=== PATIENT | female | born 1985 | race Caucasian/White ===

== ENCOUNTER 2022-10-07 09:24 | Outpatient (OUT) | payer MEDICAID, SELFPAY ==
--- NOTE | 2022-10-07 09:38 | XR_ITS ---
The [place] [id number] Patient Name: CATIE LYONS MRN: [id number] date: 1985 Sex: F Assigned Patient Location: US Current Patient Location: US Accession/Order Number: [id number] Exam Date: 10/07/2022 10:07 Report Date: 10/07/2022 12:04 At the request of: BETITO TITUS Procedure: XR abdomen 1V EXAMINATION: XR abdomen 1V HISTORY: Ureteral Stone With Hydronephrosis N13.2, Kidney Stone N20.0 COMPARISON: No relevant comparison available. FINDINGS: KIDNEY/URETER - RIGHT: Punctate calcifications KIDNEY/URETER - LEFT: Punctate calcifications PELVIS: 4 mm left pelvic calcification, indeterminate BOWEL: No abnormal dilation or deviation. BONES: No acute abnormality. OTHER: Limited exam, the upper abdomen is not visualized XR/XR abdomen 1V IMPRESSION: Punctate bilateral nephrolithiasis Electronically authenticated by: ROB CHACON Date: 10/07/2022 12:04
--- NOTE | 2022-10-07 09:38 | US_ITS ---
The [address] [address] Patient Name: CATIE LYONS MRN: [id number] date: 1985 Sex: F Assigned Patient Location: Current Patient Location: US Accession/Order Number: [id number] Exam Date: 10/07/2022 09:40 Report Date: 10/07/2022 10:41 At the request of: BETITO TITUS Procedure: US renal BI Ultrasound kidneys, bilateral HISTORY: Ureteral Stone With Hydronephrosis N13.2, Kidney Stone N20.0 COMPARISON: None. TECHNIQUE: Transabdominal ultrasound imaging of both kidneys was performed. FINDINGS: Both kidneys demonstrate normal echotexture and echogenicity. The right kidney measures 9.8 x 5.3 x 5.4 cm. Renal cortex measures 0.8 cm. There is a lower pole cyst measuring 1.7 x 1.5 x 1.6 cm. An echogenic structure at the upper pole measuring 4 x 4 by 4 mm with twinkle artifact compatible with a small nonobstructing stone. There is no hydronephrosis of right kidney. The left kidney measures 10.7 x 4.9 x 5.9 cm. Renal cortex measures 1.0 cm. No hydronephrosis of left kidney. There are at least 3 small nonobstructing stones in the left kidney, largest measuring 5 mm. The bladder is incompletely distended and not well evaluated. Prevoid volume is 47 cc. US/US renal BI IMPRESSION: 1. Negative for hydronephrosis. Small nonobstructing bilateral nephrolithiasis, largest stone 5 mm in left kidney. 2. 1.7 cm right renal cyst. Electronically authenticated by: SIMÓN ROBERTS Date: 10/07/2022 10:41
== END 2022-10-07 09:25 | disposition home or self-care (01) ==
LOC: US 09:24
PROVIDERS: Visit Provider Urology
DX: N13.2 Hydronephrosis with renal and ureteral calculous obstruction (principal); N28.1 Cyst of kidney, acquired
CPT/HCPCS: 74018; 76775

== ENCOUNTER 2023-03-06 11:30 | Emergency (ER) | payer MEDICAID, SELFPAY ==
[2023-03-06] VITALS (14 sets, daily range): BP systolic 102–136; BP diastolic 71–88; PULSE 92–130; RESP 12–23; TEMP 36.6; O2SAT 93–98; BMI 36.5
--- NOTE | 2023-03-06 11:45 | ECG_ITS ---
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
--- NOTE | 2023-03-06 11:46 | XR_ITS ---
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 CLINICAL INDICATION: 37 years Female tachycardia, shortness of breath FINDINGS: The lower aspect of the exam is somewhat underpenetrated on this portable upright view. The cardiomediastinal silhouette and pulmonary vasculature are within normal limits. The lungs are clear. There is no evidence of pleural effusion or pneumothorax. XR/XR chest 1V IMPRESSION: Chest radiograph is within normal limits. Slightly Limited portable AP upright chest radiograph. Electronically authenticated by: MILES ISRAEL Date: 03/06/2023 12:31
--- NOTE | 2023-03-06 11:49 | ED.GENADUL1 ---
HPI - General Adult General Chief complaint: Shortness of Breath/Dyspnea Stated complaint: SHORTNESS OF BREATH Time Seen by Provider: 03/06/23 11:38 Source: patient Mode of arrival: walk-in History of Present Illness HPI narrative: Last night patient experienced palpitations - racing heart - and twice felt like she was going to pass out. She admits to continued sensation of palpitations on arrival to our ED. She also complains of shortness of breath - both at rest and with exertion - and complained that her speech seemed slurred today . No fever or chills. No vomiting or diarrhea. No abdominal pain or urinary symptoms. Related Data Home Medications Medication Instructions Recorded Confirmed benztropine 0.5 mg tablet 0.5 mg PO BID 03/06/23 03/06/23 buprenorphine 8 mg-naloxone 2 mg 1 film sublingual .2 times week 03/06/23 03/06/23 sublingual film buspirone 30 mg tablet 30 mg PO TID 03/06/23 03/06/23 Allergies Allergy/AdvReac Type Severity Reaction Status Date / Time No Known Drug Allergies Allergy Verified 03/06/23 11:39 [facility] Medical History (Updated 03/06/23 @ 12:48 by Steve Pritchard) Anxiety ?F41.9 - Anxiety disorder, unspecified (ICD-10) Kidney stones ?N20.0 - Calculus of kidney (ICD-10) Exam Narrative Exam Narrative: Nurses notes and vital signs reviewed and patient is not hypoxic. afebrile General: anxious but in no apparent distress. Skin: Warm, dry, no pallor noted. No rash. Head: Normocephalic, atraumatic. Neck: Supple, non-tender. No lymphadenopathy Eye: Pupils are equal, round and EOMI. No scleral icterus. Ears, Nose, Mouth, and Throat: Oral mucosa is moist Cardiovascular: Tachycardia. Respiratory: No accessory muscle use or respiratory distress. Lungs are clear to auscultation, no wheezing, rales or rhonchi Musculoskeletal: normal ROM, no calf or popliteal tenderness, no lower extremity edema/swelling GI: Abdomen is soft, non-distended. Normal bowel sounds. No tenderness to palpation. No rebound, guarding, or rigidity noted. Neurological: A&O x4. No cranial nerve dysfunction observed. No truncal ataxia. Moves all extremities. Sensation intact. Psychiatric: Cooperative and interactive. Normal mood and affect. Constitutional Vital Signs, click to edit/add: Last Vital Signs Temp 97.9 F 03/06/23 11:36 Pulse 96 H 03/06/23 12:36 Resp 15 03/06/23 12:26 BP 102/71 03/06/23 12:36 Pulse Ox 97 03/06/23 11:40 O2 Del Method Room Air 03/06/23 11:36 Course Vital Signs Vital signs: Vital Signs Temperature 97.9 F 03/06/23 11:36 Pulse Rate 130 H 03/06/23 11:36 Respiratory Rate 22 03/06/23 11:36 Blood Pressure 136/88 03/06/23 11:36 Pulse Oximetry 98 03/06/23 11:36 Oxygen Delivery Method Room Air 03/06/23 11:36 Temperature 97.9 F 03/06/23 11:36 Pulse Rate 96 H 03/06/23 12:36 Respiratory Rate 15 03/06/23 12:26 Blood Pressure 102/71 03/06/23 12:36 Pulse Oximetry 97 03/06/23 11:40 Oxygen Delivery Method Room Air 03/06/23 11:36 Medical Decision Making MDM Narrative Medical decision making narrative: Patient was placed on court recording monitor and EKG obtained. Blood drawn and sent for evaluation. Chest x-ray was obtained. Blood tests were normal with the exception of slightly reduced potassium of 3.3. She was given oral potassium in the emergency department for discharge. She was given reassurance and discharged home with recommendation to continue take her medications as prescribed and see her primary care physician for follow-up. Lab Data Lab results reviewed: Yes I reviewed the patient's lab results Labs: Lab Results 03/06/23 Range/Units 12:02 WBC 7.8 (4.0-11.0) 10^3/uL RBC 4.49 (4.20-5.40) 10^6/uL Hgb 13.1 (12.0-16.0) g/dL Hct 39.6 (36.0-48.0) % MCV 88.2 (81.0-99.0) fL MCH 29.2 (26.7-34.0) pg MCHC 33.1 (29.9-35.2) g/dL RDW 13.8 (11.0-15.0) % Plt Count 266 (150-450) 10^3/uL MPV 8.7 L (9.5-13.5) fL Neut % (Auto) 53.3 (43.0-75.0) % Lymph % (Auto) 35.3 (20.5-60.0) % [place] % (Auto) 7.5 (1.7-12.0) % Eos % (Auto) 3.0 (0.9-7.0) % Baso % (Auto) 0.6 (0.2-2.0) % Neut # (Auto) 4.1 (1.4-6.5) 10^3/uL Lymph # (Auto) 2.7 (1.2-3.8) 10^3/uL [place] # (Auto) 0.6 (0.3-0.8) 10^3/uL Eos # (Auto) 0.2 (0.0-0.7) 10^3/uL Baso # (Auto) 0.1 (0.0-0.1) 10^3/uL Abs Immat Gran (auto) 0.02 (0.00-0.03) 10^3/uL Imm/Tot Granulo (auto) 0.3 (0.0-0.5) % D-Dimer 0.36 (<=0.59) mg/L FEU Sodium 136 (136-145) mmol/L Potassium 3.3 L (3.5-5.1) mmol/L Chloride 101 (98-107) mmol/L Carbon Dioxide 26.7 (21.0-32.0) mmol/L Anion Gap 11.6 BUN 12.0 (7.0-18.0) mg/dL Creatinine 0.75 (0.55-1.02) mg/dL Est GFR ( Amer) >60 (>=60) Est GFR (Non-Af Amer) >60 (>=60) BUN/Creatinine Ratio 16.0 Glucose 115 H (74-106) mg/dL Lactate 1.5 (0.4-2.0) mmol/L Calcium 9.2 (8.5-10.1) mg/dL Magnesium 2.1 (1.8-2.4) mg/dL Total Bilirubin 0.1 L (0.2-1.0) mg/dL AST 13 L (15-37) U/L ALT 25 (14-59) U/L Alkaline Phosphatase 114 (46-116) U/L Troponin I High Sens <4.0 L (4.0-51.3) pg/mL Total Protein 7.7 (6.4-8.2) g/dL Albumin 3.5 (3.4-5.0) g/dL Globulin 4.2 g/dL Albumin/Globulin Ratio 0.8 TSH 1.201 (0.358-3.740) uIU/mL Imaging Data Chest x-ray: Radiologist's impression: Patient Name: CATIE LYONS MRN: [id number] date: 1985 Sex: F Assigned Patient Location: ER Current Patient Location: ER Accession/Order Number: [id number] Exam Date: 03/06/2023 12:10 Report Date: 03/06/2023 12:31 At the request of: STEVE PRITCHARD Procedure: XR chest 1V PROCEDURE: XR chest 1V DATE: 03/06/2023 11:10 AM 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 CLINICAL INDICATION: 37 years Female tachycardia, shortness of breath FINDINGS: The lower aspect of the exam is somewhat underpenetrated on this portable upright view. The cardiomediastinal silhouette and pulmonary vasculature are within normal limits. The lungs are clear. There is no evidence of pleural effusion or pneumothorax. IMPRESSION: Chest radiograph is within normal limits. Slightly Limited portable AP upright chest radiograph. Electronically authenticated by: MILES ISRAEL Date: 03/06/2023 12:31 ECG Data Attestation: I personally reviewed and interpreted this ECG as follows: Interpretation: EKG interpretation: Emergency Department physician interpretation. Sinus tachycardia at 117bpm. Normal axis, short QTc intervals and non-specific T wave changes. no ST segment elevation or depression. Discharge Plan Discharge Chief Complaint: Shortness of Breath/Dyspnea Clinical Impression: Tachycardia, Acute hypokalemia Patient Disposition: Home, Self-Care Time of Disposition Decision: 12:48 Prescriptions / Home Meds: No Action benztropine 0.5 mg tablet 0.5 mg PO BID buprenorphine-naloxone 8-2 mg film 1 film sublingual .2 times week buspirone 30 mg tablet 30 mg PO TID Instructions: Hypokalemia (ED), Tachycardia (ED) Stand Alone Forms: Portal Instructions Referrals: Physician,Non-Staff, MD [Primary Care Provider] - 1 week
[2023-03-06 12:17] LABS: Basophils Absolute Auto 0.1 10^3/uL (0.0-0.1); Basophils Percent Auto 0.6 % (0.2-2.0); Eosinophils Absolute Auto 0.2 10^3/uL (0.0-0.7); Hematocrit 39.6 % (36.0-48.0); Hemoglobin 13.1 g/dL (12.0-16.0); Immature Granulocytes Abs Auto 0.02 10^3/uL (0.00-0.03); Immature Granulocytes Pct Auto 0.3 % (0.0-0.5); Lymphocytes Absolute Auto 2.7 10^3/uL (1.2-3.8); Lymphocytes Percent Auto 35.3 % (20.5-60.0); Mean Corpuscular HGB Conc 33.1 g/dL (29.9-35.2); Mean Corpuscular Hemoglobin 29.2 pg (26.7-34.0); Mean Corpuscular Volume 88.2 fL (81.0-99.0); Mean Platelet Volume 8.7 fL (9.5-13.5); Monocytes Absolute Auto 0.6 10^3/uL (0.3-0.8); Monocytes Percent Auto 7.5 % (1.7-12.0); Neutrophils Absolute Auto 4.1 10^3/uL (1.4-6.5); Neutrophils Percent Auto 53.3 % (43.0-75.0); Platelet Count 266 10^3/uL (150-450); Red Blood Count 4.49 10^6/uL (4.20-5.40); Red Cell Distribution Width 13.8 % (11.0-15.0); White Blood Count 7.8 10^3/uL (4.0-11.0)
[2023-03-06 12:28] LABS: D Dimer 0.36 mg/L FEU (<=0.59)
[2023-03-06 12:30] LABS: Alanine Aminotransferase 25 U/L (14-59); Albumin Globulin Ratio 0.8; Albumin Level 3.5 g/dL (3.4-5.0); Alkaline Phosphatase 114 U/L (46-116); Anion Gap 11.6; Aspartate Amino Transferase 13 U/L (15-37); Bilirubin Total 0.1 mg/dL (0.2-1.0); Calcium 9.2 mg/dL (8.5-10.1); Carbon Dioxide 26.7 mmol/L (21.0-32.0); Chloride 101 mmol/L (98-107); Estimated GFR (African America >60 (>=60); Estimated GFR (Non-African Ame >60 (>=60); Globulin 4.2 g/dL; Glucose 115 mg/dL (74-106); Magnesium 2.1 mg/dL (1.8-2.4); Potassium 3.3 mmol/L (3.5-5.1); Sodium 136 mmol/L (136-145); Total Protein 7.7 g/dL (6.4-8.2)
[2023-03-06 12:35] LABS: Lactate/Lactic Acid 1.5 mmol/L (0.4-2.0)
[2023-03-06 12:38] LABS: Thyroid Stimulating Hormone 1.201 uIU/mL (0.358-3.740); Troponin I High Sensitivity <4.0 pg/mL (4.0-51.3)
[2023-03-06] MEDS: POTASSIUM CHLORIDE 10 MEQ ER TABLET 40 MEQ PO (13:16)
[2023-03-06] MEDS: POTASSIUM CHLORIDE 10 MEQ ER TABLET PO (13:25)
== END 2023-03-06 13:28 | disposition home or self-care (01) ==
PROVIDERS: Emergency Provider Emergency Medicine
DX: E87.6 Hypokalemia (principal); R00.0 Tachycardia, unspecified; Z79.899 Other long term (current) drug therapy; F41.9 Anxiety disorder, unspecified; Z87.442 Personal history of urinary calculi
CPT/HCPCS: 36415; 71045; 80053; 83605; 83735; 84443; 84484; 85025; 85378; 87040; 93005; 99285

== ENCOUNTER 2023-10-11 12:07 | Outpatient (OUT) | payer MEDICAID, SELFPAY ==
[2023-10-11 12:36] LABS: Basophils Percent Auto 0.5 % (0.2-2.0); Eosinophils Absolute Auto 0.2 10^3/uL (0.0-0.7); Eosinophils Percent Auto 1.7 % (0.9-7.0); Hematocrit 43.5 % (36.0-48.0); Hemoglobin 14.9 g/dL (12.0-16.0); Immature Granulocytes Abs Auto 0.03 10^3/uL (0.00-0.03); Immature Granulocytes Pct Auto 0.3 % (0.0-0.5); Lymphocytes Absolute Auto 3.6 10^3/uL (1.2-3.8); Lymphocytes Percent Auto 40.5 % (20.5-60.0); Mean Corpuscular HGB Conc 34.3 g/dL (29.9-35.2); Mean Corpuscular Hemoglobin 30.3 pg (26.7-34.0); Mean Corpuscular Volume 88.4 fL (81.0-99.0); Mean Platelet Volume 8.7 fL (9.5-13.5); Monocytes Absolute Auto 0.5 10^3/uL (0.3-0.8); Neutrophils Absolute Auto 4.5 10^3/uL (1.4-6.5); Platelet Count 291 10^3/uL (150-450); Red Blood Count 4.92 10^6/uL (4.20-5.40); Red Cell Distribution Width 12.9 % (11.0-15.0); White Blood Count 8.9 10^3/uL (4.0-11.0)
[2023-10-11 12:58] LABS: Estimated Average Glucose 103 mg/dL; Glycohemoglobin A1C 5.2 % (4.5-6.2)
[2023-10-11 13:24] LABS: Alanine Aminotransferase 33 U/L (14-59); Albumin Level 3.7 g/dL (3.4-5.0); Alkaline Phosphatase 133 U/L (46-116); Anion Gap 8.6; Aspartate Amino Transferase 18 U/L (15-37); BUN Creatinine Ratio 15.8; Bilirubin Total 0.3 mg/dL (0.2-1.0); Calcium 9.2 mg/dL (8.5-10.1); Carbon Dioxide 30.9 mmol/L (21.0-32.0); Chloride 99 mmol/L (98-107); Chol HDL Ratio 6.3; Cholesterol 278 mg/dL (<=200); Estimated GFR (African America >60 (>=60); Estimated GFR (Non-African Ame >60 (>=60); Free T3 2.26 pg/mL (2.18-3.98); Globulin 3.8 g/dL; Glucose 90 mg/dL (74-106); HDL Cholesterol 44 mg/dL (40-60); Potassium 3.5 mmol/L (3.5-5.1); Sodium 135 mmol/L (136-145); Thyroid Stimulating Hormone 2.902 uIU/mL (0.358-3.740); Total Protein 7.5 g/dL (6.4-8.2); Triglycerides 308 mg/dL (<=150); VLDL CHOLESTEROL 61.6 mg/dL
[2023-10-12 10:13] LABS: Insulin 17.4 uIU/mL (2.6-24.9)
== END 2023-10-11 12:08 | disposition home or self-care (01) ==
LOC: LAB 12:09
PROVIDERS: Visit Provider Nurse Practitioner Family
DX: R00.0 Tachycardia, unspecified (principal)
CPT/HCPCS: 36415; 80053; 80061; 82306; 83036; 83525; 84436; 84443; 84481; 85025

== ENCOUNTER 2023-11-18 08:43 | Outpatient (OUT) | payer MEDICAID, SELFPAY ==
[2023-11-18 09:29] LABS: Alanine Aminotransferase 39 U/L (14-59); Albumin Level 3.6 g/dL (3.4-5.0); Alkaline Phosphatase 126 U/L (46-116); Anion Gap 13.4; Aspartate Amino Transferase 40 U/L (15-37); BUN Creatinine Ratio 10.5; Bilirubin Total 0.2 mg/dL (0.2-1.0); Calcium 9.5 mg/dL (8.5-10.1); Carbon Dioxide 27.8 mmol/L (21.0-32.0); Chloride 102 mmol/L (98-107); Cholesterol 225 mg/dL (<=200); Estimated GFR (African America >60 (>=60); Estimated GFR (Non-African Ame >60 (>=60); Globulin 3.6 g/dL; Glucose 106 mg/dL (74-106); HDL Cholesterol 45 mg/dL (40-60); Potassium 4.2 mmol/L (3.5-5.1); Sodium 139 mmol/L (136-145); Thyroid Stimulating Hormone 1.393 uIU/mL (0.358-3.740); Total Protein 7.2 g/dL (6.4-8.2); Triglycerides 240 mg/dL (<=150)
== END 2023-11-18 08:44 | disposition home or self-care (01) ==
LOC: LAB 08:43
PROVIDERS: PCP Nurse Practitioner Family; Visit Provider Nurse Practitioner Family
DX: R00.2 Palpitations (principal)
CPT/HCPCS: 36415; 80053; 80061; 84436; 84443; 84481

== ENCOUNTER 2023-11-30 12:21 | Outpatient (OUT) | payer MEDICAID, SELFPAY ==
--- NOTE | 2023-11-30 12:47 | XR_ITS ---
The [address] [address] Patient Name: CATIE LYONS MRN: [id number] date: 1985 Sex: F Assigned Patient Location: LAB Current Patient Location: Accession/Order Number: [id number] Exam Date: 11/30/2023 12:53 Report Date: 12/01/2023 10:28 At the request of: WALT SIMS Procedure: XR chest 2V EXAMINATION: XR chest 2V HISTORY: F17.2 Smoking COMPARISON: XR chest 03/06/2023 FINDINGS: LUNGS: Mild haziness within left lung base partially obscuring the lateral diaphragm margin and obscuring the left lateral costophrenic angle. VASCULATURE: No increased pulmonary vasculature. PLEURA: No pneumothorax, effusion, or pleural thickening. CARDIAC: No cardiomegaly or cardiac silhouette abnormality. MEDIASTINUM: No visible mass or adenopathy. BONES: No fracture or visible bone lesion. OTHER: Negative. XR/XR chest 2V IMPRESSION: 1. Low lung volume examination with mild left basilar infiltrates; < previously seen. Electronically authenticated by: HILDA RUBIO Date: 12/01/2023 10:28
[2023-11-30 13:26] LABS: C Reactive Protein 1.52 mg/dL (<=0.50); Uric Acid 4.1 mg/dL (2.6-6.0)
[2023-12-01 04:08] LABS: Antistreptolysin O Ab 93.2 IU/mL (0.0-200.0); Rheumatoid Factor (RF) <10.0 IU/mL (<14.0)
== END 2023-11-30 12:22 | disposition home or self-care (01) ==
LOC: LAB 12:25
PROVIDERS: PCP Nurse Practitioner Family; Visit Provider Nurse Practitioner Family
DX: F17.200 Nicotine dependence, unspecified, uncomplicated (principal); M25.50 Pain in unspecified joint
CPT/HCPCS: 36415; 71046; 84550; 86038; 86060; 86140; 86431

== ENCOUNTER 2023-12-14 14:14 | Outpatient (OUT) | payer MEDICAID, SELFPAY ==
--- NOTE | 2023-12-14 14:21 | XR_ITS ---
The [address] [address] Patient Name: CATIE LYONS MRN: [id number] date: 1985 Sex: F Assigned Patient Location: [facility] Current Patient Location: Accession/Order Number: [id number] Exam Date: 12/14/2023 14:25 Report Date: 12/16/2023 06:17 At the request of: WALT SIMS Procedure: XR knee LAYNE 2V EXAMINATION: XR tibia fibula LAYNE 2V, XR knee LAYNE 2V HISTORY: Bilateral Leg Pain and burning sensation COMPARISON: No relevant comparison available. FINDINGS: RIGHT FINDINGS: BONES: No significant arthropathy or acute abnormality. SOFT TISSUES: No visible soft tissue swelling. OTHER: Negative. LEFT FINDINGS: BONES: No significant arthropathy or acute abnormality. SOFT TISSUES: No visible soft tissue swelling. OTHER: Negative. XR/XR knee LAYNE 2V IMPRESSION: RIGHT CONCLUSION: No abnormal or suspicious findings to account for patient's symptoms. LEFT CONCLUSION: No abnormal or suspicious findings to account for patient's symptoms. Electronically authenticated by: HILDA RUBIO Date: 12/16/2023 06:17
--- NOTE | 2023-12-14 14:21 | XR_ITS ---
The [address] [address] Patient Name: CATIE LYONS MRN: [id number] date: 1985 Sex: F Assigned Patient Location: [facility] Current Patient Location: Accession/Order Number: [id number] Exam Date: 12/14/2023 14:25 Report Date: 12/16/2023 06:17 At the request of: WALT SIMS Procedure: XR tibia fibula LAYNE 2V EXAMINATION: XR tibia fibula LAYNE 2V, XR knee LAYNE 2V HISTORY: Bilateral Leg Pain and burning sensation COMPARISON: No relevant comparison available. FINDINGS: RIGHT FINDINGS: BONES: No significant arthropathy or acute abnormality. SOFT TISSUES: No visible soft tissue swelling. OTHER: Negative. LEFT FINDINGS: BONES: No significant arthropathy or acute abnormality. SOFT TISSUES: No visible soft tissue swelling. OTHER: Negative. XR/XR tibia fibula LAYNE 2V IMPRESSION: RIGHT CONCLUSION: No abnormal or suspicious findings to account for patient's symptoms. LEFT CONCLUSION: No abnormal or suspicious findings to account for patient's symptoms. Electronically authenticated by: HILDA RUBIO Date: 12/16/2023 06:17
== END 2023-12-14 14:15 | disposition home or self-care (01) ==
LOC: RAD 14:17
PROVIDERS: PCP Nurse Practitioner Family; Visit Provider Nurse Practitioner Family
DX: M79.604 Pain in right leg (principal); M79.605 Pain in left leg
CPT/HCPCS: 73560; 73590

== ENCOUNTER 2023-12-17 11:08 | Emergency (ER) | payer MEDICAID, SELFPAY ==
[2023-12-17 11:12] VITALS: BP 139/87; PULSE 125; O2SAT 95; BMI 35.2
--- NOTE | 2023-12-17 11:25 | ECG_ITS ---
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
--- NOTE | 2023-12-17 11:25 | XR_ITS ---
The [address] [address] Patient Name: CATIE LYONS MRN: [id number] date: 1985 Sex: F Assigned Patient Location: ER Current Patient Location: ED.MAIN Accession/Order Number: [id number] Exam Date: 12/17/2023 11:35 Report Date: 12/17/2023 11:48 At the request of: YODIT ANDREA Procedure: XR chest 1V EXAM: CHEST 1 VIEW HISTORY: Peripheral edema TECHNIQUE: Chest, one view. COMPARISON: 03/06/2023 FINDINGS: Mild bibasilar atelectasis with trace bilateral pleural effusions. No consolidation or pneumothorax. Pulmonary vasculature is within normal limits. Cardiomediastinal silhouette is normal. XR/XR chest 1V IMPRESSION: 1. Expiratory chest with tiny bilateral effusions. No consolidation. No findings of pulmonary edema. Electronically authenticated by: SIMÓN ROBERTS Date: 12/17/2023 11:48
--- NOTE | 2023-12-17 11:25 | ED.GENADUL1 ---
HPI HPI - General Adult General Chief complaint: Chest Pain Stated complaint: BILTERAL LEG SWELLING/ CHEST PAIN Time Seen by Provider: 12/17/23 11:21 Source: patient Mode of arrival: walk-in Limitations: no limitations History of Present Illness HPI narrative: 38-year-old female presents for swelling in her feet and ankles and lower legs that started yesterday. She states sometimes she is short of breath but not now. She is never had swelling like this before. No fever or cough. She does not complain of back pain or abdominal pain. The swelling is continuous. Related Data Home Medications ?Medication ?Instructions ?Recorded ?Confirmed buprenorphine 8 mg-naloxone 2 mg 1 film sublingual .2 times week 03/06/23 12/17/23 sublingual film buspirone 30 mg tablet 30 mg PO TID 03/06/23 12/17/23 Previous Rx's ?Medication ?Instructions ?Recorded furosemide 20 mg tablet (Lasix) 20 mg PO DAILY #7 tabs 12/17/23 Allergies Allergy/AdvReac Type Severity Reaction Status Date / Time No Known Drug Allergies Allergy Verified 03/06/23 11:39 Opioid HPI Opioid Management Most Recent Opioid Data: Last Pain Scale 8 12/17/23 11:27 Review of Systems ROS Narrative A ten point review of systems is negative except as noted above. [facility] Medical History (Updated 12/17/23 @ 13:51 by Mathew Rosenthal MD) Anxiety ?F41.9 - Anxiety disorder, unspecified (ICD-10) Kidney stones ?N20.0 - Calculus of kidney (ICD-10) Social History Little interest or pleasure in doing things: not at all Feeling down, depressed, or hopeless: not at all Exam Narrative Exam Narrative: Nurses note and vital signs reviewed and patient is not hypoxic. General: The patient appears in no apparent distress. Patient is resting comfortably on cart. She is speaking in full sentences. She does not appear dyspneic. Skin: Warm, dry, no pallor noted. There is no rash noted. Head: Normocephalic, atraumatic Eye: Normal conjunctiva, no drainage Ears, Nose, Mouth, and Throat: oral mucosa is moist. Nares patent. Cardiovascular: Regular Rate and Rhythm Respiratory: Patient is in no distress, no accessory muscle use, lungs are clear to auscultation, no wheezing, rales or rhonchi Back: non-tender GI: Soft and nontender Musculoskeletal: Symmetric bilateral edema present in her feet ankles and lower legs Neurological: Awake and alert Psychiatric: Cooperative Constitutional Vital Signs, click to edit/add: Last Vital Signs Pulse 125 H 12/17/23 11:12 Resp 18 12/17/23 13:52 BP 139/87 12/17/23 11:12 Pulse Ox 98 12/17/23 13:52 O2 Del Method Room Air 12/17/23 13:52 Course Vital Signs Vital signs: Vital Signs Pulse Rate 125 H 12/17/23 11:12 Respiratory Rate 18 12/17/23 11:12 Blood Pressure 139/87 12/17/23 11:12 Pulse Oximetry 95 12/17/23 11:12 Oxygen Delivery Method Room Air 12/17/23 11:12 Pulse Rate 125 H 12/17/23 11:12 Respiratory Rate 18 12/17/23 13:52 Blood Pressure 139/87 12/17/23 11:12 Pulse Oximetry 98 12/17/23 13:52 Oxygen Delivery Method Room Air 12/17/23 13:52 Medical Decision Making MDM Narrative Medical decision making narrative: The patient presents with peripheral edema and a negative workup. She is placed on a short course of Lasix and she will follow-up promptly with her PCP to elevate her legs. Treatment diagnosis and follow-up were discussed with the patient. Differential Diagnosis Differential Diagnosis: Peripheral edema, acute kidney injury, heart failure, hypoalbuminemia Lab Data Lab results reviewed: Yes I reviewed the patient's lab results Labs: Lab Results 12/17/23 12/17/23 Range/Units 11:25 12:45 WBC 9.3 (4.0-11.0) 10^3/uL RBC 4.81 (4.20-5.40) 10^6/uL Hgb 14.4 (12.0-16.0) g/dL Hct 42.9 (36.0-48.0) % MCV 89.2 (81.0-99.0) fL MCH 29.9 (26.7-34.0) pg MCHC 33.6 (29.9-35.2) g/dL RDW 13.5 (11.0-15.0) % Plt Count 243 (150-450) 10^3/uL MPV 8.8 L (9.5-13.5) fL Neut % (Auto) 59.6 (43.0-75.0) % Lymph % (Auto) 32.0 (20.5-60.0) % [place] % (Auto) 6.3 (1.7-12.0) % Eos % (Auto) 1.5 (0.9-7.0) % Baso % (Auto) 0.3 (0.2-2.0) % Neut # (Auto) 5.5 (1.4-6.5) 10^3/uL Lymph # (Auto) 3.0 (1.2-3.8) 10^3/uL [place] # (Auto) 0.6 (0.3-0.8) 10^3/uL Eos # (Auto) 0.1 (0.0-0.7) 10^3/uL Baso # (Auto) 0.0 (0.0-0.1) 10^3/uL Abs Immat Gran (auto) 0.03 (0.00-0.03) 10^3/uL Imm/Tot Granulo (auto) 0.3 (0.0-0.5) % Sodium 137 (136-145) mmol/L Potassium 3.7 (3.5-5.1) mmol/L Chloride 101 (98-107) mmol/L Carbon Dioxide 27.4 (21.0-32.0) mmol/L Anion Gap 12.3 BUN 8.0 (7.0-18.0) mg/dL Creatinine 0.73 (0.55-1.02) mg/dL Est GFR ( Amer) >60 (>=60) Est GFR (Non-Af Amer) >60 (>=60) BUN/Creatinine Ratio 11.0 Glucose 121 H (74-106) mg/dL Calcium 9.4 (8.5-10.1) mg/dL Total Bilirubin 0.2 (0.2-1.0) mg/dL Direct Bilirubin <0.1 (0.0-0.2) mg/dL AST 22 (15-37) U/L ALT 35 (14-59) U/L Alkaline Phosphatase 117 H (46-116) U/L Total Protein 7.2 (6.4-8.2) g/dL Albumin 3.5 (3.4-5.0) g/dL Globulin 3.7 g/dL Albumin/Globulin Ratio 0.9 Urine Color Yellow (YELLOW) Urine Clarity Clear (CLEAR) Urine pH 6.0 (5.0-9.0) Ur Specific [place] >=1.030 A (1.005-1.025) Urine Protein Negative (NEG/TRACE) mg/dL Urine Glucose (UA) Negative (NEGATIVE) mg/dL Urine Ketones Negative (NEGATIVE) mg/dL Urine Occult Blood Negative (NEGATIVE) Urine Nitrite Negative (NEGATIVE) Urine Bilirubin Negative (NEGATIVE) Urine Urobilinogen 0.2 (0.2-1.0) EU/dL Ur Leukocyte Esterase Negative (NEGATIVE) Urine RBC None seen (0-2) #/HPF Urine WBC 0-2 A (NONE SEEN) #/HPF Ur Squamous Epith Cells Many A (NONE/RARE) #/LPF Urine Bacteria Moderate A (NONE SEEN) #/HPF Urine Mucus None seen (NONE SEEN) Ur Culture Indicated? No Imaging Data Chest x-ray: Radiologist's impression: ITS Impressions Chest X-Ray 12/17/23 11:25 IMPRESSION: 1. Expiratory chest with tiny bilateral effusions. No consolidation. No findings of pulmonary edema. Electronically authenticated by: SIMÓN ROBERTS Date: 12/17/2023 11:48 ECG Data Attestation: I personally reviewed and interpreted this ECG as follows: (EKG on my interpretation shows sinus rhythm with a rate of 119.) Discharge Plan Discharge Chief Complaint: Chest Pain Clinical Impression: Peripheral edema Patient Disposition: Home, Self-Care Time of Disposition Decision: 13:51 Condition: Good Mode of Transportation: Private Vehicle Prescriptions / Home Meds: New furosemide [Lasix] 20 mg tablet 20 mg PO DAILY Qty: 7 0RF No Action buprenorphine-naloxone 8-2 mg film 1 film sublingual .2 times week buspirone 30 mg tablet 30 mg PO TID Print Language: Mohawk Instructions: Leg Edema (ED) Referrals: WALT SIMS [Primary Care Provider] - 1 week
[2023-12-17 11:32] LABS: Basophils Percent Auto 0.3 % (0.2-2.0); Eosinophils Absolute Auto 0.1 10^3/uL (0.0-0.7); Eosinophils Percent Auto 1.5 % (0.9-7.0); Hematocrit 42.9 % (36.0-48.0); Hemoglobin 14.4 g/dL (12.0-16.0); Immature Granulocytes Abs Auto 0.03 10^3/uL (0.00-0.03); Immature Granulocytes Pct Auto 0.3 % (0.0-0.5); Mean Corpuscular HGB Conc 33.6 g/dL (29.9-35.2); Mean Corpuscular Hemoglobin 29.9 pg (26.7-34.0); Mean Corpuscular Volume 89.2 fL (81.0-99.0); Mean Platelet Volume 8.8 fL (9.5-13.5); Monocytes Absolute Auto 0.6 10^3/uL (0.3-0.8); Monocytes Percent Auto 6.3 % (1.7-12.0); Neutrophils Absolute Auto 5.5 10^3/uL (1.4-6.5); Neutrophils Percent Auto 59.6 % (43.0-75.0); Platelet Count 243 10^3/uL (150-450); Red Blood Count 4.81 10^6/uL (4.20-5.40); Red Cell Distribution Width 13.5 % (11.0-15.0); White Blood Count 9.3 10^3/uL (4.0-11.0)
[2023-12-17 11:45] LABS: Alanine Aminotransferase 35 U/L (14-59); Albumin Globulin Ratio 0.9; Albumin Level 3.5 g/dL (3.4-5.0); Alkaline Phosphatase 117 U/L (46-116); Anion Gap 12.3; Aspartate Amino Transferase 22 U/L (15-37); Bilirubin Direct <0.1 mg/dL (0.0-0.2); Bilirubin Total 0.2 mg/dL (0.2-1.0); Calcium 9.4 mg/dL (8.5-10.1); Carbon Dioxide 27.4 mmol/L (21.0-32.0); Chloride 101 mmol/L (98-107); Estimated GFR (African America >60 (>=60); Estimated GFR (Non-African Ame >60 (>=60); Globulin 3.7 g/dL; Glucose 121 mg/dL (74-106); Potassium 3.7 mmol/L (3.5-5.1); Sodium 137 mmol/L (136-145); Total Protein 7.2 g/dL (6.4-8.2)
[2023-12-17 13:32] LABS: Bilirubin Urine NEGATIVE (NEGATIVE); Blood Urine NEGATIVE (NEGATIVE); Clarity Urine CLEAR (CLEAR); Color Urine YELLOW (YELLOW); Glucose Urine UA NEGATIVE (NEGATIVE); Ketones Urine NEGATIVE (NEGATIVE); Leukocyte Esterase Urine NEGATIVE (NEGATIVE); Nitrite Urine NEGATIVE (NEGATIVE); Protein Urine NEGATIVE (NEG/TRACE); Specific Gravity Urine >=1.030 (1.005-1.025); Urobilinogen Urine 0.2 EU/dL (0.2-1.0)
[2023-12-17 13:43] LABS: Bacteria Urine MODERATE #/HPF (NONE SEEN); RBC Urine NONE SEEN #/HPF (0-2); WBC Urine 0-2 #/HPF (NONE SEEN)
[2023-12-17 13:44] LABS: Mucus Urine NONE SEEN (NONE SEEN); Squamous Epithelial Cell Urine MANY #/LPF (NONE/RARE)
[2023-12-17 13:46] LABS: Urine Culture Indicated NO
[2023-12-17 13:52] VITALS: O2SAT 98
== END 2023-12-17 13:57 | disposition home or self-care (01) ==
PROVIDERS: Emergency Provider Emergency Medicine; PCP Nurse Practitioner Family
DX: R60.9 Edema, unspecified (principal)
CPT/HCPCS: 36415; 71045; 80048; 80076; 81001; 85025; 93005; 99285

== ENCOUNTER 2024-02-19 14:49 | Emergency (ER) | payer MEDICAID, SELFPAY ==
[2024-02-19 14:52] VITALS: BP 148/79; PULSE 99; TEMP 36.7; O2SAT 96; BMI 35.0
--- OUTSIDE RECORDS SUMMARY | 2024-02-19 14:55 | XMS_ITS | CCD ---
Author Organization [facility] Care Team Providers Care Proposal Development Manager Name Role Phone PHYSICIAN, DEFAULT Admitting Unavailable PHYSICIAN, DEFAULT Attending Unavailable SELF, REFERRED Primary Care Unavailable Lilia Bowden Unavailable Nery Coppola Unavailable Ernestine Little Unavailable NONE, XXXX Primary Care Physician Unavailab le PAY ., DR MONIQUE Attending Unavailable PAY ., DR MONIQUE Consulting Unavailable PAY ., DR MONIQUE Admitting Unavailable REQUEST, NONE LISTED Primary Care Unavaila ble PAY ., DR MONIQUE Consulting Unavailable PAY ., DR MONIQUE Admitting Unavailable REQUEST, NONE LISTED Primary Care Unavaila ble PAY ., DR MONIQUE Attending Unavailable MAL TOSCANO Consulting Unavailable JEREMIAH .LIUDMILA Admitting Unavailable REQUEST, NONE LISTED Primary Care Unavaila ble LUE ., LIUDMILA Herrera Attending Unavailable LUE ., LIUDMILA Herrera Consulting Unavailable LUE ., LIUDMILA M Admitting Unavailable REQUEST, NONE LISTED Primary Care Unavaila ble LUE ., LIUDMILA Herrera Attending Unavailable BROOKE MCMILLAN Consulting Unavailable MADELEINE RENAE Consulting Unavailable REQUEST, NONE LISTED Primary Care Unavaila ble FELICIAEBSHAJI, DR HILDA Leigh Consulting Unavailable VINNY AQUINO Attending Unavailable VINNY AQUINO Admitting Unavailable VINNY AQUINO Consulting Unavailable Liudmila Daniels MKendra Referring Unavailable LueLiudmila M. Admitting Unavailable LueLiudmila MKendra Attending Unavailable LueLiudmila Attending Unavailable LueLiudmila MKendra Attending Unavailable LueLiudmila Attending Unavailable LueLiudmila Attending Unavailable NO FAMILY, PHYSICIAN Primary Care Provider Unava ilable MD José Johnston Attending Provider José Johnston Attending Unavailab José Aviles Admitting Unavailab le NO FAMILY, PHYSICIAN Primary Care Unavailable Allergies Allergy Classification Reported Allergen(s) Allergy Type Date of Onset Reaction(s) Facility (1 source) 37412,00 Drug allergy (disorder) 0 [facility] Repository (1 source) No Known Medication Allergies; Translations: [No Known Medication Allergies] Propensity to adverse reactions (disorder) [facility] Repository Medications Current Medications Medication Drug Class(es) Dates Sig (Normalized) Sig (Original) adapalene (1 source) Retinoid Adapalene Active Albuterol (3 sources) beta2-Adrenergic Agonist Start: 01-12-2024 Albuterol Sulfate Active 2 INH INHALATION EVERY 4-6 HOURS 6.7 January 12, 2024 12:00am Start: 05-15-2023 End: 01-12-2024 take 1 puff(s) by inhalation every four hours Albuterol Sulfate Discontinued 2 PUFF INHALATION Q4H 1 May 15, 2023 1:00am January 12, 2024 4:36pm amoxicillin 875 mg oral tablet (1 source) Penicillin-class Antibacterial Start: 12-18-2021 take 1 tablet by mouth every eight hours Amoxicillin 875 MG 1 tablet Orally every 8 hrs for 10 day(s) Nov, Active amoxicillin 875 mg / clavulanate 125 mg oral tablet (1 source) Penicillin-class Antibacterial Start: 12-30-2020 take 1 tablet by mouth every twelve hours Amoxicillin-Pot Clavulanate 875-125 MG 1 tablet Orally every 12 hrs for 10 day(s) Dec, Active benztropine mesylate 0.5 mg oral tablet (4 sources) Anticholinergic, Antihistamine Start: 07-22-2022 take 1 tablet by mouth once daily at bedtime benztropine 0.5 mg oral tablet 0.5 mg = 1 tab(s), Oral, Once a day (at bedtime) Start Date: 07/22/22 Status: Ordered Buprenorphine (1 source) Partial Opioid Agonist Buprenorphine HCl Active Suboxone (7 sources) Partial Opioid Agonist, Opioid Antagonist Start: 07-22-2022 Suboxone SubLingual, Daily Start Date: 07/22/22 Status: Ordered Start: 05-09-2020 Buprenorphine- Naloxone Active 1 FILM SUBLINGUAL Daily May 09, 2020 1:00am pt states she takes at at 5:30AM Suboxone Active Buprenorphine HCl-Naloxone HCl (1 source) Buprenorphine HCl-Naloxone HCl Active busPIRone hydrochloride 30 mg oral tablet (9 sources) Start: 07-22-2022 take 1 tablet by mouth twice daily busPIRone 30 mg oral tablet 30 mg = 1 tab(s), Oral, BID Start Date: 07/22/22 Status: Ordered Start: 05-13-2020 take 7.5 mg by mouth twice marisabel ly Buspirone Active 7.5 MG PO Twice daily May 13, 2020 1:00am busPIRone HCl Ac tive chlorhexidine gluconate 1.2 mg/ml mouthwash (1 source) Start: 12-18-2021 take 10 mL by mouth twice daily Peridex 0.12 % gargle 10 ml Mouth/Throat twice daily Nov, Active ciprofloxacin 500 mg oral tablet (1 source) Quinolone Antimicrobial Start: 07-23-2022 End: 07-28-2022 take 1 tablet by mouth every twelve hours Cipro 500 mg Tab 500 mg = 1 tab(s), Oral, q12hr, X 5 day(s), # 10 tab(s), Refills(s) 0, [facility]: [facility][id number], 179, cm, 07/23/22 12:19:00 EDT, Height/Length Dosing, 106.3, kg, 07/23/22 12:19:00 EDT, Weight Dosing Start Date: 07/23/22 Stop Date: 07/28/22 Status: Ordered hydrOXYzine pamoate 50 mg oral capsule (8 sources) Antihistamine Start: 05-15-2023 take 50 mg by mouth three times daily Hydroxyzine Pamoate Active 50 MG PO Three times daily May 15, 2023 1:00am Start: 07-22-2022 take 1 capsule by mo [facility] three times daily Vistaril 50 mg Cap 50 mg = 1 cap(s), Oral, TID Start Date: 07/22/22 Status: Ordered Vistaril Active ibuprofen 800 mg oral tablet (3 sources) Nonsteroidal Anti-inflammatory Drug Start: 06-25-2022 take 1 tablet by mouth three times daily at mealtime as needed Ibuprofen 800 MG 1 tablet with food or milk as needed Orally Three times a day for 10 day(s) July, Active methylPREDNISolone 4 mg oral tablet (2 sources) Corticosteroid Start: 01-12-2024 take 1 tablet by mouth once Methylprednisolone (Medrol (Jeremías)) 4 mg tablets,dose pack Active 0 PO per package directions January 12, 2024 12:00am PO PER PKG DIR Start: 12-30-2020 Medrol (Jeremías) 4 MG as directed Orally for daily dose take half with breakfast half with dinner for 6 days Dec, Active naproxen sodium 550 mg oral tablet (1 source) Nonsteroidal Anti-inflammatory Drug Start: 12-18-2021 take 1 tablet by mouth every twelve hours at mealtime as needed Naproxen Sodium 550 MG 1 tablet with food or milk as needed Orally every 12 hrs for 7 days Nov, Active oxybutynin chloride 5 mg oral tablet (1 source) Cholinergic Muscarinic Antagonist Start: 07-23-2022 take 1 tablet by mouth three times daily as needed for muscle spasms oxybutynin 5 mg Tab 5 mg = 1 tab(s), Oral, TID, PRN Urinary discomfort, Bladder spasms, stent irritation, # 90 tab(s), Refills(s) 1, [facility]: [facility] #[id number], 179, cm, 07/23/22 12:19:00 EDT, Height/Length Dosing, 106.3, kg, 07/23/22 12:19:00 EDT, Weight Dosing Start Date: 07/23/22 Status: Ordered 24 hr paliperidone 9 mg extended release oral tablet (4 sources) Atypical Antipsychotic Start: 07-22-2022 take 1 tablet by mouth once daily in the morning Invega 9 mg Tab-ER 9 mg = 1 tab(s), Oral, qAM Start Date: 07/22/22 Status: Ordered Penicillin (1 source) Start: 08-19-2022 take 1 tablet by mouth four times daily Penicillin VK 500mg 500mg 1 tab(s) Oral 4 times a day for 10 days July, Active QUEtiapine 200 mg oral tablet (14 sources) Atypical Antipsychotic Start: 07-22-2022 take 1 tablet by mouth once daily SEROquel 200 mg Tab 200 mg, Oral, Daily Start Date: 07/22/22 Status: Ordered Start: 07-22-2022 take 400 mg by mouth once tracie y Seroquel 400 mg, Oral, Daily Start Date: 07/22/22 Status: Ordered Start: 05-12-2020 take 250 mg by mouth at bedtim e Quetiapine Active 250 MG PO Bedtime 75 15 May 12, 2020 1:00am Start: 05-09-2020 End: 05-12-2020 take 200 mg by mouth at bedtime Quetiapine Discontinue d 200 MG PO Bedtime May 09, 2020 1:00am May 12, 2020 12:22pm SEROquel Active tamsulosin hydrochloride 0.4 mg oral capsule (1 source) alpha-Adrenergic Sallie Start: 07-23-2022 take 1 capsule by mouth once daily as needed for pain tamsulosin 0.4 mg Cap 0.4 mg = 1 cap(s), Oral, Daily, PRN Urinary discomfort, Stent pain, # 30 cap(s), Refills(s) 1, [id number], 179, cm, 07/23/22 12:19:00 EDT, Height/Length Dosing, 106.3, kg, 07/23/22 12:19:00 EDT, Weight Dosing Start Date: 07/23/22 Status: Ordered vilazodone hydrochloride 20 mg oral tablet (9 sources) Start: 05-09-2020 take 1 tablet by mouth once daily Vilazodone (Viibryd) 20 mg tablet Active 20 MG PO Daily May 09, 2020 1:00am Viibryd Active Completed/Discontinued Medications Medication Drug Class(es) Dates Sig (Normalized) Sig (Original) clindamycin 300 mg oral capsule (2 sources) Lincosamide Antibacterial Start: 06-25-2022 take 1 capsule by mouth every eight hours Clindamycin HCl 300 MG 1 cap(s) Orally tid for 10 day(s) Jun, Not-Taking dextromethorphan hydrobromide 15 mg / guaiFENesin 400 mg / pseudoephedrine hydrochloride 60 mg oral tablet (2 sources) alpha-Adrenergic Agonist, Uncompetitive P-ookomf-G-aspartat e Receptor Antagonist, Sigma-1 Agonist Start: 05-15-2023 End: 01-12-2024 take 4 tablets by mouth every twenty-four hours Pseudoephedrine-D m-Guaifenesin (Capmist Dm) 60-15-400 mg tablet Discontinued 1 TAB PO EVERY 4-6 HOURS May 15, 2023 1:00am January 12, 2024 4:37pm do not exceed 4 doses per 24 hrs predniSONE 20 mg oral tablet (2 sources) Start: 05-15-2023 End: 01-12-2024 take 20 mg by mouth twice daily Prednisone Discontinued 20 MG PO Twice daily 10 May 15, 2023 1:00am January 12, 2024 4:36pm Problems Active Problems Problem Classification Problem Date Documented Da te Episodic/Chronic Abdominal pain (4 sources) Left lower quadrant pain; Translations: [LEFT LOWER QUADRANT PAIN] Onset: 07-15-2022 Episodic Calculus of urinary tract (20 sources) History of calculus of kidney; Translations: [Personal history of urinary calculi] Onset: 07-22-2022 Episodic Disorders of teeth and jaw (4 sources) Periapical abscess without sinus; Translations: [Dental caries, unspecified] Onset: 08-03-2022 Episodic Headache; including migraine (4 sources) Headache 07-22-2022 Episodic Hemorrhoids (4 sources) Hemorrhoids; Translations: [Unspecified hemorrhoids] Episodic Immunizations and screening for infectious disease (2 sources) Contact with and (suspected) exposure to other viral communicable diseases; Translations: [Contact with or exposure to other viral diseases] Onset: 12-30-2020 Resolved: 12-30-2020 Episodic Miscellaneous mental health disorders (4 sources) Mental disorder 07-22-2022 Chronic Other aftercare (1 source) 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; 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] Onset: 08-19-2022 Episodic Other diseases of kidney and ureters (4 sources) Urinary tract obstruction; Translations: [Hydronephrosis with renal and ureteral calculous obstruction] Onset: 07-22-2022 Episodic Other diseases of kidney and ureters (4 sources) Hydronephrosis 07-22-2022 Episodic Other gastrointestinal disorders (4 sources) Constipation; Translations: [Constipation, unspecified] Episodic Other nervous system disorders (1 source) Atypical facial pain; Translations: [ATYPICAL FACIAL PAIN] Onset: 08-03-2022 Episodic Other skin disorders (3 sources) Localized swelling, mass and lump, head; Translations: [LOCALIZED SWELLING MASS AND LUMP HEAD] Onset: 07-31-2022 Episodic Other upper respiratory infections (1 source) Chronic sinusitis, unspecified; Translations: [CHRONIC SINUSITIS UNSPECIFIED] Onset: 02-18-2022 Chronic Schizophrenia and other psychotic disorders (4 sources) Schizoaffective disorder; Translations: [Schizoaffective disorder, unspecified] 05-11-2020 Chronic Substance-related disorders (5 sources) Smoker; Translations: [Nicotine dependence, cigarettes, uncomplicated] Onset: 08-19-2022 07-22-2022 Chronic Comment on above: Added secondary to d ocumentation in Social History. Suicide and intentional self-inflicted injury (2 sources) Suicidal thoughts; Translations: [Suicidal ideations] 05-09-2020 Episodic Past or Other Problems Problem Classification Problem Date Documented Da te Episodic/Chronic Other nervous system disorders (4 sources) Ataxia, unspecified; Translations: [ATAXIA UNSPECIFIED] Onset: 02-04-2022 Episodic Other upper respiratory infections (1 source) Acute pansinusitis, unspecified; Translations: [Acute non-recurrent pansinusitis J01.40] Onset: 12-30-2020 Resolved: 12-30-2020 Episodic Results Test Name Value Interpretation Reference Range Facility No Panel InformationOrdered By: Lilia Salinas on 05-15-2023 Quick Strep (POC) [facility] Lab Reportson 10-12-2022 Lab Reports [id number] #1.00CD:127 Normal [facility] RAD - MISCon 10-12-2022 RAD - MISC [id number] #1.00CD:127 [facility] RAD - Ultrasound Reporton RAD - Ultrasound Report [id number] #1.00CD:127 [facility] RAD - Ultrasound Report [id number] #1.00CD:127 [facility] Formson 10-08-2022 Forms [id number] #1.00CD:127 [facility] Patient Educationon 10-08-19 Patient Education Nephrology Dietary Guidelines to Help Prevent Kidney Stones Kidney stones are deposits of minerals and salts that form inside your kidneys. Your risk of developing kidney stones may be greater depending on your diet, your lifestyle, the medicines you take, and whether you have certain medical conditions. Most people can lower their chances of developing kidney stones by following the instructions below. Your dietitian may give you more specific instructions depending on your overall health and the type of kidney stones you tend to develop. What are tips for following this plan? Reading food labels ? Choose foods with no salt added or low-salt labels. Limit your salt (sodium) intake to less than 1,500 mg a day. ? Choose foods with calcium for each meal and snack. Try to eat about 300 mg of calcium at each meal. Foods that contain 200?500 mg of calcium a serving include: ? 8 oz (237 mL) of milk, calcium-fortifiednon -dairy milk, and calcium-fortifiedfru it juice. Calcium-fortified means that calcium has been added to these drinks. ? 8 oz (237 mL) of kefir, yogurt, and soy yogurt. ? 4 oz (114 g) of tofu. ? 1 oz (28 g) of cheese. ? 1 cup (150 g) of dried figs. ? 1 cup (91 g) of cooked broccoli. ? One 3 oz (85 g) can of sardines or mackerel. Most people need 1,000?1,500 mg of calcium a day. Talk to your dietitian about how much calcium is recommended for you. Shopping ? Buy plenty of fresh fruits and vegetables. Most people do not need to avoid fruits and vegetables, even if these foods contain nutrients that may contribute to kidney stones. ? When shopping for convenience foods, choose: ? Whole pieces of fruit. ? Pre-made salads with dressing on the side. ? Low-fat fruit and yogurt smoothies. ? Avoid buying frozen meals or prepared deli foods. These can be high in sodium. ? Look for foods with live cultures, such as yogurt and kefir. ? Choose high-fiber grains, such as whole-wheat breads, oat bran, and wheat cereals. Cooking ? Do not add salt to food when cooking. Place a salt shaker on the table and allow each person to add his or her own salt to taste. ? Use vegetable protein, such as beans, textured vegetable protein (TVP), or tofu, instead of meat in pasta, casseroles, and soups. Meal planning ? Eat less salt, if told by your dietitian. To do this: ? Avoid eating processed or pre-made food. ? Avoid eating fast food. ? Eat less animal protein, including cheese, meat, poultry, or fish, if told by your dietitian. To do this: ? Limit the number of times you have meat, poultry, fish, or cheese each week. Eat a diet free of meat at least 2 days a week. ? Eat only one serving each day of meat, poultry, fish, or seafood. ? When you prepare animal protein, cut pieces into small portion sizes. For most meat and fish, one serving is about the size of the palm of your hand. ? Eat at least five servings of fresh fruits and vegetables each day. To do this: ? Keep fruits and vegetables on hand for snacks. ? Eat one piece of fruit or a handful of berries with breakfast. ? Have a salad and fruit at lunch. ? Have two kinds of vegetables at dinner. ? Limit foods that are high in a substance called oxalate. These include: ? Spinach (cooked), rhubarb, beets, sweet potatoes, and [place]ese chard. ? Peanuts. ? Potato chips, moroccan fries, and baked potatoes with skin on. ? Nuts and nut products. ? Chocolate. ? If you regularly take a diuretic medicine, make sure to eat at least 1 or 2 servings of fruits or vegetables that are high in potassium each day. These include: ? Avocado. ? Banana. ? Eldred, prune, carrot, or tomato juice. ? Baked potato. ? Cabbage. ? Beans and split peas. Lifestyle ? Drink enough fluid to keep your urine pale yellow. This is the most important thing you can do. Spread your fluid intake throughout the day. ? If you drink alcohol: ? Limit how much you use to: ? 0?1 drink a day for women who are not . ? 0?2 drinks a day for men. ? Be aware of how much alcohol is in your drink. In the [place] one drink equals one 12 oz bottle of beer (355 mL), one 5 oz glass of wine (148 mL), or one 1? oz glass of hard liquor (44 mL). ? Lose weight if told by your health care provider. Work with your dietitian to find an eating plan and weight loss strategies that work best for you. General information ? Talk to your health care provider and dietitian about taking daily supplements. You may be told the following depending on your health and the cause of your kidney stones: ? Not to take supplements with vitamin C. ? To take a calcium supplement. ? To take a daily probiotic supplement. ? To take other supplements such as magnesium, fish oil, or vitamin B6. ? Take bokr-tgb-szpvqkt and prescription medicines only as told by your health care provider. These include supplements. What foods should I limit? Limit your in (more content not included)... Normal [facility] Urology Office/Clinic Noteon 10-07-2022 Urology Office/Clinic Note Chief Complaint Follow up w/ KUB and Renal US HPI Staff S/P Lt Laser Litho & Lt Stent Placement 07/23/22 & Cysto/Lt Ureteroscopy/Stone Extraction & Lt Stent Exchange 08/12/22 Pt was to remove string stent at home 4 days post op AMADOU & KUB Dysuria: denies pain and burning Incomplete bladder emptying: denies Hematuria: denies visible blood Frequency: 6-7x a day Urgency: denies Nocturia: denies Stream: denies hesitancy, strong stream Leaking: denies Post void dripping: denies Wearing pads/ Depends: denies Urge incontinence: denies Stress incontinence: denies Incontinence without Sensory Awareness: denies Abdominal pain: denies Flank pain: Lt sided pain that comes and goes History of Present Illness Tests reviewed: reviewed UA, KUB and AMADOU, stone analysis I have reviewed the previous health record information and history for this patient from Dr. Daniels. I have reviewed and verified the staff HPI to be accurate for this encounter. There have been no associated fever, chills, flank pain, or blood in the urine. Denies any urinary infections since last encounter. Review of Systems PHQ Score Initial Depression Screen Score: 0 ROS - Provider Constitutional: denies weight loss, denies hot flashes. Eyes: denies eye problems. Gastrointestinal: denies nausea, denies vomiting. Cardiovascular: denies chest pain or angina. Integumentary: no dryness Musculoskeletal: denies musculoskeletal symptoms. ENMT: denies otolaryngeal symptoms. Respiratory: no shortness of breath. Heme/Lymph: denies easy bleeding tendency, denies easy bruising tendency. Psychiatric: no confusion, no anxiety. Genitourinary: See HPI. Physical Exam Vitals & Measurements HR: 106(Peripheral) BP: 146/98 HT: 67 in HT: 170 cm WT: 110.0 kg WT: 242 lb BMI: 38.06 General Appearance: alert , no acute distress, well nourished, well developed female. Assessment/Plan Catie is a 37 yo female initially presented after follow up to [facility] ER visit on 07/15/22 due to L flank pain that radiated to LLQ. Was sent home with Zofran, Petros, Flomax, and prophy Keflex. ICIQ-SF 0. Denies hx IA, stroke or DM. Not on AC No prior surgeries 1. Ureteral stone with hydronephrosis (N13.2: Hydronephrosis with renal and ureteral calculous obstruction) CT AP wo con 07/15/22 [facility] - Obstructing 6.2 mm stone at the left UPJ with moderate hydronephrosis and mild perinephric stranding. No distal ureteral stones. Stone Analysis Ca Ox Di 80, Yancey 20 07/12/22 - BUN 13.0. Crea 1.09. S/p Left ureteroscopy, laser litho, stent placement 07/23/22 Stone Analysis 08/19/22 - Ca Ox Di 40, Yancey 55, Hydroxyapatite 5 AMADOU 10/07/22 - 3 small nonobstructing stones in the Lt kidney, largest measuring 5 mm. KUB 10/07/22 - bilat punctate stones UA today negative for blood and infection. Discussed intraop findings of Mo's plaques, unlikely residual stones on renal US/KUB. Reviewed stone analysis and dietary modifications for stone prevention. Discussed undergoing metabolic stone workup given recurrent and multiple stones. Pt would like to have this done. -24 hr urine litholink -Will give pt lab slip for serum workup. -add citrate/lemon to water -general dietary changes -increase water intake Follow up in 2 mos w/ metabolic workup. All questions/concerns were discussed. Pt to call the office if he encounters any issues prior. Pt acknowledges understanding. 2. Kidney stones (N20.0: Calculus of kidney) CT AP wo con 07/15/22 [facility] - Small parenchymal calcification in both kidneys 3 mm or less. Stable appearance of medullary nephrocalcinosis. Personal review: Additional 4 nonobstructing stones within L kidney, up to 4 mm. A couple R-sided stones as well. See #1 3. History of kidney stones (Z87.442: Personal history of urinary calculi) Has passed small stones in the past. Denies prior metabolic workup. See #1 I spent 20 minutes today with the patient: reviewing tests in preparation to see and discuss them with the patient, documenting clinical information in the electronic health records, and care coordination. Over half the time was spent performing a medical exam and evaluation, and counseling and educating the patient/family/careg iver, and ordering tests in caring for the patient. Follow-up With When Contact Information Liudmila Daniels MD, URL, URO In 2 months Additional Instructions: w/ metabolic workup Patient Education Dietary Guidelines to Help Prevent Kidney Stones I, Chel Leroy, personally scribed for Dr. Daniels on 10/07/2022 12:21:26. . Documentation recorded by the scribe, Chel Leroy, accurately reflects the services(s) I performed and decisions made by me. Authenticated by Dr. Daniels on 10/07/2022 12:31:42. Problem List/Past Medical History Ongoing Headache History of kidney stones Kidney stones Psychiatric illness Smoker Ureteral stone with hydronephrosis Historic (more content not included)... Normal [facility] Comment on above: Result Comment: Elec tronically Signed By: Liudmila Daniels MD\.br\Date and Time Signed: 10/07/22 12:33 EDT\.br\Electronically Co-Signed By: Chel Leroy.br\Date and Time Co-Signed: 10/07/22 12:21 EDT Auth for Release of Medical Recordson 09-29-2022 Auth for Release of Medical Records [id number] #1.00CD:127 Normal [facility] CALCULI, URINARYon 3 2,8 Dihydroxyadenine Normal [facility] Comment on above: Performed By: #### C ALCULI #### [facility] [address] [address] [address] Marcy Alvarez Ammonium Acid Urate Normal [facility] Comment on above: Performed By: #### C ALCULI #### [facility] [address] [address] [address] Marcy Alvarez Bilirubin Ql (U) [facility] Comment on above: Performed By: #### C ALCULI #### [facility] [address] [place] [address] Dr. Marcy Alvarez Ca Oxalate Dihydrate 40 % [facility] Comment on above: Performed By: #### C ALCULI #### [facility] [address] [place] [address] Dr. Marcy Alvarez CaHPO4 (Brushite) [facility] Comment on above: Performed By: #### C ALCULI #### [facility] [address] [place] [address] Dr. Marcy Alvarez Calcium Bilirubinate [facility] Comment on above: Performed By: #### C ALCULI #### [facility] [address] [place] [address] [address] Marcy Alvarez Calcium Carbonate [facility] Comment on above: Performed By: #### C ALCULI #### [facility] [address] [place] [address] Dr. Marcy Alvarez Calcium Oxalate Monohydrate 55 % [facility] Comment on above: Performed By: #### C ALCULI #### [facility] [address] [place] [address] Dr. Marcy Alvarez Calcium Palmitate [facility] Comment on above: Performed By: #### C ALCULI #### [facility] [address] [place] [address] [address] Marcy Alvarez Calcium Phosphate Normal [facility] Comment on above: Performed By: #### C ALCULI #### [facility] [address] [place] [address] Dr. Marcy Alvarez Calcium Stearate Normal [facility] Comment on above: Performed By: #### C ALCULI #### [facility] [address] [place] [address] [address] Marcy Alvarez Carbonate Apatite Normal [facility] Comment on above: Performed By: #### C ALCULI #### [facility] [address] [place] [address] Dr. Marcy Alvarez Cellular Material Normal [facility] Comment on above: Performed By: #### C ALCULI #### [facility] [address] [place] [address] Dr. Marcy Alvarez Cholesterol [facility] Comment on above: Performed By: #### C ALCULI #### [facility] [address] [place] [address] Dr. Marcy Alvarez Color (U) Hager Normal [facility] Comment on above: Performed By: #### C ALCULI #### [facility] [address] [place] [address] Dr. Marcy Alvarez Comment Comment Normal [facility] Comment on above: Result Comment: Calc ium phosphate (hydroxyl form) includes hydroxyapatite, amorphous calcium phosphate, and whitlockite. Hydroxyapatite is the most common of the calcium phosphate salts found in human kidney stones. Performed By: #### C ALCULI #### [facility] [address] [place] [address] Dr. Marcy Alvarez Result Comment: Calc ulus received wet. Wet calculi must be dried before analysis, which delays reporting of results. Leaving calculi wet (such as water, saline, blood, urine) may lead to changes in composition. Comment: Comment Normal [facility] Comment on above: Result Comment: Anita becerra questions regarding Calculi Analysis contact [facility] at: [phone]. Performed By: #### C ALCULI #### [facility] [address] [place] [address] Dr. Marcy Alvarez Composition Comment Normal [facility] Comment on above: Result Comment: Perc entage (Represents the % composition) Performed By: #### C ALCULI #### [facility] [address] [address] [address] Marcy Alvarez Cystine Normal [facility] Comment on above: Performed By: #### C ALCULI #### [facility] [address] [address] [address] Marcy Alvarez Disclaimer: Comment Normal [facility] Comment on above: Result Comment: This test was developed and its performance characteristics determined by [facility]. It has not been cleared or approved by the Food and Drug Administration. Performed By: #### C ALCULI #### [facility] [address] [place] [address] Dr. Marcy Alvarez Dried Blood [facility] Comment on above: Performed By: #### C ALCULI #### [facility] [address] [place] [address] Dr. Marcy Alvarez Drug or Metabolite Normal [facility] Comment on above: Performed By: #### C ALCULI #### [facility] [address] [place] [address] Dr. Marcy Alvarez Hydroxyapatite 5 % Normal [facility] Comment on above: Performed By: #### C ALCULI #### [facility] [address] [place] [address] Dr. Marcy Alvarez Mg NH4 PO4 (Struvite) Normal [facility] Comment on above: Performed By: #### C ALCULI #### [facility] [address] [place] [address] Dr. Marcy Alvarez MgHPO4 (Newberyite) Normal [facility] Comment on above: Performed By: #### C ALCULI #### [facility] [address] [place] [address] Dr. Marcy Alvarez Other component(s) Normal [facility] Comment on above: Performed By: #### C ALCULI #### [facility] [address] [place] [address] Dr. Marcy Alvarez PDF . Normal [facility] Comment on above: Performed By: #### C ALCULI #### [facility] [address] [address] [address] Marcy Alvarez Photo Comment Normal [facility] Comment on above: Result Comment: Phot ograph will follow under a separate cover Performed By: #### C ALCULI #### [facility] [address] [address] [address] Marcy Alvarez Please note: Comment Normal [facility] Comment on above: Result Comment: Calc ira report will follow via computer, mail or freelance programmer/app developer delivery. Performed By: #### C ALCULI #### [facility] [address] [address] [address] Marcy Alvarez Size 5x[address] [facility] Comment on above: Result Comment: Mult iple pieces received. Dimensions of the largest piece reported. Performed By: #### C ALCULI #### [facility] [address] [address] [address] Marcy Alvarez Sodium Acid Urate Normal [facility] Comment on above: Performed By: #### C ALCULI #### [facility] [address] [address] [address] Marcy Alvarez Source Comment [facility] Comment on above: Result Comment: Left Kidney Performed By: #### C ALCULI #### [facility] [address] [address] [address] Marcy Alvarez Triamterene [facility] Comment on above: Performed By: #### C ALCULI #### [facility] [address] [address] [address] Marcy Alvarez Uric Acid [facility] Comment on above: Performed By: #### C ALCULI #### [facility] [address] [address] [address] Marcy Alvarez Uric Acid Dihydrate Normal [facility] Comment on above: Performed By: #### C ALCULI #### [facility] [address] [address] [address] Marcy Alvarez Weight 69 mg Normal [facility] Comment on above: Performed By: #### C ALCULI #### [facility] [address] [place] [address] Dr. Marcy Alvarez Xanthine Normal [facility] Comment on above: Performed By: #### C ALCULI #### [facility] [address] [place] [address] Dr. Marcy Alvarez Operative Reporton Operative Report [id number] #1.00CD:127 Normal [facility] DRUG SCREEN RAPID (URINE)on 08-12-2022 AMP Negative Normal NEGATIVE [facility] Comment on above: Performed By: #### D RUGRPD #### [facility] [address] [place] [address] Dr. Marcy Alvarez BAR Negative Normal NEGATIVE [facility] Comment on above: Performed By: #### D RUGRPD #### [facility] [address] [place] [address] Dr. Marcy Alvarez BUP Positive Abnormal NEGATIVE [facility] Comment on above: Performed By: #### D RUGRPD #### [facility] [address] [place] [address] Dr. Marcy Alvarez BZO Negative Normal NEGATIVE [facility] Comment on above: Performed By: #### D RUGRPD #### [facility] [address] [place] [address] Dr. Marcy Alvarez STEVEN Negative Normal NEGATIVE [facility] Comment on above: Performed By: #### D RUGRPD #### [facility] [address] [place] [address] Dr. Marcy Alvarez CUT-OFFS SEE BELOW Normal [facility] Comment on above: Result Comment: AMP (Amphetamine): 500ng/mL, BAR (Barbituates): 200 ng/mL, BZO (Benzodiazepines): 150 ng/mL, BUP (Buprenorphine): 10 ng/mL, STEVEN (Cocaine): 150 ng/mL, mAMP (Methamphetamine): 500 ng/mL, MTD (Methadone): 200 ng/mL, OPI (Opiates): 100 ng/mL, OXY (Oxycodone): 100 ng/mL, PCP (Phencyclidine): 25 ng/mL, PPX (Propoxyphene): 300 ng/mL, THC (Cannabinoids): 50 ng/mL, TCA (Trycyclic Antidepressants): 300 ng/mL Performed By: #### D RUGRPD #### [facility] [address] [place] [address] Dr. Marcy Alvarez DRUG CUT HEADER DRUG CLASS TEST SYSTEM CUT-OFF CONCENTRATIONS ARE FOLLOWS: Normal [facility] Comment on above: Performed By: #### D RUGRPD #### [facility] [address] [place] [address] Dr. Marcy Alvarez mAMP Negative Normal NEGATIVE [facility] Comment on above: Performed By: #### D RUGRPD #### [facility] [address] [place] [address] Dr. Marcy Alvarez MTD Negative Normal NEGATIVE [facility] Comment on above: Performed By: #### D RUGRPD #### [facility] [address] [place] [address] Dr. Marcy Alvarez OPI Negative Normal NEGATIVE [facility] Comment on above: Performed By: #### D RUGRPD #### [facility] [address] [place] [address] Dr. Marcy Alvarez OXY Negative Normal NEGATIVE [facility] Comment on above: Performed By: #### D RUGRPD #### [facility] [address] [place] [address] Dr. Marcy Alvarez PCP Negative Normal NEGATIVE [facility] Comment on above: Performed By: #### D RUGRPD #### [facility] [address] [place] [address] Dr. Marcy Alvarez PPX Negative Normal NEGATIVE [facility] Comment on above: Performed By: #### D RUGRPD #### [facility] [address] [place] [address] Dr. Marcy Alvarez TCA Positive Abnormal NEGATIVE [facility] Comment on above: Performed By: #### D RUGRPD #### [facility] [address] [place] [address] Dr. Marcy Alvarez THC Negative Normal NEGATIVE [facility] Comment on above: Performed By: #### D RUGRPD #### [facility] [address], [place] [address] Dr. Marcy Alvarez PREG HCG QUALon 08-12-2022 , QUAL Negative Normal NEGATIVE [facility] Comment on above: Performed By: #### P REG #### [facility] [address], [place] [address] Dr. Marcy Alvarez Pre-Certification Formon Pre-Certification Form [id number] 0#1.00CD:127 Normal [facility] Calculus Analysison 07-31-19 23 Calcium oxalate dihydrate Infrared spectroscopy (Stone) [Mass fraction] 80 % Invalid Interpretation Code [facility] Comment on above: Order Comment: Left ureteral stones Performed By: #### 1 [id number] #### [facility] [address] [place] [address] Calcium oxalate monohydrate (Stone) [Mass fraction] 20 % Invalid Interpretation Code [facility] Comment on above: Order Comment: Left ureteral stones Performed By: #### 1 [id number] #### [facility] [address] [place] [address] Color (Stone) Brown Invalid Interpretation Code [facility] Comment on above: Order Comment: Left ureteral stones Performed By: #### 1 [id number] #### [facility] [address] [place] [address] Composition Comment Invalid Interpretation Code [facility] Comment on above: Order Comment: Left ureteral stones Result Comment: Perc entage (Represents the % composition) Performed By: #### 1 [id number] #### [facility] [address] [place] [address] Disclaimer: Comment Invalid Interpretation Code [facility] Comment on above: Order Comment: Left ureteral stones Result Comment: This test was developed and its performance characteristics determined by [facility]. It has not been cleared or approved by the Food and Drug Administration. Performed at: [facility] Stone [facility] [address] [place] [address] Dr Garza, [place] [id number] PhD Gabbie Grey Performed By: #### 1 [id number] #### [facility] [address] [place] [address] Laboratory comment Baudilio (Report) Comment Invalid Interpretation Code [facility] Comment on above: Order Comment: Left ureteral stones Result Comment: Anita becerra questions regarding Calculi Analysis contact [facility] at: [phone]. Performed By: #### 1 [id number] #### [facility] [address] [place] [address] Please Note: Comment Invalid Interpretation Code [facility] Comment on above: Order Comment: Left ureteral stones Result Comment: Calc ira report will follow via computer, mail or freelance programmer/app developer delivery. Performed By: #### 1 [id number] #### [facility] [address] [place] [address] Size (Stone) [Entitic vol] 3x3 Invalid Interpretation Code [facility] Comment on above: Order Comment: Left ureteral stones Result Comment: Mult iple pieces received. Dimensions of the largest piece reported. Performed By: #### 1 [id number] #### [facility] [address] [place] [address] Specimen source subject Nom Comment Invalid Interpretation Code [facility] Comment on above: Order Comment: Left ureteral stones Result Comment: Left Ureter Performed By: #### 1 [id number] #### [facility] [address] [place] [address] Stone Photo Comment Invalid Interpretation Code [facility] Comment on above: Order Comment: Left ureteral stones Result Comment: Phot ograph will follow under a separate cover Performed By: #### 1 [id number] #### [facility] [address] [place] [address] Weight (Stone) 16 mg Invalid Interpretation Code [facility] Comment on above: Order Comment: Left ureteral stones Performed By: #### 1 [id number] #### [facility] [address] [place] [address] IntraOperative Documentson 0 07-28-2022 IntraOperative Documents [id number] 2#1.00CD:127 Normal [facility] Coding Summary.on 07-27-2022 Coding Summary. CD:[id number] Ww+PGhlYWQ+AL5HBOXeW 37bcNUkzW8zV9TOFJoDL ywgQVBQTElOSyIgbmFtZ D5tmJSyMXCj IC8+BW5mENHqUjypdREv o6E7mOG4L74cpo5fDYlp wQV7PIBgTpRnkfmeb3le xHc6SRddCxmiXnWk DHLzbJ26UXX2mQ64Kr76 lGRqaKFdl3tbdHk8UvCr NFNtLRE2cUwfEXybx4Fi FWPoY19tcAJbx6Z5 IGNvbGxhcHNlOyBlbXB0 pL0fOQcdbvwmz7ohicrm Cdn5dm76oDMor1R3cTB0 J3HosaE9NSNloOAr SukjuJCYfO4tlaeia0st jyduKoPlJHOpLXa1EVy3 URDauEbkMpArXW95ZNZ3 OXYjuuJsN4TkDKBc kHabEsB2z6B2Yd7RW0IS GuicB8QCRTBZRGerhXJ+ BC97xr18G7RlGvnpYjp3 KBWqABD5lWQ4yJ0b SGMoVXtjn5X5hWZ8F1Ao twZuca2fm7epMIVqHOdu D84ocDGwa9L5CIOezLE6 KVTmoXymXzAsqS70 Oyc+VCTnsHjip6FlXrlz p5pjb3hfaZa7XrrjKBMg qhTduLrvFXH3a3BuVs4t HYIttQE1rST1nE0m SkAjGxC8SXazF199KcLy jYMvJwqgW03rY8NljUZ+ ZOScCww4GUXksWyySV1c B1KsQTIlkxvepVGr iYgaOE7kPEPypvwsBTQc fY8eSOMyZ6z4VzUgZaN8 POdwG0BkJHJvjrjfEu06 jZ2bClJoRoP6HFkr Y3GzctA7WMDciPGxWWpn DVH1V97yl8M4LBKgVTGk YFU1sEF5hK8wmVfptpwb bGVmdDsgdmVydGlj VKymCOhgE255LXRimUmg PkNvZGluZyBEYXRlOiAg MDUvMDgvMjAyMzwvdGQ+ LGDtCUD2yXxtWFZe yIZrGZocNe9qbFuqkFlq GP4xNSCzknvaVUWnjS0l NTIvsRQooZknKY0qQFBo qlaiw451RqGqWTM4 BQEgwNPlI1LbuG2oEtSw AICkSQYuU9YqkZGjTJml W409SZnbLlG2NSDwtwKq B3KsQTApxBnrEnO3 x1C5Iy4Tj0FqoyaeD5Jb eIKfXcFmTlcsEPs8X2Oy PjwvdHI+EI47OHMeBW05 RRw9TWS8zSsyUKfr JRLuQ4QstV1lKdPmTVCi ZGRkOyc+PHRhYmxlIHdp ZHRoPScxMDAlJyBzdHls RK0rMk9kESWdVFDt gHodxDEsUkLdp3vkVGTt NFvzJT1qqHrcD6FezOY3 POUak9z0Dp04F61qS1Yq dXA+DDYzlXC1gLB3 qP9jIuDnVaH4FEzjC950 HaTytLOsQbrcs4mnp7xg rZk0YiW1QNTmirBkkBng CVQ6d8SyGj40L40y IHdpZHRoPSIxNSUiIHZh zLvxzc1tdP3iOg1+PGNv pGP2hXX8qW9aIoRlVuT5 ILtmW831ItBswKCi Fyaov3uvo0bpsZc9YjBe PHXtqjQahSeeNXG2i5Si Dw45R1GlfLccw2IjQvm1 xa45lVKsd0C7vKA0 N8IkLEPudtsodHGpsOab DO0sNZNrdjygMOZprY7d IULrQ4w6TnHnUhN5CRsc H9MtslO8EMZwnQIh PLMfeQTTfJ0ejpubk1en qmjdBcXqQPEfMWa4NKf7 WGXfqZuoQkWbQQF5PwF6 KHF6uKAmeC2ohMnk mgeckS4mBcy+XZS4mNSd cPQFTA1sOauzbEO+PHRk JVR2qYgwZGydRDXzrI9l SRCxH8p5IqXpSuG4 SRfbT8AbfqK3CKSsaNDe BNXknKLWtG2kqbsiq3qb hqlzQeCgEWVwGFi1CRl2 LWFsaWduOiBsZWZ0 YfD3GYA0wQEflP6hoGln deuyiB8uRoy+QmlydGgg WOT1FKw5Z3JtDyi9TMVm lJwwFF7xpOZqNPfy Ee3hhQpjaGifCI2qMMEq skfmb782GoFjg3fyYGDj vWVvAPehLTD9T09ov5G2 JAMtUQBaHIY0jWU6 yQ6uuBubybiccIZfzYya vxTmkUuzFQsuWJpeT095 UIJrmWtoNzQbBMb7O0Vf Hgi9EDUlgXtbJB1o wDWxQVayEb7cqPqdjGkf IX0kZOFfmcklf653LfCf j4bhMCAwwLLlAYoaTUZ8 B96ed7K5FJZoTOXt NSB4vNH8pD0skUtapxmk bGVmdDsgdmVydGljYWwt RRkjS305RLYalTkrEvLx tRl4P3LeAzq1ZBYt wFddII7aoOEaUVjqIz0r rTixlJwoCW6tKLDkzqpg b254YrJck6rsSGMjaPLp NBfoIAO5Q32pi4P0 GHIkJSNmTVN2eTK3wV2n bGlnbjogbGVmdDsgdmVy jQbqMWlmHScgM119CYDu cDsnPlBhdGllbnQg TQiwGMn2E9LcQeuzqGF+ OV75ORUwJG63eVZymCAr j1comMq4PxLxYSEkESQ2 wExkZUtqy0VbPFTz G84wqZWcn3J3TGZkyRwy kYJdAxRwzTV4xM2xEDeo fdiww2xbuohjPindc8el tl49nM25C82aXMlu ZHRoPSIzMCUiIHZhbGln yh1lwI7bHy0+PGNvbCB3 nTL3qK3sBWJlLcL8YRga V283EeTgvXPeOlop r1eau6itpBe0ZjP2TSUu faDdkNgcIWF0x9IoKl17 G78pLTfvDGSmMZDfNQMf QXGyvUcpqa3czC6s Ii8+CHWnbSF5kYU0hH5s QpTtMnG8IPxqZ873XuLh rASgTsqwV37vY6OieTB+ ZBMhGco6GWFosAfx GO3tbDIcHYpkBu5nZYK8 WnHiGcKmBOneJ9WxDRCc scynylxizIL1FCWcQXIk cI91Uk0hwAtfNEWo gIZWqO3hkogtf3agjxjz MjIwHYYeGUn8DVd3UWCl wZkqToIxUTP7FkB1WBH4 nRZkdG6abMyddfop lH5oV8JvNNIdtgtdTv49 dV4wCzZeKcF6QAwoHnn+ UFJZQkEsIEFEUklBTkEg SjwvdGQ+PHRkIHN0 yNtaEGdbRIDrfH9wQEQs T1w0MqLoRrA1AOmfN7Vc PWJfqixpAt10zT8kHkLh CsS6MCkcG4UzkpA9 YQAnpZLfTFjdQXX5U46k y7T2CAXnERFcMDK2mUK7 pU4nePbsfhfkvVIfmOca dmVydGljYWwtYWxp M942NYSsxEoyVnPaPhW8 JfM3FFg2G9XmFhp8CCFc pHwaPK3tdFMuKGgfDo2z qNnbhNbpLO0xISWa yuolTDCxgI0aFSTocFVl tJhyBB8oTAZhjcukd088 CjHkBUE9YEFkqKWeX7Tt yO4aYkCpBGDwSZVe J3DiuTGxBFxnQ566ARby KlE9PIBsnePhC5TaCREt iRkvCgI2f5E5Vi6yAlZW ZWFyczwvdGQ+PHRk EHX0pMhmVKupIPFnxW4o ONYlP0k0ZvScNiW5VPpp V9NbVITiuhoqZl25uI9k EaSmZpS0NGmvT3Fg zwO8BREmzSPmIWawXNI6 N57eb4J8NZZdWHDyVYO6 uCU3qW8upWinkiaztUHu dDsgdmVydGljYWwt ISdeC044DWZdzPcjQvBr bWFsZTwvdGQ+PHRkIHN0 rDwxEJarRYNmzM3aYWFz Q4g3EyQuWrH6MIqd H1PuJUDqejqlUk24kT5p UfPcAhS3TGsqS4UcgfX3 TTHdkMUkLHvpFKN6Z77a w0E7XEGzDASjUDT0 tNJ5vJ1kwSoeocwfkZAe dDsgdmVydGljYWwtYWxp X200WKKdtCfeRuLmRvSf XBMcwwnsW0EcODIS BNrlA3ZkR0RedBqafMZ+ TO93uz78G1YhXymcWhe0 ZTKwFKP9nQL9tO4vBWDs KFadf0O1wGQ2B0Ne odKznp8rz4axEHXmRTho M97kwQRxf8M0BVXguKR4 NHLygNgwCzQvbQ61Gnp+ FXEjwRlda5XwVfxx h5vap8wouYu5NoFjJQJl jpBnrLcxXTE4r2YiDs50 O01lMDroFEEzZEZfVWDu GNXdgYwpbl9qpE6r Ii8+YGHapQN3aHW8xI4a SwDhGwU6PQvpS991ZkBs sDZnWwfmk5xyb5lhySt4 IjIwJSIgdmFsaWdu MLK8r8EnOh48Q8FwaSop z9VbUja8pa48pKRuk4P0 kYF6C1ZhZNSspbcqeUFh nVadOR0wIRBxjluy PMRahL4mXTXuD1c2DlNv NaS8RKlxS5HdhiU9DPEe iIMvEQRgrWLCmD7umsec i6oalygrKjQvEBMx YVq8QIs7YFFsdOmsXvZo QJJ2DlX5OAV5yORofT3e gCpmzjutnC4zCge+UGh5 y0vfyDVkBM0ihUU7 FE79UX43uXPzq3O7zUS9 O4IoGGHmydcfyghoiVP8 IQGaYUOucP57Tn5lgGjc Ni3vRPHfFIR9ZHLh sNRtZ7TwiX1zEfFgLPHh PWOwA2JteJIsBWfpV984 PKjdRrO6QYFilkSqW9Ga LMDeyHudWgU5u0M0 Mw1HLB31HE34VH69lHZk p2F8xLK8B0PgIRXtuvga zbchnKY2HAQhJLZuuL84 Ix1brQzkPc7qRKYj GUY0VSFchNTsY8EoqV9r IhWjVBBkFVStJ3GcoXRm ARumO305BPwdXwY6KTCp tbNkS8FyNIIjsMnj OaT6x4E5Sq5CEr52WJ82 FL86dSIwj2X1aZC8J5Be ZKLxbmkwujjwnRI8TKPy QWBczN16Dr8epSdo Zv1mLQIkCZS6ZKXqnELg J4VsrO8pSaWeFNOsEHCr U4PhxRPrCHjhJ417OUgz HrS9DQXdstOhX5Bw OHJklIceNqB5a3D9Zp9Q ZCquknz6T0DyInlxrFN+ BJ60GOWsUH73iUGvtAKa m1uefWl7JjTeIADf XPA8fZmu (more content not included)... Normal [facility] Lab Reportson 07-27-2022 Lab Reports [id number] #1.00CD:127 Normal [facility] Main OR Intraoperative Recor don 07-27-2022 Main OR Intraoperative Record IntraOp Document Type FT Summary Primary Physician: Liudmila Daniels MD Finalized Date/Time: 07/27/22 08:05:40 Pt. Name: CATIE LYONS/Sex: 1985 Female Med Rec #: [id number] Physician: Liudmila Daniels MD Financial #: [id number] Pt. Type: A Room/Bed: [place] [address] Admit/Disch: 07/23/22 11:44:51 - 07/23/22 16:20:00 Institution: Case Times FT Entry 1 Patient Times In Room 07/23/22 13:50:00 Out Room 07/23/22 14:46:00 Procedure Times Start 07/23/22 14:04:00 Stop 07/23/22 14:40:00 Anesthesia Times Start 07/23/22 13:50:00 Stop 07/23/22 14:46:00 Last Modified By: Indra Serna RN 07/23/22 14:49:13 General Comments: 07/27/22 Chart opened to review and send charges [facility] CSFA Case Attendance FT Entry 1 Entry 2 Entry 3 Case Attendee Sam SCHREIBER, Camilla Daniels MD, Indra Gonzalez RN Role Performed ABDOUL Surgeon - Primary Typing Bookkeeper - Primary Time In 07/23/22 13:50:00 07/23/22 13:50:00 07/23/22 13:50:00 Time Out 07/23/22 14:46:00 07/23/22 14:46:00 07/23/22 14:46:00 Procedure CYSTOSCOPY RETROGRADE CYSTOSCOPY RETROGRADE CYSTOSCOPY RETROGRADE STENT INSERTION(Left), STENT INSERTION(Left), STENT INSERTION(Left), CYSTOSCOPY W/ HOMIUM CYSTOSCOPY W/ HOMIUM CYSTOSCOPY W/ HOMIUM LASER(Left) LASER(Left) LASER(Left) Comments Dr. Blunt supervising Last Modified By: Daphne RN, Indra Serna RN, Indra Serna RN, Indra Crowe 07/23/22 14:49:18 07/23/22 14:49:18 07/23/22 14:49:18 Entry 4 Entry 5 Entry 6 Case Attendee Patricia Maldonado MANUFACTURING RECRUITER, Renny lAvarado RT(R), Leias Role Performed Scrub - Primary Craft Center Director Financial Recording Clerk Time In 07/23/22 13:50:00 07/23/22 13:50:00 07/23/22 13:50:00 Time Out 07/23/22 14:46:00 07/23/22 14:46:00 07/23/22 14:46:00 Procedure CYSTOSCOPY RETROGRADE CYSTOSCOPY RETROGRADE CYSTOSCOPY RETROGRADE STENT INSERTION(Left), STENT INSERTION(Left), STENT INSERTION(Left), CYSTOSCOPY W/ HOMIUM CYSTOSCOPY W/ HOMIUM CYSTOSCOPY W/ HOMIUM LASER(Left) LASER(Left) LASER(Left) Comments Last Modified By: Daphne RN, Indra Serna RN, Indra Serna RN, Indra Crowe 07/23/22 14:49:18 07/23/22 14:49:18 07/23/22 14:49:18 Perioperative Protocols FT Pre-Care Text: Implements protective measures prior to operative or invasive procedure, confirms identity before the operative or invasive procedure, verifies operative procedure, surgical site, and laterality Entry 1 Procedure(s) CYSTOSCOPY RETROGRADE Patient Identity Birthday, ID Band STENT INSERTION(Left), Verified (select at Check, Patient CYSTOSCOPY W/ HOMIUM least 2): Participation LASER(Left) Consents / H and P Anesthesia Consent, Operative Site N/A Verified HandP, Surgery/Procedure Marking Verified Consent Surgical Site Yes Laterality Verified Yes Verified Procedure Verified Yes Correct Patient Yes Position Verified Availability Equipment, Implant, Prep Dry No Verified (If Medication Applicable) PreOp Antibiotic Yes Time Out Camilla Vargas CRNA, Lue MD, Liudmila Emery, Daphne CHAPARRO, Joel Pride Jennifer E, Wilhelm CST, Christiano Lawson RT(R)Leisa Time Out Complete 07/23/22 14:03:00 Outcomes Met? Yes Last Modified By: Indra Serna RN 07/23/22 14:11:59 Post-Care Text: The patient is free from signs and symptoms of injury caused by extraneous objects Allergy Information FT Pre-Care Text: Verifies allergies Entry 1 Allergies Reviewed? Yes Allergies Reviewed Self/Patient With Outcomes Met? Yes Last Modified By: Indra Serna RN 07/23/22 12:21:56 Post-Care Text: The patient received appropriate medication(s) safely administered during the perioperative period Surgical Procedures FT Entry 1 Entry 2 Procedure Description Procedure CYSTOSCOPY RETROGRADE CYSTOSCOPY W/ HOMIUM STENT INSERTION LASER Modifiers Left Left Surgeon Description CYSTOSCOPY WITH LEFT CYSTOSCOPY WITH LEFT RETROGRADE, LASER RETROGRADE, LASER BASKET, LEFT STENT BASKET, LEFT STENT PLACEMENT PLACEMENT Primary Procedure Yes No Primary Surgeon Jeremiah DAY, Liudmila Daniels MD, Liudmila Emery Start 07/23/22 14:04:00 07/23/22 14:04:00 Stop 07/23/22 14:40:00 07/23/22 14:40:00 Anesthesia Type General General Surgical Service Urology Urology Wound Class 2 - Clean-Contaminated 2 - Clean-Contaminated Last Modified By: Indra Serna RN, RN, Sheminith A 07/23/22 15:02:11 07/23/22 15:02:11 General Case Data FT Pre-Care Text: Classifies surgical wound, implements aseptic technique, initiates traffic control Entry 1 Case Information OR OR 1 FT Case Level Level 3 Wound Class 2 - Clean-Contaminated Specialty Urology ASA Class 2 Preop Diagnosis LEFT KIDNEY STONE Postop Same As Preop Yes Postop Diagnosis LEFT KIDNEY STONE Outcomes Met? Yes Last Modified By: Indra Serna RN 07/23/22 14:15:45 Post-Care Text: The patient is free from signs and symptoms of infection Sk (more content not included)... Normal [facility] Postoperative Documentson Postoperative Documents [id number] 8#1.00CD:127 [facility] Pre-Certification Formon Pre-Certification Form [id number] 0#1.00CD:127 [facility] RAD - CT Reporton 07-27-2022 RAD - CT Report [id number] #1.00CD:127 [facility] C Urineon 07-25-2022 Bacteria identified Cx Nom (U) Microbiology PROCEDURE: Urine Culture [R1] SOURCE: U Cysto BODY SITE: COLLECTED DATE/TIME: 07/23/2022 14:20 EDT RECEIVED DATE/TIME: 07/23/2022 14:57 EDT START DATE/TIME: 07/23/2022 14:57 EDT FREE TEXT SOURCE: left renal pelvis urine for culture Jeremiah DAY, Liudmila Daniels MD, Liudmila Emery FINAL REPORTS Final Report [] Verified Date/Time: 07/25/2022 08:11 EDT No growth at 2 days. Performing Locations R1: This test was performed at: [facility], [address] [place] [address], [facility] , , [facility] Comment on above: Performed By: #### 2 [id number] ####[place] [address] Consent for Anesthesiaon Consent for Anesthesia [id number] 7#1.00CD:127 [facility] Discharge Instructionson Discharge Instructions [id number] 5#1.00CD:127 [facility] IntraOperative Documentson 0 07-24-2022 IntraOperative Documents [id number] 8#1.00CD:127 Normal [facility] IntraOperative Documents [id number] 1#1.00CD:127 Normal [facility] Preoperative Documentson Preoperative Documents [id number] 1#1.00CD:127 Normal [facility] XR Urography Retrograde Left on 07-24-2022 XR Urography Retrograde Left Exam Date/Time: 07/23/2022 14:49 EDT Reason for Exam: Kidney stone Report IMPRESSION: INTRAOPERATIVE FLUOROSCOPY FOR PLACEMENT OF LEFT DOUBLE-J URETERAL STENT. CLINICAL HISTORY: Kidney stone COMPARISON: NONE. FINDINGS: Interoperative fluoroscopy was performed for placement of left double-J ureteral stent. 7 images. 48 seconds fluoroscopy time. 7.3 mGy. Please see intraoperative note for additional information. Ordering Provider: Liudmila Daniels FINAL REPORT Dictated: 07/24/2022 5:46 pm Renny Vazquez MD Signed (Electronic Signature): 07/24/2022 5:46 pm Signed by: Renny Vazquez MD Transcribed by: SEBASTIÁN Technologist: AILYN Technical Comments Radiation Dose: Ka,r in mGy = 7.30 DAP = 543.52 Normal [facility] Auto Diffon 07-23-2022 Basophils/100 WBC (Bld) 0.6 % Normal 0.0-2.0 [facility] Comment on above: Order Comment: Order Added by Discern Expert. Performed By: #### 2 102644, 2160115, 7414451, 36174379, [id number] #### [facility] [address] [place] [address] Basophils/Leukocytes Auto (Bld) [Pure # fraction] 0.1 E9/L Normal 0.0-0.2 [facility] Comment on above: Order Comment: Order Added by Discern Expert. Performed By: #### 2 162726, 9758010, 2066215, 59985627, 24700535 #### [facility] [address] [place] [address] Eosinophils/100 WBC (Bld) 1.6 % Normal 0.0-8.0 [facility] Comment on above: Order Comment: Order Added by Discern Expert. Performed By: #### 2 203747, 6833297, 3643997, 15653103, 70302450 #### [facility] [address] [place] [address] Eosinophils/Leukocyte s Auto (Bld) [Pure # fraction] 0.1 E9/L Normal 0.0-0.5 [facility] Comment on above: Order Comment: Order Added by Discern Expert. Performed By: #### 2 106173, 1186942, 1422207, 67924980, 64177427 #### [facility] [address] [place] [address] Lymphocytes/100 WBC (Bld) 24.5 % Normal 14.0-50.0 [facility] Comment on above: Order Comment: Order Added by Yazmin Expert. Performed By: #### 2 010371, 8747896, 0642747, 85646203, 48975934 #### [facility] [address] [place] [address] Lymphocytes/Leukocyte s Auto (Bld) [Pure # fraction] 2.2 E9/L Normal 1.0-4.0 [facility] Comment on above: Order Comment: Order Added by Yazmin Expert. Performed By: #### 2 727422, 6571051, 8605662, 87340436, 92742560 #### [facility] [address] [place] [address] Monocytes/100 WBC (Bld) 6.3 % Normal 4.0-14.0 [facility] Comment on above: Order Comment: Order Added by Yazmin Expert. Performed By: #### 2 058670, 0286754, 0491266, 15375987, 45973214 #### [facility] [address] [place] [address] Monocytes/Leukocytes Auto (Bld) [Pure # fraction] 0.6 E9/L Normal 0.2-1.0 [facility] Comment on above: Order Comment: Order Added by Discern Expert. Performed By: #### 2 844444, 4593395, 8950442, 69979400, 90582075 #### [facility] [address] [place] [address] Neutrophils/100 WBC (Bld) 67.0 % Normal 36.0-75.0 [facility] Comment on above: Order Comment: Order Added by Discern Expert. Performed By: #### 2 432327, 5795543, 5463895, 05279355, 89950797 #### [facility] [address] [place] [address] Neutrophils/Leukocyte s Auto (Bld) [Pure # fraction] 6.0 E9/L Normal 2.0-7.5 [facility] Comment on above: Order Comment: Order Added by Discern Expert. Performed By: #### 2 129018, 8542439, 1879358, 77921695, 85730667 #### [facility] [address] [place] [address] BMPon 07-23-2022 Anion gap [Moles/Vol] 12 mmol/L Normal 6-16 [facility] Comment on above: Performed By: #### 2 158861, 8127168, 7058106, 30770849, 03823283 ####[facility] [address] [place] [address] Calcium [Mass/Vol] 9.2 mg/dL Normal 8.9-11.1 [facility] Comment on above: Performed By: #### 2 992224, 7001679, 6213716, 77819170, 89117972 ####[facility] [address] [place] [address] Chloride [Moles/Vol] 103 mmol/L Normal 101-111 [facility] Comment on above: Performed By: #### 2 805992, 3427792, 5526274, 58416176, 29176387 ####[facility] [address] [place] [address] CO2 [Moles/Vol] 23 mmol/L Normal 21-31 [facility] Comment on above: Performed By: #### 2 481157, 7617565, 4215217, 55823830, 35720408 ####[facility] [address] [place] [address] Creatinine [Mass/Vol] 1.2 mg/dL Normal 0.5-1.3 [facility] Comment on above: Performed By: #### 2 945997, 9459198, 2151848, 36337104, 36130417 ####[facility] [address] [place] [address] Glucose [Mass/Vol] 87 mg/dL Normal 55-199 [facility] Comment on above: Result Comment: If t his glucose result represents a fasting glucose, interpretation should refer to the following reference range: 55-99 mg/dL Performed By: #### 2 954515, 4729546, 4297636, 47330343, 76271712 ####[facility] [address] [place] [address] Potassium [Moles/Vol] 4.4 mmol/L Normal 3.5-5.3 [facility] Comment on above: Performed By: #### 2 248671, 5938747, 6054018, 96796654, 10137213 ####[facility] [address] [place] [address] Sodium [Moles/Vol] 134 mmol/L Low 135-145 [facility] Comment on above: Performed By: #### 2 298828, 2776052, 5299689, 78109941, 44369278 ####[facility] [address] [place] [address] Urea nitrogen [Mass/Vol] 16 mg/dL Normal 5-21 [facility] Comment on above: Performed By: #### 2 430322, 1888972, 4977787, 52650175, 65958080 ####[facility] [address] [place] [address] Urea nitrogen/Creatinine [Mass ratio] 13 No Units Normal 10-20 [facility] Comment on above: Performed By: #### 2 390212, 5565063, 5546308, 92293329, 13885805 ####[facility] [address] [place] [address] CBC w/ Auto Diffon 3 Erythrocyte distribution width (RBC) [Ratio] 13.1 % Normal 10.9-14.2 [facility] Comment on above: Performed By: #### 2 323107, 4977147, 0676359, 43234788, 04800163 #### [facility] [address] [place] [address] Hematocrit (Bld) [Volume fraction] 40.8 % Normal 34.0-46.0 [facility] Comment on above: Performed By: #### 2 915543, 7047857, 0063057, 03641305, 89825683 #### [facility] [address] [place] [address] Hemoglobin (Bld) [Mass/Vol] 13.7 g/dL Normal 12.0-16.0 [facility] Comment on above: Performed By: #### 2 496851, 1610349, 4384748, 80132447, 80553837 #### [facility] [address] [place] [address] MCH (RBC) [Entitic mass] 28.9 pg Normal 27.0-34.0 [facility] Comment on above: Performed By: #### 2 056404, 3504276, 9937831, 30047645, 15487807 #### [facility] [address] [place] [address] MCHC (RBC) [Mass/Vol] 33.6 g/dL Normal 31.4-36.0 [facility] Comment on above: Performed By: #### 2 806579, 5617542, 7101907, 45565831, 22873779 #### [facility] [address] [place] [address] MCV (RBC) [Entitic vol] 86.0 fL Normal 80.0-100.0 [facility] Comment on above: Performed By: #### 2 302976, 5553340, 2909995, 16496450, 37444842 #### [facility] [address] [place] [address] Platelet mean volume (Bld) [Entitic vol] 6.8 fL Normal 6.4-10.8 [facility] Comment on above: Performed By: #### 2 477940, 9690793, 4412237, 29315852, 31434433 #### [facility] [address] [place] [address] Platelets (Bld) [#/Vol] 276.0 E9/L Normal 150.0-500.0 [facility] Comment on above: Performed By: #### 2 329549, 9661154, 6386439, 01386091, 19051088 #### [facility] [address] [place] [address] RBC (Bld) [#/Vol] 4.7 E12/L Normal 4.3-5.9 [facility] Comment on above: Performed By: #### 2 701987, 3331544, 9407505, 57023724, 78736262 #### [facility] [address] [place] [address] WBC corrected for nucl RBC Auto (Bld) [#/Vol] 8.9 E9/L Normal 4.0-11.0 [facility] Comment on above: Performed By: #### 2 188778, 0667034, 2001651, 69299425, 02474008 #### [facility] [address] [place] [address] CHEMISTRYOrdered By: SYSTEM SYSTEM on 07-23-2022 Anion gap [Moles/Vol] 12 mmol/L Normal 6 - 16 mEq/L [facility] Calcium [Mass/Vol] 9.2 mg/dL Normal 8.9 - 11. 1 mg/dL [facility] Chloride [Moles/Vol] 103 mmol/L Normal 101 - 1 11 mmol/L [facility] CO2 [Moles/Vol] 23 mmol/L Normal 21 - 31 mmol/L [facility] Creatinine [Mass/Vol] 1.2 mg/dL Normal 0.5 - 1.3 mg/dL [facility] GFR/1.73 sq M.predicted among non-blacks MDRD (S/P/Bld) [Vol rate/Area] 60 mL/min/1.73 m2 Normal >=59mL/min/1 .73 m2 [facility] [place] Glucose [Mass/Vol] 87 mg/dL Normal 55 - 199 mg/dL [facility] Potassium [Moles/Vol] 4.4 mmol/L Normal 3.5 - 5.3 mmol/L [facility] Sodium [Moles/Vol] 134 mmol/L Low 135 - 145 mmol/L [facility] Urea nitrogen [Mass/Vol] 16 mg/dL Normal 5 - 21 mg/dL [facility] Urea nitrogen/Creatinine [Mass ratio] 13 mg/mg Normal 10 - 20 [facility] COAGULATIONOrdered By: Santi Hampton on 07-23-2022 aPTT Coag (PPP) [Time] 35.9 s Normal 25.1 - 36.5 second(s) [facility] Auto Coag INR Coag (PPP) [Relative time] 1.1 {INR} Invalid Interpretation Code FT Auto Coag PT Coag (PPP) [Time] 12.3 s Normal 9.4 - 1 2.5 second(s) [facility] Auto Coag Consent for Procedure/Surger yon 07-23-2022 Consent for Procedure/Surgery [id number] 5#1.00CD:127 Normal [facility] Consent for Treatmenton Consent for Treatment [id number] #1.00CD:127 Normal [facility] Discharge Instructionson Discharge Instructions CATIE LYONS :1985 Visit Date:07/23/2022 Inpatient Discharge Instructions Your Care Team Admitting Physician - Liumdila Daniels MD Referring Physician - Lue MD, Liudmila M. Reason for Your Visit LEFT KIDNEY STONE Your Diagnosis Kidney stones Preoperative clearance Ureteral stone with hydronephrosis Tests Performed Automated Diff BMP Calculi Analysis Urinary -- Results Pending -- CBC w/ Auto Diff eGFR PT & PTT U Beta Hcg Qual -- Results Pending -- Urine Culture -- Results Pending -- XR Abdomen 1 View -- Results Pending -- XR Urography Retrograde Left -- Results Pending -- Please visit your patient portal for your results or contact your primary care physician. This Is Your Medications List benztropine (benztropine 0.5 mg oral tablet) buprenorphine-naloxo ne (Suboxone) busPIRone (busPIRone 30 mg oral tablet) ciprofloxacin (Cipro 500 mg Tab) hydrOXYzine (Vistaril 50 mg Cap) oxybutynin (oxybutynin 5 mg Tab) paliperidone (Invega 9 mg Tab-ER) quetiapine (SEROquel 200 mg Tab) quetiapine (Seroquel) tamsulosin (tamsulosin 0.4 mg Cap) vilazodone (Viibryd 20 mg oral tablet) Procedure History Dilation and curettage (08/20/2018). Discharge Vitals Temperature (Temporal Artery) 36.3 ?C Heart Rate (Monitored) 92 Respiratory Rate 16 Blood Pressure 155/98 Height 179 cm Weight 106.3 kg BMI 33.18 What to do next Instructions From Your Doctor Event Name Event Result Discharge Activity Ambulate as tolerated, Expect mild pain, Expect minimal amount of drainage and/or bleeding, Activity as tolerated Discharge Restrictions No driving for 24 hrs Discharge Diet(s) Drink liquids and eat a light meal Call Your Doctor For Persistent or heavy bleeding, Temperature above 101.5 degrees, Severe pain at the operative site, Persistent vomiting Pharmacy Information Other: [facility] Discharge Instructions Discharge Instructions New Follow Up Appointments after Discharge Follow Up with Liudmila Daniels When: Comments: Office will call to schedule left ureteroscopy, laser lithotripsy, stent exchange in 2 weeks Medications What How Much When Instructions Next Dose New ciprofloxacin (Cipro 500 mg Tab) 1 Tablets By Mouth Every 12 hours Duration: 5 Days Pickup at [facility] #[id number] New oxybutynin (oxybutynin 5 mg Tab) 1 Tablets By Mouth 3 times a day as needed for Urinary discomfort Refills: 1 Bladder spasms, stent irritation Pickup at [facility] #00724 New tamsulosin (tamsulosin 0.4 mg Cap) 1 Capsules By Mouth Every day as needed for Urinary discomfort Refills: 1 Stent pain Pickup at [facility] #[id number] Changed quetiapine (SEROquel 200 mg Tab) 200 Milligram By Mouth Every day Changed quetiapine (Seroquel) 400 Milligram By Mouth Every day Unchanged benztropine (benztropine 0.5 mg oral tablet) 1 Tablets By Mouth Once a day (at bedtime) Unchanged buprenorphine-naloxo ne (Suboxone) Sublingual Every day Unchanged busPIRone (busPIRone 30 mg oral tablet) 1 Tablets By Mouth 2 times a day Unchanged hydrOXYzine (Vistaril 50 mg Cap) 1 Capsules By Mouth 3 times a day Unchanged paliperidone (Invega 9 mg Tab-ER) 1 Tablets By Mouth Once a day (in the morning) Unchanged vilazodone (Viibryd 20 mg oral tablet) 1 Tablets By Mouth Every day Pharmacy Information [facility] #[id number]: [address] [place], [place] [id number] [phone] Test Results CBC BMP WBC: 8.9 E9/L (07/23/22 12:26:00) Glucose Lvl: 87 mg/dL (07/23/22 12:26:00) RBC: 4.7 E12/L (07/23/22 12:26:00) BUN: 16 mg/dL (07/23/22 12:26:00) HGB: 13.7 gm/dL (07/23/22 12:26:00) Creatinine: 1.2 mg/dL (07/23/22 12:26:00) Hct: 40.8 % (07/23/22 12:26:00) BUN/Creat Ratio: 13 (07/23/22 12:26:00) MCV: 86 fL (07/23/22 12:26:00) Sodium Lvl: 134 mmol/L Low (07/23/22 12:26:00) MCH: 28.9 pg (07/23/22 12:26:00) Potassium Lvl: 4.4 mmol/L (07/23/22 12:26:00) MCHC: 33.6 gm/dL (07/23/22 12:26:00) Chloride: 103 mmol/L (07/23/22 12:26:00) RDW: 13.1 % (07/23/22 12:26:00) CO2: 23 mmol/L (07/23/22 12:26:00) Platelet: 276 E9/L (07/23/22 12:26:00) AGAP: 12 mEq/L (07/23/22 12:26:00) MPV: 6.8 fL (07/23/22 12::00) Calcium Lvl: 9.2 mg/dL (07/23/22 12::00) Allergies No Known Medication Allergies Problems Ongoing - Any problem that you are currently receiving treatment for. Headache History of kidney stones Kidney stones Psychiatric illness Smoker Ureteral stone with hydronephrosis Devices Implanted/Removed This Visit Implanted CYSTOSCOPY RETROGRADE STENT INSERTION Ureter L STENT CONTOUR URETERAL 6.0 X 22-30MM [[id number]] 07/23/2022, MR Safe - HORACIO: {[id number]{1 7}[id number]{10}[id number] [employer] [facility] [place], [place] Post-operative Instructions for Ureteroscopy, Laser Lithotripsy, Stone Extraction and Stent Placement There are no incisions or dressings to be c (more content not included)... Normal [facility] Comment on above: Result Comment: Elec tronically Signed By: Isacc CHAPARRO, Elva Walker\.br\Date and Time Signed: 07/23/22 15:43 EDT H&P Updateon 07-23-2022 H&P Update [id number] 9#1.00CD:127 Normal [facility] HEMATOLOGYOrdered By: SYSTEM SYSTEM on 07-23-2022 Basophils/100 WBC (Bld) 0.6 % Normal 0.0 - 2.0 % [facility] HemeAutoSS Basophils/Leukocytes Auto (Bld) [Pure # fraction] 0.1 E9/L Normal 0.0 - 0.2 E9/L [facility] HemeAutoSS Eosinophils/100 WBC (Bld) 1.6 % Normal 0.0 - 8.0 % [facility] HemeAutoSS Eosinophils/Leukocyte s Auto (Bld) [Pure # fraction] 0.1 E9/L Normal 0.0 - 0.5 E9/L [facility]eAutoSS Lymphocytes/100 WBC (Bld) 24.5 % Normal 14.0 - 50.0 % [facility] HemeAutoSS Lymphocytes/Leukocyte s Auto (Bld) [Pure # fraction] 2.2 E9/L Normal 1.0 - 4.0 E9/L [facility] HemeAutoSS Monocytes/100 WBC (Bld) 6.3 % Normal 4.0 - 14.0 % [facility] HemeAutoSS Monocytes/Leukocytes Auto (Bld) [Pure # fraction] 0.6 E9/L Normal 0.2 - 1.0 E9/L [facility]eAuto[facility] Neutrophils/100 WBC (Bld) 67.0 % Normal 36.0 - 75.0 % [facility] HemeAutoSS Neutrophils/Leukocyte s Auto (Bld) [Pure # fraction] 6.0 E9/L Normal 2.0 - 7.5 E9/L [facility]eAuto[facility] HEMATOLOGYOrdered By: Jayne Donnelly on 07-23-2022 Erythrocyte distribution width (RBC) [Ratio] 13.1 % Normal 10.9 - 14.2 % [facility]eAuto[facility] Hematocrit (Bld) [Volume fraction] 40.8 % Normal 34.0 - 46.0 % [facility]eAuto[facility] Hemoglobin (Bld) [Mass/Vol] 13.7 g/dL Normal 12.0 - 16.0 gm/dL [facility] MCH (RBC) [Entitic mass] 28.9 pg Normal 27.0 - 34.0 pg [facility]eAuto[facility] MCHC (RBC) [Mass/Vol] 33.6 g/dL Normal 31.4 - 36.0 gm/dL [facility]eAuto[facility] MCV (RBC) [Entitic vol] 86.0 fL Normal 80.0 - 100.0 fL [facility]eAutoSS Platelet mean volume (Bld) [Entitic vol] 6.8 fL Normal 6.4 - 10.8 fL [facility]eAuto[facility] Platelets (Bld) [#/Vol] 276.0 E9/L Normal 150.0 - 500.0 E9/L [facility]eAuto[facility] RBC (Bld) [#/Vol] 4.7 E12/L Normal 4.3 - 5.9 E12/L [facility]eAuto[facility] WBC corrected for nucl RBC Auto (Bld) [#/Vol] 8.9 E9/L Normal 4.0 - 11.0 E9/L [facility] [place] Patient Summaryon 07-23-2022 Inpatient Patient Summary [address] [address] [facility] Clinical Discharge Instructions PERSON INFORMATION Name: CATIE LYONS [facility]#:[id number] PHYSICIANS Admitting Physician: Liudmila Daniels MD Attending Physician: Liudmila Daniels MD PCP: NONE, XXXX Discharge Diagnosis: Kidney stones; Ureteral stone with hydronephrosis Comment: PATIENT EDUCATION INFORMATION Instructions: Ovxl-Mjlo-cr Utereroscopy,Lithotr ipsy, Stone Extraction, Stent Placement (CUSTOM); Dietary Guidelines to Help Prevent Kidney Stones Medication Leaflets: Follow up: With: Address: When: Liudmila Daniels Comments: Office will call to schedule left ureteroscopy, laser lithotripsy, stent exchange in 2 weeks MEDICATION LIST New Medications [facility] #[id number], [address] [place], [place] [id number], [phone] ciprofloxacin (Cipro 500 mg Tab) 1 Tablets By Mouth every 12 hours for 5 Days. Refills: 0. oxybutynin (oxybutynin 5 mg Tab) 1 Tablets By Mouth 3 times a day as needed Urinary discomfort. Bladder spasms, stent irritation. Refills: 1. tamsulosin (tamsulosin 0.4 mg Cap) 1 Capsules By Mouth every day as needed Urinary discomfort. Stent pain. Refills: 1. Medications to Continue Taking That Have Changed Other Medications START: quetiapine (SEROquel 200 mg Tab) 200 Milligram By Mouth every day., pt takes a 400mg tab and a 200mg tab daily START: quetiapine (Seroquel) 400 Milligram By Mouth every day. Medications to Continue with No Changes Other Medications benztropine (benztropine 0.5 mg oral tablet) 1 Tablets By Mouth once a day (at bedtime). buprenorphine-naloxo ne (Suboxone) Sublingual every day. busPIRone (busPIRone 30 mg oral tablet) 1 Tablets By Mouth 2 times a day. hydrOXYzine (Vistaril 50 mg Cap) 1 Capsules By Mouth 3 times a day. paliperidone (Invega 9 mg Tab-ER) 1 Tablets By Mouth once a day (in the morning). vilazodone (Viibryd 20 mg oral tablet) 1 Tablets By Mouth every day. Comment: [facility] Main OR PACU I [facility] Main OR PACU I Record PACU Phase I Document Type FT Summary Primary Physician: Liudmila Daniels MD Finalized Date/Time: 07/23/22 15:29:44 Pt. Name: CATIE LYONS Abdirahman Valiente./Sex: 1985 Female Med Rec #: [id number] Physician: Liudmila Daniels MD Financial #: [id number] Pt. Type: A Room/Bed: [place] [address] Admit/Disch: 07/23/22 11:44:51 - Institution: Case Times PACU I FT Pre-Care Text: Identifies barriers to communication and implements measures to provide psychological support Develops individualized plan of care, and ensures continuity of care Maintains patient's dignity and privacy, and maintains patient confidentiality Identifies and reports philosophical, cultural, and spiritual beliefs and values Identifies individual values and wishes concerning care Implements aseptic technique, and administers prescribed antibiotic therapy and immunizing agents as ordered Evaluates postoperative tissue perfusion Implements thermoregulation measures, and monitors body temperature Evaluates postoperative respiratory status Evaluates postoperative cardiac status Evaluates postoperative neurological status Assesses pain control, collaborated in initiating patient-controlled analgesia and implements alternative methods of pain control Verifies allergies, administers prescribed medications and solutions, evaluates response to medications Entry 1 In PACU I 07/23/22 14:47:00 Discharge from PACU 07/23/22 15:17:00 I Outcomes Met? Yes Last Modified By: Patricia Moore RN 07/23/22 15:29:23 Post-Care Text: The patient demonstrates knowledge of the expected response to the operative or invasive procedure The patient's care is consistent with the individualized perioperative plan of care The patient's right to privacy is maintained The patient's value system, lifestyle, ethnicity, and culture are considered, respected, and incorporated into the perioperative plan of care The patient participates in decisions affecting his or her perioperative plan of care The patient is free from signs and symptoms of infection The patient has wound/tissue perfusion consistent with or improved from baseline levels established preoperatively The patient is at or returning to normothermia at the conclusion of the immediate postoperative period The patient's respiratory function is consistent with or improved from baseline levels established preoperatively The patient's cardiovascular status is consistent with or improved from baseline levels established preoperatively The patient's cardiovascular status is consistent with or improved from baseline levels established preoperatively The patient demonstrates and/or reports adequate pain control throughout the perioperative period The patient received appropriate medication(s), safely administered during the perioperative period Acuity Level PACU I FT Entry 1 Start Time 07/23/22 14:47:00 Stop Time 07/23/22 15:17:00 Acuity Level Acuity Level I Last Modified By: Patricia Moore RN 07/23/22 15:29:37 Finalized By: Patricia Moore RN Document Signatures Signed By: Patricia Moore RN 07/23/22 15:29 Normal [facility] Main OR PACU II Recordon Main OR PACU II Record PACU Phase II Document Type FT Summary Primary Physician: Liudmila Daniels MD Finalized Date/Time: 07/23/22 16:23:00 Pt. Name: ELOY CATIE Archer/Sex: 1985 Female Med Rec #: [id number] Physician: Liudmila Daniels MD Financial #: [id number] Pt. Type: A Room/Bed: [facility]/ Admit/Disch: 07/23/22 11:44:51 - 07/23/22 16:20:00 Institution: Case Times PACU II FT Pre-Care Text: Identifies barriers to communication and implements measures to provide psychological support and determines knowledge level Develops individualized plan of care, and ensures continuity of care Maintains patient's dignity and privacy, and maintains patient confidentiality Identifies and reports philosophical, cultural, and spiritual beliefs and values Identifies individual values and wishes concerning care administers prescribed antibiotic therapy and immunizing agents as ordered, Evaluates postoperative tissue perfusion Implements thermoregulation measures, and monitors body temperature Evaluates postoperative respiratory status Evaluates postoperative cardiac status Evaluates postoperative neurological status Assesses pain control, collaborated in initiating patient-controlled analgesia and implements alternative methods of pain control Verifies allergies, administers prescribed medications and solutions, evaluates response to medications Entry 1 In PACU II 07/23/22 15:20:00 Discharge from PACU 07/23/22 16:20:00 II Outcomes Met? Yes Last Modified By: Elva Dexter RN 07/23/22 16:22:59 Post-Care Text: The patient demonstrates knowledge of the expected response to the operative or invasive procedure The patient's care is consistent with the individualized perioperative plan of care The patient's right to privacy is maintained The patient's value system, lifestyle, ethnicity, and culture are considered, respected, and incorporated into the perioperative plan of care The patient participates in decisions affecting his or her perioperative plan of care. The patient is free from signs and symptoms of infection The patient has wound/tissue perfusion consistent with or improved from baseline levels established preoperatively The patient is at or returning to normothermia at the conclusion of the immediate postoperative period The patient's respiratory function is consistent with or improved from baseline levels established preoperatively The patient's cardiovascular status is consistent with or improved from baseline levels established preoperatively The patient's neurological status is consistent with or improved from baseline levels established preoperatively The patient demonstrates and/or reports adequate pain control throughout the perioperative period The patient received appropriate medication(s), safely administered during the perioperative period Finalized By: Elva Dexter RN Document Signatures Signed By: Elva Dexter RN 07/23/22 16:23 Normal [facility] Main OR Preoperative Recordo n 07-23-2022 Main OR Preoperative Record PreOp Document Type FT Summary Primary Physician: Liudmila Daniels MD Finalized Date/Time: 07/23/22 14:26:45 Pt. Name: SUZETTESebastienCATIE D.O.B./Sex: 1985 Female Med Rec #: [id number] Physician: Liudmila Daniels MD Financial #: [id number] Pt. Type: A Room/Bed: Admit/Disch: 07/23/22 11:44:51 - Institution: Case Times PreOp FT Pre-Care Text: Verifies consent for planned procedure, identifies individual values and wishes concerning care, includes family members in perioperative teaching Entry 1 Patient Times. In Pre Surgery 07/23/22 12:00:00 Out Pre Surgery 07/23/22 13:48:00 Outcomes Met? Yes Last Modified By: Indra Serna RN 07/23/22 14:26:43 Post-Care Text: The patient participates in decisions affecting his or her perioperative plan of care Finalized By: Indra Serna RN Document Signatures Signed By: Indra Serna RN 07/23/22 14:26 Normal [facility] Monitor Recordon 07-23-2022 Monitor Record [id number]:127 Normal [facility] Monitor Record [id number]#[id number]:127 Normal [facility] Operative Reporton Operative Report Patient: CATIE LYONS Age: 37 years Sex: Female : 1985 Associated Diagnoses: None Author: Liudmila Daniels MD Procedure Procedure Date: 07/23/2022. Confirmed: patient, procedure, side, site, safety procedures followed. Performed by: Liudmila Daniels MD, anesthesiologist (Dr. Merlene Ye CRNA). Type of procedure: Cystoscopy, left retrograde pyelogram, left ureteroscopy with laser lithotripsy/stone basket extraction, stent placement. Informed consent: signed by patient. Indication: 37-year-old female with history of recurrent nephrolithiasis was previously diagnosed with a 6.2 left ureteropelvic junction stone with moderate hydronephrosis and 4-5 nonobstructing stones in the left kidney measuring up to 4 mm each. After discussion of risks and benefits of management options, patient presents today for definitive management of nephrolithiasis. I discussed the risks, benefits, alternatives and complications associated with ureteroscopy with laser lithotripsy and stone extraction, including but not limited to bleeding, pain, infection, ureteral perforation, extravasation, stricture formation, sepsis, obstruction, inability to reach the stone, inability to fragment the stone, and inability to retrieve all stone fragments. The need for ancillary procedures such as stent placement and removal, retrograde urography, and percutaneous nephrostomy were also discussed. The patient also understood that a ureteral stent would likely be placed and removal of the stent is critical. Failure to follow up for stent removal can result in recurrent UTIs, encrustation of the stent, loss of kidney function and need for nephrectomy.. Findings: No bladder tumors or lesions, mildly tight urethra with angulation into bladder. Left retrograde pyelogram with filling defect in proximal and mid ureter, mild hydronephrosis. Pale, narrow mid and proximal ureter. Left UPJ stone pushed into the kidney. Crystals/mild debris within the kidney, not purulent urine. Laser lithotripsy of stones however due to poor visualization and inability to advance sheath to renal pelvis, unable to fully treat. Ureteral stent was placed for passive dilation.. Procedure tolerated: well. Specimen: sent to pathology, Kidney stone. Complications: none. PROCEDURE IN DETAIL: After the risks, benefits, indications, alternatives and expectations of the procedure were reviewed with the patient and informed consent was obtained, the patient was taken to operative suite and placed in the supine position. Sequential compression devices were placed on bilateral lower extremities. General anesthesia LMA was induced and the patient was transitioned to the lithotomy position and prepped and draped in the usual sterile fashion for cystoscopy. A preoperative dose of antibiotics was given. A timeout was observed prior to initiating the procedure. We began the procedure inserting lidocaine gel per urethra, using a 22.5 Uruguayan rigid cystoscope and inserted this into the bladder with minimal manipulation. We noted a normal appearance of the urethra en route to the bladder. Once inside the bladder, a cystoscopic examination revealed no evidence of erythematous patches or plaques, foreign bodies, stones or papillary lesion. A 6 Uruguayan open-ended catheter was inserted into the left ureteral orifice followed by injection of contrast with findings as above. A straight sensor wire was inserted up the catheter and fluoroscopy was used to confirm its coiling within the kidney. We then removed the catheter from the patient and left the sensor wire behind. Next a 10/12 U[place]ayan x 35cm ureteral access sheath was gently inserted over our working wire to gain access to the ureteral stone. A flexible ureteroscope was then deployed through the access sheath. No stone was at the level of resistance in the mid ureter however the ureter was quite narrow and pale for about 3 cm. The flexible ureteroscope was able to be advanced without the sheath until the ureteropelvic junction stone was encountered and pushed back into the kidney. Renoscopy was performed confirming presence of multiple kidney stones in almost all calyces. A 200 micron laser fiber was used to break the larger prior UPJ stone into smaller pieces without difficulty. A 2.2-ZeroTip basket was used to extract a few fragments. Visualization became more limited, as the sheath was unable to be advanced proximal enough for optimal fluid drainage from the renal pelvis. Repeat aspiration of the renal pelvis fluid was performed, however visualization was still quickly limited. Given degree of stone burden, mildly cloudy urine and limitations with access/visualization , decision was made to leave a stent in place for passive dilation. Contrast was injected through the ureteroscope, without evidence of extravasation. A pull-down ureteroscopy was performed confirming no stones in the ureter remained. The wire was backloaded over our cystoscope and we placed a 6 F X 2 (more content not included)... Normal [facility] Comment on above: Result Comment: Elec tronically Signed By: Liudmila Daniels MD\.br\Date and Time Signed: 07/23/22 15:06 EDT Outpatient Surgery Discharge Instructionon 07-23-2022 Outpatient Surgery Discharge Instruction [place] [id number] Patient Discharge Instructions PERSON INFORMATION Name: SUZETTESebastienCATIE Date of : 1985 Current Date: 07/23/2022 14:49:51 PHYSICIANS Admitting Physician: Liudmila Daniels MD Discharge Diagnosis: Kidney stones; Ureteral stone with hydronephrosis CATIE LYONS has been given the following list of follow-up instructions, prescriptions, and patient education materials: PATIENT FOLLOW-UP INFORMATION Diet: Drink liquids and eat a light meal Discharge Activity: Ambulate as tolerated, Expect mild pain, Expect minimal amount of drainage and/or bleeding, Activity as tolerated Discharge Restrictions: No driving for 24 hrs Call Your Doctor For: Persistent or heavy bleeding, Temperature above 101.5 degrees, Severe pain at the operative site, Persistent vomiting IF UNABLE TO CONTACT YOUR PHYSICIAN AND YOU FEEL IT IS AN EMERGENCY, GO TO THE NEAREST EMERGENCY ROOM OR CALL 911 IELOY ADRIANA J, have received the attached patient education materials/instructio ns and have verbalized understanding: May we do a follow up call? Yes No I was present when discharge instructions were given Patient Signature Date Clinican/Nurse Signature Date Follow up: With: Address: When: Liudmila Daniels Comments: Office will call to schedule left ureteroscopy, laser lithotripsy, stent exchange in 2 weeks Pharmacy Information: Other: [facility] You may receive a survey from [facility] Robledo asking you to rate your care experience. Your feedback is important and will help us understand what we do well and how we can improve the quality of care we provide to you, your loved ones and our community. It?s an honor to serve you. Thank you for choosing [facility] HERE ARE THE MEDICATION CHANGES THAT OCCURRED DURING YOUR HOSPITAL STAY New Medications [id number], [address] [place], [place] [id number], [phone] ciprofloxacin (Cipro 500 mg Tab) 1 Tablets By Mouth every 12 hours for 5 Days. Refills: 0. oxybutynin (oxybutynin 5 mg Tab) 1 Tablets By Mouth 3 times a day as needed Urinary discomfort. Bladder spasms, stent irritation. Refills: 1. tamsulosin (tamsulosin 0.4 mg Cap) 1 Capsules By Mouth every day as needed Urinary discomfort. Stent pain. Refills: 1. Medications to Continue Taking That Have Changed Other Medications START: quetiapine (SEROquel 200 mg Tab) 200 Milligram By Mouth every day., pt takes a 400mg tab and a 200mg tab daily START: quetiapine (Seroquel) 400 Milligram By Mouth every day. Medications to Continue with No Changes Other Medications benztropine (benztropine 0.5 mg oral tablet) 1 Tablets By Mouth once a day (at bedtime). buprenorphine-naloxo ne (Suboxone) Sublingual every day. busPIRone (busPIRone 30 mg oral tablet) 1 Tablets By Mouth 2 times a day. hydrOXYzine (Vistaril 50 mg Cap) 1 Capsules By Mouth 3 times a day. paliperidone (Invega 9 mg Tab-ER) 1 Tablets By Mouth once a day (in the morning). vilazodone (Viibryd 20 mg oral tablet) 1 Tablets By Mouth every day. PATIENT EDUCATION INFORMATION Instructions: [facility] [place], [place] Post-operative Instructions for Ureteroscopy, Laser Lithotripsy, Stone Extraction and Stent Placement There are no incisions or dressings to be concerned with, as the procedure was performed inside the urinary system. For 24 hours after surgery: ? No driving or operating machinery ? Do not make important decisions ? Do not consume alcohol, sleeping pills Stent Placement You may have a stent which spans the distance between your bladder and your kidney, allowing urine to pass through. It prevents blockage from swelling, kidney stones in ureter (tube connecting the kidney to the bladder), or scars. The presence of the stent may cause: ? Back or side pain, especially with urination ? Frequent or urgent urination ? Bladder pressure or pain ? Blood in urine You may pass stone debris or small blood clots, which is expected. Drinking plenty of water to dilute the urine may help. The stent will most likely be removed in the office during a short procedure in which a scope is placed into the bladder, the stent is grasped and removed. At other times the stent may need to stay longer, either in preparation for other procedures or for other reasons. If it is to remain terminal makeup operator, however, changes of the stent are required (about every 3-4 months). Diet You may resume your normal diet, but you may want to start slowly and avoid spicy food, caffeine, carbonated beverages and alcohol, especially if yo (more content not included)... Normal [facility] PT & PTTon 07-23-2022 aPTT Coag (PPP) [Time] 35.9 second(s) Normal 25.1-36.5 [facility] Comment on above: Result Comment: Para meter 15 days - 4 weeks 1 - 5 months 6 - 11 months 1 - 5 years 6 - 10 years 11 - 17 years PTT Mean: 35.4 (27.6-45.6) Mean: 33.5 (24.8-40.7) Mean: 32.4 (25.1-40.7) Mean: 31.6 (24.0-39.2) Mean: 31.6 (26.9-38.7) Mean: 31.0 (24.6-38.4) Pediatric Reference ranges were obtained from a study by Shan Bansal et al. prepared from 1437 samples obtained at 7 different centers using the same coagulation reagent and instrumentation [place] [facility] Currently there are no coagulation studies available worldwide for children to 14 days, and no normal ranges. Heparin therapeutic range (represented by Anti-Factor Xa activity of 0.2 - 0.4 U/mL) corresponds to PTT of 56.6 - 109.0 sec. Performed By: #### 2 [id number] #### [facility] [address] [place] [address] INR Coag (PPP) [Relative time] 1.1 {INR} Invalid Interpretation Code [facility] Comment on above: Result Comment: INR results are specifically intended to assess patients stabilized on long-term Anticoagulation therapy suggested INR?s ?Less Intensive Anticoagulation? 2.0 ? 3.0 Conventional Range 3.0 ? 4.5 Performed By: #### 2 [id number] #### [facility] [address] [place] [address] PT Coag (PPP) [Time] 12.3 second(s) Normal 9.4-12.5 [facility] Comment on above: Result Comment: 15 d ays - 4 weeks 1 - 5 months 6 -11 months 1- 5 years 6-10 years 11 -17 years Mean: 11.2 (9.5-12.6) Mean: 11.0 (9.7-12.8) Mean: 11.0 (9.8-13.0) Mean: 11.3 (9.9-13.4) Mean: 11.7 (10.0-14.6) Mean: 11.8 (10.0 - 14.1) Pediatric Reference ranges were obtained from a study by Shan Bansal et al. prepared from 1437 samples obtained at 7 different centers using the same coagulation reagent and instrumentation [place] [facility] [place] Currently there are no coagulation studies available worldwide for children to 14 days, and no normal ranges. Performed By: #### 2 [id number], [id number], [id number] #### [facility] [address] [place] [address] Patient Education - Texton 0 07-23-2022 Patient Education - Text Nephrology Dietary Guidelines to Help Prevent Kidney Stones Kidney stones are deposits of minerals and salts that form inside your kidneys. Your risk of developing kidney stones may be greater depending on your diet, your lifestyle, the medicines you take, and whether you have certain medical conditions. Most people can lower their chances of developing kidney stones by following the instructions below. Your dietitian may give you more specific instructions depending on your overall health and the type of kidney stones you tend to develop. What are tips for following this plan? Reading food labels ? Choose foods with no salt added or low-salt labels. Limit your salt (sodium) intake to less than 1,500 mg a day. ? Choose foods with calcium for each meal and snack. Try to eat about 300 mg of calcium at each meal. Foods that contain 200?500 mg of calcium a serving include: ? 8 oz (237 mL) of milk, calcium-fortifiednon -dairy milk, and calcium-fortifiedfru it juice. Calcium-fortified means that calcium has been added to these drinks. ? 8 oz (237 mL) of kefir, yogurt, and soy yogurt. ? 4 oz (114 g) of tofu. ? 1 oz (28 g) of cheese. ? 1 cup (150 g) of dried figs. ? 1 cup (91 g) of cooked broccoli. ? One 3 oz (85 g) can of sardines or mackerel. Most people need 1,000?1,500 mg of calcium a day. Talk to your dietitian about how much calcium is recommended for you. Shopping ? Buy plenty of fresh fruits and vegetables. Most people do not need to avoid fruits and vegetables, even if these foods contain nutrients that may contribute to kidney stones. ? When shopping for convenience foods, choose: ? Whole pieces of fruit. ? Pre-made salads with dressing on the side. ? Low-fat fruit and yogurt smoothies. ? Avoid buying frozen meals or prepared deli foods. These can be high in sodium. ? Look for foods with live cultures, such as yogurt and kefir. ? Choose high-fiber grains, such as whole-wheat breads, oat bran, and wheat cereals. Cooking ? Do not add salt to food when cooking. Place a salt shaker on the table and allow each person to add his or her own salt to taste. ? Use vegetable protein, such as beans, textured vegetable protein (TVP), or tofu, instead of meat in pasta, casseroles, and soups. Meal planning ? Eat less salt, if told by your dietitian. To do this: ? Avoid eating processed or pre-made food. ? Avoid eating fast food. ? Eat less animal protein, including cheese, meat, poultry, or fish, if told by your dietitian. To do this: ? Limit the number of times you have meat, poultry, fish, or cheese each week. Eat a diet free of meat at least 2 days a week. ? Eat only one serving each day of meat, poultry, fish, or seafood. ? When you prepare animal protein, cut pieces into small portion sizes. For most meat and fish, one serving is about the size of the palm of your hand. ? Eat at least five servings of fresh fruits and vegetables each day. To do this: ? Keep fruits and vegetables on hand for snacks. ? Eat one piece of fruit or a handful of berries with breakfast. ? Have a salad and fruit at lunch. ? Have two kinds of vegetables at dinner. ? Limit foods that are high in a substance called oxalate. These include: ? Spinach (cooked), rhubarb, beets, sweet potatoes, and [place]ese chard. ? Peanuts. ? Potato chips, moroccan fries, and baked potatoes with skin on. ? Nuts and nut products. ? Chocolate. ? If you regularly take a diuretic medicine, make sure to eat at least 1 or 2 servings of fruits or vegetables that are high in potassium each day. These include: ? Avocado. ? Banana. ? [place]red, prune, carrot, or tomato juice. ? Baked potato. ? Cabbage. ? Beans and split peas. Lifestyle ? Drink enough fluid to keep your urine pale yellow. This is the most important thing you can do. Spread your fluid intake throughout the day. ? If you drink alcohol: ? Limit how much you use to: ? 0?1 drink a day for women who are not . ? 0?2 drinks a day for men. ? Be aware of how much alcohol is in your drink. In the [place] one drink equals one 12 oz bottle of beer (355 mL), one 5 oz glass of wine (148 mL), or one 1? oz glass of hard liquor (44 mL). ? Lose weight if told by your health care provider. Work with your dietitian to find an eating plan and weight loss strategies that work best for you. General information ? Talk to your health care provider and dietitian about taking daily supplements. You may be told the following depending on your health and the cause of your kidney stones: ? Not to take supplements with vitamin C. ? To take a calcium supplement. ? To take a daily probiotic supplement. ? To take other supplements such as magnesium, fish oil, or vitamin B6. ? Take [id number]-[id number] and prescription medicines only as told by your health care provi (more content not included)... Normal [facility] Progress Note-Nurseon 2022 Progress Note-Nurse Pt went to bathroom to give urine sample for urine test. Pt exited bathroom and stated that she could not go, and that she knew she was not as she just finished her period yesterday . Informed patient that if she was not going to complete the test, she would need to let anesthesia know so that they could have her sign the portion of the consent that stated her assurance that she was not . Pt verbalized understanding and agreed to sign. [facility] Progress Note-Physicianon Progress Note-Physician Patient: CATIE LYONS Age: 37 years Sex: Female : 1985 Associated Diagnoses: None Author: Merlene DAY, [place] Postoperative Information Postoperative disposition: Postoperative disposition: To PACU. Optimetrix number: Optimetrix number [id number]. Anesthetic utilized: General. Physical Examination Vital Signs 07/23/2022 15:00 EDT Heart Rate Monitored 94 bpm Respiratory Rate Monitored 11 br/min Systolic Blood Pressure 139 mmHg Diastolic Blood Pressure 88 mmHg Blood Pressure Location Left arm Mean Arterial Pressure, Cuff 105 mmHg SpO2 95 % 07/23/2022 14:55 EDT Heart Rate Monitored 100 bpm Respiratory Rate Monitored 15 br/min Systolic Blood Pressure 131 mmHg Diastolic Blood Pressure 81 mmHg Blood Pressure Location Left arm Mean Arterial Pressure, Cuff 98 mmHg SpO2 96 % 07/23/2022 14:50 EDT Heart Rate Monitored 98 bpm Respiratory Rate Monitored 16 br/min Systolic Blood Pressure 138 mmHg Diastolic Blood Pressure 85 mmHg Blood Pressure Location Left arm Mean Arterial Pressure, Cuff 103 mmHg SpO2 98 % 07/23/2022 14:47 EDT Temperature Temporal Artery 36.3 DegC Heart Rate Monitored 106 bpm HI Respiratory Rate Monitored 19 br/min Systolic Blood Pressure 122 mmHg Diastolic Blood Pressure 80 mmHg Blood Pressure Location Left arm Mean Arterial Pressure, Cuff 94 mmHg SpO2 98 % Pain Assessment: 07/23/2022 12:08 EDT Preliminary Pain Scale 0 . General: Awake, Alert, Appropriate. Respiratory: Adequate air exchange, Equal bilateral chest wall expansion. Cardiovascular: Stable. Neurological: At Baseline. Assessment Anesthetic outcome No anesthetic complications noted. Review / Management Condition: Stable. Plan Transfer/Discharge: Transfer/Discharge Discharge when meets criteria ( From PACU to Ambulatory Surgery Unit, and To home ). [facility] Comment on above: Result Comment: Elec tronically Signed By: Rico Blunt MD\.br\Date and Time Signed: 07/23/22 15:08 EDT Progress Note-Physician Patient: CATIE LYONS Age: 37 years Sex: Female : 1985 Associated Diagnoses: None Author: Rico Blunt MD Preoperative Information Anesthesia Preop Info: Time patient last ate or drank 07/22/2022 20:00:00. Anesthesia history: Patient history: None. Family history+: None. Informed consent: Signed by patient. Including risks, benefits, and alternatives related to the: Anesthetic plan, Postoperative pain management plan. Re-evaluation prior to induction: Rico Blunt MD. Initial evaluation reviewed: No significant change. Review of Systems Eye: Negative. Ear/Nose/Mouth/Throa t: Negative. Respiratory: Negative. Cardiovascular: Negative. Gastrointestinal: Negative. Genitourinary: Negative. Hematology/Lymphatic s: Negative. Endocrine: Negative. Musculoskeletal: Negative. Neurologic: Negative. Health Status Allergies: Allergies (1) Active Reaction No Known Medication Allergies None Documented Current medications: Home Medications (8) Active benztropine 0.5 mg oral tablet 0.5 mg = 1 tab(s), Oral, Once a day (at bedtime) busPIRone 30 mg oral tablet 30 mg = 1 tab(s), Oral, BID Invega 9 mg Tab-ER 9 mg = 1 tab(s), Oral, qAM Seroquel 400 mg, Oral, Daily SEROquel 200 mg Tab 200 mg, Oral, Daily Suboxone , SubLingual, Daily Viibryd 20 mg oral tablet 20 mg = 1 tab(s), Oral, Daily Vistaril 50 mg Cap 50 mg = 1 cap(s), Oral, TID , Medications (2) Active Scheduled: (1) ceFAZolin + Sodium Chloride 0.9% Minibag 50 mL 2 gram 1 EA, IV Piggyback, PREOP Continuous: (1) Lactated Ringers 1,000 mL 1,000 mL, IV, 150 mL/hr PRN: (0) Problem list: All Problems Headache / SNOMED CT 58366200 / Confirmed History of kidney stones / SNOMED CT 0736783044 / Confirmed Kidney stones / SNOMED CT 354811627 / Confirmed Psychiatric illness / SNOMED CT 798884205 / Confirmed Smoker / SNOMED CT 398268888 / Confirmed Added secondary to documentation in Social History. Ureteral stone with hydronephrosis / SNOMED CT 28406532 / Confirmed, Active Problems (6) Headache History of kidney stones Kidney stones Psychiatric illness Smoker Ureteral stone with hydronephrosis Histories Social History Social & Psychosocial Habits Substance Abuse 07/22/2022 Risk Assessment: Low Risk 07/22/2022 Use: Past Tobacco 07/22/2022 Tobacco Use: 4 or less cigarettes(less, Smoker, current status un Smokeless tobacco use: Never Type: Cigarettes Started at age: 21.0 Years Smoking Cessation Yes . Physical Examination Vital Signs 07/23/2022 12:09 EDT Heart Rate Monitored 96 bpm Systolic Blood Pressure 128 mmHg Diastolic Blood Pressure 88 mmHg Mean Arterial Pressure, Monitered 102 mmHg 07/23/2022 12:09 EDT Apical Heart Rate 96 bpm 07/23/2022 12:08 EDT Heart Rate Monitored 102 bpm HI SpO2 97 % 07/23/2022 12:08 EDT Respiratory Rate 20 br/min 07/23/2022 12:07 EDT Temperature Oral 37.2 DegC 07/23/2022 12:07 EDT Systolic Blood Pressure 143 mmHg HI Diastolic Blood Pressure 93 mmHg HI Mean Arterial Pressure, Monitered 109 mmHg 07/22/2022 8:38 EDT Peripheral Pulse Rate 103 bpm HI Systolic Blood Pressure 134 mmHg Diastolic Blood Pressure 114 mmHg HI Blood Pressure Location Right arm Measurements from flowsheet : Measurements 07/23/2022 12:19 EDT Height/Length Measured 179 cm Weight Measured 106.3 kg 07/23/2022 12:13 EDT Height/Length Measured 179 cm Height/Length Dosing 179.0 cm Weight Dosing 106.3 kg [place] Body Weight Calculated 69.587 kg BSA Measured 2.3 m2 Body Mass Index Measured 33.18 kg/m2 Weight Measured 106.3 kg 07/22/2022 10:31 EDT Height/Length Dosing 170.0 cm Weight Dosing 110.0 kg 07/22/2022 8:38 EDT Height/Length Measured 170 cm Height/Length Dosing 170.0 cm Weight Dosing 110.0 kg Body Mass Index Measured 38.06 kg/m2 Weight Measured 110.0 kg Weight in Pounds 242 lb Height in Inches 67 in Airway: Mallampati classification: II (soft palate, fauces, uvula visible). Distance: Thyromental, Adequate. Respiratory: Lungs are clear to auscultation, Symmetrical chest wall expansion. Cardiovascular: Regular rhythm, Good pulses equal in all extremities. Gastrointestinal: Soft, Non-tender. Plan [place] [employer]hesi[employer] (ASA) physical status classification: Class II. Anesthetic Preoperative Plan: Anesthesia General. Normal [facility] Comment on above: Result Comment: Elec tronically Signed By: Merlene DAY, Rico Orlando\.br\Date and Time Signed: 07/23/22 13:21 EDT SEROLOGYOrdered By: Basia Ferguson on 07-23-2022 HCG.beta subunit (U) [Moles/Vol] Negative Normal [facility] [place] Sero U BetaHcg Qual[place] 07-23-2022 HCG.beta subunit (U) [Moles/Vol] Negative Normal [facility] Comment on above: Performed By: #### 2 [id number] ####[facility] [id number] [place] [address] XR Abdomen 1 Viewon 07-24-19 XR Abdomen 1 View Exam Date/Time: 07/23/2022 12:03 EDT Reason for Exam: Kidney stone Report IMPRESSION: POSSIBLE LEFT MID URETERAL CALCULUS. NO RENAL CALCULI ARE IDENTIFIED. LIMITATIONS DISCUSSED. CLINICAL HISTORY: Kidney stone COMPARISON: NONE. FINDINGS: Gas and stool overlie region of kidneys obscuring fine detail. Surgical clips visualized in left upper quadrant of abdomen, in region of upper pole left kidney. No renal calculi are identified. 9 mm calculus overlies left transverse process L3. No calculi visualized over expected course right ureter. No small bowel dilatation or mass effect. Osseous structures intact. Ordering Provider: Liudmila Daniels FINAL REPORT Dictated: 07/23/2022 4:56 pm Renny Vazquez MD Signed (Electronic Signature): 07/23/2022 4:56 pm Signed by: Renny Vazquez MD Transcribed by: SEBASTIÁN Technologist: CARLOS Technical Comments Radiation Dose: Ka,r in mGy = na DAP = na Normal [facility] eGFRon 07-23-2022 GFR/1.73 sq M.predicted among non-blacks MDRD (S/P/Bld) [Vol rate/Area] 60 mL/min/1.73 m2 Normal >=59 [facility] Comment on above: Order Comment: Order added by Discern Expert. Result Comment: Capacity Planning Analyst fortino kidney disease could be indicated at eGFR's of less than 60 mL/min/1.73m2. Kidney failure is indicated at less than 15 mL/min/1.73m2. Performed By: #### 2 [id number] ####[facility] [id number] [place] [address] Ambulatory Visit Summaryon 0 07-22-2022 Ambulatory Visit Summary CATIE LYONS :1985 Visit Date:07/22/2022 Ambulatory Visit Instructions Your Diagnosis Ureteral stone with hydronephrosis Kidney stones History of kidney stones Tests Performed Urnls Dip Stick Auto w/o Microscopy POC 08502 Your Care Team Attending Physician - Liudmila Daniels MD This Is Your Medications List Contact prescribing physician if questions or concerns benztropine (benztropine 0.5 mg oral tablet) buprenorphine-naloxo ne (Suboxone) busPIRone (busPIRone 30 mg oral tablet) hydrOXYzine (Vistaril 50 mg Cap) paliperidone (Invega 9 mg Tab-ER) quetiapine (SEROquel 200 mg Tab) quetiapine (Seroquel) vilazodone (Viibryd 20 mg oral tablet) Discharge Vitals Heart Rate (Peripheral) 103 Blood Pressure 134/114 Height 170 cm Height 67 in Weight 110.0 kg Weight 242 lb BMI 38.06 What to do next You Need to Schedule the Following Appointments Follow Up with Liudmila Daniels MD, URL, URO When: Where: Medications What How Much When Instructions Unchanged benztropine (benztropine 0.5 mg oral tablet) 1 Tablets By Mouth Once a day (at bedtime) Contact prescribing physician if questions or concerns Unchanged buprenorphine-naloxo ne (Suboxone) Sublingual Every day Contact prescribing physician if questions or concerns Unchanged busPIRone (busPIRone 30 mg oral tablet) 1 Tablets By Mouth 2 times a day Contact prescribing physician if questions or concerns Unchanged hydrOXYzine (Vistaril 50 mg Cap) 1 Capsules By Mouth 3 times a day Contact prescribing physician if questions or concerns Unchanged paliperidone (Invega 9 mg Tab-ER) 1 Tablets By Mouth Once a day (in the morning) Contact prescribing physician if questions or concerns Unchanged quetiapine (SEROquel 200 mg Tab) By Mouth Every day Contact prescribing physician if questions or concerns Unchanged quetiapine (Seroquel) 400 Milligram By Mouth Every day Contact prescribing physician if questions or concerns Unchanged vilazodone (Viibryd 20 mg oral tablet) 1 Tablets By Mouth Every day Contact prescribing physician if questions or concerns Test Results Urnls Dip Stick Auto w/o Microscopy POC 29511 (07/22/2022) Bilirubin Urine Dipstick - Negative Blood Urine Dipstick - Negative Glucose Urine Dipstick - Negative Ketones Urine Dipstick - Negative Leukocytes Urine Dipstick - Trace Protein Urine Dipstick - Negative Specific [place] Urine Dipstick - >=1.030 Urine Appearance Urine Dipstick - Clear Urine Color Urine Dipstick - Yellow Urobilinogen Urine Dipstick - Normal 0.2-1 EU/dl pH Urine Dipstick - 6 Allergies No Known Medication Allergies Problems Ongoing - Any problem that you are currently receiving treatment for. Headache History of kidney stones Kidney stones Psychiatric illness Smoker Ureteral stone with hydronephrosis [employer] Laser Therapy for Kidney Stones Laser therapy for kidney stones is a procedure to break up small, hard mineral deposits that form in the kidney (kidney stones). The procedure is done using a device that produces a focused beam of light (laser). The laser breaks up kidney stones into pieces that are small enough to be passed out of the body through urination or removed from the body during the procedure. You may need laser therapy if you have kidney stones that are painful or block your urinary tract. This procedure is done by inserting a tube (ureteroscope) into your kidney through the urethral opening. The urethra is the part of the body that drains urine from the bladder. In women, the urethra opens above the vaginal opening. In men, the urethra opens at the tip of the penis. The ureteroscope is inserted through the urethra, and surgical instruments are moved through the bladder and the muscular tube that connects the kidney to the bladder (ureter) until they reach the kidney. Tell a health care provider about: ? Any allergies you have. ? All medicines you are taking, including vitamins, herbs, eye drops, creams, and asne-giu-pnhaeaw medicines. ? Any problems you or family members have had with anesthetic medicines. ? Any blood disorders you have. ? Any surgeries you have had. ? Any medical conditions you have. ? Whether you are or may be . What are the risks? Generally, this is a safe procedure. However, problems may occur, including: ? Infection. ? Bleeding. ? Allergic reactions to medicines. ? Damage to the urethra, bladder, or ureter. ? Urinary tract infection (UTI). ? Narrowing of the urethra (urethral stricture). ? Difficulty passing urine. ? Blockage of the kidney caused by a fragment of kidney stone. What happens before the procedure? Medicines ? Ask your health care provider about: ? Changing or stopping your regular medicines. This is especially important if you are taking diabetes medicines or blood thinners. ? Taking medicines such as aspi (more content not included)... Normal [facility] Formson 07-22-2022 Forms [id number]#[id number]:127 Normal [facility] Patient Educationon 07-23-19 23 Patient Education Nephrology Laser Therapy for Kidney Stones Laser therapy for kidney stones is a procedure to break up small, hard mineral deposits that form in the kidney (kidney stones). The procedure is done using a device that produces a focused beam of light (laser). The laser breaks up kidney stones into pieces that are small enough to be passed out of the body through urination or removed from the body during the procedure. You may need laser therapy if you have kidney stones that are painful or block your urinary tract. This procedure is done by inserting a tube (ureteroscope) into your kidney through the urethral opening. The urethra is the part of the body that drains urine from the bladder. In women, the urethra opens above the vaginal opening. In men, the urethra opens at the tip of the penis. The ureteroscope is inserted through the urethra, and surgical instruments are moved through the bladder and the muscular tube that connects the kidney to the bladder (ureter) until they reach the kidney. Tell a health care provider about: ? Any allergies you have. ? All medicines you are taking, including vitamins, herbs, eye drops, creams, and cigl-zah-hadflwp medicines. ? Any problems you or family members have had with anesthetic medicines. ? Any blood disorders you have. ? Any surgeries you have had. ? Any medical conditions you have. ? Whether you are or may be . What are the risks? Generally, this is a safe procedure. However, problems may occur, including: ? Infection. ? Bleeding. ? Allergic reactions to medicines. ? Damage to the urethra, bladder, or ureter. ? Urinary tract infection (UTI). ? Narrowing of the urethra (urethral stricture). ? Difficulty passing urine. ? Blockage of the kidney caused by a fragment of kidney stone. What happens before the procedure? Medicines ? Ask your health care provider about: ? Changing or stopping your regular medicines. This is especially important if you are taking diabetes medicines or blood thinners. ? Taking medicines such as aspirin and ibuprofen. These medicines can thin your blood. Do not take these medicines unless your health care provider tells you to take them. ? Taking kixn-oay-cycycsl medicines, vitamins, herbs, and supplements. Eating and drinking Follow instructions from your health care provider about eating and drinking, which may include: ? 8 hours before the procedure ? stop eating heavy meals or foods, such as meat, fried foods, or fatty foods. ? 6 hours before the procedure ? stop eating light meals or foods, such as toast or cereal. ? 6 hours before the procedure ? stop drinking milk or drinks that contain milk. ? 2 hours before the procedure ? stop drinking clear liquids. Staying hydrated Follow instructions from your health care provider about hydration, which may include: ? Up to 2 hours before the procedure ? you may continue to drink clear liquids, such as water, clear fruit juice, black coffee, and plain tea. General instructions ? You may have a physical exam before the procedure. You may also have tests, such as imaging tests and blood or urine tests. ? If your ureter is too narrow, your health care provider may place a soft, flexible tube (stent) inside of it. The stent may be placed days or weeks before your laser therapy procedure. ? Plan to have someone take you home from the hospital or clinic. ? If you will be going home right after the procedure, plan to have someone stay with you for 24 hours. ? Do not use any products that contain nicotine or tobacco for at least 4 weeks before the procedure. These products include cigarettes, e-cigarettes, and chewing tobacco. If you need help quitting, ask your health care provider. ? Ask your health care provider: ? How your surgical site will be marked or identified. ? What steps will be taken to help prevent infection. These may include: ? Removing hair at the surgery site. ? Washing skin with a germ-killing soap. ? Taking antibiotic medicine. What happens during the procedure? ? An IV will be inserted into one of your veins. ? You will be given one or more of the following: ? A medicine to help you relax (sedative). ? A medicine to numb the area (local anesthetic). ? A medicine to make you fall asleep (general anesthetic). ? A ureteroscope will be inserted into your urethra. The ureteroscope will send images to a video screen in the operating room to guide your surgeon to the area of your kidney that will be treated. ? A small, flexible tube will be threaded through the ureteroscope and into your bladder and ureter, up to your kidney. ? The laser device will be inserted into your kidney through the tube. Your surgeon will pulse the laser on and off to break up kidney stones. ? A surgical instrument that has a tiny wire basket may be inserted through the tube into your kidney to remove the pieces (more content not included)... Normal [facility] Screenson 07-22-2022 Screens [id number] 5#[id number]:127 Normal [facility] Urology Office/Clinic Noteon 07-22-2022 Urology Office/Clinic Note Chief Complaint New Pt HPI Staff New Pt. Pt was seen at [facility] on 07/15/22 due to left flank pain that radiates to her left lower quadrant. CT SCAN done 07/15/22 shows an obstructing 6.2mm stone at the left UPJ, bilateral nephrolithiasis and both kidneys show a grossly stable appearance of medullary nephrocalcinosis. BUN 13.0, Creatinine 1.09 done 07/12/22. Pt has HX of kidney stones. Pt is not longer taking Flomax that was given to her at the ER her last dosage was taken today. Pt has finished the antibiotics that she was given from the ER. Dysuria: denies pain or burning Incomplete bladder emptying: denies Hematuria: denies visible blood Frequency: 6-7x a day Urgency: sometimes Nocturia: denies Stream: denies hesitancy, denies weak stream Leaking: denies Post void dripping: denies Wearing pads/ Depends: denies Urge incontinence: denies Stress incontinence: denies Incontinence without Sensory Awareness: denies Abdominal pain: yes lower left Flank pain: yes left flank pain, when she sits down and stands up it when it hurts the most Sexual complaints: denies History of Present Illness Tests reviewed: reviewed UA, external ER records including labs, notes, and CT scan I have reviewed the previous health record information and history for this patient. I have reviewed and verified the staff HPI to be accurate for this encounter. There have been no associated fever, chills, or blood in the urine. Denies any urinary infections since last encounter. Review of Systems PHQ Score Initial Depression Screen Score: 0 ROS - Provider Constitutional: denies weight loss, denies hot flashes. Eyes: denies eye problems. Gastrointestinal: denies nausea, denies vomiting. Cardiovascular: denies chest pain or angina. Integumentary: no dryness Musculoskeletal: denies musculoskeletal symptoms. ENMT: denies otolaryngeal symptoms. Respiratory: no shortness of breath. Heme/Lymph: denies easy bleeding tendency, denies easy bruising tendency. Psychiatric: no confusion, no anxiety. Genitourinary: See HPI. Physical Exam Vitals & Measurements HR: 103(Peripheral) BP: 134/114 HT: 67 in HT: 170 cm WT: 110.0 kg WT: 242 lb BMI: 38.06 General Appearance: alert , no acute distress, well nourished, well developed female. Head: normocephalic . Eyes: normal orbit and globe. ENMT: normal examination of external ears. Chest: symmetric chest rise, respirations non labored . Cardiovascular: regular rate and rhythm. Abdomen: soft, non distended, mild LUQ TTP Genitourinary: bladder nonpalpable, mild L flank tenderness. Skin: warm, dry, no bruising. Psychiatric: cooperative, affect appropriate for age, normal judgement, euthymic mood. Assessment/Plan Catie is a 37 yo female new pt following up to [facility] ER visit on 07/15/22 due to L flank pain that radiated to LLQ. Was sent home with Zofran, Petros, Flomax, and prophy Keflex. ICIQ-SF 0. Denies hx IA, stroke or DM. Not on AC No prior surgeries 1. Ureteral stone with hydronephrosis (N13.2: Hydronephrosis with renal and ureteral calculous obstruction) CT AP wo con 07/15/22 [facility] - Obstructing 6.2 mm stone at the left UPJ with moderate hydronephrosis and mild perinephric stranding. No distal ureteral stones. 07/12/22 - BUN 13.0. Crea 1.09. UA today negative for blood and infection. Pain remains in back. Has been very nauseous, vomited yesterday. No burning with urination, denies fever or chills. Took last Flomax from ER today and completed prophy abx course. Has passed stones before, but much smaller. Discussed management options including medical expulsive therapy x 4-6 week vs intervention including extracorporeal shockwave lithotripsy vs ureteroscopy with laser lithotripsy/stone basket extraction possible stent. Risks/benefits of each were discussed including but not limited to: MET- renal damage, pain or infection; ESWL- bleeding, hematoma, pain, infection, inability to break up the stone, ureteral obstruction, cardiac arrhythmias, damage to surrounding structures and need for additional procedures; ureteroscopy - bleeding, pain, infection, damage to surrounding structures, ureteral perforation, stricture, inability to treat the stone and need for additional procedures. If a stent is placed, pt understands this is not permanent and needs to be removed or exchanged within 3 months to prevent encrustation, infection, permanent renal damage and need for more invasive procedures. -Will schedule Left ureteroscopy, laser litho, stent placement (will address ureteral and kidney stones) The procedural risks, benefits, details, and treatment alternatives have been discussed with the patient. These include bleeding, infection, inability to break or retrieve all of the stone, injury to the ureter (the tube which connects the kidney to the bladder), injury to the kidney scarring of the ureter, and need for repeat procedures, among others. Full informed consent has been obtained. Will order Gen (more content not included)... Normal [facility] Comment on above: Result Comment: Elec tronically Signed By: Jeremiah DAY, Liudmila Emery\.br\Date and Time Signed: 07/22/22 11:38 EDT\.br\Electronically Co-Signed By: Monserrat Sgeal\.br\Date and Time Co-Signed: 07/22/22 10:01 EDT CBC AUTO DIFFon 07-15-2022 BASO # 0.0 103/ul Normal 0.0-0.1 [facility] Comment on above: Performed By: #### C BC #### [facility] [address] [place] [address] Dr. Marcy Alvarez Basophils/100 WBC (Bld) 0.2 % Normal 0.2-2.0 [facility] Comment on above: Performed By: #### C BC #### [facility] [address] [place] [address] Dr. Marcy Alvarez EO # 0.0 103/ul Normal 0.0-0.7 [facility] Comment on above: Performed By: #### C BC #### [facility] [address] [place] [address] Dr. Marcy Alvarez Eosinophils/100 WBC (Bld) 0.3 % Critically low 0.9-7.0 [facility] Comment on above: Performed By: #### C BC #### [facility] [address] [place] [address] Dr. Marcy Alvarez Erythrocyte distribution width (RBC) [Ratio] 12.6 % Normal 11.0-15.0 [facility] Comment on above: Performed By: #### C BC #### [facility] [address] [place] [address] Dr. Marcy Alvarez Hematocrit (Bld) [Volume fraction] 42.1 % Normal 36.0-48.0 [facility] Comment on above: Performed By: #### C BC #### [facility] [address] [place] [address] Dr. Marcy Alvarez Hemoglobin (Bld) [Mass/Vol] 14.3 g/dL Normal 12.0-16.0 [facility] Comment on above: Performed By: #### C BC #### [facility] [address] [place] [address] Dr. Marcy Alvarez IG # 0.04 10e3/ul Critically high 0.00-0.03 [facility] Comment on above: Performed By: #### C BC #### [facility] [facility] [address] [place] [address] Dr. Marcy Alvarez IG % 0.3 % Normal 0.0-0.5 [facility] Comment on above: Performed By: #### C BC #### [facility] [address] [place] [address] Dr. Marcy Alvarez LYMPH # 1.4 103/ul Normal 1.2-3.8 [facility] Comment on above: Performed By: #### C BC #### [facility] [address] [place] [address] Dr. Marcy Alvarez Lymphocytes/100 WBC (Bld) 11.6 % Critically low 20.5-60.0 [facility] Comment on above: Performed By: #### C BC #### [facility] [address] [place] [address] Dr. Marcy Alvarez MANUAL DIFF REQ NO Normal [facility] Comment on above: Performed By: #### C BC #### [facility] [address] [place] [address] Dr. Marcy Alvarez MCH (RBC) [Entitic mass] 29.2 pg Normal 26.7-34.0 [facility] Comment on above: Performed By: #### C BC #### [facility] [address] [place] [address] Dr. Marcy Alvarez MCHC (RBC) [Mass/Vol] 34.0 g/dL Normal 29.9-35.2 [facility] Comment on above: Performed By: #### C BC #### [facility] [address] [place] [address] Dr. Marcy Alvarez MCV (RBC) [Entitic vol] 85.9 fL Normal 81.0-99.0 [facility] Comment on above: Performed By: #### C BC #### [facility] [address] [place] [address] Dr. Marcy Alvarez MONO # 0.7 103/ul Normal 0.3-0.8 [facility] Comment on above: Performed By: #### C BC #### [facility] [address] [address] [address] Marcy Alvarez Monocytes/100 WBC (Bld) 6.1 % Normal 1.7-12.0 [facility] Comment on above: Performed By: #### C BC #### [facility] [address] [address] [address] Marcy Alvarez NEUT # 9.6 103/ul Critically high 1.4-6.5 [facility] Comment on above: Performed By: #### C BC #### [facility] [address] [address] [address] Marcy Alvarez Neutrophils/100 WBC (Bld) 81.5 % Critically high 43.0-75.0 [facility] Comment on above: Performed By: #### C BC #### [facility] [address] [place] [address] Dr. Marcy Alvarez Platelet mean volume (Bld) [Entitic vol] 8.7 fL Critically low 9.5-13.5 [facility] Comment on above: Performed By: #### C BC #### [facility] [address] [address] [address] Marcy Alvarez PLT 238 103/ul Normal 150-450 [facility] Comment on above: Performed By: #### C BC #### [facility] [address] [address] [address] Marcy Alvarez RBC 4.90 106/ul Normal 4.20-5.40 [facility] Comment on above: Performed By: #### C BC #### [facility] [address] [place] [address] Dr. Marcy Alvarez WBC 11.7 103/ul Critically high 4.0-11.0 [facility] Comment on above: Performed By: #### C BC #### [facility] [address] [place] [address] ABD/PELVIS WO CONon 07-15 CT ABD/PELVIS WO CON EXAMINATION: CT ABD/PELVIS WO CON, 07/15/2022 8:45 AM EDT HISTORY: Abdominal pain. History of kidney stones and kidney infections. COMPARISON: CT dated 07/26/2018. TECHNIQUE: CT scan of the abdomen and pelvis was performed without IV contrast. CT dose reduction technique was used, including Automated Exposure Control. FINDINGS: There are small bilateral pleural effusions. The lung bases are otherwise clear. Lower mediastinal structures are stable in appearance. The liver, spleen, adrenal glands, pancreas, gallbladder show normal unenhanced characteristics. There is a stable small left adrenal adenoma. The kidneys are symmetric in size. Both kidneys show increased density in the renal pyramids, and there are small parenchymal calcifications in both kidneys. The parenchymal calcifications measure 3 mm or less in size. The left kidney shows moderate hydronephrosis and mild perinephric stranding. The obstruction is caused by a 6.2 mm calcification at the UPJ. No distal ureteral stones are seen. The aorta has a normal course and caliber. The large and small bowel are normal caliber. Pelvic organs are grossly normal. The minimally filled urinary bladder is grossly normal. There is no free air or free fluid. No organized fluid collections are seen to suggest abscess formation. IMPRESSION: There is an obstructing 6.2 mm stone at the left UPJ. There is bilateral nephrolithiasis, and both kidneys show a grossly stable appearance of medullary nephrocalcinosis. Small bilateral pleural effusions. These are of uncertain etiology and clinical significance. The rest of the exam is unremarkable within the limitations of a noncontrast exam. Electronically authenticated by: MAL TOSCANO Date: 2022-07-15 09:54 Normal [facility] URINE PROFILEon 3 Bilirubin Ql (U) Negative Normal NEGATIVE [facility] Comment on above: Performed By: #### E RUR #### [facility] [address] [place] [address] Dr. Marcy Alvarez Clarity (U) CLEAR Normal CLEAR [facility] Comment on above: Performed By: #### E RUR #### [facility] [address] [place] [address] Dr. Marcy Alvarez Color (U) LT. YELLOW Normal YELLOW [facility] Comment on above: Performed By: #### E RUR #### [facility] [address] [place] [address] Dr. Marcy MAN A micrscopic examination will be performed if indicated. Normal [facility] Comment on above: Performed By: #### E RUR #### [facility] [address] [place] [address] Dr. Marcy Alvarez Glucose Ql (U) Negative Normal NEGATIVE [facility] Comment on above: Performed By: #### E RUR #### [facility] [address] [place] [address] Dr. Marcy Alvarez Hemoglobin Ql (U) Negative Normal NEGATIVE [facility] Comment on above: Performed By: #### E RUR #### [facility] [address] [place] [address] Dr. Marcy Alvarez Ketones Ql (U) Negative Normal NEGATIVE [facility] Comment on above: Performed By: #### E RUR #### [facility] [address] [place] [address] Dr. Marcy Alvarez LEUKOCYTES Negative Normal NEGATIVE [facility] Comment on above: Performed By: #### E RUR #### [facility] [address] [place] [address] Dr. Marcy Alvarez Nitrite Ql (U) Negative Normal NEGATIVE [facility] Comment on above: Performed By: #### E RUR #### [facility] [address] [place] [address] Dr. Marcy Alvarez pH (U) 6.0 [pH] Normal 5-9 [facility] Comment on above: Performed By: #### E RUR #### [facility] [address] [place] [address] Dr. Marcy Alvarez SPEC GRAVITY 1.025 Normal 1.005-<=1.02 5 [facility] Comment on above: Performed By: #### E RUR #### [facility] [address] [place] [address] Dr. Marcy Alvarez UA PROTEIN Negative Normal NEGATIVE/ TRACE [facility] Comment on above: Performed By: #### E RUR #### [facility] [address] [place] [address] Dr. Marcy Alvarez UR MICRO IND NOT INDICATED Normal [facility] Comment on above: Performed By: #### E RUR #### [facility] [address] [place] [address] Dr. Marcy Alvarez Urobilinogen Qn (U) 0.2 {Maddie'U}/dL Normal 0.2 - 1. 0 [facility] Comment on above: Performed By: #### E RUR #### [facility] [address] [place] [address] Dr. Marcy Alvarez LIPASEon 07-15-2022 Lipase [Catalytic activity/Vol] 63.0 U/L Critically low 73.0-393.0 [facility] Comment on above: Performed By: #### C MP, LIPA #### [facility] [address] [place] [address] Dr. Marcy Alvarez PROF 14(COMP METB)on 023 Albumin [Mass/Vol] 3.5 g/dL Normal 3.4-5.0 [facility] Comment on above: Performed By: #### C MP, LIPA #### [facility] [address] [place] [address] Dr. Marcy Alvarez Albumin/Globulin [Mass ratio] 0.9 {ratio} Normal [facility] Comment on above: Performed By: #### C MP, LIPA #### [facility] [address] [place] [address] Dr. Marcy Alvarez ALP [Catalytic activity/Vol] 131 U/L Critically high 46-116 [facility] Comment on above: Performed By: #### C MP, LIPA #### [facility] [address] [place] [address] Dr. Marcy Alvarez ALT [Catalytic activity/Vol] 30 U/L Normal 14-59 [facility] Comment on above: Performed By: #### C MP, LIPA #### [facility] [address] [place] [address] Dr. Marcy Alvarez Anion gap [Moles/Vol] 13.0 mmol/L Normal [facility] Comment on above: Performed By: #### C MP, LIPA #### [facility] [address] [address] [address] Macry Alvarez AST [Catalytic activity/Vol] 22 U/L Normal 15-37 [facility] Comment on above: Performed By: #### C MP, LIPA #### [facility] [address] [address] [address] Marcy Alvarez Bilirubin [Mass/Vol] 0.4 mg/dL Normal 0.2-1.0 [facility] Comment on above: Performed By: #### C MP, LIPA #### [facility] [address] [address] [address] Marcy Alvarez Calcium [Mass/Vol] 9.1 mg/dL Normal 8.5-10.1 [facility] Comment on above: Performed By: #### C MP, LIPA #### [facility] [address] [place] [address] Dr. Marcy Alvarez Chloride [Moles/Vol] 101 mmol/L Normal 98-107 [facility] Comment on above: Performed By: #### C MP, LIPA #### [facility] [address] [place] [address] Dr. Marcy Alvarez CO2 [Moles/Vol] 25.9 mmol/L Normal 21.0-32.0 [facility] Comment on above: Performed By: #### C MP, LIPA #### [facility] [address] [place] [address] Dr. Marcy Alvarez Creatinine [Mass/Vol] 1.09 mg/dL Critically high 0.55-1.02 [facility] Comment on above: Performed By: #### C MP, LIPA #### [facility] [address] [place] [address] Dr. Marcy Alvarez EGFR-AF INDONESIAN >60 Normal >=60 [facility] Comment on above: Performed By: #### C MP, LIPA #### [facility] [address] [address] [address] Marcy Alvarez EGFR-NON AF INDONESIAN 57 mL/min/1.73m2 Critically low >=60 [facility] Comment on above: Performed By: #### C MP, LIPA #### [facility] [address] [address] [address] Marcy Alvarez Globulin (S) [Mass/Vol] 4.0 g/dL Normal [facility] Comment on above: Performed By: #### C MP, LIPA #### [facility] [address] [address] [address] Marcy Alvarez Glucose [Mass/Vol] 111 mg/dL Critically high 74-106 [facility] Comment on above: Performed By: #### C MP, LIPA #### [facility] [address] [address] [address] Marcy Alvarez Potassium [Moles/Vol] 3.9 mmol/L Normal 3.5-5.1 [facility] Comment on above: Performed By: #### C MP, LIPA #### [facility] [address] [place] [address] Dr. Marcy Alvarez Protein [Mass/Vol] 7.5 g/dL Normal 6.4-8.2 [facility] Comment on above: Performed By: #### C MP, LIPA #### [facility] [address] [address] [address] Marcy Alvarez Sodium [Moles/Vol] 136 mmol/L Normal 136-145 [facility] Comment on above: Performed By: #### C MP, LIPA #### [facility] [address] [place] [address] Dr. Marcy Alvarez Urea nitrogen [Mass/Vol] 13.0 mg/dL Normal 7.0-18.0 [facility] Comment on above: Performed By: #### C MP, LIPA #### [facility] [address] [address] [address] Marcy Alvarez Urea nitrogen/Creatinine [Mass ratio] 11.9 mg/mg Normal [facility] Comment on above: Performed By: #### C MP, LIPA #### [facility] [address] [place] [address] Dr. Marcy Alvarez MRI BRAIN WO W CONon 022 MRI BRAIN WO W CON EXAMINATION: MRI BRAIN WO W CON HISTORY: Ataxia ; chronic migraine headaches with memory loss and COMPARISON: No relevant comparison available. TECHNIQUE: A variety of imaging planes and parameters were utilized for visualization of suspected pathology. Images were performed without and with Dotarem contrast. FINDINGS: CEREBRUM: No edema, hemorrhage, mass, acute infarction, or inappropriate atrophy. CEREBELLUM: No edema, hemorrhage, mass, acute infarction, or inappropriate atrophy. BRAINSTEM: No edema, hemorrhage, mass, acute infarction, or inappropriate atrophy. CSF SPACES: Ventricles, cisterns, and sulci are appropriate for age. No hydrocephalus, subarachnoid hemorrhage, or mass. SKULL: No mass or other significant visible lesion. SINUSES: Mucous retention cyst/mucoceles within the maxillary sinuses without significant mucosal thickening. ORBITS: Limited views are unremarkable. OTHER: No abnormal meningeal or parenchymal enhancement. IMPRESSION: 1. Chronic sinusitis. 2. Normal appearance of the brain. Electronically authenticated by: HILDA RUBIO Date: 2022-02-05 06:25 Normal [facility] COVID Quick Testingon 2020 Result Negative [employer] Other ACETAMINOPHENon 03-08-2018 Acetaminophen mass conc <10 Low 10-30 [facility] Comment on above: Order Comment: No: D o not add to previous draw Performed By: #### 2 9773, , 32768, 68349, 94941, 28888, 66783, 32072 #### [facility] [address] [facility] [place], [place] [id number] [place] [address] BASIC METABOLIC PANELon 02-19 Calcium mass conc 9.8 mg/dL Normal 8.6-10.3 [facility] Comment on above: Order Comment: No: D o not add to previous draw Performed By: #### 2 9773, , 90871, 55099, 22791, 47665, 51951, 36624 #### [facility] [address] [place] [address], [facility] Chloride molar conc 105 mmol/L Normal 98-107 [facility] Comment on above: Order Comment: No: D o not add to previous draw Performed By: #### 2 9772, , , 13311, 26480, 23902, 13777, 93375 #### [facility] [address] [place] [address], [facility] CO2 molar conc 24 mmol/L Normal 21-31 [facility] Comment on above: Order Comment: No: D o not add to previous draw Performed By: #### 2 73, , , 48679, 56328, 21483, 69866, 47976 #### [facility] [address] [place] [address], [facility] Creatinine mass conc 0.53 mg/dL Low 0.60-1.20 [facility] Comment on above: Order Comment: No: D o not add to previous draw Performed By: #### 2 9773, , , 22253, 41284, 74291, 51849, 00002 #### [facility] [address] [facility] [place] [place] [address], [facility] GFR/1.73 sq M predicted among blacks MDRD vol rate/area (S/P/Bld) mL/min/{1.73_m2} Normal >60 [facility] Comment on above: Order Comment: No: D o not add to previous draw Performed By: #### 2 9773, , , 46043, 09902, 68813, 27327, 15249 #### [facility] [address] [place] [address], [facility] GFR/1.73 sq M predicted among non-blacks MDRD vol rate/area (S/P/Bld) mL/min/{1.73_m2} Normal >60 [facility] Comment on above: Order Comment: No: D o not add to previous draw Performed By: #### 2 73, , 93769, 87758, 66142, 05908, 21346, 46648 #### [facility] [address] [place] [address], [place] Glucose mass conc 101 mg/dL High 70-100 [facility] Comment on above: Order Comment: No: D o not add to previous draw Performed By: #### 2 9773, , 31252, 00118, 07849, 02402, 41714, 73423 #### [facility] [address] [place] [address], [facility] Potassium molar conc 4.1 mmol/L Normal 3.5-5.1 [facility] Comment on above: Order Comment: No: D o not add to previous draw Performed By: #### 2 9773, , , 46293, 00106, 79708, 90266, 47316 #### [facility] [address] [facility] [place] [address], [facility] Sodium molar conc 138 mmol/L Normal 136-145 [facility] Comment on above: Order Comment: No: D o not add to previous draw Performed By: #### 2 9773, , , 61097, 61338, 08010, 11089, 00198 #### [facility] [address] [facility]. [address] Urea nitrogen mass conc 8 mg/dL Normal 7-25 [facility] Comment on above: Order Comment: No: D o not add to previous draw Performed By: #### 2 9773, , 20027, 55233, 84761, 79798, 19950, 20026 #### [facility] [address] [facility] [place] [address], [facility] CBC W/DIFFon 03-08-2018 ABS BASOPHILS 0.1 10*3/uL Normal 0.0-0.2 [facility] Comment on above: Order Comment: No: D o not add to previous draw Performed By: #### 5 0103 #### [facility] [address] [place] [address], [facility] ABS IMM GRANS 0.0 10*3/uL Normal 0.0-0.2 [facility] Comment on above: Order Comment: No: D o not add to previous draw Performed By: #### 5 0103 #### [facility] [address] [place] [address], [facility] ABS NEUTROPHILS 6.8 10*3/uL Normal 1.6-7.6 [facility] Comment on above: Order Comment: No: D o not add to previous draw Performed By: #### 5 0103 #### [facility] [address] [place] [address], [facility] Basophils #/vol (Bld) 0.5 % Normal 0.0-1.0 [facility] Comment on above: Order Comment: No: D o not add to previous draw Performed By: #### 5 0103 #### [facility] [address] [place] [address], [facility] Eosinophils #/vol (Bld) 0.1 10*3/uL Normal 0.0-0.5 [facility] Comment on above: Order Comment: No: D o not add to previous draw Performed By: #### 5 0103 #### [facility] [address] [place] [place] [address], [facility] Eosinophils/100 WBC (Bld) 0.8 % Normal 0.0-6.0 [facility] Comment on above: Order Comment: No: D o not add to previous draw Performed By: #### 5 0103 #### [facility] [address] [facility]. [address] Erythrocyte distribution width Ratio (RBC) 12.5 % Normal 11.5-15.0 [facility] Comment on above: Order Comment: No: D o not add to previous draw Performed By: #### 5 0103 #### [facility] [address] [place] [address], [facility] Hematocrit Volume Fraction (Bld) 45.6 % High 36.0-45.0 [facility] Comment on above: Order Comment: No: D o not add to previous draw Performed By: #### 5 0103 #### [facility] [address] [place] [address], [facility] Hemoglobin mass conc (Bld) 16.0 g/dL High 12.0-15.0 [facility] Comment on above: Order Comment: No: D o not add to previous draw Performed By: #### 5 0103 #### [facility] [address] [place] [place] [address], [facility] IMMATURE GRANS 0.2 % Normal 0.0-1.0 [facility] Comment on above: Order Comment: No: D o not add to previous draw Performed By: #### 5 0103 #### [facility] [address] [facility] [place] [address], [facility] Lymphocytes #/vol (Bld) 1.8 10*3/uL Normal 1.2-4.0 [facility] Comment on above: Order Comment: No: D o not add to previous draw Performed By: #### 5 0103 #### [facility] [address] [facility] [place] [address], [facility] Lymphocytes/100 WBC (Bld) 18.9 % Low 20.0-45.0 [facility] Comment on above: Order Comment: No: D o not add to previous draw Performed By: #### 5 3 #### [facility] [address] [facility] [place] [address], [facility] MCH Entitic mass (RBC) 31.6 pg Normal 27.0-33.0 [facility] Comment on above: Order Comment: No: D o not add to previous draw Performed By: #### 5 0103 #### [facility] [address] [facility] [place] [address], [facility] MCHC mass conc (RBC) 35.1 g/dL High 32.0-35.0 [facility] Comment on above: Order Comment: No: D o not add to previous draw Performed By: #### 5 0103 #### [facility] [address] [place] [address], [facility] MCV Entitic volume (RBC) 89.9 fL Normal 82.0-98.0 [facility] Comment on above: Order Comment: No: D o not add to previous draw Performed By: #### 5 0103 #### [facility] [address] [place] [address], [facility] Monocytes #/vol (Bld) 0.6 10*3/uL Normal 0.1-1.0 Th e [facility] Comment on above: Order Comment: No: D o not add to previous draw Performed By: #### 5 0103 #### [facility] [address] [place] [address], [facility] MONOS 6.1 % Normal 5.0-12.0 [facility] Comment on above: Order Comment: No: D o not add to previous draw Performed By: #### 5 0103 #### [facility] [address] [place] [address], [facility] Neutrophils/100 WBC (Bld) 73.5 % High 40.0-72.0 [facility] Comment on above: Order Comment: No: D o not add to previous draw Performed By: #### 5 0103 #### [facility] [address] [place] [id number], [facility] Nucleated RBC/100 WBC Ratio (Bld) 0 % Normal 0-0 [facility] [facility] Comment on above: Order Comment: No: D o not add to previous draw Performed By: #### 5 0103 #### [facility] [address] [place] [id number], [facility] PLAT CNT 313 10*3/uL Normal 150-400 The [facility] Comment on above: Order Comment: No: D o not add to previous draw Performed By: #### 5 0103 #### [facility] [address] [place] [id number], [facility] RBC #/vol (Bld) 5.07 10*6/uL High 3.80-5.00 The [facility] Comment on above: Order Comment: No: D o not add to previous draw Performed By: #### 5 0103 #### [facility] [address] WBC #/vol (Bld) 9.24 10*3/uL Normal 4.00-10.60 The [facility] Comment on above: Order Comment: No: D o not add to previous draw Performed By: #### 5 0103 #### [facility] 3000 [facility] [address] CHOLESTEROL BLOODon 03-08-20 18 Cholesterol mass conc 213 mg/dL High 120-200 The [facility] Comment on above: Order Comment: No: D o not add to previous draw Result Comment: CHOL ESTEROL REFERENCE RANGE: 20 YEARS AND OLDER CARDIOVASCULAR RISK Less than 200 mg/dl Low Risk 200 to 239 mg/dl Borderline Risk 240 mg/dl and greater High Risk Performed By: #### 2 9773, 81299, 06852, 03946, 43691, 44772, 54324, 28276 #### [facility] [address] DETOX PANEL URINEon 03-08-20 18 50 THC Negative Normal NEGATIVE [facility] Comment on above: Order Comment: No: D o not add to previous draw No collection time noted on specimen or requisition. The collection time recorded is the time of receipt in the lab. No collection time noted on specimen or requisition. The collection time recorded is the time of receipt in the lab. Performed By: #### 3 1520 #### [facility] [address] BARBITURATES Negative Normal NEGATIVE The [facility] Comment on above: Order Comment: No: D o not add to previous draw No collection time noted on specimen or requisition. The collection time recorded is the time of receipt in the lab. No collection time noted on specimen or requisition. The collection time recorded is the time of receipt in the lab. Performed By: #### 3 1520 #### [address] Benzodiazepines Ql (U) Negative Normal NEGATIVE [facility] Comment on above: Order Comment: No: D o not add to previous draw No collection time noted on specimen or requisition. The collection time recorded is the time of receipt in the lab. No collection time noted on specimen or requisition. The collection time recorded is the time of receipt in the lab. Performed By: #### 3 1520 #### [address] Cocaine Ql (U) Positive Abnormal NEGATIVE The [facility] Comment on above: Order Comment: No: D o not add to previous draw No collection time noted on specimen or requisition. The collection time recorded is the time of receipt in the lab. No collection time noted on specimen or requisition. The collection time recorded is the time of receipt in the lab. Performed By: #### 3 1520 #### [address] Methadone Ql (U) Negative Normal NEGATIVE The [facility] Comment on above: Order Comment: No: D o not add to previous draw No collection time noted on specimen or requisition. The collection time recorded is the time of receipt in the lab. No collection time noted on specimen or requisition. The collection time recorded is the time of receipt in the lab. Performed By: #### 3 1520 #### [address] MONO AMPHET Negative Normal NEGATIVE The [facility] Comment on above: Order Comment: No: D o not add to previous draw No collection time noted on specimen or requisition. The collection time recorded is the time of receipt in the lab. No collection time noted on specimen or requisition. The collection time recorded is the time of receipt in the lab. Performed By: #### 3 1520 #### [address] [place] [address], [place] Opiates Ql (U) Positive Abnormal NEGATIVE The [facility] Comment on above: Order Comment: No: D o not add to previous draw No collection time noted on specimen or requisition. The collection time recorded is the time of receipt in the lab. No collection time noted on specimen or requisition. The collection time recorded is the time of receipt in the lab. Performed By: #### 3 1520 #### [facility] [address] Phencyclidine Ql (U) Negative Normal NEGATIVE The [facility] Comment on above: Order Comment: No: D o not add to previous draw No collection time noted on specimen or requisition. The collection time recorded is the time of receipt in the lab. No collection time noted on specimen or requisition. The collection time recorded is the time of receipt in the lab. Performed By: #### 3 1520 #### [address] Protein mass conc (U) Negative Normal NEGATIVE The [facility] Comment on above: Order Comment: No: D o not add to previous draw No collection time noted on specimen or requisition. The collection time recorded is the time of receipt in the lab. No collection time noted on specimen or requisition. The collection time recorded is the time of receipt in the lab. Performed By: #### 3 1520 #### [facility] [address] TRICYCLICS Negative Normal NEGATIVE The [facility] Comment on above: Order Comment: No: D o not add to previous draw No collection time noted on specimen or requisition. The collection time recorded is the time of receipt in the lab. No collection time noted on specimen or requisition. The collection time recorded is the time of receipt in the lab. Performed By: #### 3 1520 #### [facility] [address] GAMMA GT BLOODon 03-08-2018 GAMMA GT 18 IU/L Normal 9-64 [facility] Comment on above: Order Comment: No: D o not add to previous draw Performed By: #### 2 73, , , 66498, 82465, 71141, 55684, 54266 #### [facility] [address] [place] [address], [facility] LIVER BATTERYon 03-08-2018 Albumin mass conc 4.7 g/dL Normal 3.5-5.7 The [facility] Comment on above: Order Comment: No: D o not add to previous draw Performed By: #### 2 73, , , 71351, 89319, 40373, 34801, 25920 #### [facility] [address] [facility] [place] [address], [facility] ALKALINE PHOSPH 77 IU/L Normal 34-104 The [facility] Comment on above: Order Comment: No: D o not add to previous draw Performed By: #### 2 73, , , 84084, 47518, 91389, 14648, 95600 #### [facility] [address] [place] [address], [facility] ALT enzyme act/vol 11 U/L Normal 7-52 The [facility] Comment on above: Order Comment: No: D o not add to previous draw Performed By: #### 2 73, , , 16493, 33441, 92615, 43783, 29950 #### [facility] [address] [place] [address], [place] AST enzyme act/vol 15 U/L Normal 13-39 The [facility] Comment on above: Order Comment: No: D o not add to previous draw Performed By: #### 2 73, , 82711, 31879, 65482, 52717, 89045, 93754 #### [facility] [address] [place] [address], [place] Bilirubin mass conc 0.5 mg/dL Normal 0.3-1.0 The [facility] Comment on above: Order Comment: No: D o not add to previous draw Performed By: #### 2 9772, , , 91846, 75930, 45751, 31006, 30177 #### [facility] [address] [place] [address], [facility] Bilirubin.direct mass conc 0.1 mg/dL Normal 0.0-0.2 The [facility] Comment on above: Order Comment: No: D o not add to previous draw Performed By: #### 2 9772, , , 12036, 71330, 22689, 54006, 44210 #### [facility] [address] [place] [address], [facility] Protein mass conc 7.2 g/dL Normal 6.0-8.3 [facility] Comment on above: Order Comment: No: D o not add to previous draw Performed By: #### 2 73, , , 03541, 94470, 47540, 97271, 41897 #### [facility] [address] [place] [address], [facility] MAGNESIUM BLOODon 03-08-2018 Magnesium mass conc 2.1 mg/dL Normal 1.9-2.7 The [facility] Comment on above: Order Comment: No: D o not add to previous draw Performed By: #### 2 73, , , 87015, 67820, 55957, 87554, 68863 #### [facility] [address] [place] [address], [facility] RPR (RAPID PLASMA REAGIN)on 03-08-2018 Reagin Ab RPR Ql (S) NON-REACTIVE Normal NON-REACTIVE The [facility] Comment on above: Performed By: #### 2 9772, , , 45038, 62086, 59511, 92745, 22730 #### [facility] [address] [place] [address], [place] SERUM TESTon 03-08 TEST Negative Normal The [facility] Comment on above: Order Comment: No: D o not add to previous draw Performed By: #### 2 73, , , 74452, 38839, 15661, 81489, 36408 #### [facility] [address] [place] [address], [facility] TSH3on 03-08-2018 TSH 3RD GENERATION 0.70 uIU/mL Normal 0.34-5.60 [facility] Comment on above: Order Comment: No: D o not add to previous draw Performed By: #### 2 73, , , 10597, 10958, 80460, 25645, 63041 #### [facility] [address] [place] [address], [place] UA,MICROSCOPIC REQUIREDon AMORPHOUS FEW Abnormal NONE SEEN The [facility] Comment on above: Order Comment: No: D o not add to previous draw Performed By: #### 2 73, , , 26378, 61367, 56466, 85502, 28447 #### [facility] [address] [place] [address], [facility] Appearance Nom (U) CLOUDY Abnormal CLEAR The Un [facility] Comment on above: Order Comment: No: D o not add to previous draw Performed By: #### 2 73, , , 47191, 60503, 64354, 20644, 55068 #### [facility] [address] [place] [address], [place] Bilirubin.direct mass conc Negative Normal NEGATIVE The [facility] Comment on above: Order Comment: No: D o not add to previous draw Performed By: #### 2 73, , 37510, 47002, 52464, 10692, 99628, 67533 #### [facility] [address] [place] [address], [place] BLOOD Negative Normal NEGATIVE The [facility] Comment on above: Order Comment: No: D o not add to previous draw Performed By: #### 2 73, , , 30001, 85306, 31622, 76373, 53731 #### [facility] [address] [place] [address], [facility] Color Nom (U) YELLOW Normal YELLOW The [facility] Comment on above: Order Comment: No: D o not add to previous draw Performed By: #### 2 73, , , 76183, 61974, 97969, 70066, 00313 #### [facility] [address] [place] [address], [facility] EPIS MANY Abnormal FEW,OCC,NONE SEEN The [facility] Comment on above: Order Comment: No: D o not add to previous draw Performed By: #### 2 9772, , , 94274, 76455, 27598, 41785, 09994 #### [facility] [address] [place] [address], [place] Glucose mass conc Negative Normal NEGATIVE The [facility] Comment on above: Order Comment: No: D o not add to previous draw Performed By: #### 2 73, , , 18465, 07218, 19755, 08120, 33446 #### [facility] [address] [place] [address], [facility] KETONE Negative Normal NEGATIVE The [facility] Comment on above: Order Comment: No: D o not add to previous draw Performed By: #### 2 73, , , 37050, 09386, 53104, 38803, 79051 #### [facility] [address] [place] [address], [place] LEUK ZENON MODERATE Abnormal NEGATIVE The [facility] Comment on above: Order Comment: No: D o not add to previous draw Performed By: #### 2 73, , 31988, 94749, 76640, 04771, 03421, 02957 #### [facility] [address] [facility] MUCUS THREADS FEW Abnormal NONE SEEN The [facility] Comment on above: Order Comment: No: D o not add to previous draw Performed By: #### 2 73, , 11475, 92055, 47897, 08811, 24059, 70672 #### [facility] [address] [facility]. [address] Nitrite Ql (U) Negative Normal NEGATIVE The [facility] Comment on above: Order Comment: No: D o not add to previous draw Performed By: #### 2 73, , 08591, 38212, 93687, 36382, 45848, 15380 #### [facility] [address] [facility]. [address] pH (Bld) 6.0 Normal 5.0-8.0 The [facility] Comment on above: Order Comment: No: D o not add to previous draw Performed By: #### 2 9772, , 68905, 16899, 65706, 19660, 67212, 36509 #### [facility] [address] [facility]. [address] Protein mass conc Negative Normal NEGATIVE The [facility] Comment on above: Order Comment: No: D o not add to previous draw Performed By: #### 2 73, , 24502, 36854, 51401, 28161, 93173, 70921 #### [facility] [address] [facility]. [address] RBC #/vol (Bld) 3-5 Abnormal NONE SEEN The [facility] Comment on above: Order Comment: No: D o not add to previous draw Performed By: #### 2 73, , 05014, 35741, 09451, 71962, 97025, 09630 #### [facility] [address] SPEC GRAV 1.018 Normal 1.015-1.020 The [facility] Comment on above: Order Comment: No: D o not add to previous draw Performed By: #### 2 9773, , 60158, 59128, 76496, 11573, 08461, 63353 #### [facility] [address] [place] [address], [facility] WBC UA 6-10 Abnormal NONE SEEN The [facility] Comment on above: Order Comment: No: D o not add to previous draw Performed By: #### 2 9773, , 67562, 30389, 96024, 78378, 55687, 98855 #### [facility] [address] [place] [address], [facility] URIC ACID BLOODon 03-08-2018 Urate mass conc 3.4 mg/dL Normal 2.3-6.6 The [facility] Comment on above: Order Comment: No: D o not add to previous draw Performed By: #### 2 9773, , 00731, 16953, 72754, 30617, 79175, 43015 #### [facility] [address] Vital Signs Date Time Vital Sign Value Performing Clinician Facility 01-12-2024 16:38-0400 Body height 172.72 cm PHYSICIAN NO [facility] 01-12-2024 16:38-0400 Body mass index (BMI) [Ratio] 34.9 kg/m2 PHYSICIAN NO [facility] 01-12-2024 16:38-0400 Body temperature 98.2 [degF] PHYSICIAN NO [facility] 01-12-2024 16:38-0400 Body weight 104.32 kg PHYSICIAN NO [facility] 01-12-2024 16:38-0400 Diastolic blood pressure 61 mm[Hg] PHYSICIAN NO [facility] 01-12-2024 16:38-0400 Heart rate 104 /min PHYSICIAN NO [facility] 01-12-2024 16:38-0400 Respiratory rate 18 /min PHYSICIAN NO [facility] 01-12-2024 16:38-0400 SaO2% (BldA) [Mass fraction] 96 % PHYSICIAN NO [facility] 01-12-2024 16:38-0400 Systolic blood pressure 97 mm[Hg] PHYSICIAN NO [facility] 05-15-2023 14:38-0500 Body height 172.72 cm [facility] 05-15-2023 14:38-0500 Body mass index (BMI) [Ratio] 36.6 kg/m2 [facility] 05-15-2023 14:38-0500 Body temperature 98.9 [degF] [facility] 05-15-2023 14:38-0500 Body weight 109.37 kg [facility] 05-15-2023 14:38-0500 Heart rate 110 /min [facility] 05-15-2023 14:38-0500 Respiratory rate 18 /min [facility] 05-15-2023 14:38-0500 SaO2% (BldA) [Mass fraction] 94 % [facility] 10-07-2022 11:07-0400 Blood Pressure Location Liudmila Lue [facility] 10-07-2022 11:07-0400 Diastolic blood pressure 98 mm[Hg] Liudmila Lue [facility] 10-07-2022 11:07-0400 Heart rate 106 /min Liudmila Lue [facility] 10-07-2022 11:07-0400 Systolic blood pressure 146 mm[Hg] Liudmila Lue [facility] 08-19-2022 11:10-0400 Body height 172.72 cm Ernestine Little Other [employer] Other 08-19-2022 11:10-0400 Body mass index (BMI) [Ratio] 35.58 kg/m2 Ernestine Little Other [employer] Other 08-19-2022 11:10-0400 Body temperature 98.2 [degF] Ernestine Little Other [employer] Other 08-19-2022 11:10-0400 Body weight 106.14 kg Ernestine Little Other [employer] Other 08-19-2022 11:10-0400 Respiratory rate 18 /min Ernestine Little Other [employer] Other 08-19-2022 11:10-0400 SaO2% (BldA) [Mass fraction] 96 % Ernestine Little Other [employer] Other 07-23-2022 16:06-0400 Heart rate 89 /min Liudmila Lue [facility] 07-23-2022 16:06-0400 SaO2% (BldA) [Mass fraction] 96 % Liudmila Lue [facility] 07-23-2022 16:06-0400 Respiratory rate 18 /min Liudmila Lue [facility] 07-23-2022 16:06-0400 Diastolic blood pressure 85 mm[Hg] Liudmila Lue [facility] 07-23-2022 16:06-0400 Mean blood pressure 102 mm[Hg] Liudmila Lue [facility] 07-23-2022 16:06-0400 Systolic blood pressure 136 mm[Hg] Liudmila Lue [facility] 07-23-2022 15:20-0400 Blood Pressure Location Liudmila Lue [facility] 07-23-2022 15:20-0400 Diastolic blood pressure 98 mm[Hg] Liudmila Lue [facility] 07-23-2022 15:20-0400 Heart rate 92 /min Liudmila Lue [facility] 07-23-2022 15:20-0400 Mean blood pressure 117 mm[Hg] Liudmila Lue [facility] 07-23-2022 15:20-0400 Respiratory rate 16 /min Liudmila Lue [facility] 07-23-2022 15:20-0400 SaO2% (BldA) [Mass fraction] 95 % Liudmila Lue [facility] 07-23-2022 15:20-0400 Systolic blood pressure 155 mm[Hg] Liudmila Lue [facility] 07-23-2022 15:10-0400 Blood Pressure Location Liudmila Lue [facility] 07-23-2022 15:10-0400 Diastolic blood pressure 85 mm[Hg] Liudmila Lue [facility] 07-23-2022 15:10-0400 Heart rate 82 /min Liudmila Lue [facility] 07-23-2022 15:10-0400 Mean blood pressure 104 mm[Hg] Liudmila Lue [facility] 07-23-2022 15:10-0400 Respiratory rate 8 /min Liudmila Lue [facility] 07-23-2022 15:10-0400 SaO2% (BldA) [Mass fraction] 98 % Liudmila Lue [facility] 07-23-2022 15:10-0400 Systolic blood pressure 141 mm[Hg] Liudmila Lue [facility] 07-23-2022 15:00-0400 Mean blood pressure 105 mm[Hg] Liudmila Lue [facility] 07-23-2022 15:00-0400 Respiratory rate 11 /min Liudmila Lue [facility] 07-23-2022 14:55-0400 Respiratory rate 15 /min Liudmila Lue [facility] 07-23-2022 14:47-0400 Body temperature 97.34 [degF] Liudmila Lue [facility] 07-23-2022 12:09-0400 Mean blood pressure 102 mm[Hg] Liudmila Lue [facility] 07-23-2022 12:09-0400 Heart rate 96 /min Liudmila Lue [facility] 07-23-2022 12:08-0400 Respiratory rate 20 /min Liudmila Lue [facility] 07-23-2022 12:07-0400 Body temperature 98.96 [degF] Liudmila Lue [facility] 07-23-2022 12:07-0400 Mean blood pressure 109 mm[Hg] Liudmila Lue [facility] 07-22-2022 08:38-0400 Blood Pressure Location Liudmila Lue [facility] 07-22-2022 08:38-0400 Diastolic blood pressure 114 mm[Hg] Liudmila Lue [facility] 07-22-2022 08:38-0400 Heart rate 103 /min Liudmila Daniels [facility] 07-22-2022 08:38-0400 Systolic blood pressure 134 mm[Hg] Liudmila Lue [facility] 06-25-2022 13:10-0400 Body height 172.72 cm Ernestine Yañezmond Other [employer] Other 06-25-2022 13:10-0400 Body mass index (BMI) [Ratio] 35.27 kg/m2 Ernestine Anabel Other [employer] Other 06-25-2022 13:10-0400 Body temperature 97.7 [degF] Ernestine Yañezmond Other [employer] Other 06-25-2022 13:10-0400 Body weight 105.24 kg Ernestine Yañezmond Other [employer] Other 06-25-2022 13:10-0400 Respiratory rate 18 /min Ernestine Yañezmond Other [employer] Other 06-25-2022 13:10-0400 SaO2% (BldA) [Mass fraction] 97 % Ernestine Yañezmond Other [employer] Other 12-18-2021 14:30-0400 Body height 172.72 cm Nery Coppola Other [employer] Other 12-18-2021 14:30-0400 Body mass index (BMI) [Ratio] 32.54 kg/m2 Nery Coppola Other [employer] Other 12-18-2021 14:30-0400 Body temperature 98 [degF] Nery Coppola Other [employer] Other 12-18-2021 14:30-0400 Body weight 97.07 kg Nery Coppola Other [employer] Other 12-18-2021 14:30-0400 Diastolic blood pressure 77 mm[Hg] Nery Coppola Other [employer] Other 12-18-2021 14:30-0400 Respiratory rate 18 /min Nery Coppola Other [employer] Other 12-18-2021 14:30-0400 SaO2% (BldA) [Mass fraction] 98 % Nery Coppola Other [employer] Other 12-18-2021 14:30-0400 Systolic blood pressure 111 mm[Hg] Nery Coppola Other [employer] Other 12-30-2020 16:00-0400 Body height 172.72 cm Lilia Ginty Other [employer] Other 12-30-2020 16:00-0400 Body mass index (BMI) [Ratio] 33.45 kg/m2 Lilia Ginty Other [employer] Other 12-30-2020 16:00-0400 Body weight 99.79 kg Lilia Ginty Other [employer] Other Encounters Encounter Date Encounter Type Care Provider Facility Start: 02-14-2024 ambulatory José Vela acility:[facility] Start: 01-12-2024 End: 01-12-2024 ambulatory PHYSICIAN NO [facility] Work Phone: Start: 01-12-2024 End: 01-12-2024 Patient encounter procedure PHYSICIAN NO [facility] Work Phone: Start: 12-31-2023 Registered Recurring PHYSICIAN NO [facility] Start: 05-15-2023 End: 05-15-2023 ambulatory [facility] Work Phone: Start: 05-15-2023 End: 05-15-2023 Patient encounter procedure [facility] Work Phone: Start: 01-06-2023 End: 01-07-2023 ambulatory Liudmila M. Lue Facility:[facility] Start: 01-06-2023 End: 01-06-2023 Patient encounter procedure Liudmila M. Lue [facility] [facility] Start: 10-07-2022 End: 10-08-2022 ambulatory Liudmila M. Lue Facility:[facility] Start: 10-07-2022 End: 10-07-2022 Patient encounter procedure Liudmila M. Lue [facility] Start: 08-19-2022 End: 08-19-2022 ambulatory Ernestine Little Other [employer] Other Start: 08-19-2022 Office outpatient vi sit 15 minutes Ernestine Little [facility] Start: 08-12-2022 End: 08-13-2022 ambulatory LIUDMILA M LUE . Facility: Start: 08-08-2022 Encounter for other preprocedural examination LIUDMILA M LUE . [facility] Start: 08-04-2022 End: 08-05-2022 ambulatory LIUDMILA M LUE . Facility: Start: 08-04-2022 End: 08-05-2022 Encounter for other preprocedural examination LIUDMILA DANIELS . Facility: Start: 07-31-2022 End: 07-31-[address] ENEIDA BERNARD . Facility: Start: 07-23-2022 End: 07-23-2022 ambulatory [place]udmila Daniels [place] [place]: 07-23-2022 End: 07-23-2022 Admission to same day surgery center Liudmila Daniels [facility] Start: 07-22-2022 End: 07-23-2022 ambulatory Liudmila Daniels [facility] Start: 07-22-2022 End: 07-22-2022 Patient encounter procedure Liudmila Daniels [facility] Start: 07-15-2022 ambulatory Liudmilasarah Daniels Facility:[facility] Start: 07-15-2022 End: 07-15-[address] ENEIDA BERNARD . Facility: Start: 06-25-2022 End: 06-25-2022 ambulatory Ernestine Little Other [employer] Other Start: 06-25-2022 Office outpatient vi sit 15 minutes Ernestine Little [facility] Start: 02-04-2022 End: 02-05-[address] GIBBS LISTED REQUEST Facility: Start: 12-18-2021 End: 12-18-2021 ambulatory Nery Coppola Other [employer] Other Start: 12-18-2021 Office outpatient vi sit 15 minutes Nery Coppola [facility] Start: 12-30-2020 Office outpatient vi sit 15 minutes Lilia Bowden [facility] Start: 03-08-2018 End: 03-09-2018 Patient encounter procedure DEFAULT PHYSICIAN Facility:[facility] Procedures Date Procedure Procedure Detail Performing Clinician Start: 05-15-2023 Quick Strep (POC) Start: 08-12-2022 Ureteroscopy Liudmila Lue Start: 07-23-2022 Cystoscopic laser lithotripsy of ureteric calculus Liudmila Lue Start: 07-23-2022 Cystoscopy Liudmila Lue Start: 08-20-2018 Dilation and curettage Liudmila Lue Plan of Treatment Date Care Activity Detail Author [facility] Immunizations Immunization Date Immunization Notes Care Provider Diego wray 02-03-2022 influenza virus vaccine, unspecified formulation Liudmila Lue [facility] 07-27-2020 SARS-CoV-2 (COVID-19 ) mRNA BNT-162b2 vax Liudmila Lue [facility] 07-06-2020 SARS-CoV-2 (COVID-19 ) mRNA BNT-162b2 vax Liudmila Lue [facility] 10-04-2014 tetanus toxoid, redu andrew diphtheria toxoid, and acellular pertussis vaccine, adsorbed Liudmila Lue [facility] 06-14-2011 tetanus toxoid, redu andrew diphtheria toxoid, and acellular pertussis vaccine, adsorbed Liudmila Lue [facility] 11-05-1998 measles, mumps and rubella virus vaccine Liudmila Lue [facility] Payers Date Payer Category Payer Self-pay [id number] 2022 Medicaid [id number] 2. [id number] 1986 Unknown [id number] 2.16.8 [id number] 1986 Unknown [id number] 2.16.84 [id number] 1986 Unknown [id number] 2.16.84 [id number] 1986 Unknown [id number] 2.16.84 [id number] 1986 Unknown [id number] 2.16.84 [id number] 1986 Unknown [id number] 2.16.84 0.1.860335.3.579.2.593 1986 Unknown [id number] 2.16.8 40.1.063893.3.579.2.727 1986 Unknown [id number] 2.16.8 40.1.161834.3.579.2.727 1986 Unknown [id number] 2.16.8 40.1.019440.3.579.2.727 1986 Unknown [id number] 2.16.8 40.1.958518.3.579.2.727 1986 Unknown [id number] 2.16.8 40.1.327654.3.579.2.727 1986 Unknown [id number] 2.16.8 40.1.099321.3.579.2.727 1959 Unknown [id number] 2.1 [id number] Medicaid [place] [employer] [id number] 001 [id number] Unknown Unknown [id number] 2.16.8 [id number] Social History Date Type Detail Facility Sex Assigned At [facility] Start: 07-22-2022 End: 10-07-2022 Tobacco smoking status Light tobacco smoker (finding) [facility] Start: 05-15-2023 End: 05-15-2023 Tobacco smoking status Smoker (finding) [facility] Tobacco smoking status Never [facility] Start: 1985 Sex Assigned At Female [facility] Medical Equipment Procedure Code Equipment Code Equipment Origin al Text Equipment Identifier Dates CYSTOSCOPY RETROGRADE STENT INSERTION Liudmila Daniels MD 07/23/22 Non Biological Ureter L [id number] FDA Start: 07-23-2022 Functional Status Date Assessment Result Facility 10-07-2022 Functional Status N/A [facility] 07-22-2022 Functional Status No [facility] 07-22-2022 Functional Status N/A [facility] Clinical Notes 12-30-2020 to 10-07-2022 Note Date & Type Note Facility 10-07-2022 Hospital Discharg e instructions Patient Education 10/07/2022 12:17:26 Dietary Guidelines to Help Prevent Kidney Stones Dietary Guidelines to Help Prevent Kidney Stones Kidney stones are deposits of minerals and salts that form inside your kidneys. Your risk of developing kidney stones may be greater depending on your diet, your lifestyle, the medicines you take, and whether you have certain medical conditions. Most people can lower their chances of developing kidney stones by following the instructions below. Your dietitian may give you more specific instructions depending on your overall health and the type of kidney stones you tend to develop. What are tips for following this plan? Reading food labels Choose foods with no salt added or low-salt labels. Limit your salt (sodium) intake to less than 1,500 mg a day. Choose foods with calcium for each meal and snack. Try to eat about 300 mg of calcium at each meal. Foods that contain 200 500 mg of calcium a serving include: ?8 oz (237 mL) of milk, dcmkpov-arrvrfmcdgmt-ysxra milk, and calcium-fortifiedfruit juice. Calcium-fortified means that calcium has been added to these drinks. ?8 oz (237 mL) of kefir, yogurt, and soy yogurt. ?4 oz (114 g) of tofu. ?1 oz (28 g) of cheese. ?1 cup (150 g) of dried figs. ?1 cup (91 g) of cooked broccoli. ?One 3 oz (85 g) can of sardines or mackerel. Most people need 1,000 1,500 mg of calcium a day. Talk to your dietitian about how much calcium is recommended for you. Shopping Buy plenty of fresh fruits and vegetables. Most people do not need to avoid fruits and vegetables, even if these foods contain nutrients that may contribute to kidney stones. When shopping for convenience foods, choose: ?Whole pieces of fruit. ?Pre-made salads with dressing on the side. ?Low-fat fruit and yogurt smoothies. Avoid buying frozen meals or prepared deli foods. These can be high in sodium. Look for foods with live cultures, such as yogurt and kefir. Choose high-fiber grains, such as whole-wheat breads, oat bran, and wheat cereals. Cooking Do not add salt to food when cooking. Place a salt shaker on the table and allow each person to add his or her own salt to taste. Use vegetable protein, such as beans, textured vegetable protein (TVP), or tofu, instead of meat in pasta, casseroles, and soups. Meal planning Eat less salt, if told by your dietitian. To do this: ?Avoid eating processed or pre-made food. ?Avoid eating fast food. Eat less animal protein, including cheese, meat, poultry, or fish, if told by your dietitian. To do this: ?Limit the number of times you have meat, poultry, fish, or cheese each week. Eat a diet free of meat at least 2 days a week. ?Eat only one serving each day of meat, poultry, fish, or seafood. ?When you prepare animal protein, cut pieces into small portion sizes. For most meat and fish, one serving is about the size of the palm of your hand. Eat at least five servings of fresh fruits and vegetables each day. To do this: ?Keep fruits and vegetables on hand for snacks. ?Eat one piece of fruit or a handful of berries with breakfast. ?Have a salad and fruit at lunch. ?Have two kinds of vegetables at dinner. Limit foods that are high in a substance called oxalate. These include: ?Spinach (cooked), rhubarb, beets, sweet potatoes, and [place] chard. ?Peanuts. ?Potato chips, moroccan fries, and baked potatoes with skin on. ?Nuts and nut products. ?Chocolate. If you regularly take a diuretic medicine, make sure to eat at least 1 or 2 servings of fruits or vegetables that are high in potassium each day. These include: ?Avocado. ?Banana. ?Eldred, prune, carrot, or tomato juice. ?Baked potato. ?Cabbage. ?Beans and split peas. Lifestyle Drink enough fluid to keep your urine pale yellow. This is the most important thing you can do. Spread your fluid intake throughout the day. If you drink alcohol: ?Limit how much you use to: ?0 1 drink a day for women who are not . ?0 2 drinks a day for men. ?Be aware of how much alcohol is in your drink. In the [place] one drink equals one 12 oz bottle of beer (355 mL), one 5 oz glass of wine (148 mL), or one 1 oz glass of hard liquor (44 mL). Lose weight if told by your health care provider. Work with your dietitian to find an eating plan and weight loss strategies that work best for you. General information Talk to your health care provider and dietitian about taking daily supplements. You may be told the following depending on your health and the cause of your kidney stones: ?Not to take supplements with vitamin C. ?To take a calcium supplement. ?To take a daily probiotic supplement. ?To take other supplements such as magnesium, fish oil, or vitamin B6. Take qvdx-qdi-wiwzvtp and prescription medicines only as told by your health care provider. These include supplements. What foods should I limit? Limit your intake of the following foods, or eat them as told by your dietitian. Vegetables Spinach. Rhubarb. Beets. Canned vegetables. Pickles. Olives. Baked potatoes with skin. Grains Wheat bran. Baked goods. Salted crackers. Cereals high in sugar. Meats and other proteins Nuts. Nut butters. Large portions of meat, poultry, or fish. Salted, precooked, or cured meats, such as sausages, meat loaves, and hot dogs. Dairy Cheese. Beverages Regular soft drinks. Regular vegetable juice. Seasonings and condiments Seasoning blends with salt. Salad dressings. Soy sauce. Ketchup. Barbecue sauce. Other foods Canned soups. Canned pasta sauce. Casseroles. Pizza. Lasagna. Frozen meals. Potato chips. [place] fries. The items listed above may not be a complete list of foods and beverages you should limit. Contact a dietitian for more information. What foods should I avoid? Talk to your dietitian about specific foods you should avoid based on the type of kidney stones you have and your overall health. Fruits Grapefruit. The item listed above may not be a complete list of foods and beverages you should avoid. Contact a dietitian for more information. Summary Kidney stones are deposits of minerals and salts that form inside your kidneys. You can lower your risk of kidney stones by making changes to your diet. The most important thing you can do is drink enough fluid. Drink enough fluid to keep your urine pale yellow. Talk to your dietitian about how much calcium you should have each day, and eat less salt and animal protein as told by your dietitian. This information is not intended to replace advice given to you by your health care provider. Make sure you discuss any questions you have with your health care provider. Document Revised: 11/17/2021 Document Reviewed: 11/17/2021 [employer] Patient Education 2022 Notegraphy. Follow Up Care 08/19/2022 13:00:03 With:Jeremiah DAY, Liudmila Emery, URL, [facility] Address: When:Within 2 Month(s) Comments:w/ metabolic workup [facility] 08-19-2022 Evaluation note Encounter Date Diagnosis Assessment Notes July, Dental decay (ICD-10 - K02.9) Dental pain home care material was printed Drink plenty fluids, get plenty of rest. Take the penicillin as prescribed until gone. Take the ibuprofen as prescribed as needed for mild to moderate pain. For severe pain add 2 extra strength Tylenol to your ibuprofen dose. Follow-up with a dentist as soon as possible. Go to the ER for worsening symptoms or concern [employer] Other 05-04-2023 Hospital Discharge instructions Patient Education 07/23/2022 15:42:28 Post Op Patient Instructions - FT (Custom) (CUSTOM) 07/23/2022 14:49:47 Xiod-Lnrh-zx Utereroscopy,Lithotripsy, Stone Extraction, Stent Placement (CUSTOM) [facility] [place], [place] Post-operative Instructions for Ureteroscopy, Laser Lithotripsy, Stone Extraction and Stent Placement There are no incisions or dressings to be concerned with, as the procedure was performed inside theurinary system. For 24 hours after surgery: No driving or operating machinery Do not make important decisions Do not consume alcohol, sleeping pills Stent Placement You may have a stent which spans the distance between your bladder and your kidney, allowing urine to pass through. It prevents blockage from swelling, kidney stones in ureter (tube connecting the kidney to the bladder), or scars. The presence of the stent may cause: Back or side pain, especially with urination Frequent or urgent urination Bladder pressure or pain Blood in urine You may pass stone debris or small blood clots, which is expected. Drinking plenty of water to dilute the urine may help. The stent will most likely be removed in the office during a short procedure in which a scope is placed into the bladder, the stent is grasped and removed. At other times the stent may need to stay longer, either in preparation for other procedures or for other reasons. If it is to remain terminal makeup operator, however, changes of the stent are required (about every 3-4 months). Diet You may resume your normal diet, but you may want to start slowly and avoid spicy food, caffeine, carbonated beverages and alcohol, especially if you have a stent. Your diet and fluid intake may makeirritation from the stent worse. Activity You may resume your normal activities, although you should take it easy on the day of the procedure. Minimizing activity may decrease the back discomfort and irritation from the stent, if present. Medications You may resume your home medications unless instructed otherwise. Hold Coumadin (warfarin) and other blood thinners until your office visit (we will discuss when to resume these medications) Take your prescribed medications as directed, including your antibiotics. You may also be given a prescription for pain medicine or medicines to help with the bladder irritation from stent, if present. Oxybutynin 3 times a day as needed for bladder spasms and stent pain. This can cause dry mouth, dryeyes and constipation. Drink plenty of fluids and take stool softeners as needed Tamsulosin daily for stent irritation and difficulty urinating. If you get dizzy take it at night. AZO can be purchased at your local pharmacy for burning with urination. This will cause your urine to be orange. Tylenol 650-1000mg every 6 hours alternated with ibuprofen 400-600 mg in between as needed for pain Things to watch for which would require an Emergency Room Visit (or call 911) (This is not a complete list) Fever over 101.5 degrees, with or without chills Severe bleeding Severe drug reactions with itching, hives, rash, or severe flank pain Tenderness or swelling or the calves, chest pain, or shortness of breath Office will call to schedule definitive stone treatment in 2 weeks [phone] 07/23/2022 14:49:47 Dietary Guidelines to Help Prevent Kidney Stones Dietary Guidelines to Help Prevent Kidney Stones Kidney stones are deposits of minerals and salts that form inside your kidneys. Your risk of developing kidney stones may be greater depending on your diet, your lifestyle, the medicines you take, and whether you have certain medical conditions. Most people can lower their chances of developing kidney stones by following the instructions below. Your dietitian may give you more specific instructions depending on your overall health and the type of kidney stones you tend to develop. What are tips for following this plan? Reading food labels Choose foods with no salt added or low-salt labels. Limit your salt (sodium) intake to less than 1,500 mg a day. Choose foods with calcium for each meal and snack. Try to eat about 300 mg of calcium at each meal.Foods that contain 200 500 mg of calcium a serving include: ?8 oz (237 mL) of milk, kqdeuxu-lmcjwlcfrksh-xhixd milk, and calcium- fortifiedfruit juice. Calcium-fortified means that calcium has been added to these drinks. ?8 oz (237 mL) of kefir, yogurt, and soy yogurt. ?4 oz (114 g) of tofu. ?1 oz (28 g) of cheese. ?1 cup (150 g) of dried figs. ?1 cup (91 g) of cooked broccoli. ?One 3 oz (85 g) can of sardines or mackerel. Most people need 1,000 1,500 mg of calcium a day. Talk to your dietitian about how much calcium is recommended for you. Shopping Buy plenty of fresh fruits and vegetables. Most people do not need to avoid fruits and vegetables, even if these foods contain nutrients that may contribute to kidney stones. When shopping for convenience foods, choose: ?Whole pieces of fruit. ?Pre-made salads with dressing on the side. ?Low-fat fruit and yogurt smoothies. Avoid buying frozen meals or prepared deli foods. These can be high in sodium. Look for foods with live cultures, such as yogurt and kefir. Choose high-fiber grains, such as whole-wheat breads, oat bran, and wheat cereals. Cooking Do not add salt to food when cooking. Place a salt shaker on the table and allow each person to addhis or her own salt to taste. Use vegetable protein, such as beans, textured vegetable protein (TVP), or tofu, instead of meat inpasta, casseroles, and soups. Meal planning Eat less salt, if told by your dietitian. To do this: ?Avoid eating processed or pre-made food. ?Avoid eating fast food. Eat less animal protein, including cheese, meat, poultry, or fish, if told by your dietitian. To dothis: ?Limit the number of times you have meat, poultry, fish, or cheese each week. Eat a diet free of meat at least 2 days a week. ?Eat only one serving each day of meat, poultry, fish, or seafood. ?When you prepare animal protein, cut pieces into small portion sizes. For most meat and fish, one serving is about the size of the palm of your hand. Eat at least five servings of fresh fruits and vegetables each day. To do this: ?Keep fruits and vegetables on hand for snacks. ?Eat one piece of fruit or a handful of berries with breakfast. ?Have a salad and fruit at lunch. ?Have two kinds of vegetables at dinner. Limit foods that are high in a substance called oxalate. These include: ?Spinach (cooked), rhubarb, beets, sweet potatoes, and [place] chard. ?Peanuts. ?Potato chips, moroccan fries, and baked potatoes with skin on. ?Nuts and nut products. ?Chocolate. If you regularly take a diuretic medicine, make sure to eat at least 1 or 2 servings of fruits or vegetables that are high in potassium each day. These include: ?Avocado. ?Banana. ?Eldred, prune, carrot, or tomato juice. ?Baked potato. ?Cabbage. ?Beans and split peas. Lifestyle Drink enough fluid to keep your urine pale yellow. This is the most important thing you can do. Spread your fluid intake throughout the day. If you drink alcohol: ?Limit how much you use to: ?0 1 drink a day for women who are not . ?0 2 drinks a day for men. ?Be aware of how much alcohol is in your drink. In the [place] one drink equals one 12 oz bottle of beer (355 mL), one 5 oz glass of wine (148 mL), or one 1 oz glass of hard liquor (44 mL). Lose weight if told by your health care provider. Work with your dietitian to find an eating plan and weight loss strategies that work best for you. General information Talk to your health care provider and dietitian about taking daily supplements. You may be told thefollowing depending on your health and the cause of your kidney stones: ?Not to take supplements with vitamin C. ?To take a calcium supplement. ?To take a daily probiotic supplement. ?To take other supplements such as magnesium, fish oil, or vitamin B6. Take yldr-kis-utowteo and prescription medicines only as told by your health care provider. These include supplements. What foods should I limit? Limit your intake of the following foods, or eat them as told by your dietitian. Vegetables Spinach. Rhubarb. Beets. Canned vegetables. Pickles. Olives. Baked potatoes with skin. Grains Wheat bran. Baked goods. Salted crackers. Cereals high in sugar. Meats and other proteins Nuts. Nut butters. Large portions of meat, poultry, or fish. Salted, precooked, or cured meats, such as sausages, meat loaves, and hot dogs. Dairy Cheese. Beverages Regular soft drinks. Regular vegetable juice. Seasonings and condiments Seasoning blends with salt. Salad dressings. Soy sauce. Ketchup. Barbecue sauce. Other foods Canned soups. Canned pasta sauce. Casseroles. Pizza. Lasagna. Frozen meals. Potato chips. [place]ayan fries. The items listed above may not be a complete list of foods and beverages you should limit. Contact a dietitian for more information. What foods should I avoid? Talk to your dietitian about specific foods you should avoid based on the type of kidney stones youhave and your overall health. Fruits Grapefruit. The item listed above may not be a complete list of foods and beverages you should avoid. Contact adietitian for more information. Summary Kidney stones are deposits of minerals and salts that form inside your kidneys. You can lower your risk of kidney stones by making changes to your diet. The most important thing you can do is drink enough fluid. Drink enough fluid to keep your urine pale yellow. Talk to your dietitian about how much calcium you should have each day, and eat less salt and animal protein as told by your dietitian. This information is not intended to replace advice given to you by your health care provider. Make sure you discuss any questions you have with your health care provider. Document Revised: 11/17/2021 Document Reviewed: 11/17/2021 [employer] Patient Education 2022 Notegraphy. Follow Up Care 07/22/2022 10:11:55 With:Liudmila Daniels Address:Unknown When: Unknown Comments:Office will call to schedule left ureteroscopy, laser lithotripsy, stent exchange in 2 weeks [facility]05-04-2023 Evaluation + Plan noteExtracted from: Title:CSB post op Author:Rico Blunt MD Date:07/23/22 Plan Transfer/Discharge: Transfer/Discharge Discharge when meets criteria ( From PACU to Ambulatory Surgery Unit, and To home ). Extracted from: Title:EU- L URS, laser litho, stent placement Au thor:Liudmila Daniels MD Date:07/23/22 Impression and Plan Diagnosis Ureteral stone with hydronephrosis (LKM88-LE N13.2, Discharge, Medical). Kidney stones (OUA49-MV N20.0, Discharge, Medical). Diagnosis Ureteral stone with hydronephrosis (JHL03-LT N13.2, Discharge, Medical). Kidney stones (COC34-XE N20.0, Discharge, Medical). Extracted from: Title:YARI EVANGELISTA Author:Rico Blunt MD Date:07/23/22 Plan [place] [employer] (ASA) physical status classification: Class II. Anesthetic Preoperative Plan: Anesthesia General. Diagnostic Tests Pending * Urine Culture 07/23/22 * Calculi Analysis Urinary 07/23/22 [facility]05-03-2023 Note [id number]:127[facility] 07-22-2022 Hospital Discharge instructions Patient Education 07/22/2022 10:00:35 Laser Therapy for Kidney Stones Laser Therapy for Kidney Stones Laser therapy for kidney stones is a procedure to break up small, hard mineral deposits that form in the kidney (kidney stones). The procedure is done using a device that produces a focused beam of light (laser). The laser breaks up kidney stones into pieces that are small enough to be passed out of the body through urination or removed from the body during the procedure. You may need laser therapy if you have kidney stones that are painful or block your urinary tract. This procedure is done by inserting a tube (ureteroscope) into your kidney through the urethral opening. The urethra is the part of the body that drains urine from the bladder. In women, the urethra opens above the vaginal opening. In men, the urethra opens at the tip of the penis. The ureteroscopeis inserted through the urethra, and surgical instruments are moved through the bladder and the muscular tube that connects the kidney to the bladder (ureter) until they reach the kidney. Tell a health care provider about: Any allergies you have. All medicines you are taking, including vitamins, herbs, eye drops, creams, and hfiv-ynl-cdkaari medicines. Any problems you or family members have had with anesthetic medicines. Any blood disorders you have. Any surgeries you have had. Any medical conditions you have. Whether you are or may be . What are the risks? Generally, this is a safe procedure. However, problems may occur, including: Infection. Bleeding. Allergic reactions to medicines. Damage to the urethra, bladder, or ureter. Urinary tract infection (UTI). Narrowing of the urethra (urethral stricture). Difficulty passing urine. Blockage of the kidney caused by a fragment of kidney stone. What happens before the procedure? Medicines Ask your health care provider about: ?Changing or stopping your regular medicines. This is especially important if you are taking diabetes medicines or blood thinners. ?Taking medicines such as aspirin and ibuprofen. These medicines can thin your blood. Do not take these medicines unless your health care provider tells you to take them. ?Taking yeui-ado-sljmbmq medicines, vitamins, herbs, and supplements. Eating and drinking Follow instructions from your health care provider about eating and drinking, which may include: 8 hours before the procedure stop eating heavy meals or foods, such as meat, fried foods, or fatty foods. 6 hours before the procedure stop eating light meals or foods, such as toast or cereal. 6 hours before the procedure stop drinking milk or drinks that contain milk. 2 hours before the procedure stop drinking clear liquids. Staying hydrated Follow instructions from your health care provider about hydration, which may include: Up to 2 hours before the procedure you may continue to drink clear liquids, such as water, clear fruit juice, black coffee, and plain tea. General instructions You may have a physical exam before the procedure. You may also have tests, such as imaging tests and blood or urine tests. If your ureter is too narrow, your health care provider may place a soft, flexible tube (stent) inside of it. The stent may be placed days or weeks before your laser therapy procedure. Plan to have someone take you home from the hospital or clinic. If you will be going home right after the procedure, plan to have someone stay with you for 24 hours. Do not use any products that contain nicotine or tobacco for at least 4 weeks before the procedure.These products include cigarettes, e-cigarettes, and chewing tobacco. If you need help quitting, ask your health care provider. Ask your health care provider: ?How your surgical site will be marked or identified. ?What steps will be taken to help prevent infection. These may include: ?Removing hair at the surgery site. ?Washing skin with a germ-killing soap. ?Taking antibiotic medicine. What happens during the procedure? An IV will be inserted into one of your veins. You will be given one or more of the following: ?A medicine to help you relax (sedative). ?A medicine to numb the area (local anesthetic). ?A medicine to make you fall asleep (general anesthetic). A ureteroscope will be inserted into your urethra. The ureteroscope will send images to a video screen in the operating room to guide your surgeon to the area of your kidney that will be treated. A small, flexible tube will be threaded through the ureteroscope and into your bladder and ureter, up to your kidney. The laser device will be inserted into your kidney through the tube. Your surgeon will pulse the laser on and off to break up kidney stones. A surgical instrument that has a tiny wire basket may be inserted through the tube into your kidneyto remove the pieces of broken kidney stone. The procedure may vary among health care providers and hospitals. What happens after the procedure? Your blood pressure, heart rate, breathing rate, and blood oxygen level will be monitored until youleave the hospital or clinic. You will be given pain medicine as needed. You may continue to receive antibiotics. You may have a stent temporarily placed in your ureter. Do not drive for 24 hours if you were given a sedative during your procedure. You may be given a strainer to collect any stone fragments that you pass in your urine. Your healthcare provider may have these tested. Summary Laser therapy for kidney stones is a procedure to break up kidney stones into pieces that are smallenough to be passed out of the body through urination or removed during the procedure. Follow instructions from your health care provider about eating and drinking before the procedure. During the procedure, the ureteroscope will send images to a video screen to guide your surgeon to the area of your kidney that will be treated. Do not drive for 24 hours if you were given a sedative during your procedure. This information is not intended to replace advice given to you by your health care provider. Make sure you discuss any questions you have with your health care provider. Document Revised: 11/10/2021 Document Reviewed: 11/10/2021 [employer] Patient Education 2022 [employer]egraphy. Follow Up Care 07/15/2022 13:58:57 With:Jeremiah DAY, JEAN Goss, URO Address: When: Unknown [facility] 2023 Evaluation note* Encounter Date Diagnosis Assessment Notes Treatment Notes Treatment Clinical Notes Jun, Dental decay (ICD-10 - K02.9) Dental pain home care material was printed Drink plenty fluids, get plenty of rest. Take the clindamycin as prescribed until gone. Take the ibuprofen as prescribed as needed for mild to moderate pain. For severe pain add 2 extra strength Tylenol to your ibuprofen dose. Use topical Orajel for pain as well. Follow-up with a dentist as soon as possible. [employer] Other 09-29-2022 Evaluation note* Encounter Date Diagnosis Assessment Notes Treatment Notes Treatment Clinical Notes Nov, Tooth infection (ICD-10 - K04.7) Take medications as directed.Highly encourage patient to contact dentist JOEL for further treatment of infection. Do not take OTC medications like ibuprofen with prescriptions [employer] Other 10-11-2021 Evaluation note* Encounter Date Diagnosis Assessment Notes Treatment Notes Treatment Clinical Notes Dec, Acute non-recurrent pansinusitis (ICD-10 - J01.40) Advsied patient that rapid covid antigen test today in office was negatve. Will tx today for bacterial sinusitis based on physical exam and duration of symptoms. Take antibiotic and steriod as prescribed, complete entire course of therapy even if symptoms resolve, take with food and plenty of water, reviewed side effects. Supportive care as directed, push fluids and rest, Tylenol and/or Motrin as directed for discomfort/fever, warm moist compress over sinuses several times a day, cool mist humidification, nasal saline spray as directed, OTC cold medications such as Mucinex for symptom relief. Symptoms should improve in the next 3 days, if symptoms persist follow up with PCP. Immediate eval for warning s/sx as discussed. Patient verbalizes understanding and is agreeable to treatment plan Dec, Contact with and (suspected) exposure to other viral communicable diseases (ICD-10 - Z20.828) Dec, Other Additional time spent conducting pre-visit phone call, screening for symptoms, instructions on social distancing, application and removal of PPE, and cleaning of examination room, equipment and supplies was preformed. Patient education given for testing methodology and results. Patient care instructions given in writting by [facility] Care At Home document. [employer] Other Evaluation + Plan note Future Appointments Appointment Date:07/23/2022 02:30:00 PM Scheduled Provider: Location:[facility] Appointment Type:Surgery FT [facility] evaluation + Plan note Future Appointments Appointment Date:12/09/2022 10:45:00 AM Scheduled Provider:Liudmila Daniels MD Location:[facility] Appointment Type:URO Office Visit [facility] evalajdqau note* Diagnosis Onset Date Resolution Status Renal stone noneactive [facility] Work Phone: Evaluation note* Diagnosis Onset Date Resolution Status Contact with and (suspected) exposure to covid-19 noneactive [facility] Work Phone: History general Narrative - Reported* Type Description Date Medical History chronic depression Medical History anxiety Medical History addiction, opiates [facility] [employer] Other Hismqdq general Narrative - Reported* Type Description Date Medical History chronic depression Medical History anxiety Medical History addiction, opiates Medical History Kidney stones Surgical History Kidney Stone Removal [facility] [employer] Other Hospital course Narrative No data available for this section [facility] Hospital Discharge instructions No data available for this section [facility] progress note No data available for this section [facility] Summary Purpose Family History No Family History Records Found Relationship Condition Age at Onset Recorded Date/T elana father Suicide Unknown Advance Directives No Advanced Directives Records Found Advance Directive Response Recorded Date/ Time Advance Directives No April 2:07pm Advance Directive Response Recorded Date/ Time Advance Directives No April 3:07pm Hospital Course Note MR#: [id number] I [facility] Pt. Name: Catie Lyons Admitted: 03/08/2018 Discharged: 03/12/2018 Date of : 1985 Physician: Darryl Keen M.D. DISCHARGE SUMMARY CHIEF COMPLAINT: Opioid use and cocaine use. HISTORY OF PRESENT ILLNESS: The patient is a 32-year-old female, admitted to [facility] Det[facility] due to concern of using around 2 g of heroin by snorting it for 9 years as of snorting cocaine on and off for 13 years. Reports significant tolerance withdrawal symptoms over the years with multiple unsuccessful attempts to cut down or stop using drugs and significant amount of time spent in getting drugs, using drugs, and recovering from the effect of drugs. COURSE IN HOSPITAL: The patient reported withdrawal symptoms which included hot sweats, cold sweats, chills, nausea, abdominal cramps, anxiety, irritability, fatigue, and joint pains. Responded partially to symptomatic treatment initially and she wanted to avoid Suboxone, but later on reported withdrawa (more content not included)... Chief Complaint and Reason for Visit Chief Complaint sore throat Reason for Visit Renal stone Chief Complaint BH Cough, congestion, sore throat Reason for Visit Contact with and (carlton spected) exposure to covid-19 Additional Source Comments INFORMATION SOURCE (unrecogn ized section and content) DATE CREATED AUTHOR 04/12/2018 [facility] DATE CREATED AUTHOR AUTHOR'S ORGANIZ ATION [facility]/30/2022 [facility] DATE CREATED AUTHOR AUTHOR'S ORGANIZ ATION 01/08/2023 [facility] DATE CREATED AUTHOR AUTHOR'S ORGANIZ ATION 02/16/2024 [facility] REASON FOR VISIT (unrecogniz ed section and content) #25 GREEN TRUCK, COUGH, NASA L AND CHEST CONGESTIONRIGHT LOWER TOOTH PAINRIGHT LOWER TOOTH PAIN, POSS INFECTIONINFECTION IN TOP TOOTH Care Teams (unrecognized sec tion and content) Team Status: Active Member Role Status Dates DANIEL Basilio Primary Care Provider Active Team Status: Active Member Role Status Dates PHYSICIAN NO FAMILY Primary Care Provider Active Start: December 31, 2023 José Johnston MD Attending Provider Active Start: December 31, 2023 Team Status: Inactive Member Role Status Dates Jaz Mcleod APRN Attending Provider Active S tart: January 12, 2024 End: January 12, 2024 DANIEL Basilio Primary Care Provider Active Start: January 12, 2024 End: January 12, 2024 Team Status: Active Member Role Status Dates PHYSICIAN NO FAMILY Primary Care Provider Active Team Status: Inactive Member Role Status Dates PHYSICIAN NO FAMILY Primary Care Provider Active Start: May 15, 2023 End: May 15, 2023 Lilia Salinas APRN Attending Provider Active Start: May 15, 2023 End: May 15, 2023 Goals (unrecognized section and content) Goals may be documented in a n alternate section FOR RECORDS PERTAINING TO PATIENTS WHO ARE OR HAVE BEEN ENROLLED IN A CHEMICAL DEPENDENCY/SUBSTANCEABUSE PROGRAM, SOME INFORMATION MAY BE OMITTED. This clinical summary was aggregated from multiple sources. Caution should be exercised in using it in the provision of clinical care. This summary normalizes information from multiple sources, and as a consequence, information in this document may materially change the coding, format and clinical context of patient data. In addition, data may be omitted in some cases. CLINICAL DECISIONS SHOULD BE BASED ON THE PRIMARY CLINICAL RECORDS. [facility] [employer] [facility]. provides no warranty or guarantee of the accuracy or completeness of information in this document.
--- NOTE | 2024-02-19 14:59 | XR_ITS ---
[address] [address] Patient Name: CATIE LYONS MRN: [id number] date: 1985 Sex: F Assigned Patient Location: ER Current Patient Location: ER Accession/Order Number: [id number] Exam Date: 02/19/2024 15:12 Report Date: 02/19/2024 15:58 At the request of: DARA GREER Procedure: XR chest 1V EXAM: XR chest 1V HISTORY: cp COMPARISON: 12/17/2023 FINDINGS/IMPRESSION: 1. Lungs are clear 2. No pneumothorax. No pleural effusion. 3. Heart size and mediastinal contours are normal 4. No acute osseous abnormality. 5. Upper abdominal bowel gas pattern is nonspecific. Electronically authenticated by: FERNANDO BELL Date: 02/19/2024 15:58
--- NOTE | 2024-02-19 14:59 | ECG_ITS ---
[facility] Test Date: 2024-02-19 Pat Name: CATIE LYONS Department: Room: - Gender: Female Level Vial Marker: : 1985 Requested By: [id number] Order Number: [id number] Reading MD: KATELYNN HALEY Measurements Intervals [place] Rate: 97 P: 60 [place]: 168 QRS: 77 QRSD: 84 T: 54 QT: 326 QTc: 380 Interpretive Statements 1100 Sinus rhythm 9110 normal ECG Compared to ECG 12/17/2023 11:16:54 Sinus tachycardia no longer present Electronically Signed On 02-20-2024 7:42:52 EST by KATELYNN HALEY
[2024-02-19 15:17] LABS: Basophils Percent Auto 0.3 % (0.2-2.0); Eosinophils Absolute Auto 0.2 10^3/uL (0.0-0.7); Eosinophils Percent Auto 1.6 % (0.9-7.0); Hematocrit 44.1 % (36.0-48.0); Immature Granulocytes Abs Auto 0.03 10^3/uL (0.00-0.03); Immature Granulocytes Pct Auto 0.3 % (0.0-0.5); Lymphocytes Absolute Auto 2.6 10^3/uL (1.2-3.8); Lymphocytes Percent Auto 27.6 % (20.5-60.0); Mean Corpuscular Hemoglobin 29.9 pg (26.7-34.0); Mean Platelet Volume 8.5 fL (9.5-13.5); Monocytes Absolute Auto 0.5 10^3/uL (0.3-0.8); Monocytes Percent Auto 5.4 % (1.7-12.0); Neutrophils Absolute Auto 6.1 10^3/uL (1.4-6.5); Neutrophils Percent Auto 64.8 % (43.0-75.0); Platelet Count 246 10^3/uL (150-450); Red Blood Count 5.01 10^6/uL (4.20-5.40); Red Cell Distribution Width 13.9 % (11.0-15.0); White Blood Count 9.5 10^3/uL (4.0-11.0)
[2024-02-19] MEDS: FAMOTIDINE/PF 20 MG/2 ML VIAL IV (15:18)
[2024-02-19] MEDS: KETOROLAC TROMETHAMINE 30 MG/ML VIAL 15 MG IVP (15:18)
--- NOTE | 2024-02-19 15:21 | ED_ITS ---
HPI HPI - General Adult General Chief complaint: Upper Respiratory Infection Stated complaint: COUGH, CHEST PAIN Time Seen by Provider: 02/19/24 14:58 Source: patient Mode of arrival: walk-in Limitations: no limitations History of Present Illness HPI narrative: The patient have a history of smoking cigarettes less than 1 pack/day to the with the month history almost of coughing with phlegm production, although she mentioned that got better to start having chest pain today mostly retrosternal radiating to her back, the pain associated with no nausea no vomiting no fever or chills The patient denies any other complaints she mentioned that the pain is there mostly when she take a deep breath and cough She was already treated at the end of December with the prednisone and antibiotic that she finished Related Data Home Medications ?Medication ?Instructions ?Recorded ?Confirmed buprenorphine 8 mg-naloxone 2 mg 1 film sublingual .2 times week 03/06/23 12/17/23 sublingual film buspirone 30 mg tablet 30 mg PO TID 03/06/23 12/17/23 Previous Rx's ?Medication ?Instructions ?Recorded furosemide 20 mg tablet (Lasix) 20 mg PO DAILY #7 tabs 12/17/23 diclofenac sodium 75 mg 75 mg PO BID PRN pain #14 tabs 02/19/24 tablet,delayed release Allergies Allergy/AdvReac Type Severity Reaction Status Date / Time No Known Drug Allergies Allergy Verified 02/19/24 14:54 Opioid HPI Opioid Management Most Recent Opioid Data: Last Pain Scale 4 02/19/24 15:18 02/19/24 Last MAR Pain Assessment 02/19/24 15:18 Review of Systems ROS Status of ROS 10 or more systems reviewed and unremark able except as noted in history and below [facility] Medical History (Updated 02/19/24 @ 16:06 by Megan Fuller MD) Anxiety ?F41.9 - Anxiety disorder, unspecified (ICD-10) Kidney stones ?N20.0 - Calculus of kidney (ICD-10) Social History Little interest or pleasure in doing things: not at all Feeling down, depressed, or hopeless: not at all Exam Narrative Exam Narrative: Nurses notes and vital signs reviewed and patient is not hypoxic. General: Well-appearing and in no apparent distress. Skin: Warm, dry, no pallor noted. No rash. Head: Normocephalic, atraumatic. Neck: Supple, non-tender. Eye: Pupils are equal, round and EOMI. No scleral icterus. Ears, Nose, Mouth, and Throat: TM are clear, no nasal mucosal hypertrophy. Oral mucosa is moist, no posterior oropharynx erythema, uvula is mid-line Cardiovascular: Regular Rate and Rhythm without murmur, gallop or rub. Respiratory: No accessory muscle use or respiratory distress. Lungs are clear to auscultation, no wheezing, rales or rhonchi Chest Wall: no tenderness Back: No midline thoracic or lumbar vertebral tenderness. No CVA tenderness Musculoskeletal: normal ROM, no calf or popliteal tenderness, no lower extremity edema/swelling GI: Abdomen is soft, non-distended. Normal bowel sounds. No masses appreciated. No tenderness to palpation. No rebound, guarding, or rigidity noted. Neurological: A&O x4. No cranial nerve dysfunction observed. No truncal ataxia. Moves all extremities. Sensation intact. Psychiatric: Cooperative and interactive. Normal mood and affect. Constitutional Vital Signs, click to edit/add: Last Vital Signs Temp 98.1 F 02/19/24 14:52 Pulse 99 H 02/19/24 14:52 Resp 16 02/19/24 14:52 BP 148/79 H 02/19/24 14:52 Pulse Ox 96 02/19/24 14:52 O2 Del Method Room Air 02/19/24 14:52 Course Vital Signs Vital signs: Vital Signs Temperature 98.1 F 02/19/24 14:52 Pulse Rate 99 H 02/19/24 14:52 Respiratory Rate 16 02/19/24 14:52 Blood Pressure 148/79 H 02/19/24 14:52 Pulse Oximetry 96 02/19/24 14:52 Oxygen Delivery Method Room Air 02/19/24 14:52 Temperature 98.1 F 02/19/24 14:52 Pulse Rate 99 H 02/19/24 14:52 Respiratory Rate 16 02/19/24 14:52 Blood Pressure 148/79 H 02/19/24 14:52 Pulse Oximetry 96 02/19/24 14:52 Oxygen Delivery Method Room Air 02/19/24 14:52 Medical Decision Making MDM Narrative Medical decision making narrative: The patient EKG showing sinus rhythm with a heart rate of [address] elevation or depression The patient CBC and chemistry showed no acute pathology D-dimer is not elevated Troponin is negative Patient feeling better after initial treatment and her chest x-ray was negative The patient pain mostly is pleuritic in nature the patient was discharged home with Voltaren pills for pain control The patient is to follow up with primary care physician in next 2-3 days or to return to the emergency department should any of the signs or symptoms worsen or new symptoms develop. The patient agrees with the following Diagnosis and Treatment plan and the patient will be discharged home. Lab Data Labs: Lab Results 02/19/24 Range/Units 15:12 WBC 9.5 (4.0-11.0) 10^3/uL RBC 5.01 (4.20-5.40) 10^6/uL Hgb 15.0 (12.0-16.0) g/dL Hct 44.1 (36.0-48.0) % MCV 88.0 (81.0-99.0) fL MCH 29.9 (26.7-34.0) pg MCHC 34.0 (29.9-35.2) g/dL RDW 13.9 (11.0-15.0) % Plt Count 246 (150-450) 10^3/uL MPV 8.5 L (9.5-13.5) fL Neut % (Auto) 64.8 (43.0-75.0) % Lymph % (Auto) 27.6 (20.5-60.0) % [place] % (Auto) 5.4 (1.7-12.0) % Eos % (Auto) 1.6 (0.9-7.0) % Baso % (Auto) 0.3 (0.2-2.0) % Neut # (Auto) 6.1 (1.4-6.5) 10^3/uL Lymph # (Auto) 2.6 (1.2-3.8) 10^3/uL [place] # (Auto) 0.5 (0.3-0.8) 10^3/uL Eos # (Auto) 0.2 (0.0-0.7) 10^3/uL Baso # (Auto) 0.0 (0.0-0.1) 10^3/uL Abs Immat Gran (auto) 0.03 (0.00-0.03) 10^3/uL Imm/Tot Granulo (auto) 0.3 (0.0-0.5) % PT 10.5 (9.0-11.6) sec INR 0.99 D-Dimer 0.28 (<=0.59) mg/L FEU Sodium 137 (136-145) mmol/L Potassium 3.6 (3.5-5.1) mmol/L Chloride 104 (98-107) mmol/L Carbon Dioxide 23.0 (21.0-32.0) mmol/L Anion Gap 13.6 BUN 9.0 (7.0-18.0) mg/dL Creatinine 0.85 (0.55-1.02) mg/dL Est GFR ( Amer) >60 (>=60 mL/min/1.73m^2) Est GFR (Non-Af Amer) >60 (>=60 mL/min/1.73m^2) BUN/Creatinine Ratio 10.6 Glucose 111 H (74-106) mg/dL Calcium 8.8 (8.5-10.1) mg/dL Total Bilirubin 0.3 (0.2-1.0) mg/dL AST 18 (15-37) U/L ALT 31 (14-59) U/L Alkaline Phosphatase 124 H (46-116) U/L Troponin I High Sens <4.0 L (4.0-51.3) pg/mL Total Protein 7.0 (6.4-8.2) g/dL Albumin 3.3 L (3.4-5.0) g/dL Globulin 3.7 g/dL Albumin/Globulin Ratio 0.9 Serum HCG, Qual Negative (NEGATIVE) Discharge Plan Discharge Chief Complaint: Upper Respiratory Infection Clinical Impression: Chest pain, pleuritic Patient Disposition: Home, Self-Care Time of Disposition Decision: 16:06 Condition: Good Prescriptions / Home Meds: New diclofenac sodium 75 mg tablet,delayed release (DR/EC) 75 mg PO BID PRN (Reason: pain) Qty: 14 0RF No Action furosemide [Lasix] 20 mg tablet 20 mg PO DAILY Qty: 7 0RF buprenorphine-naloxone 8-2 mg film 1 film sublingual .2 times week buspirone 30 mg tablet 30 mg PO TID Print Language: Burmese Instructions: Chest Pain (DC) Referrals: WALT SIMS [Primary Care Provider] - 1 week
[2024-02-19 15:30] LABS: INR 0.99; Prothrombin Time 10.5 sec (9.0-11.6)
[2024-02-19 15:32] LABS: Alanine Aminotransferase 31 U/L (14-59); Albumin Globulin Ratio 0.9; Albumin Level 3.3 g/dL (3.4-5.0); Alkaline Phosphatase 124 U/L (46-116); Anion Gap 13.6; Aspartate Amino Transferase 18 U/L (15-37); BUN Creatinine Ratio 10.6; Bilirubin Total 0.3 mg/dL (0.2-1.0); Calcium 8.8 mg/dL (8.5-10.1); Chloride 104 mmol/L (98-107); Estimated GFR (African America >60 (>=60 mL/min/1.73m^2); Estimated GFR (Non-African Ame >60 (>=60 mL/min/1.73m^2); Globulin 3.7 g/dL; Glucose 111 mg/dL (74-106); Potassium 3.6 mmol/L (3.5-5.1); Sodium 137 mmol/L (136-145)
[2024-02-19 15:33] LABS: HCG Qualitative NEGATIVE (NEGATIVE); Internal Control Within Normal Limits
[2024-02-19 15:35] LABS: Troponin I High Sensitivity <4.0 pg/mL (4.0-51.3)
[2024-02-19 15:59] LABS: D Dimer 0.28 mg/L FEU (<=0.59)
== END 2024-02-19 16:11 | disposition home or self-care (01) ==
PROVIDERS: Emergency Provider Emergency Medicine; PCP Nurse Practitioner Family
DX: R07.9 Chest pain, unspecified (principal); R09.1 Pleurisy
CPT/HCPCS: 36415; 71045; 80053; 84484; 84703; 85025; 85378; 85610; 93005; 96374; 96375; 99285; J1885

== ENCOUNTER 2024-06-29 16:06 | Emergency (ER) | payer MEDICAID, SELFPAY ==
[2024-06-29 16:15] VITALS: BP 118/81; PULSE 120; TEMP 37.3; O2SAT 95; BMI 35.0
--- OUTSIDE RECORDS SUMMARY | 2024-06-29 16:23 | XMS_ITS | CCD ---
Author Organization [facility] Care Team Providers Care Manager Internship Name Role Phone PHYSICIAN, DEFAULT Admitting Unavailable [...] Consulting Unavailable Liudmila Daniels MKendra Referring Unavailable Lue Liudmila M. Admitting Unavailable LueLiudmila MKendra Attending Unavailable LueLiudmila MKendra Attending Unavailable LueLiudmila MKendra Attending Unavailable LueLiudmila Attending Unavailable LueLiudmila Attending Unavailable NO FAMILY, PHYSICIAN Primary Care Provider Unava ilable MD José Johnston Attending Provider José Johnston Attending Unavailab José Aviles Admitting Unavailab le NO FAMILY, PHYSICIAN Primary Care Unavailable Allergies Allergy Classification Reported Allergen(s) Allergy Type Date of Onset Reaction(s) Facility (1 source) 82438,00 Drug allergy (disorder) 0 [facility] Repository (1 source) No Known Medication Allergies; Translations: [No Known Medication Allergies] Propensity to adverse reactions (disorder) [facility] Repository Medications Current Medications Medication [...] 10 tab(s), Refills(s) 0, Pharmacy: [facility] #[id number], 179, cm, 07/23/22 12:19:00 EDT, Height/Length Dosing, 106.3, kg, 07/23/22 12:19:00 EDT, Weight Dosing Start Date: 07/23/22 Stop Date: 07/28/22 Status: Ordered hydrOXYzine pamoate 50 mg oral capsule (8 sources) Antihistamine Start: 05-15-2023 take 50 mg by mouth three times daily Hydroxyzine Pamoate Active 50 MG PO Three times daily May 15, 2023 1:00am Start: 07-22-2022 take 1 capsule by mo [facility] three times daily Vistaril 50 mg Cap [...] 90 tab(s), Refills(s) 1, Pharm[facility]: [facility] #[id number], 179, cm, 07/23/22 12:19:00 EDT, Height/Length Dosing, [...] pain, # 30 cap(s), Refills(s) 1, [id number], 179, cm, 07/23/22 12:19:00 EDT, Height/Length Dosing, [...] oral tablet (2 sources) alpha-Adrenergic Agonist, Uncompetitive D-huunib-X-aspartat e Receptor Antagonist, Sigma-1 Agonist Start: 05-15-2023 [...] 07-22-2022 Chronic Other aftercare (1 source) Other jail (current) drug therapy; Translations: [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 DRUG THERAPY] Onset: 08-19-2022 Episodic Other [...] Lilia Salinas on 05-15-2023 Quick Strep (POC) [facility] Lab Reportson 10-12-2022 Lab Reports [id number] #1.00CD:127 Normal [facility] RAD - MISCon 10-12-2022 RAD - MISC [id number] #1.00CD:127 [facility] RAD - Ultrasound Reporton RAD - Ultrasound Report [id number] #1.00CD:127 [facility] RAD - Ultrasound Report [id number] #1.00CD:127 [facility] Formson 10-08-2022 Forms [id number] #1.00CD:127 [facility] Patient Educationon 10-08-19 Patient Education Nephrology Dietary [...] Spinach (cooked), rhubarb, beets, sweet potatoes, and English chard. ? Peanuts. ? Potato chips, central african fries, and baked potatoes with skin on. ? Nuts and nut products. ? Chocolate. ? If you regularly take a diuretic medicine, make sure to eat at least 1 or 2 servings of fruits or vegetables that are high in potassium each day. These include: ? Avocado. ? Banana. ? [place], prune, carrot, or tomato juice. ? Baked [...] fish oil, or vitamin B6. ? Take cabu-hnh-trkqngo and prescription medicines only as told by your health care provider. These include supplements. What foods should I limit? Limit your in (more content not included)... Normal [facility] Urology Office/Clinic Noteon 10-07-2022 Urology [...] female initially presented after follow up [facility] on 07/15/22 due to L flank pain that radiated to LLQ. Was sent home with Zofran, Lonsdale, Flomax, and prophy Keflex. ICIQ-SF 0. Denies hx TX, stroke or DM. Not on AC No prior surgeries 1. Ureteral stone with hydronephrosis (N13.2: Hydronephrosis with renal and ureteral calculous obstruction) CT AP wo con 07/15/22 [facility] - Obstructing 6.2 mm stone at the left UPJ with moderate hydronephrosis and mild perinephric stranding. No distal ureteral stones. Stone Analysis Ca Ox Di 80, Addison 20 07/12/22 - BUN 13.0. Crea 1.09. S/p Left ureteroscopy, laser litho, stent placement 07/23/22 Stone Analysis 08/19/22 - Ca Ox Di 40, Addison 55, Hydroxyapatite 5 AMADOU 10/07/22 - 3 [...] hydronephrosis Historic (more content not included)... Normal [facility] Comment on above: Result Comment: Elec tronically Signed By: Liudmila Daniels MD\.br\Date and Time Signed: 10/07/22 12:33 EDT\.br\Electronically Co-Signed By: Chel Leroy.br\Date and Time Co-Signed: 10/07/22 12:21 EDT Auth for Release of Medical Recordson 09-29-2022 Auth for Release of Medical Records [id number] #1.00CD:127 Normal [facility] CALCULI, URINARYon 3 2,8 Dihydroxyadenine Normal [facility] Comment on above: Performed By: #### C ALCULI #### [facility] [address] [address] [address] Marcy Alvarez Ammonium Acid Urate Normal [facility] Comment on above: Performed By: #### C ALCULI #### [facility] [address] [address] [address] Marcy Alvarez Bilirubin Ql (U) [facility] Comment on above: Performed By: #### C ALCULI #### [facility] [address] [place] [address] Dr. Marcy Alvarez Ca Oxalate Dihydrate 40 % [facility] Comment on above: Performed By: #### C ALCULI #### [facility] [address] [address] [address] Marcy Alvarez CaHPO4 (Brushite) [facility] Comment on above: Performed By: #### C ALCULI #### [facility] [address] [place] [address] Dr. Marcy Alvarez Calcium Bilirubinate [facility] Comment on above: Performed By: #### C ALCULI #### [facility] [address] [address] [address] Marcy Alvarez Calcium Carbonate [facility] Comment on above: Performed By: #### C ALCULI #### [facility] [address] [place] [address] Dr. Marcy Alvarez Calcium Oxalate Monohydrate 55 % [facility] Comment on above: Performed By: #### C ALCULI #### [facility] [address] [place] [address] Dr. Marcy Alvarez Calcium Palmitate [facility] Comment on above: Performed By: #### C ALCULI #### [facility] [address] [address] [address] Marcy Alvarez Calcium Phosphate Normal [facility] Comment on above: Performed By: #### C ALCULI #### [facility] [address] [place] [address] Dr. Marcy Alvarez Calcium Stearate Normal [facility] Comment on above: Performed By: #### C ALCULI #### [facility] [address] [address] [address] Marcy Alvarez Carbonate Apatite Normal [facility] Comment on above: Performed By: #### C ALCULI #### [facility] [address] [place] [address] Dr. Marcy Alvarez Cellular Material Normal [facility] Comment on above: Performed By: #### C ALCULI #### [facility] [address] [place] [address] Dr. Marcy Alvarez Cholesterol [facility] Comment on above: Performed By: #### C ALCULI #### [facility] [address] [place] [address] Dr. Marcy Alvarez Color (U) Hager Normal [facility] Comment on above: Performed By: #### C ALCULI #### [facility] [address] [place] [address] Dr. Marcy Alvarez Comment Comment Normal [facility] Comment on above: Result Comment: Calc ium phosphate (hydroxyl form) includes hydroxyapatite, amorphous calcium phosphate, and whitlockite. Hydroxyapatite is the most common of the calcium phosphate salts found in human kidney stones. Performed By: #### C ALCULI #### [facility] [address] [place] [address] Dr. Marcy Alvarez Result Comment: Calc ulus received wet. Wet calculi must be dried before analysis, which delays reporting of results. Leaving calculi wet (such as water, saline, blood, urine) may lead to changes in composition. Comment: Comment Normal [facility] Comment on above: Result Comment: Anita becerra questions regarding Calculi Analysis contact [facility] at: [phone]. Performed By: #### C ALCULI #### [facility] [address] [place] [address] Dr. Marcy Alvarez Composition Comment Normal [facility] Comment on above: Result Comment: Perc entage (Represents the % composition) Performed By: #### C ALCULI #### [facility] [address] [address] [address] Marcy Alvarez Cystine Normal [facility] Comment on above: Performed By: #### C ALCULI #### [facility] [address] [address] [address] Marcy Alvarez Disclaimer: Comment Normal [facility] Comment on above: Result Comment: This test was developed and its performance characteristics determined by [facility]. It has not been cleared or approved by the Food and Drug Administration. Performed By: #### C ALCULI #### [facility] [address] [place] [address] Dr. Marcy Alvarez Dried Blood [facility] Comment on above: Performed By: #### C ALCULI #### [facility] [address] [place] [address] Dr. Marcy Alvarez Drug or Metabolite Normal [facility] Comment on above: Performed By: #### C ALCULI #### [facility] [address] [place] [address] Dr. Marcy Alvarez Hydroxyapatite 5 % Normal [facility] Comment on above: Performed By: #### C ALCULI #### [facility] [address] [place] [address] Dr. Marcy Alvarez Mg NH4 PO4 (Struvite) Normal [facility] Comment on above: Performed By: #### C ALCULI #### [facility] [address] [place] [address] Dr. Marcy Alvarez MgHPO4 (Newberyite) Normal [facility] Comment on above: Performed By: #### C ALCULI #### [facility] [address] [place] [address] Dr. Marcy Alvarez Other component(s) Normal [facility] Comment on above: Performed By: #### C ALCULI #### [facility] [address] [place] [address] Dr. Marcy Alvarez PDF . Normal [facility] Comment on above: Performed By: #### C ALCULI #### [facility] [address] [address] [address] Marcy Alvarez Photo Comment Normal [facility] Comment on above: Result Comment: Phot ograph will follow under a separate cover Performed By: #### C ALCULI #### [facility] [address] [address] [address] Marcy Alvarez Please note: Comment Normal [facility] Comment on above: Result Comment: Calc ira report will follow via computer, mail or chute man delivery. Performed By: #### C ALCULI #### [facility] [address] [address] [address] Marcy Alvarez Size 5x4 [facility] Comment on above: Result Comment: Mult iple pieces received. Dimensions of the largest piece reported. Performed By: #### C ALCULI #### [facility] [address] [address] [address] Marcy Alvarez Sodium Acid Urate Normal [facility] Comment on above: Performed By: #### C ALCULI #### [facility] [address] [address] [address] Marcy Alvarez Source Comment [facility] Comment on above: Result Comment: Left Kidney Performed By: #### C ALCULI #### [facility] [address] [address] [address] Marcy Alvarez Triamterene [facility] Comment on above: Performed By: #### C ALCULI #### [facility] [address] [address] [address] Marcy Alvarez Uric Acid [facility] Comment on above: Performed By: #### C ALCULI #### [facility] [address] [address] [address] Marcy Alvarez Uric Acid Dihydrate Normal [facility] Comment on above: Performed By: #### C ALCULI #### [facility] [address] [address] [address] Marcy Alvarez Weight 69 mg Normal [facility] Comment on above: Performed By: #### C ALCULI #### [facility] [address] [place] [address] Dr. Marcy Alvarez Xanthine Normal [facility] Comment on above: Performed By: #### C ALCULI #### [facility] [address] [place] [address] Dr. Marcy Alvarez Operative Reporton Operative Report [id number] #1.00CD:127 Normal [facility] DRUG SCREEN RAPID (URINE)on 08-12-2022 AMP Negative Normal NEGATIVE [facility] Comment on above: Performed By: #### D RUGRPD #### [facility] [address] [place] [address] Dr. Marcy Alvarez BAR Negative Normal NEGATIVE [facility] Comment on above: Performed By: #### D RUGRPD #### [facility] [address] [place] [address] Dr. Marcy Alvarez BUP Positive Abnormal NEGATIVE [facility] Comment on above: Performed By: #### D RUGRPD #### [facility] [address] [place] [address] Dr. Marcy Alvarez BZO Negative Normal NEGATIVE [facility] Comment on above: Performed By: #### D RUGRPD #### [facility] [address] [place] [address] Dr. Marcy Alvarez STEVEN Negative Normal NEGATIVE [facility] Comment on above: Performed By: #### D RUGRPD #### [facility] [address] [place] [address] Dr. Marcy Alvarez CUT-OFFS SEE BELOW Normal [facility] Comment on above: Result Comment: AMP (Amphetamine): 500ng/mL, BAR (Barbituates): 200 ng/mL, BZO (Benzodiazepines): 150 ng/mL, BUP (Buprenorphine): 10 ng/mL, STEVEN (Cocaine): 150 ng/mL, mAMP (Methamphetamine): 500 ng/mL, MTD (Methadone): 200 ng/mL, OPI (Opiates): 100 ng/mL, OXY (Oxycodone): 100 ng/mL, PCP (Phencyclidine): 25 ng/mL, PPX (Propoxyphene): 300 ng/mL, THC (Cannabinoids): 50 ng/mL, TCA (Trycyclic Antidepressants): 300 ng/mL Performed By: #### D RUGRPD #### [facility] [address] [place] [address] Dr. Marcy Alvarez DRUG CUT HEADER DRUG CLASS TEST SYSTEM CUT-OFF CONCENTRATIONS ARE FOLLOWS: Normal [facility] Comment on above: Performed By: #### D RUGRPD #### [facility] [address] [place] [address] Dr. Marcy Alvarez mAMP Negative Normal NEGATIVE [facility] Comment on above: Performed By: #### D RUGRPD #### [facility] [address] [place] [address] Dr. Marcy Alvarez MTD Negative Normal NEGATIVE [facility] Comment on above: Performed By: #### D RUGRPD #### [facility] [address] [place] [address] Dr. Marcy Alvarez OPI Negative Normal NEGATIVE [facility] Comment on above: Performed By: #### D RUGRPD #### [facility] [address] [place] [address] Dr. Marcy Alvarez OXY Negative Normal NEGATIVE [facility] Comment on above: Performed By: #### D RUGRPD #### [facility] [address] [place] [address] Dr. Marcy Alvarez PCP Negative Normal NEGATIVE [facility] Comment on above: Performed By: #### D RUGRPD #### [facility] [address] [place] [address] Dr. Marcy Alvarez PPX Negative Normal NEGATIVE [facility] Comment on above: Performed By: #### D RUGRPD #### [facility] [address] [place] [address] Dr. Marcy Alvarez TCA Positive Abnormal NEGATIVE [facility] Comment on above: Performed By: #### D RUGRPD #### [facility] [address] [place] [address] Dr. Marcy Alvarez THC Negative Normal NEGATIVE [facility] Comment on above: Performed By: #### D RUGRPD #### [facility] [address] [place], [place] [address] Dr. Marcy Alvarez PREG HCG QUALon 08-12-2022 , QUAL Negative Normal NEGATIVE [facility] Comment on above: Performed By: #### P REG #### [facility] [address] [place], [place] [address] Dr. Marcy Alvarez Pre-Certification Formon Pre-Certification Form [id number] 0#1.00CD:127 Normal [facility] Calculus Analysison 07-31-19 23 Calcium oxalate dihydrate Infrared spectroscopy (Stone) [Mass fraction] 80 % Invalid Interpretation Code [facility] Comment on above: Order Comment: Left ureteral stones Performed By: #### 1 [id number] #### [facility] [address] [place] [address] Calcium oxalate monohydrate (Stone) [Mass fraction] 20 % Invalid Interpretation Code [facility] Comment on above: Order Comment: Left ureteral stones Performed By: #### 1 [id number] #### [facility] [address] [place] [address] Color (Stone) Brown Invalid Interpretation Code [facility] Comment on above: Order Comment: Left ureteral stones Performed By: #### 1 [id number] #### [facility] [address] [place] [address] Composition Comment Invalid Interpretation Code [facility] Comment on above: Order Comment: Left ureteral stones Result Comment: Perc entage (Represents the % composition) Performed By: #### 1 [id number] #### [facility] [address] [place] [address] Disclaimer: Comment Invalid Interpretation Code [facility] Comment on above: Order Comment: Left ureteral stones Result Comment: This test was developed and its performance characteristics determined by [facility]. It has not been cleared or approved by the Food and Drug Administration. Performed at: [facility] Stone Analysis [address] [place] [address] Dr Garza, [place] [id number] PhD Gabbie Grey Performed By: #### 1 [id number] #### [facility] [address] [place] [address] Laboratory comment Baudilio (Report) Comment Invalid Interpretation Code [facility] Comment on above: Order Comment: Left ureteral stones Result Comment: Anita becerra questions regarding Calculi Analysis contact [facility] at: [phone]. Performed By: #### 1 [id number] #### [facility] [address] [place] [address] Please Note: Comment Invalid Interpretation Code [facility] Comment on above: Order Comment: Left ureteral stones Result Comment: Calc ira report will follow via computer, mail or chute man delivery. Performed By: #### 1 [id number] #### [facility] [address] [place] [address] Size (Stone) [Entitic vol] 3x3 Invalid Interpretation Code [facility] Comment on above: Order Comment: Left ureteral stones Result Comment: Mult iple pieces received. Dimensions of the largest piece reported. Performed By: #### 1 [id number] #### [facility] [address] [place] [address] Specimen source subject Nom Comment Invalid Interpretation Code [facility] Comment on above: Order Comment: Left ureteral stones Result Comment: Left Ureter Performed By: #### 1 [id number] #### [facility] [address] [place] [address] Stone Photo Comment Invalid Interpretation Code [facility] Comment on above: Order Comment: Left ureteral stones Result Comment: Phot ograph will follow under a separate cover Performed By: #### 1 [id number] #### [facility] [address] [place] [address] Weight (Stone) 16 mg Invalid Interpretation Code [facility] Comment on above: Order Comment: Left ureteral stones Performed By: #### 1 [id number] #### [facility] [address] [place] [address] IntraOperative Documentson 0 07-28-2022 IntraOperative Documents [id number]#1.00CD:127 Normal [facility] Coding Summary.on 07-27-2022 Coding Summary. CD:[id number] Ww+PGhlYWQ+RP8RYQUjX 54guOWhzM4wL0LCIRaNV ywgQVBQTElOSyIgbmFtZ B1zlGJqDSLp IC8+LM0vLEXxEsvrzIJs e2V1kTV5L09jgu9tCOzv yYB2EYKrDhRqemgcm3zz yUf4CVduUomiEvTx TRNqrT73DUQ2gT14Ye96 sKLlqRYkj7gheSu7YaVs KTXrHIE5vFjmBTdia4To ZCKiB78rnRWoa3X7 IGNvbGxhcHNlOyBlbXB0 eX9wWYpfwojjx2bchckn Zht3kd83fCKhj6I7cJL7 C8PjbmP0LAVmeGOu QsyckVFBjJ8ndegdi7od irlsVkBnYMAbKGh2NBt0 FYHaoOntBqJhRT59DEZ0 NJCkhrNbP2ZoEBWl pTtiIpK6y7T0Dt2HH2WV OwnxM6FAESVNWHntfKR+ VK10zi27J7MhEvllFaz6 XHIlMMI3wLF6oH2y YFJzZNcmq8Z6nYG9G9Yy biZuqx5fc0wgKTBdPAnr A72hjRJkr3Q2DHXmzRU8 VGMwsBhqNyLqcC29 Oyc+DUIcjMntp4XmXdac i2sez8kzjBa4FfhjNYUf etVzkNcnDWH9v2FnUr9v FXWceDX7xWK5nL4l HgRbIiB2OMbsN865ZzMa kYPnCqxjB71iG1NznOJ+ BGRmGqq1MTPkhPgsQW5d W4NaVXFmlzygiNHx aGodXP0rTQKhsqqkCMLa pH1mKORiJ3w8OsLoMpL3 IDmgT4IhZSToylihGd12 mB1iKxNvZvY1PWnw O2VgvtL3HFZnfZHrCRvf NFF0B10qc3G0TVRfSSKb KAI1dUC9pI9soBrjogcm bGVmdDsgdmVydGlj OUmvAQbsX885MWGauUzv PkNvZGluZyBEYXRlOiAg MDUvMDgvMjAyMzwvdGQ+ JKEyQUT5qAbfNBBj cDUjWTgjJa4hnEipgRwj BP0eWDVdwvsnDOYvmF1l LXJnhQHzwDmaRM8vTJFi bslvy871QgToBAS8 MILzwGTcB8XidB5aPiNp LKMpRRVgQ0XmiIAiFNsx J844FZzmWiI8NITjgqXy A8PnOHQnfRsuVgC5 z0U9Hf0Tv9UwqkwbF1Qp uWDbPyYpXzpfEXu3K3Xh PjwvdHI+EB75LUUlFO32 ADz0TLB9mCvcTHoz XRUeL4HymP9jAfTrYUUb ZGRkOyc+PHRhYmxlIHdp ZHRoPScxMDAlJyBzdHls FG7cLb1bYZCpNSZj mAgeeFJtKuHxc9bsDGFz KTydDX8zzOzmZ6DtuOS4 XDLif4h3Tu01G88hF3Ti dXA+IGRlrMJ5zMM3 mB3rDrVsSwD1BFcdE058 UbWhkRNaWvrsi3vwn7do kXj3QsR3PPQslrJtiWtz HLJ7c5JrAy94Y20w IHdpZHRoPSIxNSUiIHZh hXjbma2nkO2fVi1+PGNv jJD3fEF5fG8rFqMjHuR1 ZQkdT179YmSpcSTc Orzeg1gqg5ckgFs1QfPr IADkokPrgLzxJPF5q3Tr Oe17R4CexYdrg3KuEex2 sb14yJHlj4I5wDM8 M6EmGSVorxpiqXUsiTwd UR9sDYRafbtgRROxgA1p LBEqU0v7HeKbCfA2FZyg Q9VhwsK2AKIsyIAw UBCdwZMVrQ0sdwdvw0cd dhusFgHwVUAqJOn8AZg3 KXMgzQbyXgNbLOW6DxP4 FWH3hBFzkG9axWca rfdjiE1wIbd+MDA7eVDu cAYTZG5qLkehmVR+PHRk OAG4jClbAAclWLGmtI3u PHDmH2m9VyEjPmY8 NGzbK4YwmnU5LFYtjTDp JLUdxBLReH6hjeyjt2dt rhriGtInPMGoFUm1QLr3 LWFsaWduOiBsZWZ0 IpE4EGS3rWGasR3jfTxw douduK9eEfs+QmlydGgg GTH2COw7M7HhBio7PECh wKuwEZ3lkYGjYGhy Yp7ivGcjgIltMC8mQVTf lkjom915NsFdm3vbTQIj xCLwJCgwHFV4L82lr0T7 JPBtIKTuOPU3vOR4 yD7qgXtqrnmemSAqcEwn niKhnGebUNghZLfhR992 DGWpiFrmXoJnEZn9P6Jp Edi7BCIfrKyfWR7o tIIoFTdwCm9kpIsulRyl CT8qFLUkhnhyl025BeVm n4jkTJQwgSLgIZomPKQ3 E15sk4A6RZFzLXGs GKO9mLY7wQ1wzYajyqrr bGVmdDsgdmVydGljYWwt MHryX599KYMbsHndPhXa fOa3L3CyZtv0FDXs yJhkFC9kfLFkEXniHl5g lYstiKonEH4nTZGssjxt n963WaOyj9feKCUqoWDv BHeyDKH4T13jv8U6 DKRaTRQmCSY1iYA1jF4d bGlnbjogbGVmdDsgdmVy gTzqMPxsLLekJ990ENCu cDsnPlBhdGllbnQg ELonVHy1Z3ZaRehsmXV+ NH81SBKvYK95sBXtnTQd o9alqHo0DnAvEXMoMKV3 xXeuCZvlf8WvSMCj H04joQUqn7V0DBMjxDve oEApHlVehJX2xD6mDKuo pjvli6dhhuezYqqzq4ok wi28yJ29W73aWPsy ZHRoPSIzMCUiIHZhbGln sx2uuQ1sBf2+PGNvbCB3 gCV1xH9dSMRsKlB6JZqy Z061VpKpfBNxQggn h2dnw3ohzUl5ItQ4HUNa ymOwkJvaZCV6t8ZlPa85 J27dXKcjWWDgTUHgCVTu KCNfbRtnng3nwI1n Ii8+OFVziHE2mRQ9yL9a DlPfQrM1JMjaF491TgYr kMVhVdshB49hA7BzuEI+ CHAwYvx9EBHgiGce OB1eoYKdMHklSe8dWNA7 QoCcCsKhRNwgC4MuVPMx vckfnhnknJI9RPQnZYFk nD12Ko2nfQvjOGQr oIUVpR9wwlkcn2ebaecn DoNuXXRuRGf5WFw1YMNr iEwoNbBsSPJ5CoF1JDK9 oKJhoH2vgTmqtdia tU3mB9TpQVIqtlmtVm44 yG0vAqLkSdG1UWybUfr+ UFJZQkEsIEFEUklBTkEg SjwvdGQ+PHRkIHN0 gUhfGXmwGXBvgI5tDQVx O0j8TrBjAnL8QQqsF3Wx EZIumzssJy09eY9eUrRc UxF7RQubI8TvbpR3 KGXwlQCwZEcuCDX3K96h r4K1AZTaWESlYVK8tJQ9 zQ7lkWsepopjrGDjrJww dmVydGljYWwtYWxp T597CLJfyVknJyYxCjO6 QiH5STb0L4WfKus7HTGk fTdbKF9uuUQdJTugDf5a nRwxyOgjMW3aHWRw uzdxWZDlcF9pLDAdzDTe yVrePE3pBULseulwq432 UcFfZKT7PMBeiVHvB9Zk xQ5eWwNoENDkHVDc N0JygTHiVUbhR932RGal CzY7XSDahmNvR2EyFSBh cNccCjL4h1W0Vs4iDqHH ZWFyczwvdGQ+PHRk ANQ8gPfpGKlyTCWvsJ5z VCKpZ5z4JeZrGyG3GAte V9IcCKLhyludZo93yY0z ZgJfSsP9LNxyU5Dx pgH4DNRgnAKeHRjxQYY7 S91iw2D8WKUeDROzYYW4 zZJ8hR9drWjchfkmbBZt dDsgdmVydGljYWwt MMzwR622BQZspBdgZbIs bWFsZTwvdGQ+PHRkIHN0 uIzrWKqyOYJomM3oVGFg N3s5BzDaReL3IRcr I2JyFJUyibbqJk36oC6f AzXkUkV7EDqsH4ReduE4 FXXhgIWjELscMAM5R24z s0R6DOArYORkARI7 dZB6rW7yuBafksmoaOKe dDsgdmVydGljYWwtYWxp X043MBPtcAdrEgQyZqSm GTWtdexjY0ObRSXG KGqcC1SjF4UhiWctbWR+ AI28tp69A8GnEacdVdc1 BKXrQJY3tLZ5fV6bGWCn ESvtj5D2eUW9H7Pk ltQifm5pc3duBEYhMTeq E88bsOXab4W9UWYoeBY4 SCDnqUzlZuBcbG45Ccc+ VGLuxThed6CfExue f4whm8jalJl2CsDrPQVh vuQijFsnKKE3u0KiNm26 I74wFYjwXNTcSDAfLXZp UOOhaAzsfh8vaX7d Ii8+GDGkiWY2tHJ4yH7h QzOwLtI1QYcoV766GsFl qQKkPowbo7fjg5smsVf0 IjIwJSIgdmFsaWdu OOO8s3SaZs79P8OihIvk y9YfWll9ja82dLBim5O2 gZB2G0GgSEHtybvnmWEq xEvxDU8kNVLrdwuh HIPakQ1gUXTfH0u1HlHc MdH5JCysZ1RwnqX1JHFx iBBxXUBflPUMrE6hoixv w3vrnbejQbIbODKt DHi2WAw0KUWbrDokDwUk FAN8PgP4ETQ4gUVntK5r gUypvcnzaY5gDsv+UGh5 c6zeuJMeNO5utEJ8 ZK82NC88xPJii9P1fDL7 P8RzRVXjywfiqtrlwDS5 PATlLYZdwP56Hd6ceWvz Tt9mGFHyKWY3FLGt jWRmT0KbjE3gXgBtVDBk EWOfG6XdiOOuQHlmG981 EUmySpG7XXJobnNrE5Dt JTUihAvxBdE3n1W0 Ht5UTH52FN84BJ79qCDp k4H5tDV0E3CwWBQhdsrj maodkEF1LXGfAWQndS37 Vx8hqTpnDa0qPBBq RWP4SAUuzVBmA3FqzK7x HoOuUOLaIUAzH8NyzTMr ZJizL494PNgaCyG0EUSm gyYrH1BtJWOuvEoo WgA3h5D0Tn9XYy05ER31 QQ80gHYfh5T0cPE8P4Ox RSDrxwucwpsqbEV0FPBy FOTwcQ13Ll8nxFat Ty1gSGObOPU1DTQqoZCs Z9NmzV2rBaVkDDFxJTYs M6JppXTsNLpsE951NYvo RrD2AOQthdBwS9Gf SVSmzJshOgW4x2U3Zo7L FRqmfqk0L7ZiFrompFZ+ HR43UVNuRG80pAYidCNy y0vslZx4HfDiBLPf YOV4vMdw (more content not included)... Normal [facility] Lab Reportson 07-27-2022 Lab Reports [id number] #1.00CD:127 Normal [facility] Main OR Intraoperative Recor don 07-27-2022 Main OR Intraoperative Record IntraOp Document Type FT Summary Primary Physician: Liudmila Daniels MD Finalized Date/Time: 07/27/22 08:05:40 Pt. Name: CATIE LYONS/Sex: 1985 Female Med Rec #: [id number] Physician: Liudmila Daniels MD Financial #: [id number] Pt. Type: A Room/Bed: [place] [address] Admit/Disch: 07/23/22 11:44:51 - 07/23/22 16:20:00 Institution: [...] RN Role Performed ABDOUL Surgeon - Primary Licensed Prosthetist/Orthotist - Primary Time In 07/23/22 13:50:00 07/23/22 [...] 5 Entry 6 Case Attendee Patricia Maldonado FINISHING MACHINE OPERATOR, Renny Alvarado RT(R), Leisa Role Performed Scrub - Primary Bulk Plant Operator Dairy Inspector Time In 07/23/22 13:50:00 07/23/22 13:50:00 07/23/22 [...] infection Sk (more content not included)... Normal [facility] Postoperative Documentson Postoperative Documents [id number] 8#1.00CD:127 [facility] Pre-Certification Formon Pre-Certification Form [id number] 0#1.00CD:127 [facility] RAD - CT Reporton 07-27-2022 RAD - CT Report [id number] #1.00CD:127 [facility] C Urineon 07-25-2022 Bacteria identified Cx Nom [...] Locations R1: This test was performed at: [facility], [address] [place] [address], [facility] , , [facility] Comment on above: Performed By: #### 2 [address] ####[place] [address] Consent for Anesthesiaon Consent for Anesthesia [id number] 7#1.00CD:127 [facility] Discharge Instructionson Discharge Instructions [id number] 5#1.00CD:127 [facility] IntraOperative Documentson 0 07-24-2022 IntraOperative Documents [id number] 8#1.00CD:127 Normal [facility] IntraOperative Documents [id number] 1#1.00CD:127 Normal [facility] Preoperative Documentson Preoperative Documents [id number] 1#1.00CD:127 Normal [facility] XR Urography Retrograde Left on [...] mGy = 7.30 DAP = 543.52 Normal [facility] Auto Diffon 07-23-2022 Basophils/100 WBC (Bld) 0.6 % Normal 0.0-2.0 [facility] Comment on above: Order Comment: Order Added by Discern Expert. Performed By: #### 2 709015, 9118057, 7321099, 92077489, 73047541 #### [facility] [address] [place] [address] Basophils/Leukocytes Auto (Bld) [Pure # fraction] 0.1 E9/L Normal 0.0-0.2 [facility] Comment on above: Order Comment: Order Added by Discern Expert. Performed By: #### 2 454795, 7004026, 8239874, 28825121, 58220074 #### [facility] [address] [place] [address] Eosinophils/100 WBC (Bld) 1.6 % Normal 0.0-8.0 [facility] Comment on above: Order Comment: Order Added by Discern Expert. Performed By: #### 2 374224, 1890979, 0357298, 35469827, 08205264 #### [facility] [address] [place] [address] Eosinophils/Leukocyte s Auto (Bld) [Pure # fraction] 0.1 E9/L Normal 0.0-0.5 [facility] Comment on above: Order Comment: Order Added by Discern Expert. Performed By: #### 2 298324, 2563500, 8098403, 93790842, 55182457 #### [facility] [address] [place] [address] Lymphocytes/100 WBC (Bld) 24.5 % Normal 14.0-50.0 [facility] Comment on above: Order Comment: Order Added by Yazmin Expert. Performed By: #### 2 924905, 1201142, 1662054, 93548510, 08212686 #### [facility] [address] [place] [address] Lymphocytes/Leukocyte s Auto (Bld) [Pure # fraction] 2.2 E9/L Normal 1.0-4.0 [facility] Comment on above: Order Comment: Order Added by Yazmin Expert. Performed By: #### 2 791893, 4124950, 1010198, 94569024, 43929685 #### [facility] [address] [place] [address] Monocytes/100 WBC (Bld) 6.3 % Normal 4.0-14.0 [facility] Comment on above: Order Comment: Order Added by Yazmin Expert. Performed By: #### 2 229888, 2760408, 3528807, 59189731, 21515230 #### [facility] [address] [place] [address] Monocytes/Leukocytes Auto (Bld) [Pure # fraction] 0.6 E9/L Normal 0.2-1.0 [facility] Comment on above: Order Comment: Order Added by Discern Expert. Performed By: #### 2 557236, 2893310, 5382252, 58380948, 64156088 #### [facility] [address] [place] [address] Neutrophils/100 WBC (Bld) 67.0 % Normal 36.0-75.0 [facility] Comment on above: Order Comment: Order Added by Discern Expert. Performed By: #### 2 610829, 7586820, 0663596, 41749279, 72342358 #### [facility] [address] [place] [address] Neutrophils/Leukocyte s Auto (Bld) [Pure # fraction] 6.0 E9/L Normal 2.0-7.5 [facility] Comment on above: Order Comment: Order Added by Discern Expert. Performed By: #### 2 072756, 5688840, 1088395, 52440947, 49556480 #### [facility] [address] [place] [address] BMPon 07-23-2022 Anion gap [Moles/Vol] 12 mmol/L Normal 6-16 [facility] Comment on above: Performed By: #### 2 318229, 6262079, 6507959, 94123382, 19344775 ####[facility] [address] [place] [address] Calcium [Mass/Vol] 9.2 mg/dL Normal 8.9-11.1 [facility] Comment on above: Performed By: #### 2 204802, 7290059, 8621206, 61679862, 64878085 ####[facility] [address] [place] [address] Chloride [Moles/Vol] 103 mmol/L Normal 101-111 [facility] Comment on above: Performed By: #### 2 769788, 5988854, 0419368, 74992393, 42750631 ####[facility] [address] [place] [address] CO2 [Moles/Vol] 23 mmol/L Normal 21-31 [facility] Comment on above: Performed By: #### 2 385759, 4018978, 9689492, 73871199, 70077688 ####[facility] [address] [place] [address] Creatinine [Mass/Vol] 1.2 mg/dL Normal 0.5-1.3 [facility] Comment on above: Performed By: #### 2 666606, 6173654, 1109315, 20732822, 98947138 ####[facility] [address] [place] [address] Glucose [Mass/Vol] 87 mg/dL Normal 55-199 [facility] Comment on above: Result Comment: If t his glucose result represents a fasting glucose, interpretation should refer to the following reference range: 55-99 mg/dL Performed By: #### 2 297639, 0158841, 6980448, 48404376, 77523744 ####[facility] [address] [place] [address] Potassium [Moles/Vol] 4.4 mmol/L Normal 3.5-5.3 [facility] Comment on above: Performed By: #### 2 338225, 0259825, 5894261, 85227097, 73727480 ####[facility] [address] [place] [address] Sodium [Moles/Vol] 134 mmol/L Low 135-145 [facility] Comment on above: Performed By: #### 2 859545, 5903241, 2804398, 94708087, 51815562 ####[facility] [address] [place] [address] Urea nitrogen [Mass/Vol] 16 mg/dL Normal 5-21 [facility] Comment on above: Performed By: #### 2 646664, 3629867, 0383215, 44220728, 92330211 ####[facility] [address] [place] [address] Urea nitrogen/Creatinine [Mass ratio] 13 No Units Normal 10-20 [facility] Comment on above: Performed By: #### 2 152913, 8526032, 2221328, 84152717, 84078586 ####[facility] [address] [place] [address] CBC w/ Auto Diffon 3 Erythrocyte distribution width (RBC) [Ratio] 13.1 % Normal 10.9-14.2 [facility] Comment on above: Performed By: #### 2 200864, 6456477, 4382505, 47053129, 08344522 #### [facility] [address] [place] [address] Hematocrit (Bld) [Volume fraction] 40.8 % Normal 34.0-46.0 [facility] Comment on above: Performed By: #### 2 090494, 6825695, 2537971, 17652306, 11932857 #### [facility] [address] [place] [address] Hemoglobin (Bld) [Mass/Vol] 13.7 g/dL Normal 12.0-16.0 [facility] Comment on above: Performed By: #### 2 477403, 8911459, 0343697, 17228672, 47052796 #### [facility] [address] [place] [address] MCH (RBC) [Entitic mass] 28.9 pg Normal 27.0-34.0 [facility] Comment on above: Performed By: #### 2 815830, 2591301, 5470116, 29889131, 85406978 #### [facility] [address] [place] [address] MCHC (RBC) [Mass/Vol] 33.6 g/dL Normal 31.4-36.0 [facility] Comment on above: Performed By: #### 2 701461, 2143404, 3737329, 80011566, 58919891 #### [facility] [address] [place] [address] MCV (RBC) [Entitic vol] 86.0 fL Normal 80.0-100.0 [facility] Comment on above: Performed By: #### 2 555482, 2384384, 2607423, 59558043, 03100020 #### [facility] [address] [place] [address] Platelet mean volume (Bld) [Entitic vol] 6.8 fL Normal 6.4-10.8 [facility] Comment on above: Performed By: #### 2 266496, 8705826, 1994630, 12675489, 14197273 #### [facility] [address] [place] [address] Platelets (Bld) [#/Vol] 276.0 E9/L Normal 150.0-500.0 [facility] Comment on above: Performed By: #### 2 857045, 8415948, 6424814, 31668194, 16070001 #### [facility] [address] [place] [address] RBC (Bld) [#/Vol] 4.7 E12/L Normal 4.3-5.9 [facility] Comment on above: Performed By: #### 2 137892, 4389263, 8746382, 64344752, 60972422 #### [facility] [address] [place] [address] WBC corrected for nucl RBC Auto (Bld) [#/Vol] 8.9 E9/L Normal 4.0-11.0 [facility] Comment on above: Performed By: #### 2 371226, 5496124, 6138408, 63143349, 98528643 #### [facility] [address] [place] [address] CHEMISTRYOrdered By: SYSTEM SYSTEM on 07-23-2022 Anion [...] 60 mL/min/1.73 m2 Normal >=59mL/min/1 .73 m2 [facility] Chem S Glucose [Mass/Vol] 87 mg/dL Normal [...] 35.9 s Normal 25.1 - 36.5 second(s) [facility] Auto Coag INR Coag (PPP) [Relative time] 1.1 {INR} Invalid Interpretation Code FT Auto Coag PT Coag (PPP) [Time] 12.3 s Normal 9.4 - 1 2.5 second(s) [facility] Auto Coag Consent for Procedure/Surger yon 07-23-2022 Consent for Procedure/Surgery [id number] 5#1.00CD:127 Normal [facility] Consent for Treatmenton Consent for Treatment [id number] #1.00CD:127 Normal [facility] Discharge Instructionson Discharge Instructions CATIE LYONS :1985 Visit Date:07/23/2022 Inpatient Discharge Instructions Your Care Team Admitting Physician - Liudmila Daniels MD Referring Physician - Lue MD, [...] 12 hours Duration: 5 Days Pickup at [facility] #79968 New oxybutynin (oxybutynin 5 mg Tab) 1 Tablets By Mouth 3 times a day as needed for Urinary discomfort Refills: 1 Bladder spasms, stent irritation Pickup at [facility] #41264 New tamsulosin (tamsulosin 0.4 mg Cap) 1 Capsules By Mouth Every day as needed for Urinary discomfort Refills: 1 Stent pain Pickup at [facility] #71870 Changed quetiapine (SEROquel 200 mg Tab) 200 [...] Tablets By Mouth Every day Pharmacy Information [facility] #[id number]: [address], [place] [id number] [phone] Test Results CBC BMP WBC: 8.9 E9/L [...] L STENT CONTOUR URETERAL 6.0 X 22-30MM [[id number]] 07/23/2022, MR Safe - HORACIO: {01}[id number]{1 7}[id number]{10}[id number] Education Materials [facility] [place], [place] Post-operative Instructions for Ureteroscopy, Laser Lithotripsy, Stone Extraction and Stent Placement There are no incisions or dressings to be c (more content not included)... Normal [facility] Comment on above: Result Comment: Elec tronically Signed By: Isacc CHAPARRO, Elva [place]\.br\Date and Time Signed: 07/23/22 15:43 EDT H&P Updateon 07-23-2022 H&P Update [id number] 9#1.00CD:127 Normal [facility] HEMATOLOGYOrdered By: SYSTEM SYSTEM on [...] 8.9 E9/L Normal 4.0 - 11.0 E9/L [facility] [place] Inpatient Patient Summaryon 07-23-2022 Inpatient Patient Summary [address] [address] [facility] Clinical Discharge Instructions PERSON INFORMATION Name: CATIE LYONS [facility][id number] PHYSICIANS Admitting Physician: Liudmila Daniels MD Attending Physician: Liudmila Daniels MD PCP: NONE, XXXX Discharge Diagnosis: Kidney stones; Ureteral stone with hydronephrosis Comment: PATIENT EDUCATION INFORMATION Instructions: Decc-Jqbc-pk Utereroscopy,Lithotr ipsy, Stone Extraction, Stent Placement (CUSTOM); Dietary Guidelines to Help Prevent Kidney Stones Medication Leaflets: Follow up: With: Address: When: Liudmila Daniels Comments: Office will call to schedule left ureteroscopy, laser lithotripsy, stent exchange in 2 weeks MEDICATION LIST New Medications [facility] #[id number], [address] [place], [place] [id number], [phone] ciprofloxacin (Cipro 500 mg Tab) 1 Tablets [...] Tablets By Mouth every day. Comment: [place] [facility] Main OR PACU I Recordon Main OR PACU I Record PACU Phase I Document Type FT Summary Primary Physician: Liudmila Daniels MD Finalized Date/Time: 07/23/22 15:29:44 Pt. Name: CATIE LYONS Abdirahman Valiente./Sex: 1985 Female Med Rec #: [id number] Physician: Liudmila Daniels MD Financial #: [id number] Pt. Type: A Room/Bed: [place] [address] Admit/Disch: 07/23/22 11:44:51 - Institution: Case Times [...] By: Patricia Moore RN 07/23/22 15:29 Normal [facility] Main OR PACU II Recordon Main OR PACU II Record PACU Phase II Document Type FT Summary Primary Physician: Liudmila Daniels MD Finalized Date/Time: 07/23/22 16:23:00 Pt. Name: ELOY CATIE Archer/Sex: 1985 Female Med Rec #: [id number] Physician: Liudmila Daniels MD Financial #: [id number] Pt. Type: A Room/Bed: [facility]/ Admit/Disch: 07/23/22 11:44:51 - 07/23/22 16:20:00 Institution: [...] By: Elva Dexter RN 07/23/22 16:23 Normal [facility] Main OR Preoperative Recordo n 07-23-2022 Main OR Preoperative Record PreOp Document Type FT Summary Primary Physician: Liudmila Daniels MD Finalized Date/Time: 07/23/22 14:26:45 Pt. Name: USZETTESebastienCATIE D.O.B./Sex: 1985 Female Med Rec #: [id number] Physician: Liudmila Daniels MD Financial #: [id number] Pt. Type: A Room/Bed: Admit/Disch: 07/23/22 11:44:51 [...] By: Indra Serna RN 07/23/22 14:26 Normal [facility] Monitor Recordon 07-23-2022 Monitor Record [id number] 9#1.00CD:127 Normal [facility] Monitor Record [id number] 1#1.00CD:127 Normal [facility] Operative Reporton Operative Report Patient: [...] lidocaine gel per urethra, using a 22.5 Qatari rigid cystoscope and inserted this into the bladder with minimal manipulation. We noted a normal appearance of the urethra en route to the bladder. Once inside the bladder, a cystoscopic examination revealed no evidence of erythematous patches or plaques, foreign bodies, stones or papillary lesion. A 6 Qatari open-ended catheter was inserted into the left ureteral orifice followed by injection of contrast with findings as above. A straight sensor wire was inserted up the catheter and fluoroscopy was used to confirm its coiling within the kidney. We then removed the catheter from the patient and left the sensor wire behind. Next a 10/12 Qatari x 35cm ureteral access sheath was gently [...] X 2 (more content not included)... Normal [facility] Comment on above: Result Comment: Elec tronically Signed By: Liudmila Daniels MD\.br\Date and Time Signed: 07/23/22 15:06 EDT Outpatient Surgery Discharge Instructionon 07-23-2022 Outpatient Surgery Discharge Instruction [place] [id number] Patient Discharge Instructions PERSON INFORMATION Name: SUZETTESebastienCATIE [...] to serve you. Thank you for choosing [facility] HERE ARE THE MEDICATION CHANGES THAT OCCURRED DURING YOUR HOSPITAL STAY New Medications [facility] #[id number], [address] [place], [place] [id number], [phone] ciprofloxacin (Cipro 500 mg Tab) 1 Tablets [...] day. PATIENT EDUCATION INFORMATION Instructions: [facility] [place], [place] Post-operative Instructions for Ureteroscopy, Laser Lithotripsy, [...] other reasons. 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 Diet You may resume your normal diet, but you may want to start slowly and avoid spicy food, caffeine, carbonated beverages and alcohol, especially if yo (more content not included)... Normal [facility] PT & PTTon 07-23-2022 aPTT Coag (PPP) [Time] 35.9 second(s) Normal 25.1-36.5 [facility] Comment on above: Result Comment: [...] the same coagulation reagent and instrumentation as [facility]. Currently there are no coagulation studies available worldwide for children to 14 days, and no normal ranges. Heparin therapeutic range (represented by Anti-Factor Xa activity of 0.2 - 0.4 U/mL) corresponds to PTT of 56.6 - 109.0 sec. Performed By: #### 2 462766, 3630407, 1942850, 76243643, 90665220 #### [facility] [address] [place] [address] INR Coag (PPP) [Relative time] 1.1 {INR} Invalid Interpretation Code [facility] Comment on above: Result Comment: INR results are specifically intended to assess patients stabilized on long-term Anticoagulation therapy suggested INR?s ?Less Intensive Anticoagulation? 2.0 ? 3.0 Conventional Range 3.0 ? 4.5 Performed By: #### 2 832946, 8496382, 4115347, 49573450, 92026404 #### [facility] [address] [place] [address] PT Coag (PPP) [Time] 12.3 second(s) Normal 9.4-12.5 [facility] Comment on above: Result Comment: [...] the same coagulation reagent and instrumentation as [facility]. Currently there are no coagulation studies available worldwide for children to 14 days, and no normal ranges. Performed By: #### 2 876454, 0415291, 1268231, 94236496, 36008863 #### [facility] [address] [place] [address] Patient Education - Texton 0 07-23-2022 Patient [...] Spinach (cooked), rhubarb, beets, sweet potatoes, and English chard. ? Peanuts. ? Potato chips, central african fries, and baked potatoes with skin on. ? Nuts and nut products. ? Chocolate. ? If you regularly take a diuretic medicine, make sure to eat at least 1 or 2 servings of fruits or vegetables that are high in potassium each day. These include: ? Avocado. ? Banana. ? [place], prune, carrot, or tomato juice. ? Baked [...] fish oil, or vitamin B6. ? Take uxhf-fdn-upvntls and prescription medicines only as told by your health care provi (more content not included)... Normal [facility] Progress Note-Nurseon 2022 Progress Note-Nurse [...] Pt verbalized understanding and agreed to sign. [facility] Progress Note-Physicianon Progress Note-Physician Patient: CATIE LYONS Age: 37 years Sex: Female : 1985 Associated Diagnoses: None Author: Merlene DAY, Rico Orlando Postoperative Information Postoperative disposition: Postoperative disposition: To PACU. Optimetrix number: Optimetrix number [id number]. Anesthetic utilized: General. Physical Examination Vital Signs [...] Ambulatory Surgery Unit, and To home ). [facility] Comment on above: Result Comment: Elec tronically [...] list: All Problems Headache / SNOMED CT 95457961 / Confirmed History of kidney stones / SNOMED CT 5623425208 / Confirmed Kidney stones / SNOMED CT 667856692 / Confirmed Psychiatric illness / SNOMED CT 069852543 / Confirmed Smoker / SNOMED CT 233466739 / Confirmed Added secondary to documentation in Social History. Ureteral stone with hydronephrosis / SNOMED CT 72896568 / Confirmed, Active Problems (6) Headache History [...] Dosing 179.0 cm Weight Dosing 106.3 kg [place] Body Weight Calculated 69.587 kg BSA Measured [...] in all extremities. Gastrointestinal: Soft, Non-tender. Plan [place] [employer] Anesthesiologists (ASA) physical status classification: Class II. Anesthetic Preoperative Plan: Anesthesia General. Normal [facility] Comment on above: Result Comment: Elec tronically Signed By: Merlene DAY, Rico Orlando\.br\Date and Time Signed: 07/23/22 13:21 EDT SEROLOGYOrdered By: Basia Ferguson on 07-23-2022 HCG.beta subunit (U) [Moles/Vol] Negative Normal [facility] Man Sero U BetaHcg Qualon 07-23-2022 HCG.beta subunit (U) [Moles/Vol] Negative Normal [facility] Comment on above: Performed By: #### 2 [id number] ####[facility] [address] [place] [address] XR Abdomen 1 Viewon 07-24-19 XR Abdomen [...] mGy = na DAP = na Normal [facility] eGFRon 07-23-2022 GFR/1.73 sq M.predicted among non-blacks MDRD (S/P/Bld) [Vol rate/Area] 60 mL/min/1.73 m2 Normal >=59 [facility] Comment on above: Order Comment: Order added by Discern Expert. Result Comment: Customer Supply Chain Analyst [place] kidney disease could be indicated at eGFR's of less than 60 mL/min/1.73m2. Kidney failure is indicated at less than 15 mL/min/1.73m2. Performed By: #### 2 724830, 2603103, 3117924, 27882568, 35871418 ####[facility] [address] [place] [address] Ambulatory Visit Summaryon 0 07-22-2022 Ambulatory Visit Summary CATIE LYONS :1985 Visit Date:07/22/2022 Ambulatory Visit Instructions Your Diagnosis Ureteral stone with hydronephrosis Kidney stones History of kidney stones Tests Performed Urnls Dip Stick Auto w/o Microscopy POC 60533 Your Care Team Attending Physician - Liudmila [...] Urnls Dip Stick Auto w/o Microscopy POC 82228 (07/22/2022) Bilirubin Urine Dipstick - Negative Blood Urine Dipstick - Negative Glucose Urine Dipstick - Negative Ketones Urine Dipstick - Negative Leukocytes Urine Dipstick - Trace Protein Urine Dipstick - Negative Specific [facility] Urine Dipstick - >=1.030 Urine Appearance Urine [...] including vitamins, herbs, eye drops, creams, and vcyk-ahs-qkfzasa medicines. ? Any problems you or family [...] as aspi (more content not included)... Normal [facility] Formson 07-22-2022 Forms [id number] 8#1.00CD:127 Normal [facility] Patient Educationon 07-23-19 23 Patient [...] including vitamins, herbs, eye drops, creams, and exii-yxe-frsjzqd medicines. ? Any problems you or family [...] tells you to take them. ? Taking hgbh-tjg-qyxpazg medicines, vitamins, herbs, and supplements. Eating and [...] the pieces (more content not included)... Normal [facility] Screenson 07-22-2022 Screens [id number]#[id number]:127 Normal [facility] Urology Office/Clinic Noteon 07-22-2022 Urology Office/Clinic Note Chief Complaint New Pt HPI Staff New Pt. Pt was seen at [facility] 07/[facility]/22 due to left flank pain [...] yo female new pt following up to [facility] ER visit on 07/15/22 due to L flank pain that radiated to LLQ. Was sent home with Zofran, Lonsdale, Flomax, and prophy Keflex. ICIQ-SF 0. Denies hx TX, stroke or DM. Not on AC No [...] order Gen (more content not included)... Normal [facility] Comment on above: Result Comment: Elec tronically Signed By: Jeremiah DAY, Liudmila Emery\.br\Date and Time Signed: 07/22/22 11:38 EDT\.br\Electronically Co-Signed By: Monserrat Segal\.br\Date and Time Co-Signed: 07/22/22 10:01 EDT CBC AUTO DIFFon 07-15-2022 BASO # 0.0 103/ul Normal 0.0-0.1 [facility] Comment on above: Performed By: #### C BC #### [facility] [address] [place] [address] Dr. Marcy Alvarez Basophils/100 WBC (Bld) 0.2 % Normal 0.2-2.0 [facility] Comment on above: Performed By: #### C BC #### [facility] [address] [place] [address] Dr. Marcy Alvarez EO # 0.0 103/ul Normal 0.0-0.7 [facility] Comment on above: Performed By: #### C BC #### [facility] [address] [place] [address] Dr. Marcy Alvarez Eosinophils/100 WBC (Bld) 0.3 % Critically low 0.9-7.0 [facility] Comment on above: Performed By: #### C BC #### [facility] [address] [place] [address] Dr. Marcy Alvarez Erythrocyte distribution width (RBC) [Ratio] 12.6 % Normal 11.0-15.0 [facility] Comment on above: Performed By: #### C BC #### [facility] [address] [place] [address] Dr. Marcy Alvarez Hematocrit (Bld) [Volume fraction] 42.1 % Normal 36.0-48.0 [facility] Comment on above: Performed By: #### C BC #### [facility] [address] [place] [address] Dr. Marcy Alvarez Hemoglobin (Bld) [Mass/Vol] 14.3 g/dL Normal 12.0-16.0 [facility] Comment on above: Performed By: #### C BC #### [facility] [address] [place] [address] Dr. Marcy Alvarez IG # 0.04 10e3/ul Critically high 0.00-0.03 [facility] Comment on above: Performed By: #### C BC #### [facility] [address] [place] [address] Dr. Marcy Alvarez IG % 0.3 % Normal 0.0-0.5 [facility] Comment on above: Performed By: #### C BC #### [facility] [address] [place] [address] Dr. Marcy Alvarez LYMPH # 1.4 103/ul Normal 1.2-3.8 [facility] Comment on above: Performed By: #### C BC #### [facility] [address] [place] [address] Dr. Marcy Alvarez Lymphocytes/100 WBC (Bld) 11.6 % Critically low 20.5-60.0 [facility] Comment on above: Performed By: #### C BC #### [facility] [address] [place] [address] Dr. Marcy Alvarez MANUAL DIFF REQ NO Normal [facility] Comment on above: Performed By: #### C BC #### [facility] [address] [place] [address] Dr. Marcy Alvarez MCH (RBC) [Entitic mass] 29.2 pg Normal 26.7-34.0 [facility] Comment on above: Performed By: #### C BC #### [facility] [address] [place] [address] Dr. Marcy Alvarez MCHC (RBC) [Mass/Vol] 34.0 g/dL Normal 29.9-35.2 [facility] Comment on above: Performed By: #### C BC #### [facility] [address] [place] [address] Dr. Marcy Alvarez MCV (RBC) [Entitic vol] 85.9 fL Normal 81.0-99.0 [facility] Comment on above: Performed By: #### C BC #### [facility] [address] [place] [address] Dr. Marcy Alvarez MONO # 0.7 103/ul Normal 0.3-0.8 [facility] Comment on above: Performed By: #### C BC #### [facility] [address] [address] [address] Marcy Alvarez Monocytes/100 WBC (Bld) 6.1 % Normal 1.7-12.0 [facility] Comment on above: Performed By: #### C BC #### [facility] [address] [address] [address] Marcy Alvarez NEUT # 9.6 103/ul Critically high 1.4-6.5 [facility] Comment on above: Performed By: #### C BC #### [facility] [address] [address] [address] Marcy Alvaerz Neutrophils/100 WBC (Bld) 81.5 % Critically high 43.0-75.0 [facility] Comment on above: Performed By: #### C BC #### [facility] [address] [place] [address] Dr. Marcy Alvarez Platelet mean volume (Bld) [Entitic vol] 8.7 fL Critically low 9.5-13.5 [facility] Comment on above: Performed By: #### C BC #### [facility] [address] [address] [address] Marcy Alvarez PLT 238 103/ul Normal 150-450 [facility] Comment on above: Performed By: #### C BC #### [facility] [address] [address] [address] Marcy Alvarez RBC 4.90 106/ul Normal 4.20-5.40 [facility] Comment on above: Performed By: #### C BC #### [facility] [address] [place] [address] Dr. Marcy Alvarez WBC 11.7 103/ul Critically high 4.0-11.0 [facility] Comment on above: Performed By: #### C BC #### [facility] [address] [place] [address] ABD/PELVIS WO CONon [...] MAL TOSCANO Date: 2022-07-15 09:54 Normal [facility] ER URINE PROFILEon 3 Bilirubin Ql (U) Negative Normal NEGATIVE [facility] Comment on above: Performed By: #### E RUR #### [facility] [address] [place] [address] Dr. Marcy Alvarez Clarity (U) CLEAR Normal CLEAR [facility] Comment on above: Performed By: #### E RUR #### [facility] [address] [place] [address] Dr. Marcy Alvarez Color (U) LT. YELLOW Normal YELLOW [facility] Comment on above: Performed By: #### E RUR #### [facility] [address] [place] [address] Dr. Marcy MAN A micrscopic examination will be performed if indicated. Normal [facility] Comment on above: Performed By: #### E RUR #### [facility] [address] [place] [address] Dr. Marcy Alvarez Glucose Ql (U) Negative Normal NEGATIVE [facility] Comment on above: Performed By: #### E RUR #### [facility] [address] [place] [address] Dr. Marcy Alvarez Hemoglobin Ql (U) Negative Normal NEGATIVE [facility] Comment on above: Performed By: #### E RUR #### [facility] [address] [place] [address] Dr. Marcy Alvarez Ketones Ql (U) Negative Normal NEGATIVE [facility] Comment on above: Performed By: #### E RUR #### [facility] [address] [place] [address] Dr. Marcy Alvarez LEUKOCYTES Negative Normal NEGATIVE [facility] Comment on above: Performed By: #### E RUR #### [facility] [address] [place] [address] Dr. Marcy Alvarez Nitrite Ql (U) Negative Normal NEGATIVE [facility] Comment on above: Performed By: #### E RUR #### [facility] [address] [place] [address] Dr. Marcy Alvarez pH (U) 6.0 [pH] Normal 5-9 [facility] Comment on above: Performed By: #### E RUR #### [facility] [address] [place] [address] Dr. Marcy Alvarez SPEC GRAVITY 1.025 Normal 1.005-<=1.02 5 [facility] Comment on above: Performed By: #### E RUR #### [facility] [address] [place] [address] Dr. Marcy Alvarez UA PROTEIN Negative Normal NEGATIVE/ TRACE [facility] Comment on above: Performed By: #### E RUR #### [facility] [address] [place] [address] Dr. Marcy Alvarez UR MICRO IND NOT INDICATED Normal [facility] Comment on above: Performed By: #### E RUR #### [facility] [address] [place] [address] Dr. Marcy Alvarez Urobilinogen Qn (U) 0.2 {Maddie'U}/dL Normal 0.2 - 1. 0 [facility] Comment on above: Performed By: #### E RUR #### [facility] [address] [place] [address] Dr. Marcy Alvarez LIPASEon 07-15-2022 Lipase [Catalytic activity/Vol] 63.0 U/L Critically low 73.0-393.0 [facility] Comment on above: Performed By: #### C MP, LIPA #### [facility] [address] [place] [address] Dr. Marcy Alvarez PROF 14(COMP METB)on 023 Albumin [Mass/Vol] 3.5 g/dL Normal 3.4-5.0 [facility] Comment on above: Performed By: #### C MP, LIPA #### [facility] [address] [place] [address] Dr. Marcy Alvarez Albumin/Globulin [Mass ratio] 0.9 {ratio} Normal [facility] Comment on above: Performed By: #### C MP, LIPA #### [facility] [address] [place] [address] Dr. Marcy Alvarez ALP [Catalytic activity/Vol] 131 U/L Critically high 46-116 [facility] Comment on above: Performed By: #### C MP, LIPA #### [facility] [address] [place] [address] Dr. Marcy Alvarez ALT [Catalytic activity/Vol] 30 U/L Normal 14-59 [facility] Comment on above: Performed By: #### C MP, LIPA #### [facility] [address] [place] [address] Dr. Marcy Alvarez Anion gap [Moles/Vol] 13.0 mmol/L Normal [facility] Comment on above: Performed By: #### C MP, LIPA #### [facility] [address] [address] [address] Marcy Alvarez AST [Catalytic activity/Vol] 22 U/L Normal 15-37 [facility] Comment on above: Performed By: #### C MP, LIPA #### [facility] [address] [address] [address] Marcy Alvarez Bilirubin [Mass/Vol] 0.4 mg/dL Normal 0.2-1.0 [facility] Comment on above: Performed By: #### C MP, LIPA #### [facility] [address] [address] [address] Marcy Alvarez Calcium [Mass/Vol] 9.1 mg/dL Normal 8.5-10.1 [facility] Comment on above: Performed By: #### C MP, LIPA #### [facility] [address] [place] [address] Dr. Marcy Alvarez Chloride [Moles/Vol] 101 mmol/L Normal 98-107 [facility] Comment on above: Performed By: #### C MP, LIPA #### [facility] [address] [place] [address] Dr. Marcy Alvarez CO2 [Moles/Vol] 25.9 mmol/L Normal 21.0-32.0 [facility] Comment on above: Performed By: #### C MP, LIPA #### [facility] [address] [place] [address] Dr. Marcy Alvarez Creatinine [Mass/Vol] 1.09 mg/dL Critically high 0.55-1.02 [facility] Comment on above: Performed By: #### C MP, LIPA #### [facility] [address] [place] [address] Dr. Marcy Alvarez EGFR-AF NAURUAN >60 Normal >=60 [facility] Comment on above: Performed By: #### C MP, LIPA #### [facility] [address] [address] [address] Marcy Alvarez EGFR-NON AF NAURUAN 57 mL/min/1.73m2 Critically low >=60 [facility] Comment on above: Performed By: #### C MP, LIPA #### [facility] [address] [address] [address] Marcy Alvarez Globulin (S) [Mass/Vol] 4.0 g/dL Normal [facility] Comment on above: Performed By: #### C MP, LIPA #### [facility] [address] [address] [address] Marcy Alvarez Glucose [Mass/Vol] 111 mg/dL Critically high 74-106 [facility] Comment on above: Performed By: #### C MP, LIPA #### [facility] [address] [address] [address] Marcy Alvarez Potassium [Moles/Vol] 3.9 mmol/L Normal 3.5-5.1 [facility] Comment on above: Performed By: #### C MP, LIPA #### [facility] [address] [place] [address] Dr. Marcy Alvarez Protein [Mass/Vol] 7.5 g/dL Normal 6.4-8.2 [facility] Comment on above: Performed By: #### C MP, LIPA #### [facility] [address] [address] [address] Marcy Alvarez Sodium [Moles/Vol] 136 mmol/L Normal 136-145 [facility] Comment on above: Performed By: #### C MP, LIPA #### [facility] [address] [place] [address] Dr. Marcy Alvarez Urea nitrogen [Mass/Vol] 13.0 mg/dL Normal 7.0-18.0 [facility] Comment on above: Performed By: #### C MP, LIPA #### [facility] [address] [address] [address] Marcy Alvarez Urea nitrogen/Creatinine [Mass ratio] 11.9 mg/mg Normal [facility] Comment on above: Performed By: #### C MP, LIPA #### [facility] [address] [place] [address] Dr. Marcy Alvarez MRI BRAIN WO W [...] HILDA RUBIO Date: 2022-02-05 06:25 Normal [facility] COVID Quick Testingon 2020 Result Negative YUPIQ Other ACETAMINOPHENon 03-08-2018 Acetaminophen mass conc <10 Low 10-30 [facility] Comment on above: Order Comment: No: D o not add to previous draw Performed By: #### 2 9773, , 28564, 40032, 91776, 67728, 36082, 18060 #### [facility] [address] [facility]. [place], [place] [id number] [place] [address] BASIC METABOLIC PANELon 02-19 Calcium mass conc 9.8 mg/dL Normal 8.6-10.3 The [facility] Comment on above: Order Comment: No: D o not add to previous draw Performed By: #### 2 9773, , 52962, 55873, 62735, 76643, 67664, 59123 #### [facility] [address] [place] [address], [facility] Chloride molar conc 105 mmol/L Normal 98-107 [facility] Comment on above: Order Comment: No: D o not add to previous draw Performed By: #### 2 9772, , , 30351, 66634, 72692, 71179, 19741 #### [facility] [address] [place] [address], [facility] CO2 molar conc 24 mmol/L Normal 21-31 [facility] Comment on above: Order Comment: No: D o not add to previous draw Performed By: #### 2 73, , , 39603, 63038, 18568, 71685, 04236 #### [facility] [address] [place] [address], [facility] Creatinine mass conc 0.53 mg/dL Low 0.60-1.20 [facility] Comment on above: Order Comment: No: D o not add to previous draw Performed By: #### 2 9773, , , 12914, 41984, 01070, 47361, 83672 #### [facility] [address] [facility] [place] [address], [facility] GFR/1.73 sq M predicted among blacks MDRD vol rate/area (S/P/Bld) mL/min/{1.73_m2} Normal >60 [facility] Comment on above: Order Comment: No: D o not add to previous draw Performed By: #### 2 9773, , , 35920, 18146, 09883, 03878, 92642 #### [facility] [address] [place] [address], [facility] GFR/1.73 sq M predicted among non-blacks MDRD vol rate/area (S/P/Bld) mL/min/{1.73_m2} Normal >60 [facility] Comment on above: Order Comment: No: D o not add to previous draw Performed By: #### 2 73, , 42775, 96388, 71641, 18456, 80803, 10804 #### [facility] [address] [place] [address], [place] Glucose mass conc 101 mg/dL High 70-100 [facility] Comment on above: Order Comment: No: D o not add to previous draw Performed By: #### 2 9773, , 73916, 77779, 36936, 17793, 16225, 43926 #### [facility] [address] [place] [address], [facility] Potassium molar conc 4.1 mmol/L Normal 3.5-5.1 [facility] Comment on above: Order Comment: No: D o not add to previous draw Performed By: #### 2 9773, , , 16666, 73778, 97252, 77168, 29379 #### [facility] [address] [facility] [place] [address], [facility] Sodium molar conc 138 mmol/L Normal 136-145 [facility] Comment on above: Order Comment: No: D o not add to previous draw Performed By: #### 2 9773, , , 21875, 27034, 12438, 12103, 92467 #### [facility] [address] [facility]. [address] Urea nitrogen mass conc 8 mg/dL Normal 7-25 [facility] Comment on above: Order Comment: No: D o not add to previous draw Performed By: #### 2 9773, , 68414, 04671, 02684, 84433, 77151, 39340 #### [facility] [address] [facility] [place] [address], [facility] CBC W/DIFFon 03-08-2018 ABS BASOPHILS 0.1 10*3/uL Normal 0.0-0.2 The [facility] Comment on above: Order Comment: No: D o not add to previous draw Performed By: #### 5 0103 #### [facility] [address] [place] [address], [facility] ABS IMM GRANS 0.0 10*3/uL Normal 0.0-0.2 [facility] Comment on above: Order Comment: No: D o not add to previous draw Performed By: #### 5 0103 #### [facility] [address] [place] [address], [facility] ABS NEUTROPHILS 6.8 10*3/uL Normal 1.6-7.6 The [facility] Comment on above: Order Comment: No: D o not add to previous draw Performed By: #### 5 0103 #### [facility] [address] [place] [address], [facility] Basophils #/vol (Bld) 0.5 % Normal 0.0-1.0 [facility] Comment on above: Order Comment: No: D o not add to previous draw Performed By: #### 5 0103 #### [facility] [address] [place] [address], [facility] Eosinophils #/vol (Bld) 0.1 10*3/uL Normal 0.0-0.5 [facility] Comment on above: Order Comment: No: D o not add to previous draw Performed By: #### 5 0103 #### [facility] [address] [facility] [address], [facility] Eosinophils/100 WBC (Bld) 0.8 % Normal 0.0-6.0 [facility] Comment on above: Order Comment: No: D o not add to previous draw Performed By: #### 5 0103 #### [facility] [address] [facility]. [address] Erythrocyte distribution width Ratio (RBC) 12.5 % Normal 11.5-15.0 [facility] Comment on above: Order Comment: No: D o not add to previous draw Performed By: #### 5 0103 #### [facility] [address] [place] [address], [facility] Hematocrit Volume Fraction (Bld) 45.6 % High 36.0-45.0 [facility] Comment on above: Order Comment: No: D o not add to previous draw Performed By: #### 5 0103 #### [facility] [address] [place] [address], [facility] Hemoglobin mass conc (Bld) 16.0 g/dL High 12.0-15.0 [facility] Comment on above: Order Comment: No: D o not add to previous draw Performed By: #### 5 0103 #### [facility] [address] [facility] [address], [facility] IMMATURE GRANS 0.2 % Normal 0.0-1.0 The [facility] Comment on above: Order Comment: No: D o not add to previous draw Performed By: #### 5 0103 #### [facility] [address] [facility] [place] [address], [facility] Lymphocytes #/vol (Bld) 1.8 10*3/uL Normal 1.2-4.0 [facility] Comment on above: Order Comment: No: D o not add to previous draw Performed By: #### 5 0103 #### [facility] [address] [facility] [place] [address], [facility] Lymphocytes/100 WBC (Bld) 18.9 % Low 20.0-45.0 [facility] Comment on above: Order Comment: No: D o not add to previous draw Performed By: #### 5 3 #### [facility] [address] [facility] [place] [address], [facility] MCH Entitic mass (RBC) 31.6 pg Normal 27.0-33.0 [facility] Comment on above: Order Comment: No: D o not add to previous draw Performed By: #### 5 0103 #### [facility] [address] [facility] [place] [address], [facility] MCHC mass conc (RBC) 35.1 g/dL High 32.0-35.0 [facility] Comment on above: Order Comment: No: D o not add to previous draw Performed By: #### 5 0103 #### [facility] [address] [place] [address], [facility] MCV Entitic volume (RBC) 89.9 fL Normal 82.0-98.0 [facility] Comment on above: Order Comment: No: D o not add to previous draw Performed By: #### 5 0103 #### [facility] [address] [place] [address], [facility] Monocytes #/vol (Bld) 0.6 10*3/uL Normal 0.1-1.0 Th [facility] Comment on above: Order Comment: No: D o not add to previous draw Performed By: #### 5 0103 #### [facility] [address] [place] [address], [facility] MONOS 6.1 % Normal 5.0-12.0 [facility] Comment on above: Order Comment: No: D o not add to previous draw Performed By: #### 5 0103 #### [facility] [address] [place] [address], [facility] Neutrophils/100 WBC (Bld) 73.5 % High 40.0-72.0 [facility] Comment on above: Order Comment: No: D o not add to previous draw Performed By: #### 5 0103 #### [facility] [address] [place] [id number], [facility] Nucleated RBC/100 WBC Ratio (Bld) 0 % Normal 0-0 [facility] Comment on above: Order Comment: No: D o not add to previous draw Performed By: #### 5 0103 #### [facility] [address] [place] [id number], [facility] PLAT CNT 313 10*3/uL Normal 150-400 [facility] Comment on above: Order Comment: No: D o not add to previous draw Performed By: #### 5 0103 #### [facility] [address] [place] [id number], [facility] RBC #/vol (Bld) 5.07 10*6/uL High 3.80-5.00 The [facility] Comment on above: Order Comment: No: D o not add to previous draw Performed By: #### 5 0103 #### [facility] [address] WBC #/vol (Bld) 9.24 10*3/uL Normal 4.00-10.60 [facility] Comment on above: Order Comment: No: D o not add to previous draw Performed By: #### 5 0103 #### [facility] [address] [facility]. [address] CHOLESTEROL BLOODon 03-08-20 18 Cholesterol mass conc 213 mg/dL High 120-200 [facility] Comment on above: Order Comment: No: D o not add to previous draw Result Comment: CHOL ESTEROL REFERENCE RANGE: 20 YEARS AND OLDER CARDIOVASCULAR RISK Less than 200 mg/dl Low Risk 200 to 239 mg/dl Borderline Risk 240 mg/dl and greater High Risk Performed By: #### 2 9773, 45911, 17211, 08028, 59977, 36653, 69092, 01476 #### [facility] [address] DETOX PANEL URINEon 03-08-20 18 50 THC Negative Normal NEGATIVE [facility] Comment on above: Order Comment: No: D o not add to previous draw No collection time noted on specimen or requisition. The collection time recorded is the time of receipt in the lab. No collection time noted on specimen or requisition. The collection time recorded is the time of receipt in the lab. Performed By: #### 3 1520 #### [facility] [address] BARBITURATES Negative Normal NEGATIVE The [facility] Comment on above: Order Comment: No: D o not add to previous draw No collection time noted on specimen or requisition. The collection time recorded is the time of receipt in the lab. No collection time noted on specimen or requisition. The collection time recorded is the time of receipt in the lab. Performed By: #### 3 1520 #### [address] Benzodiazepines Ql (U) Negative Normal NEGATIVE [facility] Comment on above: Order Comment: No: D o not add to previous draw No collection time noted on specimen or requisition. The collection time recorded is the time of receipt in the lab. No collection time noted on specimen or requisition. The collection time recorded is the time of receipt in the lab. Performed By: #### 3 1520 #### [address] Cocaine Ql (U) Positive Abnormal NEGATIVE The [facility] Comment on above: Order Comment: No: D o not add to previous draw No collection time noted on specimen or requisition. The collection time recorded is the time of receipt in the lab. No collection time noted on specimen or requisition. The collection time recorded is the time of receipt in the lab. Performed By: #### 3 1520 #### [address] Methadone Ql (U) Negative Normal NEGATIVE The [facility] Comment on above: Order Comment: No: D o not add to previous draw No collection time noted on specimen or requisition. The collection time recorded is the time of receipt in the lab. No collection time noted on specimen or requisition. The collection time recorded is the time of receipt in the lab. Performed By: #### 3 1520 #### [address] MONO AMPHET Negative Normal NEGATIVE The [facility] Comment on above: Order Comment: No: D o not add to previous draw No collection time noted on specimen or requisition. The collection time recorded is the time of receipt in the lab. No collection time noted on specimen or requisition. The collection time recorded is the time of receipt in the lab. Performed By: #### 3 1520 #### [address] [place] [address], [place] Opiates Ql (U) Positive Abnormal NEGATIVE The [facility] Comment on above: Order Comment: No: D o not add to previous draw No collection time noted on specimen or requisition. The collection time recorded is the time of receipt in the lab. No collection time noted on specimen or requisition. The collection time recorded is the time of receipt in the lab. Performed By: #### 3 1520 #### [facility] [address] Phencyclidine Ql (U) Negative Normal NEGATIVE The [facility] Comment on above: Order Comment: No: D o not add to previous draw No collection time noted on specimen or requisition. The collection time recorded is the time of receipt in the lab. No collection time noted on specimen or requisition. The collection time recorded is the time of receipt in the lab. Performed By: #### 3 1520 #### [address] Protein mass conc (U) Negative Normal NEGATIVE The [facility] Comment on above: Order Comment: No: D o not add to previous draw No collection time noted on specimen or requisition. The collection time recorded is the time of receipt in the lab. No collection time noted on specimen or requisition. The collection time recorded is the time of receipt in the lab. Performed By: #### 3 1520 #### [facility] [address] TRICYCLICS Negative Normal NEGATIVE The [facility] Comment on above: Order Comment: No: D o not add to previous draw No collection time noted on specimen or requisition. The collection time recorded is the time of receipt in the lab. No collection time noted on specimen or requisition. The collection time recorded is the time of receipt in the lab. Performed By: #### 3 1520 #### [facility] [address] GAMMA GT BLOODon 03-08-2018 GAMMA GT 18 IU/L Normal 9-64 [facility] Comment on above: Order Comment: No: D o not add to previous draw Performed By: #### 2 73, , , 23984, 02545, 48160, 15687, 24478 #### [facility] [address] [place] [address], [facility] LIVER BATTERYon 03-08-2018 Albumin mass conc 4.7 g/dL Normal 3.5-5.7 The [facility] Comment on above: Order Comment: No: D o not add to previous draw Performed By: #### 2 73, , , 80765, 13641, 29954, 82042, 54510 #### [facility] 3000 [facility] [place] [address], [facility] ALKALINE PHOSPH 77 IU/L Normal 34-104 The [facility] Comment on above: Order Comment: No: D o not add to previous draw Performed By: #### 2 73, , , 78190, 88812, 73583, 00339, 73258 #### [facility] [address] [place] [address], [facility] ALT enzyme act/vol 11 U/L Normal 7-52 The [facility] Comment on above: Order Comment: No: D o not add to previous draw Performed By: #### 2 73, , , 43915, 10518, 68350, 78405, 31730 #### [facility] [address] [place] [address], [place] AST enzyme act/vol 15 U/L Normal 13-39 The [facility] Comment on above: Order Comment: No: D o not add to previous draw Performed By: #### 2 73, , 22939, 88310, 22651, 94005, 55627, 24828 #### [facility] [address] [place] [address], [place] Bilirubin mass conc 0.5 mg/dL Normal 0.3-1.0 The [facility] Comment on above: Order Comment: No: D o not add to previous draw Performed By: #### 2 9772, , , 01636, 43898, 89537, 34260, 53805 #### [facility] [address] [place] [address], [facility] Bilirubin.direct mass conc 0.1 mg/dL Normal 0.0-0.2 The [facility] Comment on above: Order Comment: No: D o not add to previous draw Performed By: #### 2 9772, , , 38257, 44884, 55760, 31647, 79533 #### [facility] [address] [place] [address], [facility] Protein mass conc 7.2 g/dL Normal 6.0-8.3 [facility] Comment on above: Order Comment: No: D o not add to previous draw Performed By: #### 2 73, , , 13137, 86881, 92355, 42016, 54932 #### [facility] [address] [place] [address], [facility] MAGNESIUM BLOODon 03-08-2018 Magnesium mass conc 2.1 mg/dL Normal 1.9-2.7 The [facility] Comment on above: Order Comment: No: D o not add to previous draw Performed By: #### 2 73, , , 21739, 62629, 58746, 83557, 20780 #### [facility] [address] [place] [address], [facility] RPR (RAPID PLASMA REAGIN)on 03-08-2018 Reagin Ab RPR Ql (S) NON-REACTIVE Normal NON-REACTIVE The [facility] Comment on above: Performed By: #### 2 9772, , , 23026, 94358, 19843, 30110, 28515 #### [facility] [address] [place] [address], [place] SERUM TESTon 03-08 TEST Negative Normal [facility] Comment on above: Order Comment: No: D o not add to previous draw Performed By: #### 2 73, , , 83190, 99620, 71196, 55531, 24402 #### [facility] [address] [place] [address], [facility] TSH3on 03-08-2018 TSH 3RD GENERATION 0.70 uIU/mL Normal 0.34-5.60 [facility] Comment on above: Order Comment: No: D o not add to previous draw Performed By: #### 2 73, , , 04768, 17105, 97835, 38461, 17779 #### [facility] [address] [place] [address], [place] UA,MICROSCOPIC REQUIREDon AMORPHOUS FEW Abnormal NONE SEEN The [facility] Comment on above: Order Comment: No: D o not add to previous draw Performed By: #### 2 73, , , 09285, 76433, 23520, 86736, 58520 #### [facility] [address] [place] [address], [facility] Appearance Nom (U) CLOUDY Abnormal CLEAR The Un [facility] Comment on above: Order Comment: No: D o not add to previous draw Performed By: #### 2 73, , , 98925, 85441, 99986, 31017, 65330 #### [facility] [address] [place] [address], [place] Bilirubin.direct mass conc Negative Normal NEGATIVE The [facility] Comment on above: Order Comment: No: D o not add to previous draw Performed By: #### 2 73, , 33785, 96532, 90252, 90192, 50236, 53159 #### [facility] [address] [place] [address], [place] BLOOD Negative Normal NEGATIVE The [facility] Comment on above: Order Comment: No: D o not add to previous draw Performed By: #### 2 73, , , 42075, 40739, 25536, 16199, 26230 #### [facility] [address] [place] [address], [facility] Color Nom (U) YELLOW Normal YELLOW The [facility] Comment on above: Order Comment: No: D o not add to previous draw Performed By: #### 2 73, , , 78368, 05923, 30871, 59330, 19640 #### [facility] [address] [place] [address], [facility] EPIS MANY Abnormal FEW,OCC,NONE SEEN The [facility] Comment on above: Order Comment: No: D o not add to previous draw Performed By: #### 2 9772, , , 11168, 19678, 85417, 47231, 76693 #### [facility] [address] [place] [address], [place] Glucose mass conc Negative Normal NEGATIVE The [facility] Comment on above: Order Comment: No: D o not add to previous draw Performed By: #### 2 73, , , 76364, 34764, 46595, 34361, 08827 #### [facility] [address] [place] [address], [facility] KETONE Negative Normal NEGATIVE The [facility] Comment on above: Order Comment: No: D o not add to previous draw Performed By: #### 2 73, , , 44515, 49589, 19059, 33980, 21541 #### [facility] [address] [place] [address], [place] LEUK ZENON MODERATE Abnormal NEGATIVE The [facility] Comment on above: Order Comment: No: D o not add to previous draw Performed By: #### 2 73, , 44913, 59940, 24462, 26837, 66109, 49142 #### [facility] [address] [facility] [address] MUCUS THREADS FEW Abnormal NONE SEEN The [facility] Comment on above: Order Comment: No: D o not add to previous draw Performed By: #### 2 73, , 19927, 84204, 76629, 17950, 73775, 83993 #### [facility] 3000 [facility]. [address] Nitrite Ql (U) Negative Normal NEGATIVE The [facility] Comment on above: Order Comment: No: D o not add to previous draw Performed By: #### 2 73, , 23988, 05851, 13759, 87751, 08380, 41683 #### [facility] 3000 [facility]. [address] pH (Bld) 6.0 Normal 5.0-8.0 The [facility] Comment on above: Order Comment: No: D o not add to previous draw Performed By: #### 2 9772, , 89103, 20376, 94705, 86491, 48470, 32255 #### [facility] 3000 [facility]. [address] Protein mass conc Negative Normal NEGATIVE The [facility] Comment on above: Order Comment: No: D o not add to previous draw Performed By: #### 2 73, , 01153, 89485, 12966, 69307, 03611, 64496 #### [facility] 3000 [facility]. [address] RBC #/vol (Bld) 3-5 Abnormal NONE SEEN The [facility] Comment on above: Order Comment: No: D o not add to previous draw Performed By: #### 2 73, , 84435, 14526, 20043, 73052, 97221, 42659 #### [facility] [address] SPEC GRAV 1.018 Normal 1.015-1.020 The [facility] Comment on above: Order Comment: No: D o not add to previous draw Performed By: #### 2 9773, , 25098, 86894, 38607, 71438, 66659, 99646 #### [facility] [address] [place] [address], [facility] WBC UA 6-10 Abnormal NONE SEEN The [facility] Comment on above: Order Comment: No: D o not add to previous draw Performed By: #### 2 9773, , 37296, 73626, 85637, 65100, 57581, 47553 #### [facility] [address] [place] [address], [facility] URIC ACID BLOODon 03-08-2018 Urate mass conc 3.4 mg/dL Normal 2.3-6.6 The [facility] Comment on above: Order Comment: No: D o not add to previous draw Performed By: #### 2 9773, , 26105, 21920, 48678, 07064, 77985, 58055 #### [facility] [address] Vital Signs Date Time Vital Sign Value Performing Clinician Facility 01-12-2024 16:38-0400 Body height 172.72 cm PHYSICIAN NO [facility] 01-12-2024 16:38-0400 Body mass index (BMI) [Ratio] 34.9 kg/m2 PHYSICIAN NO [facility] 01-12-2024 16:38-0400 Body temperature 98.2 [degF] PHYSICIAN NO [facility] 01-12-2024 16:38-0400 Body weight 104.32 kg PHYSICIAN NO [facility] 01-12-2024 16:38-0400 Diastolic blood pressure 61 mm[Hg] PHYSICIAN NO [facility] 01-12-2024 16:38-0400 Heart rate 104 /min PHYSICIAN NO [facility] 01-12-2024 16:38-0400 Respiratory rate 18 /min PHYSICIAN NO [facility] 01-12-2024 16:38-0400 SaO2% (BldA) [Mass fraction] 96 % PHYSICIAN NO [facility] 01-12-2024 16:38-0400 Systolic blood pressure 97 mm[Hg] PHYSICIAN NO [facility] 05-15-2023 14:38-0500 Body height 172.72 cm [facility] 05-15-2023 14:38-0500 Body mass index (BMI) [Ratio] 36.6 kg/m2 [facility] 05-15-2023 14:38-0500 Body temperature 98.9 [degF] [facility] 05-15-2023 14:38-0500 Body weight 109.37 kg [facility] 05-15-2023 14:38-0500 Heart rate 110 /min [facility] 05-15-2023 14:38-0500 Respiratory rate 18 /min [facility] 05-15-2023 14:38-0500 SaO2% (BldA) [Mass fraction] 94 % [facility] 10-07-2022 11:07-0400 Blood Pressure Location Liudmila Lue [facility] 10-07-2022 11:07-0400 Diastolic blood pressure 98 mm[Hg] Liudmila Lue [facility] 10-07-2022 11:07-0400 Heart rate 106 /min Liudmila Lue [facility] 10-07-2022 11:07-0400 Systolic blood pressure 146 mm[Hg] Liudmila Lue [facility] 08-19-2022 11:10-0400 Body height 172.72 cm Ernestine Little Other [facility] Other 08-19-2022 11:10-0400 Body mass index (BMI) [Ratio] 35.58 kg/m2 Ernestine Little Other [facility] Other 08-19-2022 11:10-0400 Body temperature 98.2 [degF] Ernestine Little Other [facility] Other 08-19-2022 11:10-0400 Body weight 106.14 kg Ernestine Little Other [facility] Other 08-19-2022 11:10-0400 Respiratory rate 18 /min Ernestine Little Other [facility] Other 08-19-2022 11:10-0400 SaO2% (BldA) [Mass fraction] 96 % Ernestine Little Other [facility] Other 07-23-2022 16:06-0400 Heart rate 89 /min Liudmila Lue [facility] 07-23-2022 16:06-0400 SaO2% (BldA) [Mass fraction] 96 % Liudmila Lue [facility] 07-23-2022 16:06-0400 Respiratory rate 18 /min Liudmila Lue [facility] 07-23-2022 16:06-0400 Diastolic blood pressure 85 mm[Hg] Liudmila Lue [facility] 07-23-2022 16:06-0400 Mean blood pressure 102 mm[Hg] Liudmila Lue [facility] 07-23-2022 16:06-0400 Systolic blood pressure 136 mm[Hg] Liudmila Lue [facility] 07-23-2022 15:20-0400 Blood Pressure Location Liudmila Lue [facility] 07-23-2022 15:20-0400 Diastolic blood pressure 98 mm[Hg] Liudmila Lue [facility] 07-23-2022 15:20-0400 Heart rate 92 /min Liudmila Lue [facility] 07-23-2022 15:20-0400 Mean blood pressure 117 mm[Hg] Liudmila Lue [facility] 07-23-2022 15:20-0400 Respiratory rate 16 /min Liudmila Lue [facility] 07-23-2022 15:20-0400 SaO2% (BldA) [Mass fraction] 95 % Liudmila Lue [facility] 07-23-2022 15:20-0400 Systolic blood pressure 155 mm[Hg] Liudmila Lue [facility] 07-23-2022 15:10-0400 Blood Pressure Location Liudmila Lue [facility] 07-23-2022 15:10-0400 Diastolic blood pressure 85 mm[Hg] Liudmila Lue [facility] 07-23-2022 15:10-0400 Heart rate 82 /min Liudmila Lue [facility] 07-23-2022 15:10-0400 Mean blood pressure 104 mm[Hg] Liudmila Lue [facility] 07-23-2022 15:10-0400 Respiratory rate 8 /min Liudmila Lue [facility] 07-23-2022 15:10-0400 SaO2% (BldA) [Mass fraction] 98 % Liudmila Lue [facility] 07-23-2022 15:10-0400 Systolic blood pressure 141 mm[Hg] Liudmila Lue [facility] 07-23-2022 15:00-0400 Mean blood pressure 105 mm[Hg] Liudmila Lue [facility] 07-23-2022 15:00-0400 Respiratory rate 11 /min Liudmila Lue [facility] 07-23-2022 14:55-0400 Respiratory rate 15 /min Liudmila Lue [facility] 07-23-2022 14:47-0400 Body temperature 97.34 [degF] Liudmila Lue [facility] 07-23-2022 12:09-0400 Mean blood pressure 102 mm[Hg] Liudmila Lue [facility] 07-23-2022 12:09-0400 Heart rate 96 /min Liudmila Lue [facility] 07-23-2022 12:08-0400 Respiratory rate 20 /min Liudmila Lue [facility] 07-23-2022 12:07-0400 Body temperature 98.96 [degF] Liudmila Lue [facility] 07-23-2022 12:07-0400 Mean blood pressure 109 mm[Hg] Liudmila Lue [facility] 07-22-2022 08:38-0400 Blood Pressure Location Liudmila Lue [facility] 07-22-2022 08:38-0400 Diastolic blood pressure 114 mm[Hg] Liudmila Lue [facility] 07-22-2022 08:38-0400 Heart rate 103 /min Liudmila Daniels [facility] 07-22-2022 08:38-0400 Systolic blood pressure 134 mm[Hg] Liudmila Lue [facility] 06-25-2022 13:10-0400 Body height 172.72 cm Ernestine Yañezmond Other [facility] Other 06-25-2022 13:10-0400 Body mass index (BMI) [Ratio] 35.27 kg/m2 Ernestine Anabel Other [facility] Other 06-25-2022 13:10-0400 Body temperature 97.7 [degF] Ernestine Yañezmond Other [facility] Other 06-25-2022 13:10-0400 Body weight 105.24 kg Ernestine Yañezmond Other [facility] Other 06-25-2022 13:10-0400 Respiratory rate 18 /min Ernestine Yañezmond Other [facility] Other 06-25-2022 13:10-0400 SaO2% (BldA) [Mass fraction] 97 % Ernestine Yañezmond Other [facility] Other 12-18-2021 14:30-0400 Body height 172.72 cm Nery Coppola Other [facility] Other 12-18-2021 14:30-0400 Body mass index (BMI) [Ratio] 32.54 kg/m2 Nery Coppola Other [facility] Other 12-18-2021 14:30-0400 Body temperature 98 [degF] Nery Coppola Other [facility] Other 12-18-2021 14:30-0400 Body weight 97.07 kg Nery Coppola Other [facility] Other 12-18-2021 14:30-0400 Diastolic blood pressure 77 mm[Hg] Nery Coppola Other [facility] Other 12-18-2021 14:30-0400 Respiratory rate 18 /min Nery Coppola Other [facility] Other 12-18-2021 14:30-0400 SaO2% (BldA) [Mass fraction] 98 % Nery Coppola Other [facility] Other 12-18-2021 14:30-0400 Systolic blood pressure 111 mm[Hg] Nery Coppola Other [facility] Other 12-30-2020 16:00-0400 Body height 172.72 cm Lilia Ginty Other [facility] Other 12-30-2020 16:00-0400 Body mass index (BMI) [Ratio] 33.45 kg/m2 Lilia Ginty Other [facility] Other 12-30-2020 16:00-0400 Body weight 99.79 kg Lilia Ginty Other [facility] Other Encounters Encounter Date Encounter Type Care Provider Facility Start: 06-20-2024 ambulatory José Vela acility:[facility] Start: 01-12-2024 End: 01-12-2024 ambulatory PHYSICIAN NO [facility] Work Phone: Start: 01-12-2024 End: 01-12-2024 Patient encounter procedure PHYSICIAN NO [facility] Work Phone: Start: 12-31-2023 Registered Recurring PHYSICIAN NO [facility] Start: 05-15-2023 End: 05-15-2023 ambulatory [facility] Work Phone: Start: 05-15-2023 End: 05-15-2023 Patient encounter procedure [facility] Work Phone: Start: 01-06-2023 End: 01-07-2023 ambulatory Liudmila M. Lue Facility:[facility] Start: 01-06-2023 End: 01-06-2023 Patient encounter procedure Liudmila M. Lue [facility] Start: 10-07-2022 End: 10-08-2022 ambulatory Liudmila M. Lue Facility:[facility] Start: 10-07-2022 End: 10-07-2022 Patient encounter procedure Liudmila M. Lue [facility] Start: 08-19-2022 End: 08-19-2022 ambulatory Ernestine Little Other [facility] Other Start: 08-19-2022 Office outpatient vi sit 15 minutes Ernestine Little [facility] Start: 08-12-2022 End: 08-13-2022 ambulatory LIUDMILA M LUE . Facility: Start: 08-08-2022 Encounter for other preprocedural examination LIUDMILA M LUE . [facility] Start: 08-04-2022 End: 08-05-2022 ambulatory LIUDMILA M LUE . Facility: Start: 08-04-2022 End: 08-05-2022 Encounter for other preprocedural examination LIUDMILA DANIELS . Facility: Start: 07-31-2022 End: 07-31-[address] ENEIDA BERNARD . Facility: Start: 07-23-2022 End: 07-23-2022 ambulatory Liudmila Daniels Facility:[facility] Start: 07-23-2022 End: 07-23-2022 Admission to same day surgery center Liudmila Daniels [facility] Start: 07-22-2022 End: 07-23-2022 ambulatory Liudmila Daniels Facility:[facility] Start: 07-22-2022 End: 07-22-2022 Patient encounter procedure Liudmila Daniels [facility] Start: 07-15-2022 ambulatory Liudmilasarah Daniels Facility:[facility] Start: 07-15-2022 End: 07-15-[address] ENEIDA BERNARD . Facility: Start: 06-25-2022 End: 06-25-2022 ambulatory Ernestine Little Other [facility] Other Start: 06-25-2022 Office outpatient vi sit 15 minutes Ernestine Little [facility] Start: 02-04-2022 End: 02-05-[address] GIBBS LISTED REQUEST Facility: Start: 12-18-2021 End: 12-18-2021 ambulatory Nery Coppola Other [facility] Other Start: 12-18-2021 Office outpatient vi sit 15 minutes Nery Coppola [facility] Start: 12-30-2020 Office outpatient vi sit 15 minutes Lilia Bowden [facility] Start: 03-08-2018 End: 03-09-2018 Patient encounter procedure DEFAULT PHYSICIAN Facility:[facility] Procedures Date Procedure Procedure Detail Performing Clinician Start: 05-15-2023 Quick Strep (POC) Start: 08-12-2022 Ureteroscopy Liudmila Lue Start: 07-23-2022 Cystoscopic laser lithotripsy of ureteric calculus Liudmila Lue Start: 07-23-2022 Cystoscopy Liudmila Lue Start: 08-20-2018 Dilation and curettage Liudmila Lue Plan of Treatment Date Care Activity Detail Author [facility] Immunizations Immunization Date Immunization Notes Care Provider Diego wray 02-03-2022 influenza virus vaccine, unspecified formulation Liudmila Lue [facility] 07-27-2020 SARS-CoV-2 (COVID-19 ) mRNA BNT-162b2 vax Liudmila Lue [facility] 07-06-2020 SARS-CoV-2 (COVID-19 ) mRNA BNT-162b2 vax Liudmila Lue [facility] 10-04-2014 tetanus toxoid, redu andrew diphtheria toxoid, and acellular pertussis vaccine, adsorbed Liudmila Lue [facility] 06-14-2011 tetanus toxoid, redu andrew diphtheria toxoid, and acellular pertussis vaccine, adsorbed Liudmila Lue [facility] 11-05-1998 measles, mumps and rubella virus vaccine Liudmila Lue [facility] Payers Date Payer Category Payer Self-pay [id number] 2022 Medicaid [id number] 2. [id number] 1986 Unknown [id number] 2.16.8 [id number] 1986 Unknown [id number] 2.16.84 0.1.310718.3.579.2.593 1986 Unknown [id number] 2.16.84 0.1.608871.3.579.2.593 1986 Unknown [id number] 2.16.84 0.1.312921.3.579.2.593 1986 Unknown [id number] 2.16.84 0.1.777637.3.579.2.593 1986 Unknown [id number] 2.16.84 0.1.801211.3.579.2.593 1986 Unknown [id number] 2.16.8 40.1.050998.3.579.2.727 1986 Unknown [id number] 2.16.8 40.1.938460.3.579.2.727 1986 Unknown [id number] 2.16.8 40.1.279526.3.579.2.727 1986 Unknown [id number] 2.16.8 40.1.100371.3.579.2.727 1986 Unknown [id number] 2.16.8 40.1.415817.3.579.2.727 1986 Unknown [id number] 2.16.8 40.1.082054.3.579.2.727 1959 Unknown [id number] 2.1 [id number] Medicaid [employer] [id number] Unknown Unknown [id number] 2.16.8 [id number] Social History Date Type Detail Facility Sex Assigned At [facility] Start: 07-22-2022 End: 10-07-2022 Tobacco smoking status Light tobacco smoker (finding) [facility] Start: 05-15-2023 End: 05-15-2023 Tobacco smoking status Smoker (finding) [facility] Tobacco smoking status Never [facility] Start: 1985 Sex Assigned At Female F [facility] Medical Equipment Procedure Code Equipment Code Equipment Origin al Text Equipment Identifier Dates CYSTOSCOPY RETROGRADE STENT INSERTION Liudmila Daniels MD 07/23/22 Non Biological Ureter L [id number] FDA Start: 07-23-2022 Functional Status Date Assessment Result Facility 10-07-2022 Functional Status N/A [facility] 07-22-2022 Functional Status No [facility] 07-22-2022 Functional Status N/A [facility] Clinical Notes 12-30-2020 to 10-07-2022 Note [...] include: ?8 oz (237 mL) of milk, woqnezo-tuymuiuohdag-swdfh milk, and calcium-fortifiedfruit juice. Calcium-fortified means that [...] ?Spinach (cooked), rhubarb, beets, sweet potatoes, and English chard. ?Peanuts. ?Potato chips, central african fries, and baked potatoes with skin on. ?Nuts and nut products. ?Chocolate. If you regularly take a diuretic medicine, make sure to eat at least 1 or 2 servings of fruits or vegetables that are high in potassium each day. These include: ?Avocado. ?Banana. ?[place], prune, carrot, or tomato juice. ?Baked potato. [...] magnesium, fish oil, or vitamin B6. Take lqdw-xld-hkdpyyh and prescription medicines only as told by [...] Casseroles. Pizza. Lasagna. Frozen meals. Potato chips. Qatari fries. The items listed above may not [...] provider. Document Revised: 11/17/2021 Document Reviewed: 11/17/2021 [employer] Patient Education 2022 [employer]. Follow Up Care 08/19/2022 13:00:03 With:Jeremiah DAY, Liudmila Emery, FRANSISCOL, URO Address: When:Within 2 Month(s) Comments:w/ metabolic workup [facility] 08-19-2022 Evaluation note Encounter Date Diagnosis [...] the ER for worsening symptoms or concern [facility] Other 05-04-2023 Hospital Discharge instructions Patient Education 07/23/2022 15:42:28 Post Op Patient Instructions - FT (Custom) (CUSTOM) 07/23/2022 14:49:47 Wgbr-Atwr-gv Utereroscopy,Lithotripsy, Stone Extraction, Stent Placement (CUSTOM) [facility] [place], [place] Post-operative Instructions for Ureteroscopy, Laser Lithotripsy, [...] other reasons. If it is to remain jail, however, changes of the stent are required [...] schedule definitive stone treatment in 2 weeks [phone] 07/23/2022 14:49:47 Dietary Guidelines to Help Prevent [...] include: ?8 oz (237 mL) of milk, oicvsrn-iamcpwmemufj-zbasx milk, and calcium- fortifiedfruit juice. Calcium-fortified means [...] ?Spinach (cooked), rhubarb, beets, sweet potatoes, and English chard. ?Peanuts. ?Potato chips, central african fries, and baked potatoes with skin on. ?Nuts and nut products. ?Chocolate. If you regularly take a diuretic medicine, make sure to eat at least 1 or 2 servings of fruits or vegetables that are high in potassium each day. These include: ?Avocado. ?Banana. ?[place], prune, carrot, or tomato juice. ?Baked potato. [...] magnesium, fish oil, or vitamin B6. Take lwxg-tqc-fmltdyk and prescription medicines only as told by [...] Casseroles. Pizza. Lasagna. Frozen meals. Potato chips. Qatari fries. The items listed above may not [...] provider. Document Revised: 11/17/2021 Document Reviewed: 11/17/2021 [employer] Patient Education 2022 [employer]. Follow Up Care 07/22/2022 10:11:55 With:Liudmila Daniels Address:Unknown When: Unknown Comments:Office will call to schedule left ureteroscopy, laser lithotripsy, stent exchange in 2 weeks [facility]05-04-2023 Evaluation + Plan noteExtracted from: Title:CSB post op Author:Rico Blunt MD Date:07/23/22 Plan Transfer/Discharge: Transfer/Discharge Discharge when meets criteria ( From PACU to Ambulatory Surgery Unit, and To home ). Extracted from: Title:EU- L URS, laser litho, stent placement Au thor:Liudmila Daniels MD Date:07/23/22 Impression and Plan Diagnosis Ureteral stone with hydronephrosis (GTZ50-QJ N13.2, Discharge, Medical). Kidney stones (PRQ31-DV N20.0, Discharge, Medical). Diagnosis Ureteral stone with hydronephrosis (VPL09-NZ N13.2, Discharge, Medical). Kidney stones (HNS62-ZN N20.0, Discharge, Medical). Extracted from: Title:YARI EVANGELISTA Author:Rico Blunt MD Date:07/23/22 Plan [place] [employer] Anesthesiologists (ASA) physical status classification: Class II. Anesthetic Preoperative Plan: Anesthesia General. Diagnostic Tests Pending * Urine Culture 07/23/22 * Calculi Analysis Urinary 07/23/22 [facility]05-03-2023 Note [id number]:[id number] 07-22-2022 Hospital Discharge instructions Patient [...] including vitamins, herbs, eye drops, creams, and musd-thy-jyqjatf medicines. Any problems you or family members [...] provider tells you to take them. ?Taking tuam-zpk-szeycjh medicines, vitamins, herbs, and supplements. Eating and [...] provider. Document Revised: 11/10/2021 Document Reviewed: 11/10/2021 [employer] Patient Education 2022 [employer]. Follow Up Care 07/15/2022 13:58:57 With:Jeremiah DAY, JEAN Goss, URO Address: When: Unknown [facility] 2023 Evaluation note* Encounter Date Diagnosis [...] with a dentist as soon as possible. [facility] Other 09-29-2022 Evaluation note* Encounter Date Diagnosis Assessment Notes Treatment Notes Treatment Clinical Notes Nov, Tooth infection (ICD-10 - K04.7) Take medications as directed.Highly encourage patient to contact dentist JOEL for further treatment of infection. Do not take OTC medications like ibuprofen with prescriptions [facility] Other 10-11-2021 Evaluation note* Encounter Date Diagnosis [...] Patient care instructions given in writting by [facility] Care At Home document. [facility] Other Evaluation + Plan note Future Appointments Appointment Date:07/23/2022 02:30:00 PM Scheduled Provider: Location:[facility] Appointment Type:Surgery FT [facility] evaluation + Plan note Future Appointments Appointment Date:12/09/2022 10:45:00 AM Scheduled Provider:Liudmila Daniels MD Location:[facility] Appointment Type:URO Office Visit [facility] evalsxisiu note* Diagnosis Onset Date Resolution Status Renal stone noneactive [facility] Work Phone: Evaluation note* Diagnosis Onset Date Resolution Status Contact with and (suspected) exposure to covid-19 noneactive [facility] Work Phone: History general Narrative - Reported* Type Description Date Medical History chronic depression Medical History anxiety Medical History addiction, opiates [facility] [employer] Other [facility] general Narrative - Reported* Type Description Date Medical History chronic depression Medical History anxiety Medical History addiction, opiates Medical History Kidney stones Surgical History Kidney Stone Removal [facility] [employer] Other Hospital course Narrative No data available for this section [facility] Hospital Discharge instructions No data available for this section [facility] progress note No data available for this section [facility] Summary Purpose Family History No Family History Records Found Relationship Condition Age at Onset Recorded Date/T elana father Suicide Unknown Advance Directives No Advanced Directives Records Found Advance Directive Response Recorded Date/ Time Advance Directives No April 2:07pm Advance Directive Response Recorded Date/ Time Advance Directives No April 3:07pm Hospital Course Note MR#: [id number] [facility] Pt. Name: Catie Lyons Admitted: 03/08/2018 Discharged: 03/12/2018 Date of : 1985 Physician: Darryl Keen M.D. DISCHARGE SUMMARY CHIEF COMPLAINT: Opioid use and cocaine use. HISTORY OF PRESENT ILLNESS: The patient is a 32-year-old female, admitted to [facility] Detox due to concern of using around [...] section and content) DATE CREATED AUTHOR 04/12/2018 [facility] DATE CREATED AUTHOR AUTHOR'S ORGANIZ ATION 08/30/2022 [facility] DATE CREATED AUTHOR AUTHOR'S ORGANIZ ATION 01/08/2023 [facility] DATE CREATED AUTHOR AUTHOR'S ORGANIZ ATION 06/23/2024 [facility] [employer] REASON FOR VISIT (unrecogniz ed [...] BE BASED ON THE PRIMARY CLINICAL RECORDS. [facility] [employer] [facility] provides no warranty or guarantee of the accuracy or completeness of information in this document.
--- NOTE | 2024-06-29 16:37 | ED.ABDPAIN1 ---
HPI - Abdominal Pain General Chief Complaint: Abdominal Pain Stated Complaint: LOWER L ABDOMINAL PAIN Time Seen by Provider: 06/29/24 16:09 Source: patient Mode of arrival: walk-in History of Present Illness HPI narrative: Patient is a 39-year-old female who presents to the emergency department for decreased bowel movements over the last 3 days. She states that she has been on Suboxone for years, she has intermittent issues with constipation which is typically treated with milk of magnesia. She states she has been using this without improvement over the last several days, she states 3 days ago she passed blood and watery diarrhea. She has persistent pain in the left lower quadrant. She has no concern for . No fevers or vomiting. She does feel mildly nauseous. No previous abdominal surgeries. Related Data Home Medications ?Medication ?Instructions ?Recorded ?Confirmed buprenorphine 8 mg-naloxone 2 mg 1 film sublingual .2 times week 03/06/23 06/29/24 sublingual film buspirone 30 mg tablet 30 mg PO TID 03/06/23 06/29/24 quetiapine 50 mg tablet (Seroquel) 50 mg PO DAILY 06/29/24 06/29/24 vilazodone 20 mg tablet (Viibryd) 20 mg PO DAILY 06/29/24 06/29/24 Previous Rx's ?Medication ?Instructions ?Recorded cephalexin 500 mg capsule 500 mg PO Q8H 5 days #15 caps 06/29/24 ondansetron 4 mg disintegrating 4 mg PO Q6H PRN nausea and 06/29/24 tablet vomiting #12 tabs peg 3350-electrolytes 236 240 ml PO Q10M #4,000 mL 06/29/24 gram-22.74 gram-6.74 gram-5.86 gram solution (Golytely) Allergies Allergy/AdvReac Type Severity Reaction Status Date / Time No Known Drug Allergies Allergy Verified 06/29/24 16:15 Review of Systems ROS Constitutional Denies: fever or chills Ears, nose, mouth, and throat Denies: throat pain or nasal congestion Cardiovascular Denies: chest pain Respiratory Denies: shortness of breath or cough Gastrointestinal Reports: abdominal pain, nausea, constipation and blood in stool; Denies: vomiting or diarrhea Integumentary/Breast Denies: rash Neurological Denies: headache Hematologic/Lymphatic Denies: easy bruising or easy bleeding [facility] History (Updated 06/29/24 @ 17:57 by MOMO Navarrete) Anxiety ?F41.9 - Anxiety disorder, unspecified (ICD-10) Kidney stones ?N20.0 - Calculus of kidney (ICD-10) Social History Little interest or pleasure in doing things: not at all Feeling down, depressed, or hopeless: not at all Exam Narrative Exam Narrative: Gen.: Awake, alert, in no distress Head: Normocephalic, atraumatic ENT: Moist mucous membranes Respiratory: No respiratory distress Gastrointestinal: Abdomen is soft, nondistended and tender to palpation in the left lower quadrant with no guarding or rebound Extremities: Moves extremities equally Psych: Normal mood and affect Neuro: No focal neuro deficit Skin: Warm, dry, intact Constitutional Vital Signs, click to edit/add: Last Vital Signs Temp 99.1 F 06/29/24 16:15 Pulse 120 H 06/29/24 16:15 Resp 18 06/29/24 16:15 BP 118/81 06/29/24 16:15 Pulse Ox 99 06/29/24 16:55 O2 Del Method Room Air 06/29/24 16:55 Course Vital Signs Vital signs: Vital Signs Temperature 99.1 F 06/29/24 16:15 Pulse Rate 120 H 06/29/24 16:15 Respiratory Rate 18 06/29/24 16:15 Blood Pressure 118/81 06/29/24 16:15 Pulse Oximetry 95 06/29/24 16:15 Oxygen Delivery Method Room Air 06/29/24 16:15 Temperature 99.1 F 06/29/24 16:15 Pulse Rate 120 H 06/29/24 16:15 Respiratory Rate 18 06/29/24 16:15 Blood Pressure 118/81 06/29/24 16:15 Pulse Oximetry 99 06/29/24 16:55 Oxygen Delivery Method Room Air 06/29/24 16:55 MDM - Abdominal Pain MDM Narrative Medical decision making narrative: Labs are unremarkable, patient with mild UTI noted. She was treated with IV fluids, Toradol, Levsin and Zofran in the ER. Abdomen is soft and benign on recheck by attending physician. CT shows no evidence of acute abnormalities. Patient will be placed on GoLytely to help with constipation in addition to Zofran and a short course of Keflex for UTI. Follow-up with PCP and return to the emergency department if symptoms change or worsen. SHARED APC VISIT, PHYSICIAN ATTESTATION: Gqnk-oq-gjje I performed a substantive part of the MDM during the patient?s E/M visit. I personally evaluated and examined the patient. I personally made or approved the documented management plan and acknowledge its risk of complications. Medical Records Attestation: I reviewed the patient's medical records. Lab Data Attestation: I reviewed the patient's lab results. Labs: Lab Results 06/29/24 06/29/24 06/29/24 Range/Units 16:21 16:28 16:54 WBC 9.4 (4.0-11.0) 10^3/uL RBC 5.02 (4.20-5.40) 10^6/uL Hgb 15.1 (12.0-16.0) g/dL Hct 44.5 (36.0-48.0) % MCV 88.6 (81.0-99.0) fL MCH 30.1 (26.7-34.0) pg MCHC 33.9 (29.9-35.2) g/dL RDW 13.0 (11.0-15.0) % Plt Count 255 (150-450) 10^3/uL MPV 9.5 (9.5-13.5) fL Neut % (Auto) 65.3 (43.0-75.0) % Lymph % (Auto) 26.1 (20.5-60.0) % [place] % (Auto) 6.7 (1.7-12.0) % Eos % (Auto) 1.4 (0.9-7.0) % Baso % (Auto) 0.3 (0.2-2.0) % Neut # (Auto) 6.2 (1.4-6.5) 10^3/uL Lymph # (Auto) 2.5 (1.2-3.8) 10^3/uL [place] # (Auto) 0.6 (0.3-0.8) 10^3/uL Eos # (Auto) 0.1 (0.0-0.7) 10^3/uL Baso # (Auto) 0.0 (0.0-0.1) 10^3/uL Abs Immat Gran (auto) 0.02 (0.00-0.03) 10^3/uL Imm/Tot Granulo (auto) 0.2 (0.0-0.5) % Sodium 138 (136-145) mmol/L Potassium 3.5 (3.5-5.1) mmol/L Chloride 103 (98-107) mmol/L Carbon Dioxide 27.9 (21.0-32.0) mmol/L Anion Gap 10.6 BUN 6.0 L (7.0-18.0) mg/dL Creatinine 0.81 (0.55-1.02) mg/dL Est GFR ( Amer) >60 (>=60 mL/min/1.73m^2) Est GFR (Non-Af Amer) >60 (>=60 mL/min/1.73m^2) BUN/Creatinine Ratio 7.4 Glucose 129 H (74-106) mg/dL Lactate 1.3 (0.4-2.0) mmol/L Calcium 9.1 (8.5-10.1) mg/dL Total Bilirubin 0.3 (0.2-1.0) mg/dL AST 17 (15-37) U/L ALT 27 (14-59) U/L Alkaline Phosphatase 113 (46-116) U/L Total Protein 6.7 (6.4-8.2) g/dL Albumin 3.2 L (3.4-5.0) g/dL Globulin 3.5 g/dL Albumin/Globulin Ratio 0.9 Serum HCG, Qual Negative (NEGATIVE) Urine Color Lt. yellow (YELLOW) Urine Clarity Clear (CLEAR) Urine pH 6.0 (5.0-9.0) Ur Specific [place] 1.015 (1.005-1.025) Urine Protein Negative (NEG/TRACE) mg/dL Urine Glucose (UA) Negative (NEGATIVE) mg/dL Urine Ketones Negative (NEGATIVE) mg/dL Urine Occult Blood Trace-i (NEGATIVE) Urine Nitrite Negative (NEGATIVE) Urine Bilirubin Negative (NEGATIVE) Urine Urobilinogen 0.2 (0.2-1.0) EU/dL Ur Leukocyte Esterase Large A (NEGATIVE) Urine RBC 2-5 A (0-2) #/HPF Urine WBC 2-5 A (NONE SEEN) #/HPF Ur Squamous Epith Cells Few A (NONE/RARE) #/LPF Urine Crystals None seen (None Seen) #/HPF Urine Bacteria Small A (NONE SEEN) #/HPF Urine Casts None seen (NONE SEEN) #/LPF Urine Mucus Trace A (NONE SEEN) Ur Culture Indicated? Yes[place] [place] scan - abdomen: Attestation: I have reviewed the pertinent imaging results. Discharge Plan Discharge Chief Complaint: Abdominal Pain Clinical Impression: Abdominal pain, Constipation, UTI (urinary tract infection) Patient Disposition: Home, Self-Care Time of Disposition Decision: 17:57 Condition: Good Prescriptions / Home Meds: New cephalexin 500 mg capsule 500 mg PO Q8H 5 Days Qty: 15 0RF ondansetron 4 mg tablet,disintegrating 4 mg PO Q6H PRN (Reason: nausea and vomiting) Qty: 12 0RF peg 3350-electrolytes [Golytely] 236-22.74-6.74 -5.86 gram recon soln 240 ml PO Q10M Qty: 4000 0RF Rx Instructions: until fecal effluent is clear No Action vilazodone [Viibryd] 20 mg tablet 20 mg PO DAILY Rx Instructions: must administer with a meal/food quetiapine [Seroquel] 50 mg tablet 50 mg PO DAILY buprenorphine-naloxone 8-2 mg film 1 film sublingual .2 times week buspirone 30 mg tablet 30 mg PO TID Print Language: Romansh Instructions: Constipation (ED), Urinary Tract Infection in Women (ED) Referrals: WALT SIMS [Primary Care Provider] - 1 week
[2024-06-29 16:42] LABS: Basophils Percent Auto 0.3 % (0.2-2.0); Eosinophils Absolute Auto 0.1 10^3/uL (0.0-0.7); Eosinophils Percent Auto 1.4 % (0.9-7.0); Hematocrit 44.5 % (36.0-48.0); Hemoglobin 15.1 g/dL (12.0-16.0); Immature Granulocytes Abs Auto 0.02 10^3/uL (0.00-0.03); Immature Granulocytes Pct Auto 0.2 % (0.0-0.5); Lymphocytes Absolute Auto 2.5 10^3/uL (1.2-3.8); Lymphocytes Percent Auto 26.1 % (20.5-60.0); Mean Corpuscular HGB Conc 33.9 g/dL (29.9-35.2); Mean Corpuscular Hemoglobin 30.1 pg (26.7-34.0); Mean Corpuscular Volume 88.6 fL (81.0-99.0); Mean Platelet Volume 9.5 fL (9.5-13.5); Monocytes Absolute Auto 0.6 10^3/uL (0.3-0.8); Monocytes Percent Auto 6.7 % (1.7-12.0); Neutrophils Absolute Auto 6.2 10^3/uL (1.4-6.5); Neutrophils Percent Auto 65.3 % (43.0-75.0); Platelet Count 255 10^3/uL (150-450); Red Blood Count 5.02 10^6/uL (4.20-5.40); White Blood Count 9.4 10^3/uL (4.0-11.0)
[2024-06-29] MEDS: 0.9 % SODIUM CHLORIDE 1,000 ML 999 ML IV (16:45)
[2024-06-29] MEDS: ONDANSETRON PF 4 MG/2 ML VIAL IV (16:45)
[2024-06-29 16:46] LABS: Bilirubin Urine NEGATIVE (NEGATIVE); Blood Urine TRACE-I (NEGATIVE); Clarity Urine CLEAR (CLEAR); Color Urine LT. YELLOW (YELLOW); Glucose Urine UA NEGATIVE (NEGATIVE); Ketones Urine NEGATIVE (NEGATIVE); Leukocyte Esterase Urine LARGE (NEGATIVE); Nitrite Urine NEGATIVE (NEGATIVE); Protein Urine NEGATIVE (NEG/TRACE); Specific Gravity Urine 1.015 (1.005-1.025); Urobilinogen Urine 0.2 EU/dL (0.2-1.0)
[2024-06-29] MEDS: KETOROLAC TROMETHAMINE 30 MG/ML VIAL IVP (16:46)
[2024-06-29] MEDS: HYOSCYAMINE SULFATE 0.125 MG TAB.SUBL SL (16:47)
[2024-06-29 16:55] VITALS: O2SAT 99
[2024-06-29 16:55] LABS: Bacteria Urine SMALL #/HPF (NONE SEEN); Cast Seen? NONE SEEN #/LPF (NONE SEEN); Crystals Seen? None Seen #/HPF (None Seen); Mucus Urine TRACE (NONE SEEN); Squamous Epithelial Cell Urine FEW #/LPF (NONE/RARE); Urine Culture Indicated YES-FRMC
[2024-06-29 17:19] LABS: HCG Qualitative NEGATIVE (NEGATIVE); Internal Control Within Normal Limits
[2024-06-29 17:24] LABS: Alanine Aminotransferase 27 U/L (14-59); Albumin Globulin Ratio 0.9; Albumin Level 3.2 g/dL (3.4-5.0); Alkaline Phosphatase 113 U/L (46-116); Anion Gap 10.6; Aspartate Amino Transferase 17 U/L (15-37); BUN Creatinine Ratio 7.4; Bilirubin Total 0.3 mg/dL (0.2-1.0); Calcium 9.1 mg/dL (8.5-10.1); Carbon Dioxide 27.9 mmol/L (21.0-32.0); Chloride 103 mmol/L (98-107); Estimated GFR (African America >60 (>=60 mL/min/1.73m^2); Estimated GFR (Non-African Ame >60 (>=60 mL/min/1.73m^2); Globulin 3.5 g/dL; Glucose 129 mg/dL (74-106); Potassium 3.5 mmol/L (3.5-5.1); Sodium 138 mmol/L (136-145); Total Protein 6.7 g/dL (6.4-8.2)
[2024-06-29 17:27] LABS: Lactate/Lactic Acid 1.3 mmol/L (0.4-2.0)
== END 2024-06-29 18:08 | disposition home or self-care (01) ==
PROVIDERS: Physician Assistant; Emergency Provider Emergency Medicine; PCP Nurse Practitioner Family
DX: N39.0 Urinary tract infection, site not specified (principal); R10.32 Left lower quadrant pain; K59.00 Constipation, unspecified
CPT/HCPCS: 36415; 74177; 80053; 81001; 83605; 84703; 85025; 87086; 96374; 96375; 99285; J1885; J2405; Q9967

== ENCOUNTER 2024-09-15 10:49 | Outpatient (OUT) | payer MEDICAID, SELFPAY ==
--- OUTSIDE RECORDS SUMMARY | 2024-09-15 11:05 | XMS_ITS | CCD ---
Author Organization [facility] Care Team Providers Care Designated Broker Name Role Phone PHYSICIAN, DEFAULT Admitting Unavailable [...] Unavailable Liudmila Daniels MKendra Referring Unavailable LueLiudmila MKendra Admitting Unavailable LueLiudmila MKendra Attending Unavailable LueLiudmila Attending Unavailable LueLiudmila MKendra Attending Unavailable LueLiudmila Attending Unavailable Liudmila Daniels Attending Unavailable NO FAMILY, PHYSICIAN Primary Care Provider Unava ilMD José Salamanca Attending Provider [phone] NO FAMILY, PHYSICIAN Primary Care Provider Unava ilkristie SchulerVickie MD, José Attending Provider [phone] Sherice Gaines PA-C Attending Provider Sherice Gaines Attending Unavailable Sherice Gaines Admitting Unavailable NO FAMILY, PHYSICIAN Primary Care Unavailable José Johnston Admitting Unavailab le José Johnston Attending Unavailab le Allergies Allergy Classification Reported Allergen(s) Allergy Type Date of Onset Reaction(s) Facility (1 source) 04216,00 Drug allergy (disorder) 0 [facility] Repository (1 source) No Known Medication Allergies; Translations: [No Known Medication Allergies] Propensity to adverse reactions (disorder) [facility] Repository Medications Current Medications Medication Drug Class(es) Dates Sig (Normalized) Sig (Original) adapalene (1 source) Retinoid Adapalene Active Albuterol (4 sources) beta2-Adrenergic Agonist Start: 01-12-2024 Albuterol Sulfate Active 2 INH INHALATION EVERY 4-6 HOURS 6.7 14 January 12, 2024 12:00am Start: 05-15-2023 End: 01-12-2024 take 1 puff(s) by inhalation every four hours Albuterol Sulfate 90 mcg/actuation HFA aerosol inhaler Discontinued 2 PUFF INHALATION Q4H 1 May 15, 2023 1:00am January 12, 2024 4:36pm Albuterol Sulfate 90 mcg/actuation HFA aerosol inhaler (1 source) Start: 01-12-2024 Albuterol Sulfate 90 mcg/actuation HFA aerosol inhaler Active 2 INH INHALATION EVERY 4-6 HOURS as needed for shortness of breath or wheezing 6.7 14 January 12, 2024 12:00am amoxicillin 875 mg oral tablet (1 source) [...] Partial Opioid Agonist Buprenorphine HCl Active Suboxone (8 sources) Partial Opioid Agonist, Opioid Antagonist Start: 07-22-2022 Suboxone SubLingual, Daily Start Date: 07/22/22 Status: Ordered Start: 05-09-2020 Buprenorphine- Naloxone 8-2 mg film Active 1 FILM SUBLINGUAL Daily May 09, 2020 1:00am pt states she takes at at 5:30AM Suboxone Active Buprenorphine HCl-Naloxone HCl (1 source) Buprenorphine HCl-Naloxone HCl Active busPIRone hydrochloride 30 mg oral tablet (10 sources) Start: 07-22-2022 take 1 tablet by mouth twice daily busPIRone 30 mg oral tablet 30 mg = 1 tab(s), Oral, BID Start Date: 07/22/22 Status: Ordered Start: 05-13-2020 take 1 tablet by alessandro twice daily Buspirone 7.5 mg Tablet Active 7.5 MG PO Twice daily May [...] day(s), # 10 tab(s), Refills(s) 0, [id number], 179, cm, 07/23/22 12:19:00 EDT, Height/Length Dosing, 106.3, kg, 07/23/22 12:19:00 EDT, Weight Dosing Start Date: 07/23/22 Stop Date: 07/28/22 Status: Ordered hydrOXYzine pamoate 50 mg oral capsule (9 sources) Antihistamine Start: 05-15-2023 take 1 capsule by mouth three times daily Hydroxyzine Pamoate 50 mg capsule Active 50 MG PO Three times daily May 15, 2023 1:00am Start: 07-22-2022 take 1 capsule by [facility] three times daily Vistaril 50 mg Cap [...] July, Active methylPREDNISolone 4 mg oral tablet (3 sources) Corticosteroid Start: 01-12-2024 take 1 tablet [...] # 90 tab(s), Refills(s) 1, Pharmacy: [facility] #[id number], 179, cm, 07/23/22 12:19:00 EDT, Height/Length Dosing, [...] July, Active QUEtiapine 200 mg oral tablet (16 sources) Atypical Antipsychotic Start: 07-22-2022 take 1 tablet by mouth once daily SEROquel 200 mg Tab 200 mg, Oral, Daily Start Date: 07/22/22 Status: Ordered Start: 07-22-2022 take 400 mg by mouth once tracie y Seroquel 400 mg, Oral, Daily Start Date: 07/22/22 Status: Ordered Start: 05-12-2020 take 5 tablets by mo [facility] at bedtime Quetiapine 50 mg Tablet Active 250 MG PO Bedtime 75 May 12, 2020 1:00am Start: 05-12-2020 take 250 mg by mouth at bedtim e Quetiapine Active 250 MG PO Bedtime 75 May 12, 2020 1:00am Start: 05-09-2020 End: 05-12-2020 take 1 tablet by mouth at bedtime Quetiapine 200 mg tablet Discontinued 200 MG PO Bedtime May 09, 2020 1:00am May 12, 2020 12:22pm SEROquel Active tamsulosin hydrochloride 0.4 mg oral capsule (1 source) alpha-Adrenergic Sallie Start: 07-23-2022 take 1 capsule by mouth once daily as needed for pain tamsulosin 0.4 mg Cap 0.4 mg = 1 cap(s), Oral, Daily, PRN Urinary discomfort, Stent pain, # 30 cap(s), Refills(s) 1, [facility]: [facility] #[id number], 179, cm, 07/23/22 12:19:00 EDT, Height/Length Dosing, 106.3, kg, 07/23/22 12:19:00 EDT, Weight Dosing Start Date: 07/23/22 Status: Ordered vilazodone hydrochloride 20 mg oral tablet (10 sources) Start: 05-09-2020 take 1 tablet by [...] / pseudoephedrine hydrochloride 60 mg oral tablet (3 sources) alpha-Adrenergic Agonist, Uncompetitive S-fyolkl-L-aspartat e Receptor Antagonist, Sigma-1 Agonist Start: 05-15-2023 End: 01-12-2024 take 4 tablets by mouth every twenty-four hours as needed Pseudoephedrine-D m-Guaifenesin (Capmist Dm) 60-15-400 mg tablet Discontinued 1 TAB PO EVERY 4-6 HOURS as needed for cold symptoms May 15, 2023 1:00am January 12, 2024 4:37pm do not exceed 4 doses per 24 hrs predniSONE 20 mg oral tablet (3 sources) Start: 05-15-2023 End: 01-12-2024 take 1 tablet by mouth twice daily Prednisone 20 mg tablet Discontinued 20 MG PO Twice daily 10 May 15, 2023 1:00am January 12, 2024 4:36pm Problems Active Problems Problem Classification Problem Date Documented Da te Episodic/Chronic Abdominal pain (4 sources) Left lower quadrant pain; Translations: [LEFT LOWER QUADRANT PAIN] Onset: 07-15-2022 Episodic Acute bronchitis (1 source) Acute bronchitis; Translations: [Acute bronchitis, unspecified] 01-12-2024 Episodic Calculus of urinary tract (20 sources) [...] 07-22-2022 Chronic Other aftercare (1 source) Other group home (current) drug therapy; Translations: [OTH NURSING HOME CURRENT DRUG THERAPY] Onset: 08-19-2022 Episodic Other [...] 02-18-2022 Chronic Schizophrenia and other psychotic disorders (6 sources) Schizoaffective disorder; Translations: [Schizoaffective disorder, unspecified] 05-11-2020 Chronic Substance-related disorders (5 sources) Smoker; Translations: [Nicotine dependence, cigarettes, uncomplicated] Onset: 08-19-2022 07-22-2022 Chronic Comment on above: Added secondary to d ocumentation in Social History. Suicide and intentional self-inflicted injury (3 sources) Suicidal thoughts; Translations: [Suicidal ideations] 05-09-2020 Episodic Past or Other Problems Problem Classification Problem Date Documented Da te Episodic/Chronic Other nervous system disorders (4 sources) Ataxia, unspecified; Translations: [ATAXIA UNSPECIFIED] Onset: 02-04-2022 Episodic Other upper respiratory infections (1 source) Acute pansinusitis, unspecified; Translations: [Acute non-recurrent pansinusitis J01.40] Onset: 12-30-2020 Resolved: 12-30-2020 Episodic Results Test Name Value Interpretation Reference Range Facility Urine Cultureon 06-29-2024 Bacteria identified Cx Nom (U) <9,000 colonies/ml mixed bacterial skin contaminants 2 Days PERFORMED BY: [facility] [address] [id number] PATHOLOGIST RETORT PRESS OPERATOR VINNY SIBLEY M.D. Normal The Counts Include 234 Beds At [facility] Comment on above: Performed By: #### C UU #### [place] [id number] [facility] No Panel InformationOrdered By: Lilia Salinas on 05-15-2023 Quick Strep (POC) [facility] Lab Reportson 10-12-2022 Lab Reports [id number] #1.00CD:127 Normal [facility] RAD - MISCon 10-12-2022 RAD - MISC [id number] #1.00CD:127 Normal [facility] RAD - Ultrasound Reporton RAD - Ultrasound Report [id number] #1.00CD:127 Normal [facility] RAD - Ultrasound Report [id number] #1.00CD:127 Normal [facility] Formson 10-08-2022 Forms [id number] #1.00CD:127 Normal [facility] Patient Educationon 10-08-19 23 Patient Education Nephrology Dietary Guidelines to Help [...] Spinach (cooked), rhubarb, beets, sweet potatoes, and Guinean chard. ? Peanuts. ? Potato chips, tajik fries, and baked potatoes with skin on. ? Nuts and nut products. ? Chocolate. ? If you regularly take a diuretic medicine, make sure to eat at least 1 or 2 servings of fruits or vegetables that are high in potassium each day. These include: ? Avocado. ? Banana. ? Canvas, prune, carrot, or tomato juice. ? Baked [...] fish oil, or vitamin B6. ? Take rifu-wcx-oqrngnv and prescription medicines only as told by your health care provider. These include supplements. What foods should I limit? Limit your in (more content not included)... Normal [facility] Urology Office/Clinic Noteon 10-07-2022 Urology Office/Clinic Note [...] female initially presented after follow up to [facility] ER visit on 07/15/22 due to L flank pain that radiated to LLQ. Was sent home with Zofran, [facility], Flomax, and prophy Keflex. ICIQ-SF 0. Denies hx [place], stroke or DM. Not on AC No prior surgeries 1. Ureteral stone with hydronephrosis (N13.2: Hydronephrosis with renal and ureteral calculous obstruction) CT AP wo con 07/15/22 [facility] - Obstructing 6.2 mm stone at the left UPJ with moderate hydronephrosis and mild perinephric stranding. No distal ureteral stones. Stone Analysis Ca Ox Di 80, [place] 20 07/12/22 - BUN 13.0. Crea 1.09. S/p Left ureteroscopy, laser litho, stent placement 07/23/22 Stone Analysis 08/19/22 - Ca Ox Di 40, [place] 55, Hydroxyapatite 5 AMADOU 10/07/22 - 3 [...] the patient. Follow-up With When Contact Information Jeremiah DAY, Liudmila Emery, URL, URO In 2 months Additional Instructions: [...] hydronephrosis Historic (more content not included)... Normal [facility] Comment on above: Result Comment: Elec tronically Signed By: Liudmila Daniels MD\.br\Date and Time Signed: 10/07/22 12:33 EDT\.br\Electronically Co-Signed By: Chel Leroy\.br\Date and Time Co-Signed: 10/07/22 12:21 EDT Auth for Release of Medical Recordson 09-29-2022 Auth for Release of Medical Records [id number] #1.00CD:127 Normal [facility] CALCULI, URINARYon 3 2,8 Dihydroxyadenine Normal [facility] Comment on above: Performed By: #### C ALCULI #### [facility] [address] [address] [address] Marcy Alvarez Ammonium Acid Urate Normal [facility] Comment on above: Performed By: #### C ALCULI #### [facility] [address] [address] [address] Marcy Alvarez Bilirubin Ql (U) Normal [facility] Comment on above: Performed By: #### C ALCULI #### [facility] [address] [address] [address] Marcy Alvarez Ca Oxalate Dihydrate 40 % Normal [facility] Comment on above: Performed By: #### C ALCULI #### [facility] [address] [address] [address] Marcy Alvarez CaHPO4 (Brushite) [facility] Comment on above: Performed By: #### C ALCULI #### [facility] [address] [address] [address] Marcy Alvarez Calcium Bilirubinate [facility] Comment on above: Performed By: #### C ALCULI #### [facility] [address] [address] [address] Marcy Alvarez Calcium Carbonate [facility] Comment on above: Performed By: #### C ALCULI #### [facility] [address] [address] [address] Marcy Alvarez Calcium Oxalate Monohydrate 55 % [facility] Comment on above: Performed By: #### C ALCULI #### [facility] [address] [address] [address] Marcy Alvarez Calcium Palmitate [facility] Comment on above: Performed By: #### C ALCULI #### [facility] [address] [address] [address] Marcy Alvarez Calcium Phosphate [facility] Comment on above: Performed By: #### C ALCULI #### [facility] [address] [address] [address] Marcy Alvarez Calcium Stearate Normal [facility] Comment on above: Performed By: #### C ALCULI #### [facility] [address] [address] [address] Marcy Alvarez Carbonate Apatite Normal [facility] Comment on above: Performed By: #### C ALCULI #### [facility] [address] [address] [address] Marcy Alvarez Cellular Material Normal [facility] Comment on above: Performed By: #### C ALCULI #### [facility] [address] [address] [address] Marcy Alvarez Cholesterol [facility] Comment on above: Performed By: #### C ALCULI #### [facility] [address] [address] [address] Marcy Alvarez Color (U) Hager [facility] Comment on above: Performed By: #### C ALCULI #### [facility] [address] [address] [address] Marcy Alvarez Comment Comment [facility] Comment on above: Result Comment: Calc ium phosphate (hydroxyl form) includes hydroxyapatite, amorphous calcium phosphate, and whitlockite. Hydroxyapatite is the most common of the calcium phosphate salts found in human kidney stones. Performed By: #### C ALCULI #### [facility] [address] [place] [address] Dr. Marcy Alvarez Result Comment: Calc ulus received wet. Wet calculi must be dried before analysis, which delays reporting of results. Leaving calculi wet (such as water, saline, blood, urine) may lead to changes in composition. Comment: Comment Normal [facility] Comment on above: Result Comment: Anita becerra questions regarding Calculi Analysis contact [employer] at: [phone]. Performed By: #### C ALCULI #### [facility] [address] [place] [address] Dr. Marcy Alvarez Composition Comment [facility] Comment on above: Result Comment: Perc entage (Represents the % composition) Performed By: #### C ALCULI #### [facility] [address] [address] [address] Marcy Alvarez Cystine [facility] Comment on above: Performed By: #### C ALCULI #### [facility] [address] [place] [address] Dr. Marcy Alvarez Disclaimer: Comment [facility] Comment on above: Result Comment: This test was developed and its performance characteristics determined by [facility]. It has not been cleared or approved by the Food and Drug Administration. Performed By: #### C ALCULI #### [facility] [address] [address] [address] Marcy Alvarez Dried Blood Normal [facility] Comment on above: Performed By: #### C ALCULI #### [facility] [address] [place] [address] Dr. Marcy Alvarez Drug or Metabolite Normal [facility] Comment on above: Performed By: #### C ALCULI #### [facility] [address] [place] [address] Dr. Marcy Alvarez Hydroxyapatite 5 % Normal [facility] Comment on above: Performed By: #### C ALCULI #### [facility] [address] [place] [address] Dr. Marcy Alvarez Mg NH4 PO4 (Struvite) [facility] Comment on above: Performed By: #### C ALCULI #### [facility] [address] [place] [address] Dr. Marcy Alvarez MgHPO4 (Newberyite) Normal [facility] Comment on above: Performed By: #### C ALCULI #### [facility] [address] [place] [address] Dr. Marcy Alvarez Other component(s) Normal [facility] Comment on above: Performed By: #### C ALCULI #### [facility] [address] [place] [address] Dr. Marcy Alvarez PDF . Normal [facility] Comment on above: Performed By: #### C ALCULI #### [facility] [address] [place] [address] Dr. Marcy Alvarez Photo Comment [facility] Comment on above: Result Comment: Phot ograph will follow under a separate cover Performed By: #### C ALCULI #### [facility] [address] [place] [address] Dr. Marcy Alvarez Please note: Comment Normal [facility] Comment on above: Result Comment: Calc ira report will follow via computer, mail or hat blocker delivery. Performed By: #### C ALCULI #### [facility] [address] [address] [address] Marcy Alvarez Size 5x4 Normal [facility] Comment on above: Result Comment: Mult iple pieces received. Dimensions of the largest piece reported. Performed By: #### C ALCULI #### [facility] [address] [address] [address] Marcy Alvarez Sodium Acid Urate Normal [facility] Comment on above: Performed By: #### C ALCULI #### [facility] [address] [address] [address] Marcy Alvarez Source Comment [facility] Comment on above: Result Comment: Left Kidney Performed By: #### C ALCULI #### [facility] [address] [address] [address] Marcy Alvarez Triamterene [facility] Comment on above: Performed By: #### C ALCULI #### [facility] [address] [address] [address] Marcy Alvarez Uric Acid [facility] Comment on above: Performed By: #### C ALCULI #### [facility] [address] [address] [address] Marcy Alvarez Uric Acid Dihydrate Normal [facility] Comment on above: Performed By: #### C ALCULI #### [facility] [address] [address] [address] Marcy Alvarez Weight 69 mg Normal [facility] Comment on above: Performed By: #### C ALCULI #### [facility] [address] [address] [address] Marcy Alvarez Xanthine [facility] Comment on above: Performed By: #### C ALCULI #### [facility] [address] [address] [address] Marcy Alvarez Operative Reporton Operative Report [id number] #1.00CD:127 Normal [facility] DRUG SCREEN RAPID (URINE)on 08-12-2022 AMP Negative Normal NEGATIVE [facility] Comment on above: Performed By: #### D RUGRPD #### [facility] [address] [place] [address] Dr. Marcy Alvarez BAR Negative Normal NEGATIVE [facility] Comment on above: Performed By: #### D RUGRPD #### [facility] [address] [place] [address] Dr. Marcy Alvarez BUP Positive Abnormal NEGATIVE [facility] Comment on above: Performed By: #### D RUGRPD #### [facility] [address] [place] [address] Dr. Marcy Alvarez BZO Negative Normal NEGATIVE [facility] Comment on above: Performed By: #### D RUGRPD #### [facility] [address] [place] [address] Dr. Marcy Alvarez STEVEN Negative Normal NEGATIVE [facility] Comment on above: Performed By: #### D RUGRPD #### [facility] [address] [place] [address] Dr. Marcy Alvarez CUT-OFFS SEE BELOW Normal [facility] Comment on above: Result Comment: AMP [...] ng/mL Performed By: #### D RUGRPD #### [facility] [address] [place] [address] Dr. Marcy Alvarez DRUG CUT HEADER DRUG CLASS TEST SYSTEM CUT-OFF CONCENTRATIONS ARE FOLLOWS: Normal [facility] Comment on above: Performed By: #### D RUGRPD #### [facility] [address] [place] [address] Dr. Marcy Alvarez mAMP Negative Normal NEGATIVE [facility] Comment on above: Performed By: #### D RUGRPD #### [facility] [address] [address] [address] Marcy Alvarez MTD Negative Normal NEGATIVE [facility] Comment on above: Performed By: #### D RUGRPD #### [facility] [address] [address] [address] Marcy Alvarez OPI Negative Normal NEGATIVE [facility] Comment on above: Performed By: #### D RUGRPD #### [facility] [address] [place] [address] Dr. Marcy Alvarez OXY Negative Normal NEGATIVE [facility] Comment on above: Performed By: #### D RUGRPD #### [facility] [address] [place] [address] Dr. Marcy Alvarez PCP Negative Normal NEGATIVE [facility] Comment on above: Performed By: #### D RUGRPD #### [facility] [address] [place] [address] Dr. Marcy Alvarez PPX Negative Normal NEGATIVE [facility] Comment on above: Performed By: #### D RUGRPD #### [facility] [address] [address] [address] Marcy Alvarez TCA Positive Abnormal NEGATIVE [facility] Comment on above: Performed By: #### D RUGRPD #### [facility] [address] [place] [address] Dr. Marcy Alvarez THC Negative Normal NEGATIVE [facility] Comment on above: Performed By: #### D RUGRPD #### [facility] [address] [place] [address] Dr. Marcy Alvarez PREG HCG QUALon 08-12-2022 , QUAL Negative Normal NEGATIVE [facility] Comment on above: Performed By: #### P REG #### [facility] [address] [place] [address] Dr. Marcy Alvarez Pre-Certification Formon Pre-Certification Form [id number]#1.00CD:127 Normal [facility] Calculus Analysison 07-31-19 23 Calcium oxalate dihydrate Infrared spectroscopy (Stone) [Mass fraction] 80 % Invalid Interpretation Code [facility] Comment on above: Order Comment: Left ureteral stones Performed By: #### 1 [id number] #### [facility] [address] [place] [address] Calcium oxalate monohydrate (Stone) [Mass fraction] 20 % Invalid Interpretation Code [facility] Comment on above: Order Comment: Left ureteral stones Performed By: #### 1 [id number] #### [facility] [address] [place] [address] Color (Stone) Brown Invalid Interpretation Code [facility] Comment on above: Order Comment: Left ureteral stones Performed By: #### 1 [id number] #### [facility] [address] [place] [address] Composition Comment Invalid Interpretation Code [facility] Comment on above: Order Comment: Left ureteral stones Result Comment: Perc entage (Represents the % composition) Performed By: #### 1 [id number] #### [facility] [address] [place] [address] Disclaimer: Comment Invalid Interpretation Code [facility] Comment on above: Order Comment: Left ureteral stones Result Comment: This test was developed and its performance characteristics determined by [facility]. It has not been cleared or approved by the Food and Drug Administration. Performed at: [facility] Stone Analysis [address] [place] [address] Dr Garza, [place] [id number] PhD Gabbie Grey Performed By: #### 1 [id number] #### [facility] [address] [place] [address] Laboratory comment Baudilio (Report) Comment Invalid Interpretation Code [facility] Comment on above: Order Comment: Left ureteral stones Result Comment: Anita becerra questions regarding Calculi Analysis contact [employer] at: [phone]. Performed By: #### 1 [id number] #### [facility] [address] [place] [address] Please Note: Comment Invalid Interpretation Code [facility] Comment on above: Order Comment: Left ureteral stones Result Comment: Calc ira report will follow via computer, mail or hat blocker delivery. Performed By: #### 1 [id number] #### [facility] [address] [place] [address] Size (Stone) [Entitic vol] 3x3 Invalid Interpretation Code [facility] Comment on above: Order Comment: Left ureteral stones Result Comment: Mult iple pieces received. Dimensions of the largest piece reported. Performed By: #### 1 [id number] #### [facility] [address] [place] [address] Specimen source subject Nom Comment Invalid Interpretation Code [facility] Comment on above: Order Comment: Left ureteral stones Result Comment: Left Ureter Performed By: #### 1 [id number] #### [facility] [address] [place] [address] Stone Photo Comment Invalid Interpretation Code [facility] Comment on above: Order Comment: Left ureteral stones Result Comment: Phot ograph will follow under a separate cover Performed By: #### 1 [id number] #### [facility] [address] [place] [address] Weight (Stone) 16 mg Invalid Interpretation Code [facility] Comment on above: Order Comment: Left ureteral stones Performed By: #### 1 [id number] #### [facility] [address] [id number] IntraOperative Documentson 0 07-28-2022 IntraOperative Documents [id number] 2#1.00CD:127 Normal [facility] Coding Summary.on 07-27-2022 Coding Summary. CD:[id number] Ww+PGhlYWQ+DH1TGBWgT 98zlGPhuY8wH3VFAEsKC ywgQVBQTElOSyIgbmFtZ U1clAAzSJEb IC8+IF5nNTWcAwwdtYMj s6M5fJT0C37lkw7oHBrz bPL9WRPaFkMniwxxa9sq gAo4CZxsEzzhSiUq DXVjvH37MUN3rY85Ms22 cQLhwAGzy4lqxSb5FhEw NFEdNNE8hTwkVOvbk1Fr NUVaD57nfOLzb8N5 IGNvbGxhcHNlOyBlbXB0 nN9gFWgxngmwr1licrbw Tul7np17nRMkv5J3yNS1 G9JmkpR4DHDqzWKi ThsdhSVZoF7mscqng3xu audvEyDiHYOhRTi1GJl2 UVVyzMwfLlZkKA78MWH2 OMYimcXzI6VfASUy sLxhPrB6g1S1Do1SU7FF GevuK5NMAZYUWZaiaTZ+ KR22mf63H4QoDgevJiw4 PIGkWDO4fTU7eW1e XEFjNGrom2I0kGT8D6Fm knUorx6yw4qmOSDuKDbk X77bzSHoz2W3JYQqlGZ5 PVMimMtxZvXfwB34 Oyc+TPHdeTpio4AbOzpn h9wfv5usoBr4KgnmGFVj bxXviGoqIXR2r1NxZw3e RTTfjTS4fNP1zY9e FlCzSjR6BYblL230GtAs eJNrVcxaV68hF1VtbEE+ RMXjAxk4NSBjoCnxSM1m T8SvBCBaquklxCTw jPrjNW8mJOUcftndDPUv yF4iGMMuO0g4AzOcWrT1 MAxhB1NpSSFvapflJn84 sT5vIjSbZsW3VPsp T1YtgyW1YLFaiMPdKGcp MZY4J93yv7A4EPPdNCFo AXU0yHF1pJ1bhRponkdd bGVmdDsgdmVydGlj DSsoVWshP863UJIqmIhj PkNvZGluZyBEYXRlOiAg MDUvMDgvMjAyMzwvdGQ+ SDNvXHL9cBbfENSq uTXxIVitCk6vxDhwsYoq ZZ5pPTTstmquCGIcgC2i IIEawSGmoGodSD5bLJWw awfoq743KdKjCYY8 AQQdxITkJ4OjxB9sAkSt QHUePNCjH8IpnOOpQMqm R437BPawDtE7IZZjhgQa E5GhWQHyoWhdNsL5 n4X5Vt5Jh0IauijbP2Xz eQFjYgGwWkglEAi0L1Vi PjwvdHI+UQ16HLImIE65 XZr4JLN3wLryDWgc ONAyH2GhtT1xZkFeLVCi ZGRkOyc+PHRhYmxlIHdp ZHRoPScxMDAlJyBzdHls CG0nWx1sWWLcNLNc dBucfNYvHlYxi1epZMWu EUzqOK1gnEwdI1PqdEY0 STObk3o1Px43X89lZ2Pg dXA+EYUmzRP0pST2 uA5mCwGnPeT8AOjgZ650 FmXscPJrXtdjo9duw7pv mKj4GcU9JZLfoeCmoHxz XRQ7w0JvLq86I33q IHdpZHRoPSIxNSUiIHZh mLhujy6bqZ1zNf1+PGNv rQI3eRI6pM9jGwSaNvK2 DZqaZ290DySflYXj Sgwyo4nmb1bjbZy6EbJs LGReqxPdoLjpCNQ8g7Oe Nd32D9FfxSutx8OnLtl0 bw51pJDet6J0xRI4 K4MoREIitumkrPVvjMav HY5tLZWmtdumMVWtnN9b ATXvP9r6FtTxGqD5EQnj Y7GhqeI0UVJnyWWx WPZxlGTTxA5hphrsh6dh gmpfQlQoBELoXXb4HDt0 EKSikHvrPqCkKHN0EoF2 MDM8eWCcwN5zvZlr bhtddG2lCzg+YAH5hIAp aSYXUI8wZrisiHY+PHRk WCU0rNozGDemUJBltE4p UJEtK0u4EqYuNcB4 OOvkF6EygaH8DJDsnNYi MQRpcRBDgC6qkqdnm7wy jfdxOoJnUDAqHHd5OSb3 LWFsaWduOiBsZWZ0 JuK9QYW0rFWoqJ5ztIyo npospG6vQnp+QmlydGgg GDB8IQf6E8PjHix7HZPp gBkgVS8gvTOuBTps Ev8zmDwlwHnoCS8dFDDz pvwsa001RuAnz6avJCXd oEHcSUgyJQI9M11pe8Q6 AGFjQYSbMNC0kSY4 zX2buOrgafdiuIQoaHqx ifIhzPvbEQamLKqlO047 ESPjiDrlVmQtQJt4F7Ai Zqg7GHYwcRnxZS1y kGHkFQsjBj6mtOoxcJuk XC0xNJDrvcomu692VyHc a6ybVTSmrZVtWSqxGFN5 J15wz5E0NDXvHNXf YTM3lHZ4lX8zbOutdebd bGVmdDsgdmVydGljYWwt OJmgN416DSRuoMmgQcTq qGg8A6YkRnc9LLAp eJxbKK4pdLSqFMhcPh0c eHansUkxLQ0fMKJvyzbm y634HwKlo7flXXCfaLIl JDihVXW2P29yi6E7 HOQzQYYuMKY9tRS1qQ9b bGlnbjogbGVmdDsgdmVy rRhnLOjlNQqbV852LGXp cDsnPlBhdGllbnQg JDinGMu9X0MtInlxhKH+ BF94PMFyDU10hRSpuMXl d4zlnOf3XwQtUPCaHFX7 dTfgYHfiq3XuXIGu H25qdLSex8L8KVYfvDxz uXKcKoOcyAE4hB9rLNlz msbow9sxxuvlFbmtz6vu ai59kM90E61nTQul ZHRoPSIzMCUiIHZhbGln bz5gaZ5fNb8+PGNvbCB3 pSN9gX3kBYMoVeO5YSbh P376TnMcyPIpVzgu t5bdo8ljfFg6AfK4FCKw wrVpeQrtBFA7f1LgEy16 E01xMLtrUXAtKEXeEUMx QBSdxNyxrz0huP3t Ii8+HUWjbGH1yDB7yK9i VxEqMkJ9QLykX782AvXz hVJmTqexH82uX2GysKL+ LCHdQcn7PAVvbTgd EG5xaZAtQCyfUi8oSCB9 SlObTyRoVAwbW7WoZKLd vhxnldhpoOD8NKRdIHGq iO75Qm6glMhhXXGs lPBPvA4fbkbvi1fvixkc IzYnZSDyGRz9FUy1UIGt bEawFtMbIUF7CoR7RSQ4 kMAklY8giRkrlvhf sN5bO6HzQFCknzphVu42 hR1aAvCaOjB4QLuhRsi+ UFJZQkEsIEFEUklBTkEg SjwvdGQ+PHRkIHN0 rNfgAOieYFGqwX0rXMCn I1m1RsJgTmI7BYniU4Ol BFUrzwqnTr36gN8hRoMq KsC6JCqkY7RafyY9 VAUghJRuKAyaYNN2Z97q i4Y4FLGzXOQpHBH1uGY2 iB3auDufdjfrpGFzfFwk dmVydGljYWwtYWxp Y899ZIFmkLthUaOlVwM2 ZzL0XKn1E7YxTol3ODCm fQotRO8xgBJoHHcjKw5m pDpsgAtsRX2dZLWy nnirXMSxkJ7hCEFqwSKk sFkgOV2xZWAbkskzc174 KwZhZCV2LWPwpACdH8Ik nS0iFrJfARSaUNGg M1WzsPQqOBkpR449NVxo VvP9CFGupcXhH0WfRIOn iTpcPiZ5m1B9Fd9fToBP ZWFyczwvdGQ+PHRk NTW9oOhsHSgmVYOjqO9s TTTgC2p6UaGlByJ3SZro B5EkDLGzbfmlNg33aM2a SaTuOaD7CFuzL5Yd haW7HAXzzRGoQOhpSEH1 N08qr1Z5NDIxLWFdQDA2 rGJ6qC7lfQntzwrknNWq dDsgdmVydGljYWwt AKcmQ523BMMkeDncJvBs bWFsZTwvdGQ+PHRkIHN0 eVqoEXgpJWStaB6nQWJa Z1g3ExByNxP8DZlt B7XpKOZubcvzIl67sO0c DjMaDwO7QDvvC4WsuhA4 BFFvnKYuRYbnXMT4E54z u0S1IREiLSSyRNV7 bNQ6pY7wdXenvdvgfILp dDsgdmVydGljYWwtYWxp N753MCGdlSlpFrGwDxCj WONivfaaA5UvWGDQ IMjdB8CoM1QecFesrGN+ KI81ql96G5NgPxcsPii5 GRGjYPR8nUW9zB5cSKIq ULpxp8T2vTM8S7Cc paWegy6fw2qaYPWpGXyq L09btCQlt3Y4IHKnkXS4 POYblMqkShKmnF38Vqe+ DAWflDkrp3SaCgcs o0dpt3vdwHs0MnSqITFw ogAcfQpvCZA6w4MbBi47 L85aSMgjVELyPGKqGIVu UCUceUqvfx6paG3d Ii8+ZZYppLE4mZQ2uG7c UhZwBpT0VYazY379ZhZx xKKzOznyr7awx6yqfTd2 IjIwJSIgdmFsaWdu QQC4v3RsTd35D9DlpMqz d8AgGbc2wf82vVOsb1K3 uHH5X5UrCCUbgjmgzQYx eLgxDZ9rTLVsubkc AVMixH6pAWDcK4d8HyKm VfU1VColT2ZsdeG0MDLl hADrMDFrvRSObX2vmcyo s7unbnhmPzQyLCKe ZDa4DQl4DTHbjJshRfZa JIT2IaG8FEK8fNRkpT4a mEgeyhbqvJ4zHor+UGh5 g8sfmMFrFE0gaAY8 IP92HZ08yWVjp7C1iDM9 Q3FiTYEjqilynmiuvIL7 ZBUkHAYoeE57Fy6liVlm Ln2rGBCyVSG0OQQn eARwT7VbxS2vExExHYGj AFYtV2MiwOPlNTsiG290 CKeeXyI4DIWoqdIgW1Sx ITYxbModIkI9h1J0 Uq1ZSR85JV95PT11jUYb r2O9dQO7J4ZdPSEizxin hawmeMY2WUAhJWUlfM96 Pb1sqRwlYx4yHUSs SMM8JYUelNNvU6SvgH2q XcIgSNHpQUSzL6PeqQOr YYwyX578WCivUrE8VBCl chZtZ7UsHLSchNbz UbX1c7M1Dg7JFk58QM66 JX25oGGdh7H6yQL2S9Uc CDNqsgfrsbalqIX7LUOl EFCieF16Mu3toQuy Kv2gSEZyFHV0DQUigVSa W3IcyW2hLwJxEJDfDQTv Y8HugQRdYUlyB899DNss CaL2GYXfzwSvQ9Qe VIRjpKovPuS4k2V1Yd5N YQateuj4H4VfNhwoxXH+ OZ31VRRkGS59mQWdrEHu v5mcdAg5TmVkWSLq ZVN1lBzm (more content not included)... Normal [facility] Lab Reportson 07-27-2022 Lab Reports [id number] #1.00CD:127 Normal [facility] Main OR Intraoperative Recor don 07-27-2022 Main OR Intraoperative Record IntraOp Document Type FT Summary Primary Physician: Liudmila Daniels MD Finalized Date/Time: 07/27/22 08:05:40 Pt. Name: CATIE LYONS /Sex: 1985 Female Med Rec #: [id number] Physician: Liudmila Daniels MD Financial #: [id number] Pt. Type: A Room/Bed: [facility] Admit/Disch: 07/23/22 11:44:51 - 07/23/22 16:20:00 Institution: [...] Case Attendee Sam SCHREIBER, Camilla Daniels MD, Liudmila Serna RN, Indra Crowe Role Performed ABDOUL Surgeon - Primary Unit Manager - Primary Time In 07/23/22 13:50:00 07/23/22 13:50:00 07/23/22 13:50:00 Time Out 07/23/22 14:46:00 07/23/22 14:46:00 07/23/22 14:46:00 Procedure CYSTOSCOPY RETROGRADE CYSTOSCOPY RETROGRADE CYSTOSCOPY RETROGRADE STENT INSERTION(Left), STENT INSERTION(Left), STENT INSERTION(Left), CYSTOSCOPY W/ HOMIUM CYSTOSCOPY W/ HOMIUM CYSTOSCOPY W/ HOMIUM LASER(Left) LASER(Left) LASER(Left) Comments Dr. Blunt supervising Last Modified By: Daphne CHAPARRO, Indra Serna RN, Indra Wilde RN 07/23/22 14:49:18 07/23/22 14:49:18 07/23/22 14:49:18 Entry 4 Entry 5 Entry 6 Case Attendee Patricia Maldonado CST, Renny Alvarado RT(R), Leisa Role Performed Scrub - Primary Proposal Coordinator Ortho Rn Time In 07/23/22 13:50:00 07/23/22 13:50:00 07/23/22 13:50:00 Time Out 07/23/22 14:46:00 07/23/22 14:46:00 07/23/22 14:46:00 Procedure CYSTOSCOPY RETROGRADE CYSTOSCOPY RETROGRADE CYSTOSCOPY RETROGRADE STENT INSERTION(Left), STENT INSERTION(Left), STENT INSERTION(Left), CYSTOSCOPY W/ HOMIUM CYSTOSCOPY W/ HOMIUM CYSTOSCOPY W/ HOMIUM LASER(Left) LASER(Left) LASER(Left) Comments Last Modified By: Daphne CHAPARRO, Indra Serna RN, Indra Wilde RN 07/23/22 14:49:18 07/23/22 14:49:18 07/23/22 14:49:18 Perioperative [...] Time Out Camilla Vargas CRNA, Lue MD, Daphne Goss RN, Joel Pride Jennifer E, Wilhelm CST, Christiano Lawson RT(R), Leisa Time Out Complete 07/23/22 14:03:00 Outcomes Met? [...] Surgeon Jeremiah DAY, Liudmila Daniels MD, Liudmila Haywood 07/23/22 14:04:00 07/23/22 14:04:00 Stop 07/23/22 14:40:00 [...] infection Sk (more content not included)... Normal [facility] Postoperative Documentson Postoperative Documents [id number] 8#1.00CD:127 [facility] Pre-Certification Formon Pre-Certification Form [id number] 0#1.00CD:127 [facility] RAD - CT Reporton 07-27-[address]22 RAD - CT Report [id number] #1.00CD:127 [facility] C Urineon 07-25-2022 Bacteria identified Cx [...] Locations R1: This test was performed at: [facility], [address] [place] [address], [address] [place] [address], [facility] Comment on above: Performed By: #### 2 [id number] ####[facility] [address] [place] [address] Consent for Anesthesiaon Consent for Anesthesia [id number] 7#1.00CD:127 [facility] Discharge Instructionson Discharge Instructions [id number] 5#1.00CD:127 [facility] IntraOperative Documentson 0 07-24-2022 IntraOperative Documents [id number] 8#1.00CD:127 [facility] IntraOperative Documents [id number] 1#1.00CD:127 [facility] Preoperative Documentson Preoperative Documents [id number] 1#1.00CD:127 [facility] XR Urography Retrograde Left on 07-24-2022 XR [...] Signed by: Renny Vazquez MD Transcribed by: DP Technologist: CC Technical Comments Radiation Dose: Kar in mGy = 7.30 DAP = 543.52 Normal [facility] Auto Diffon 07-23-2022 Basophils/100 WBC (Bld) 0.6 % Normal 0.0-2.0 [facility] Comment on above: Order Comment: Order Added by Discern Expert. Performed By: #### 2 407449, 4961815, 0052221, 55277891, [id number] #### [facility] [address] [place] [address] Basophils/Leukocytes Auto (Bld) [Pure # fraction] 0.1 E9/L Normal 0.0-0.2 [facility] Comment on above: Order Comment: Order Added by Discern Expert. Performed By: #### 2 647462, 2861835, 8251944, 77593990, 08207813 #### [facility] [address] [place] [address] Eosinophils/100 WBC (Bld) 1.6 % Normal 0.0-8.0 [facility] Comment on above: Order Comment: Order Added by Discern Expert. Performed By: #### 2 787915, 0248423, 7939683, 41739046, 57503654 #### [facility] [address] [place] [address] Eosinophils/Leukocyte s Auto (Bld) [Pure # fraction] 0.1 E9/L Normal 0.0-0.5 [facility] Comment on above: Order Comment: Order Added by Discern Expert. Performed By: #### 2 190106, 5631135, 1756595, 48258820, 01555609 #### [facility] [address] [place] [address] Lymphocytes/100 WBC (Bld) 24.5 % Normal 14.0-50.0 [facility] Comment on above: Order Comment: Order Added by Discern Expert. Performed By: #### 2 640683, 0136311, 9165628, 18029371, 04351065 #### [facility] [address] [place] [address] Lymphocytes/Leukocyte s Auto (Bld) [Pure # fraction] 2.2 E9/L Normal 1.0-4.0 [facility] Comment on above: Order Comment: Order Added by Discern Expert. Performed By: #### 2 419677, 9770739, 5656275, 88330429, 05961600 #### [facility] [address] [place] [address] Monocytes/100 WBC (Bld) 6.3 % Normal 4.0-14.0 [facility] Comment on above: Order Comment: Order Added by Discern Expert. Performed By: #### 2 713440, 1219614, 8682443, 07761834, 28855387 #### [facility] [address] [place] [address] Monocytes/Leukocytes Auto (Bld) [Pure # fraction] 0.6 E9/L Normal 0.2-1.0 [facility] Comment on above: Order Comment: Order Added by Discern Expert. Performed By: #### 2 361677, 9808067, 9732594, 01642859, 16028925 #### [facility] [address] [place] [address] Neutrophils/100 WBC (Bld) 67.0 % Normal 36.0-75.0 [facility] Comment on above: Order Comment: Order Added by Discern Expert. Performed By: #### 2 266278, 1654664, 2003107, 98007191, 53424411 #### [facility] [address] [place] [address] Neutrophils/Leukocyte s Auto (Bld) [Pure # fraction] 6.0 E9/L Normal 2.0-7.5 [facility] Comment on above: Order Comment: Order Added by Discern Expert. Performed By: #### 2 766065, 1189974, 8811763, 58289723, 57775837 #### [facility] [address] [place] [address] BMPon 07-23-2022 Anion gap [Moles/Vol] 12 mmol/L Normal 6-[address] [facility] Comment on above: Performed By: #### 2 003468, 5589036, 3919740, 40335354, 93627732 ####[facility] [address] [place] [address] Calcium [Mass/Vol] 9.2 mg/dL Normal 8.9-11.1 [facility] Comment on above: Performed By: #### 2 535676, 7570878, 7059343, 38762795, 94208110 ####[facility] [address] [place] [address] Chloride [Moles/Vol] 103 mmol/L Normal 101-111 [facility] Comment on above: Performed By: #### 2 652113, 4600637, 1902258, 67439144, 07150021 ####[facility] [address] [place] [address] CO2 [Moles/Vol] 23 mmol/L Normal 21-31 [facility] Comment on above: Performed By: #### 2 992166, 1004002, 3688915, 59330261, 94758844 ####[facility] [address] [place] [address] Creatinine [Mass/Vol] 1.2 mg/dL Normal 0.5-1.[address] [facility] Comment on above: Performed By: #### 2 550156, 3518766, 8582712, 00020946, 94681692 ####[facility] [address] [place] [address] Glucose [Mass/Vol] 87 mg/dL Normal 55-199 [facility] Comment on above: Result Comment: If t his glucose result represents a fasting glucose, interpretation should refer to the following reference range: 55-99 mg/dL Performed By: #### 2 974446, 3578144, 8382921, 73427537, 44306832 ####[facility] [address] [place] [address] Potassium [Moles/Vol] 4.4 mmol/L Normal 3.5-5.[address] [facility] Comment on above: Performed By: #### 2 585766, 6541334, 8441608, 17958115, 86122960 ####[facility] [address] [place] [address] Sodium [Moles/Vol] 134 mmol/L Low 135-145 [facility] Comment on above: Performed By: #### 2 372740, 5750988, 9128783, 38458809, 16277225 ####[facility] [address] [place] [address] Urea nitrogen [Mass/Vol] 16 mg/dL Normal 5-21 [facility] Comment on above: Performed By: #### 2 578607, 4414891, 1703184, 40821994, 47494037 ####[facility] [address] [place] [address] Urea nitrogen/Creatinine [Mass ratio] 13 No Units Normal 10-20 [facility] Comment on above: Performed By: #### 2 058660, 1903887, 5342110, 86728880, 36731878 ####[facility] [address] [place] [address] CBC w/ Auto Diffon 3 Erythrocyte distribution width (RBC) [Ratio] 13.1 % Normal 10.9-14.2 [facility] Comment on above: Performed By: #### 2 326725, 4690038, 2949543, 44023845, 02087335 #### [facility] [address] [place] [address] Hematocrit (Bld) [Volume fraction] 40.8 % Normal 34.0-46.0 [facility] Comment on above: Performed By: #### 2 812769, 4888070, 7202626, 42500034, 23508770 #### [facility] [address] [place] [address] Hemoglobin (Bld) [Mass/Vol] 13.7 g/dL Normal 12.0-16.0 [facility] Comment on above: Performed By: #### 2 362690, 2769076, 7348285, 90082824, 35853638 #### [facility] [address] [place] [address] MCH (RBC) [Entitic mass] 28.9 pg Normal 27.0-34.0 [facility] Comment on above: Performed By: #### 2 762603, 6444503, 3534332, 59587134, 81286149 #### [facility] [address] [place] [address] MCHC (RBC) [Mass/Vol] 33.6 g/dL Normal 31.4-36.[address] [facility] Comment on above: Performed By: #### 2 804752, 4163772, 5632765, 54093729, 94025697 #### [facility] [address] [place] [address] MCV (RBC) [Entitic vol] 86.0 fL Normal 80.0-100.0 [facility] Comment on above: Performed By: #### 2 044463, 7757201, 2554096, 88769254, 71648175 #### [facility] [address] [place] [address] Platelet mean volume (Bld) [Entitic vol] 6.8 fL Normal 6.4-10.8 [facility] Comment on above: Performed By: #### 2 651412, 9565110, 7186716, 04492601, 79841549 #### [facility] [address] [place] [address] Platelets (Bld) [#/Vol] 276.0 E9/L Normal 150.0-500.0 [facility] Comment on above: Performed By: #### 2 115284, 4982295, 4738297, 83843097, 31592551 #### [facility] [address] [place] [address] RBC (Bld) [#/Vol] 4.7 E12/L Normal 4.3-5.9 [facility] Comment on above: Performed By: #### 2 704383, 9496997, 0482888, 84703656, 60709432 #### [facility] [address] [place] [address] WBC corrected for nucl RBC Auto (Bld) [#/Vol] 8.9 E9/L Normal 4.0-11.0 [facility] Comment on above: Performed By: #### 2 855115, 1232869, 4174607, 14427343, 80561961 #### [facility] [address] [place] [address] CHEMISTRYOrdered By: SYSTEM SYSTEM on 07-23-2022 Anion gap [Moles/Vol] 12 mmol/L Normal 6 - 16 mEq/L [facility] [place] Remisol Calcium [Mass/Vol] 9.2 mg/dL Normal 8.9 - 11. 1 mg/dL FT [facility] Chloride [Moles/Vol] 103 mmol/L Normal 101 - 1 11 mmol/L FT Remisol CO2 [Moles/Vol] 23 mmol/L Normal 21 - 31 mmol/L FT Remisol Creatinine [Mass/Vol] 1.2 mg/dL Normal 0.5 - 1.3 mg/dL FT Remisol GFR/1.73 sq M.predicted among non-blacks MDRD (S/P/Bld) [Vol rate/Area] 60 mL/min/1.73 m2 Normal >=59mL/min/1 .73 m2 [facility] [place] Chem S Glucose [Mass/Vol] 87 mg/dL Normal 55 - 199 mg/dL FT Remisol Potassium [Moles/Vol] 4.4 mmol/L Normal 3.5 - 5.3 mmol/L [facility] [place] Remisol Sodium [Moles/Vol] 134 mmol/L Low 135 - 145 mmol/L [facility] [place] Remisol Urea nitrogen [Mass/Vol] 16 mg/dL Normal 5 - 21 mg/dL [facility] [place] Remisol Urea nitrogen/Creatinine [Mass ratio] 13 mg/mg Normal 10 - 20 [facility] [place] Remisol COAGULATIONOrdered By: Santi Hampton on 07-23-2022 aPTT Coag (PPP) [Time] 35.9 s Normal 25.1 - 36.5 second(s) [facility] [place] [place] Auto Coag INR Coag (PPP) [Relative time] 1.1 {INR} Invalid Interpretation Code [facility] [place] [place] Auto Coag PT Coag (PPP) [Time] 12.3 s Normal 9.4 - 1 2.5 second(s) [facility] [place] Auto Coag Consent for Procedure/Surger yon 07-23-2022 Consent for Procedure/Surgery [id number]#1.00CD:127 Normal [facility] Consent for Treatmenton Consent for Treatment [id number] #1.00CD:127 Normal [facility] Discharge Instructionson Discharge Instructions CATIE LYONS :1985 Visit Date:07/23/2022 Inpatient Discharge Instructions Your Care Team Admitting Physician - Liudmila Daniels MD Referring Physician - Liudmila Daniels MD Reason for Your Visit LEFT KIDNEY STONE [...] 12 hours Duration: 5 Days Pickup at [facility] #[id number] New oxybutynin (oxybutynin 5 mg Tab) 1 Tablets By Mouth 3 times a day as needed for Urinary discomfort Refills: 1 Bladder spasms, stent irritation Pickup at [facility] #[id number] New tamsulosin (tamsulosin 0.4 mg Cap) 1 Capsules By Mouth Every day as needed for Urinary discomfort Refills: 1 Stent pain Pickup at [facility] #[id number] Changed quetiapine (SEROquel 200 mg Tab) 200 [...] Tablets By Mouth Every day Pharmacy Information [facility] #[id number]: [address], [place] [id number] [phone] Test Results CBC BMP WBC: 8.9 E9/L (07/23/22 12:26:00) Glucose Lvl: 87 mg/dL (07/23/22 12:26:00) RBC: 4.7 E12/L (07/23/22 12:26:00) BUN: 16 mg/dL (07/23/22 12:26:00) HGB: 13.7 gm/dL (07/23/22 12:26:00) Creatinine: 1.2 mg/dL (07/23/22:26:00) Hct: 40.8 % (07/23/22 12:26:00) BUN/Creat Ratio: [...] mEq/L (07/23/22 12:26:00) MPV: 6.8 fL (07/23/22 12:26:00) Calcium Lvl: 9.2 mg/dL (07/23/22 12:26:00) Allergies No Known Medication Allergies Problems Ongoing - Any problem that you are currently receiving treatment for. Headache History of kidney stones Kidney stones Psychiatric illness Smoker Ureteral stone with hydronephrosis Devices Implanted/Removed This Visit Implanted CYSTOSCOPY RETROGRADE STENT INSERTION Ureter L STENT CONTOUR URETERAL 6.0 X 22-30MM [[id number]] 07/23/2022, MR Winston - HORACIO: {[id number]{1 [id number] Education [employer] [facility] [place], [place] Post-operative Instructions for Ureteroscopy, Laser Lithotripsy, Stone Extraction and Stent Placement There are no incisions or dressings to be c (more content not included)... Normal [facility] Comment on above: Result Comment: Elec tronically Signed By: Isacc CHAPARRO, Elva Walker\.br\Date and Time Signed: 07/23/22 15:43 EDT H&P Updateon 07-23-2022 H&P Update [id number] 9#1.00CD:127 Normal [facility] HEMATOLOGYOrdered By: SYSTEM SYSTEM on 07-23-2022 Basophils/100 [...] 8.9 E9/L Normal 4.0 - 11.0 E9/L [facility]eAutoSS Inpatient Patient Summaryon 07-23-2022 Inpatient Patient Summary [address] [address] [facility] Clinical Discharge Instructions PERSON INFORMATION Name: CATIE LYONS PH[facility]ICIANS Admitting Physician: Liudmila Daniels MD Attending Physician: Liudmila Daniels MD PCP: NONE, XXXX Discharge Diagnosis: Kidney stones; Ureteral stone with hydronephrosis Comment: PATIENT EDUCATION INFORMATION Instructions: Fauu-Dekk-hz Utereroscopy,Lithotr ipsy, Stone Extraction, Stent Placement (CUSTOM); Dietary Guidelines to Help Prevent Kidney Stones Medication Leaflets: Follow up: With: Address: When: Liudmila Daniels Comments: Office will call to schedule left ureteroscopy, laser lithotripsy, stent exchange in 2 weeks MEDICATION LIST New Medications [facility] #[id number], [address], [place] [id number], [phone] ciprofloxacin (Cipro 500 mg Tab) 1 Tablets [...] Tablets By Mouth every day. Comment: [facility] Main OR PACU I [facility] Main OR PACU I Record PACU Phase I Document Type FT Summary Primary Physician: Liudmila Daniels MD Finalized Date/Time: 07/23/22 15:29:44 Pt. Name: CATIE LYONS Abdirahman Archer/Sex: 1985 Female Med Rec #: [id number] Physician: Liudmila Daniels MD Financial #: [id number] Pt. Type: A Room/Bed: 06/20 Admit/Disch: 07/23/22 11:44:51 - Institution: Case Times [...] By: Patricia Moore RN 07/23/22 15:29 Normal [facility] Main OR PACU II [facility] Main OR PACU II Record PACU Phase II Document Type FT Summary Primary Physician: Liudmila Daniels MD Finalized Date/Time: 07/23/22 16:23:00 Pt. Name: ELOYCATIE./Sex: 1985 Female Med Rec #: [id number] Physician: Liudmila Daniels MD Financial #: [id number] Pt. Type: A Room/Bed: [place] [address] Admit/Disch: 07/23/22 11:44:51 - 07/23/22 16:20:00 Institution: [...] Signed By: Elva Dexter RN 07/23/22 16:23 [facility] Main OR Preoperative Recordo n 07-23-2022 Main OR Preoperative Record PreOp Document Type FT Summary Primary Physician: Liudmila Daniels MD Finalized Date/Time: 07/23/22 14:26:45 Pt. Name: CUONG LYONSJUAN Archer/Sex: 1985 Female Med Rec #: [id number] Physician: Liudmila Daniels MD Financial #: [id number] Pt. Type: A Room/Bed: [facility] Admit/Disch: 07/23/22 11:44:51 - Institution: Case Times [...] Signed By: Indra Serna RN 07/23/22 14:26 [facility] Monitor Recordon 07-23-2022 Monitor Record [id number] 9#1.00CD:127 Normal [facility] Monitor Record [id number] 1#1.00CD:127 Normal [facility] Operative Reporton 3 Operative Report Patient: CATIE LYONS Age: 37 years Sex: Female : 1985 Associated Diagnoses: None Author: Liudmila Daniels MD Procedure Procedure Date: 07/23/2022. Confirmed: patient, procedure, side, site, safety procedures followed. Performed by: Liudmila Daniels MD, anesthesiologist (Camilla Vargas CRNA, Dr. Blunt). Type of procedure: Cystoscopy, left retrograde pyelogram, [...] lidocaine gel per urethra, using a 22.5 Italian rigid cystoscope and inserted this into the bladder with minimal manipulation. We noted a normal appearance of the urethra en route to the bladder. Once inside the bladder, a cystoscopic examination revealed no evidence of erythematous patches or plaques, foreign bodies, stones or papillary lesion. A 6 Italian open-ended catheter was inserted into the left ureteral orifice followed by injection of contrast with findings as above. A straight sensor wire was inserted up the catheter and fluoroscopy was used to confirm its coiling within the kidney. We then removed the catheter from the patient and left the sensor wire behind. Next a 10/12 Italian x 35cm ureteral access sheath was gently [...] X 2 (more content not included)... Normal [facility] Comment on above: Result Comment: Elec tronically Signed By: Jeremiah DAY, Liudmila Emery\.br\Date and Time Signed: 07/23/22 15:06 EDT Outpatient Surgery Discharge Instructionon 07-23-2022 Outpatient Surgery Discharge Instruction [place] [id number] Patient Discharge Instructions PERSON INFORMATION Name: CATIE LYONS Date of : 1985 Current Date: 07/23/2022 [...] THE NEAREST EMERGENCY ROOM OR CALL 911 I, CATIE LYONS, have received the attached patient education materials/instructio [...] to serve you. Thank you for choosing [facility] HERE ARE THE MEDICATION CHANGES THAT OCCURRED DURING YOUR HOSPITAL STAY New Medications [id number], [address], [place] [id number], [phone] ciprofloxacin (Cipro 500 mg Tab) 1 Tablets [...] day. PATIENT EDUCATION INFORMATION Instructions: [facility] [place], [place] Post-operative Instructions for Ureteroscopy, Laser Lithotripsy, [...] other reasons. 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 Diet You may resume your normal diet, but you may want to start slowly and avoid spicy food, caffeine, carbonated beverages and alcohol, especially if yo (more content not included)... Normal [facility] PT & PTTon 07-23-2022 aPTT Coag (PPP) [Time] 35.9 second(s) Normal 25.1-36.5 [facility] Comment on above: Result Comment: Para meter [...] the same coagulation reagent and instrumentation as [facility]. Currently there are no coagulation studies available worldwide for children to 14 days, and no normal ranges. Heparin therapeutic range (represented by Anti-Factor Xa activity of 0.2 - 0.4 U/mL) corresponds to PTT of 56.6 - 109.0 sec. Performed By: #### 2 [id number], [id number], [id number], [id number], [id number] #### [facility] [address] [place] [address] INR Coag (PPP) [Relative time] 1.1 {INR} Invalid Interpretation Code [facility] Comment on above: Result Comment: INR results are specifically intended to assess patients stabilized on long-term Anticoagulation therapy suggested INR?s ?Less Intensive Anticoagulation? 2.0 ? 3.0 Conventional Range 3.0 ? 4.5 Performed By: #### 2 [id number], [id number], [id number], [id number], [id number] #### [facility] [address] [place] [address] PT Coag (PPP) [Time] 12.3 second(s) Normal 9.4-12.5 [facility] Comment on above: Result Comment: 15 d [...] the same coagulation reagent and instrumentation as [facility]. Currently there are no coagulation studies available worldwide for children to 14 days, and no normal ranges. Performed By: #### 2 675714, [id number], [id number], [id number], [id number] #### [facility] [address] [place] [address] Patient Education - Texton 0 07-23-2022 Patient [...] Spinach (cooked), rhubarb, beets, sweet potatoes, and [place] chard. ? Peanuts. ? Potato chips, tajik fries, and baked potatoes with skin on. ? Nuts and nut products. ? Chocolate. ? If you regularly take a diuretic medicine, make sure to eat at least 1 or 2 servings of fruits or vegetables that are high in potassium each day. These include: ? Avocado. ? Banana. ? Canvas, prune, carrot, or tomato juice. ? Baked [...] fish oil, or vitamin B6. ? Take geou-kla-afyyvmb and prescription medicines only as told by your health care provi (more content not included)... Normal [facility] Progress Note-Nurseon 2022 Progress Note-Nurse Pt went [...] Pt verbalized understanding and agreed to sign. Normal [facility] Progress Note-Physicianon Progress Note-Physician Patient: CATIE LYONS Age: 37 years Sex: Female : 1985 Associated Diagnoses: None Author: Rico Blunt MD Postoperative Information Postoperative disposition: Postoperative disposition: To PACU. Optimetrix number: Optimetrix number [id number]. Anesthetic utilized: General. Physical Examination Vital Signs [...] Ambulatory Surgery Unit, and To home ). Normal [facility] Comment on above: Result Comment: Elec [...] pain management plan. Re-evaluation prior to induction: Merlene DAY, Rico Orlando. Initial evaluation reviewed: No significant change. Review [...] list: All Problems Headache / SNOMED CT 72560699 / Confirmed History of kidney stones / SNOMED CT 2110682023 / Confirmed Kidney stones / SNOMED CT 235928817 / Confirmed Psychiatric illness / SNOMED CT 350408115 / Confirmed Smoker / SNOMED CT 227995883 / Confirmed Added secondary to documentation in Social History. Ureteral stone with hydronephrosis / SNOMED CT 68506494 / Confirmed, Active Problems (6) Headache History [...] Dosing 179.0 cm Weight Dosing 106.3 kg [place] Body Weight Calculated 69.587 kg BSA Measured [...] in all extremities. Gastrointestinal: Soft, Non-tender. Plan [place] [employer] Anesthesiologists (ASA) physical status classification: Class II. Anesthetic Preoperative Plan: Anesthesia General. Normal [facility] Comment on above: Result Comment: Elec tronically Signed By: Merlene DAY, Rico Sung.kendrick\Date and Time Signed: 07/23/22 13:21 EDT SEROLOGYOrdered By: Basia Ferguson on 07-23-2022 HCG.beta subunit (U) [Moles/Vol] Negative Normal [facility] Man Sero U BetaHcg Qualon 07-23-2022 HCG.beta subunit (U) [Moles/Vol] Negative Normal [facility] Comment on above: Performed By: #### 2 [id number] ####[facility] [address] [place] [address] XR Abdomen 1 Viewon 07-24-19 23 XR Abdomen 1 View Exam Date/Time: 07/23/2022 [...] mGy = na DAP = na Normal [facility] eGFRon 07-23-2022 GFR/1.73 sq M.predicted among non-blacks MDRD (S/P/Bld) [Vol rate/Area] 60 mL/min/1.73 m2 Normal >=59 [facility] Comment on above: Order Comment: Order added by Discern Expert. Result Comment: Shoe Repair Supervisor fortino kidney disease could be indicated at eGFR's of less than 60 mL/min/1.73m2. Kidney failure is indicated at less than 15 mL/min/1.73m2. Performed By: #### 2 [id number], [id number], [id number], [id number], [id number] ####[facility] [address] [place] [address] Ambulatory Visit Summaryon 0 07-22-2022 Ambulatory Visit Summary CATIE LYONS :1985 Visit Date:07/22/2022 Ambulatory Visit Instructions Your Diagnosis Ureteral stone with hydronephrosis Kidney stones History of kidney stones Tests Performed Urnls Dip Stick Auto w/o Microscopy POC 71344 Your Care Team Attending Physician - Jeremiah DAY, Liudmila Emery This Is Your Medications List Contact prescribing [...] Schedule the Following Appointments Follow Up with Jeremiah DAY, Liudmila Emery, URL, URO When: Where: Medications What How [...] Urnls Dip Stick Auto w/o Microscopy POC 00916 (07/22/2022) Bilirubin Urine Dipstick - Negative Blood Urine Dipstick - Negative Glucose Urine Dipstick - Negative Ketones Urine Dipstick - Negative Leukocytes Urine Dipstick - Trace Protein Urine Dipstick - Negative Specific [place] Urine Dipstick - >=1.030 Urine Appearance Urine [...] including vitamins, herbs, eye drops, creams, and drim-iiw-ahtzyyh medicines. ? Any problems you or family [...] as aspi (more content not included)... Normal [facility] Formson 07-22-2022 Forms [id number] 8#1.00CD:127 Normal [facility] Patient Educationon 07-23-19 23 Patient Education Nephrology [...] including vitamins, herbs, eye drops, creams, and rrwl-qew-knsjidd medicines. ? Any problems you or family [...] tells you to take them. ? Taking rvyt-ieo-qxcdkfo medicines, vitamins, herbs, and supplements. Eating and [...] the pieces (more content not included)... Normal [facility] Screenson 07-22-2022 Screens [id number] 5#1.00CD:127 Normal [facility] Urology Office/Clinic Noteon 07-22-2022 Urology Office/Clinic Note Chief Complaint New Pt HPI Staff New Pt. Pt was seen at [facility] on 07/15/22 due to left flank [...] yo female new pt following up to [facility] ER visit on 07/15/22 due to L flank pain that radiated to LLQ. Was sent home with Zofran, [facility], Flomax, and prophy Keflex. ICIQ-SF 0. Denies hx [place], stroke or DM. Not on AC No [...] order Gen (more content not included)... Normal [facility] Comment on above: Result Comment: Elec tronically Signed By: Liudmila Daniels MD\.br\Date and Time Signed: 07/22/22 11:38 EDT\.br\Electronically Co-Signed By: Monserrat Segal\.br\Date and Time Co-Signed: 07/22/22 10:01 EDT CBC AUTO DIFFon 07-15-2022 BASO # 0.0 103/ul Normal 0.0-0.1 [facility] Comment on above: Performed By: #### C BC #### [facility] [address] [address] [address] Marcy Alvarez Basophils/100 WBC (Bld) 0.2 % Normal 0.2-2.0 [facility] Comment on above: Performed By: #### C BC #### [facility] [address] [place] [address] Dr. Marcy Alvarez EO # 0.0 103/ul Normal 0.0-0.7 [facility] Comment on above: Performed By: #### C BC #### [facility] [address] [place] [address] Dr. Marcy Alvarez Eosinophils/100 WBC (Bld) 0.3 % Critically low 0.9-7.0 [facility] Comment on above: Performed By: #### C BC #### [facility] [address] [place] [address] Dr. Marcy Alvarez Erythrocyte distribution width (RBC) [Ratio] 12.6 % Normal 11.0-15.0 [facility] Comment on above: Performed By: #### C BC #### [facility] [address] [place] [address] Dr. Marcy Alvarez Hematocrit (Bld) [Volume fraction] 42.1 % Normal 36.0-48.0 [facility] Comment on above: Performed By: #### C BC #### [facility] [address] [place] [address] Dr. Marcy Alvarez Hemoglobin (Bld) [Mass/Vol] 14.3 g/dL Normal 12.0-16.0 [facility] Comment on above: Performed By: #### C BC #### [facility] [address] [place] [address] Dr. Marcy Alvarez IG # 0.04 10e3/ul Critically high 0.00-0.03 [facility] Comment on above: Performed By: #### C BC #### [facility] [address] [place] [address] Dr. Marcy Alvarez IG % 0.3 % Normal 0.0-0.5 [facility] Comment on above: Performed By: #### C BC #### [facility] [address] [place] [address] Dr. Marcy Alvarez LYMPH # 1.4 103/ul Normal 1.2-3.8 [facility] Comment on above: Performed By: #### C BC #### [facility] [address] [place] [address] Dr. Marcy Alvarez Lymphocytes/100 WBC (Bld) 11.6 % Critically low 20.5-60.0 [facility] Comment on above: Performed By: #### C BC #### [facility] [address] [place] [address] Dr. Marcy Alvarez MANUAL DIFF REQ NO Normal [facility] Comment on above: Performed By: #### C BC #### [facility] [address] [place] [address] Dr. Marcy Alvarez MCH (RBC) [Entitic mass] 29.2 pg Normal 26.7-34.0 [facility] Comment on above: Performed By: #### C BC #### [facility] [address] [place] [address] Dr. Marcy Alvarez MCHC (RBC) [Mass/Vol] 34.0 g/dL Normal 29.9-35.2 [facility] Comment on above: Performed By: #### C BC #### [facility] [address] [place] [address] Dr. Marcy Alvarez MCV (RBC) [Entitic vol] 85.9 fL Normal 81.0-99.0 [facility] Comment on above: Performed By: #### C BC #### [facility] [address] [place] [address] Dr. Marcy Alvarez MONO # 0.7 103/ul Normal 0.3-0.8 [facility] Comment on above: Performed By: #### C BC #### [facility] [address] [place] [address] Dr. Macry Alvarez Monocytes/100 WBC (Bld) 6.1 % Normal 1.7-12.0 [facility] Comment on above: Performed By: #### C BC #### [facility] [address] [place] [address] Dr. Marcy Alvarez NEUT # 9.6 103/ul Critically high 1.4-6.5 [facility] Comment on above: Performed By: #### C BC #### [facility] [address] [address] [address] Marcy Alvarez Neutrophils/100 WBC (Bld) 81.5 % Critically high 43.0-75.0 [facility] Comment on above: Performed By: #### C BC #### [facility] [address] [place] [address] Dr. Marcy Alvarez Platelet mean volume (Bld) [Entitic vol] 8.7 fL Critically low 9.5-13.5 [facility] Comment on above: Performed By: #### C BC #### [facility] [address] [address] [address] Marcy Alvarez PLT 238 103/ul Normal 150-450 [facility] Comment on above: Performed By: #### C BC #### [facility] [address] [place] [address] Dr. Marcy Alvarez RBC 4.90 106/ul Normal 4.20-5.40 [facility] Comment on above: Performed By: #### C BC #### [facility] [address] [place] [address] Dr. Marcy Alvarez WBC 11.7 103/ul Critically high 4.0-11.[address] [facility] Comment on above: Performed By: #### C BC #### [facility] [address] [place] [address] ABD/PELVIS WO CONon [...] MAL TOSCANO Date: 2022-07-15 09:54 Normal [facility] ER URINE PROFILEon 3 Bilirubin Ql (U) Negative Normal NEGATIVE [facility] Comment on above: Performed By: #### E RUR #### [facility] [address] [place] [address] Dr. Marcy Alvarez Clarity (U) CLEAR Normal CLEAR [facility] Comment on above: Performed By: #### E RUR #### [facility] [address] [place] [address] Dr. Marcy Alvarez Color (U) LT. YELLOW Normal YELLOW [facility] Comment on above: Performed By: #### E RUR #### [facility] [address] [place] [address] Dr. Marcy Alvarez ERUAHD A micrscopic examination will be performed if indicated. Normal [facility] Comment on above: Performed By: #### E RUR #### [facility] [address] [place] [address] Dr. Marcy Alvarez Glucose Ql (U) Negative Normal NEGATIVE [facility] Comment on above: Performed By: #### E RUR #### [facility] [address] [place] [address] Dr. Marcy Alvarez Hemoglobin Ql (U) Negative Normal NEGATIVE [facility] Comment on above: Performed By: #### E RUR #### [facility] [address] [place] [address] Dr. Marcy Alvarez Ketones Ql (U) Negative Normal NEGATIVE [facility] Comment on above: Performed By: #### E RUR #### [facility] [address] [place] [address] Dr. Marcy Alvarez LEUKOCYTES Negative Normal NEGATIVE [facility] Comment on above: Performed By: #### E RUR #### [facility] [address] [place] [address] Dr. Marcy Alvarez Nitrite Ql (U) Negative Normal NEGATIVE [facility] Comment on above: Performed By: #### E RUR #### [facility] [address] [place] [address] Dr. Marcy Alvarez pH (U) 6.0 [pH] Normal 5-9 [facility] Comment on above: Performed By: #### E RUR #### [facility] [address] [place] [address] Dr. Marcy Alvarez SPEC GRAVITY 1.025 Normal 1.005-<=1.02 5 [facility] Comment on above: Performed By: #### E RUR #### [facility] [address] [place] [address] Dr. Marcy Alvarez UA PROTEIN Negative Normal NEGATIVE/ TRACE [facility] Comment on above: Performed By: #### E RUR #### [facility] [address] [place] [address] Dr. Marcy Alvarez UR MICRO IND NOT INDICATED Normal [facility] Comment on above: Performed By: #### E RUR #### [facility] [address] [place] [address] Dr. Marcy Alvarez Urobilinogen Qn (U) 0.2 {Maddie'U}/dL Normal 0.2 - 1. 0 [facility] Comment on above: Performed By: #### E RUR #### [facility] [address] [place] [address] Dr. Marcy Alvarez LIPASEon 07-15-2022 Lipase [Catalytic activity/Vol] 63.0 U/L Critically low 73.0-393.0 [facility] Comment on above: Performed By: #### C MP, LIPA #### [facility] [address] [place] [address] Dr. Marcy Alvarez PROF 14(COMP METB)on 023 Albumin [Mass/Vol] 3.5 g/dL Normal 3.4-5.0 [facility] Comment on above: Performed By: #### C MP, LIPA #### [facility] [address] [place] [address] Dr. Marcy Alvarez Albumin/Globulin [Mass ratio] 0.9 {ratio} Normal [facility] Comment on above: Performed By: #### C MP, LIPA #### [facility] [address] [place] [address] Dr. Marcy Alvarez ALP [Catalytic activity/Vol] 131 U/L Critically high 46-116 [facility] Comment on above: Performed By: #### C MP, LIPA #### [facility] [address] [place] [address] Dr. Marcy Alvarez ALT [Catalytic activity/Vol] 30 U/L Normal 14-59 [facility] Comment on above: Performed By: #### C MP, LIPA #### [facility] [address] [place] [address] Dr. Marcy Alvarez Anion gap [Moles/Vol] 13.0 mmol/L Normal [facility] Comment on above: Performed By: #### C MP, LIPA #### [facility] [address] [place] [address] Dr. Marcy Alvarez AST [Catalytic activity/Vol] 22 U/L Normal 15-37 [facility] Comment on above: Performed By: #### C MP, LIPA #### [facility] [address] [place] [address] Dr. Marcy Alvarez Bilirubin [Mass/Vol] 0.4 mg/dL Normal 0.2-1.0 [facility] Comment on above: Performed By: #### C MP, LIPA #### [facility] [address] [place] [address] Dr. Marcy Alvarez Calcium [Mass/Vol] 9.1 mg/dL Normal 8.5-10.1 [facility] Comment on above: Performed By: #### C MP, LIPA #### [facility] [address] [address] [address] Marcy Alvarez Chloride [Moles/Vol] 101 mmol/L Normal 98-107 [facility] Comment on above: Performed By: #### C MP, LIPA #### [facility] [address] [address] [address] Marcy Alvarez CO2 [Moles/Vol] 25.9 mmol/L Normal 21.0-32.[address] [facility] Comment on above: Performed By: #### C MP, LIPA #### [facility] [address] [place] [address] Dr. Marcy Alvarez Creatinine [Mass/Vol] 1.09 mg/dL Critically high 0.55-1.02 [facility] Comment on above: Performed By: #### C MP, LIPA #### [facility] [address] [place] [address] Dr. Marcy Alvarez EGFR-AF PARAGUAYAN >60 Normal >=[address] [facility] Comment on above: Performed By: #### C MP, LIPA #### [facility] [address] [place] [address] Dr. Marcy Alvarez EGFR-NON AF PARAGUAYAN 57 mL/min/1.73m2 Critically low >=60 [facility] Comment on above: Performed By: #### C MP, LIPA #### [facility] [address] [place] [address] Dr. Marcy Alvarez Globulin (S) [Mass/Vol] 4.0 g/dL Normal [facility] Comment on above: Performed By: #### C MP, LIPA #### [facility] [address] [place] [address] Dr. Marcy Alvarez Glucose [Mass/Vol] 111 mg/dL Critically high 74-106 [facility] Comment on above: Performed By: #### C MP, LIPA #### [facility] [address] [address] [address] Marcy Alvarez Potassium [Moles/Vol] 3.9 mmol/L Normal 3.5-5.1 [facility] Comment on above: Performed By: #### C MP, LIPA #### [facility] [address] [place] [address] Dr. Marcy Alvarez Protein [Mass/Vol] 7.5 g/dL Normal 6.4-8.2 [facility] Comment on above: Performed By: #### C MP, LIPA #### [facility] [address] [place] [address] Dr. Marcy Alvarez Sodium [Moles/Vol] 136 mmol/L Normal 136-145 [facility] Comment on above: Performed By: #### C MP, LIPA #### [facility] [address] [place] [address] Dr. Marcy Alvarez Urea nitrogen [Mass/Vol] 13.0 mg/dL Normal 7.0-18.0 [facility] Comment on above: Performed By: #### C MP, LIPA #### [facility] [address] [place] [address] Dr. Marcy Alvarez Urea nitrogen/Creatinine [Mass ratio] 11.9 mg/mg Normal [facility] Comment on above: Performed By: #### C MP, LIPA #### [facility] [address] [place] [address] Dr. Marcy Alvarez MRI BRAIN WO W CONon 02-05-2 022 MRI BRAIN WO W CON EXAMINATION: [...] HILDA RUBIO Date: 2022-02-05 06:25 Normal [facility] COVID Quick Testingon 2020 Result Negative [employer] Other ACETAMINOPHENon 03-08-2018 Acetaminophen mass conc <10 Low 10-30 [facility] Comment on above: Order Comment: No: D o not add to previous draw Performed By: #### 2 9772, , 03041, 92829, 91751, 36108, 88977, 00018 #### [facility] [address] [place] [address], [place] BASIC METABOLIC PANELon 02-19 Calcium mass conc 9.8 mg/dL Normal 8.6-10.3 The [facility] Comment on above: Order Comment: No: D o not add to previous draw Performed By: #### 2 73, , 19494, 76650, 08526, 73912, 67355, 75568 #### [facility] [address] [place] [address], [place] Chloride molar conc 105 mmol/L Normal 98-107 The [facility] Comment on above: Order Comment: No: D o not add to previous draw Performed By: #### 2 73, , , 83721, 21223, 85842, 56939, 57278 #### [facility] [address] [place] [address], [place] CO2 molar conc 24 mmol/L Normal 21-31 The [facility] Comment on above: Order Comment: No: D o not add to previous draw Performed By: #### 2 9773, , 51291, 44360, 26804, 01442, 89284, 45592 #### [facility] [address] [place] [address], [place] Creatinine mass conc 0.53 mg/dL Low 0.60-1.20 [facility] Comment on above: Order Comment: No: D o not add to previous draw Performed By: #### 2 9773, , , 82524, 06993, 62633, 76635, 84561 #### [facility] [address] [place] [address], [facility] GFR/1.73 sq M predicted among blacks MDRD vol rate/area (S/P/Bld) mL/min/{1.73_m2} Normal >60 The [facility] Comment on above: Order Comment: No: D o not add to previous draw Performed By: #### 2 9773, , , 84007, 21986, 37126, 08216, 92199 #### [facility] [address] [facility] [place] [address], [facility] GFR/1.73 sq M predicted among non-blacks MDRD vol rate/area (S/P/Bld) mL/min/{1.73_m2} Normal >60 The [facility] Comment on above: Order Comment: No: D o not add to previous draw Performed By: #### 2 9773, , 52073, 74487, 97758, 35331, 19776, 82962 #### [facility] [address] [place] [address], [facility] Glucose mass conc 101 mg/dL High 70-100 [facility] Comment on above: Order Comment: No: D o not add to previous draw Performed By: #### 2 73, , , 42558, 21899, 00155, 43328, 02836 #### [facility] [address] [place] [address], [facility] Potassium molar conc 4.1 mmol/L Normal 3.5-5.1 [facility] Comment on above: Order Comment: No: D o not add to previous draw Performed By: #### 2 9772, , , 97776, 06338, 14026, 14620, 22479 #### [facility] [address] [facility] Sodium molar conc 138 mmol/L Normal 136-145 [facility] Comment on above: Order Comment: No: D o not add to previous draw Performed By: #### 2 9773, , 85079, 60621, 53532, 07174, 45942, 74567 #### [facility] [address] [facility]. [address] Urea nitrogen mass conc 8 mg/dL Normal 7-25 The [facility] Comment on above: Order Comment: No: D o not add to previous draw Performed By: #### 2 9773, , 17339, 59084, 50353, 86516, 11547, 40192 #### [facility] [address] [facility] CBC W/DIFFon 03-08-2018 ABS BASOPHILS 0.1 10*3/uL Normal 0.0-0.2 The [facility] Comment on above: Order Comment: No: D o not add to previous draw Performed By: #### 5 0103 #### [facility] [address] [facility] ABS IMM GRANS 0.0 10*3/uL Normal 0.0-0.2 [facility] Comment on above: Order Comment: No: D o not add to previous draw Performed By: #### 5 0103 #### [facility] [address] [facility] ABS NEUTROPHILS 6.8 10*3/uL Normal 1.6-7.6 The [facility] Comment on above: Order Comment: No: D o not add to previous draw Performed By: #### 5 0103 #### [facility] [address] [facility] Basophils #/vol (Bld) 0.5 % Normal 0.0-1.0 The [facility] Comment on above: Order Comment: No: D o not add to previous draw Performed By: #### 5 0103 #### [facility] [address] [place] [address], [facility] Eosinophils #/vol (Bld) 0.1 10*3/uL Normal 0.0-0.5 The [facility] Comment on above: Order Comment: No: D o not add to previous draw Performed By: #### 5 0103 #### [facility] [address] [facility] [place] [address], [facility] Eosinophils/100 WBC (Bld) 0.8 % Normal 0.0-6.0 The [facility] Comment on above: Order Comment: No: D o not add to previous draw Performed By: #### 5 0103 #### [facility] [address] [facility] [address] Erythrocyte distribution width Ratio (RBC) 12.5 % Normal 11.5-15.0 The [facility] Comment on above: Order Comment: No: D o not add to previous draw Performed By: #### 5 0103 #### [facility] [address] [facility] Hematocrit Volume Fraction (Bld) 45.6 % High 36.0-45.0 The [facility] Comment on above: Order Comment: No: D o not add to previous draw Performed By: #### 5 0103 #### [facility] [address] [facility] [place] [address], [facility] Hemoglobin mass conc (Bld) 16.0 g/dL High 12.0-15.0 The [facility] Comment on above: Order Comment: No: D o not add to previous draw Performed By: #### 5 0103 #### [facility] [address] [place] [id number], [facility] IMMATURE GRANS 0.2 % Normal 0.0-1.0 [facility] Comment on above: Order Comment: No: D o not add to previous draw Performed By: #### 5 0103 #### [facility] [address] [place] [address], [facility] Lymphocytes #/vol (Bld) 1.8 10*3/uL Normal 1.2-4.0 The [facility] Comment on above: Order Comment: No: D o not add to previous draw Performed By: #### 5 0103 #### [facility] [address] [place] [address], [facility] Lymphocytes/100 WBC (Bld) 18.9 % Low 20.0-45.0 The [facility] Comment on above: Order Comment: No: D o not add to previous draw Performed By: #### 5 0103 #### [facility] [address] [facility] [place] [id number], [facility] MCH Entitic mass (RBC) 31.6 pg Normal 27.0-33.0 The [facility] Comment on above: Order Comment: No: D o not add to previous draw Performed By: #### 5 0103 #### [facility] [address] [facility] [place] [address], [facility] MCHC mass conc (RBC) 35.1 g/dL High 32.0-35.0 The [facility] Comment on above: Order Comment: No: D o not add to previous draw Performed By: #### 5 0103 #### [facility] [address] [facility] [place] [address], [facility] MCV Entitic volume (RBC) 89.9 fL Normal 82.0-98.0 The [facility] Comment on above: Order Comment: No: D o not add to previous draw Performed By: #### 5 0103 #### [facility] [address] [place] [id number], [facility] Monocytes #/vol (Bld) 0.6 10*3/uL Normal 0.1-1.0 Th e [facility] Comment on above: Order Comment: No: D o not add to previous draw Performed By: #### 5 0103 #### [facility] [address] [place] [address], [facility] MONOS 6.1 % Normal 5.0-12.0 The [facility] Comment on above: Order Comment: No: D o not add to previous draw Performed By: #### 5 0103 #### [facility] [address] [place] [id number], [facility] Neutrophils/100 WBC (Bld) 73.5 % High 40.0-72.0 The [facility] Comment on above: Order Comment: No: D o not add to previous draw Performed By: #### 5 0103 #### [facility] [address] [place] [id number], [facility] Nucleated RBC/100 WBC Ratio (Bld) 0 % Normal 0-0 The [facility] Comment on above: Order Comment: No: D o not add to previous draw Performed By: #### 5 0103 #### [facility] [address] [place] [id number], [facility] PLAT CNT 313 10*3/uL Normal 150-400 [facility] Comment on above: Order Comment: No: D o not add to previous draw Performed By: #### 5 0103 #### [facility] [address] [place] [id number], [facility] RBC #/vol (Bld) 5.07 10*6/uL High 3.80-5.00 The [facility] Comment on above: Order Comment: No: D o not add to previous draw Performed By: #### 5 0103 #### [facility] [address] [place] [id number], [facility] WBC #/vol (Bld) 9.24 10*3/uL Normal 4.00-10.60 [facility] Comment on above: Order Comment: No: D o not add to previous draw Performed By: #### 5 0103 #### [facility] [address] [facility] CHOLESTEROL BLOODon 03-08-20 18 Cholesterol mass conc 213 mg/dL High 120-200 [facility] Comment on above: Order Comment: No: D o not add to previous draw Result Comment: CHOL ESTEROL REFERENCE RANGE: 20 YEARS AND OLDER CARDIOVASCULAR RISK Less than 200 mg/dl Low Risk 200 to 239 mg/dl Borderline Risk 240 mg/dl and greater High Risk Performed By: #### 2 9773, 08529, 59009, 38061, 63053, 81507, 81906, 90541 #### [facility] [address] DETOX PANEL URINEon 03-08-20 18 50 THC Negative Normal NEGATIVE The [facility] [...] lab. Performed By: #### 3 1520 #### [facility] [address] BARBITURATES Negative Normal NEGATIVE The [facility] Comment on above: Order Comment: No: D o not add to previous draw No collection time noted on specimen or requisition. The collection time recorded is the time of receipt in the lab. No collection time noted on specimen or requisition. The collection time recorded is the time of receipt in the lab. Performed By: #### 3 1520 #### [facility] [address] Benzodiazepines Ql (U) Negative Normal NEGATIVE [facility] Comment on above: Order Comment: No: D o not add to previous draw No collection time noted on specimen or requisition. The collection time recorded is the time of receipt in the lab. No collection time noted on specimen or requisition. The collection time recorded is the time of receipt in the lab. Performed By: #### 3 1520 #### [facility] [address] [place] [address], [facility] Cocaine Ql (U) Positive Abnormal NEGATIVE The [facility] Comment on above: Order Comment: No: D o not add to previous draw No collection time noted on specimen or requisition. The collection time recorded is the time of receipt in the lab. No collection time noted on specimen or requisition. The collection time recorded is the time of receipt in the lab. Performed By: #### 3 1520 #### [facility] [address] [place] [address], [facility] Methadone Ql (U) Negative Normal NEGATIVE The [facility] Comment on above: Order Comment: No: D o not add to previous draw No collection time noted on specimen or requisition. The collection time recorded is the time of receipt in the lab. No collection time noted on specimen or requisition. The collection time recorded is the time of receipt in the lab. Performed By: #### 3 1520 #### [facility] [address] [place] [address], [facility] MONO AMPHET Negative Normal NEGATIVE [facility] Comment on above: Order Comment: No: D o not add to previous draw No collection time noted on specimen or requisition. The collection time recorded is the time of receipt in the lab. No collection time noted on specimen or requisition. The collection time recorded is the time of receipt in the lab. Performed By: #### 3 1520 #### [facility] [address] [place] [address], [facility] Opiates Ql (U) Positive Abnormal NEGATIVE The [facility] Comment on above: Order Comment: No: D o not add to previous draw No collection time noted on specimen or requisition. The collection time recorded is the time of receipt in the lab. No collection time noted on specimen or requisition. The collection time recorded is the time of receipt in the lab. Performed By: #### 3 1520 #### [facility] [address] [place] [address], [facility] Phencyclidine Ql (U) Negative Normal NEGATIVE The [facility] [...] lab. Performed By: #### 3 1520 #### [facility] [address] [place] [address], [facility] Protein mass conc (U) Negative Normal NEGATIVE [facility] Comment on above: Order Comment: No: D o not add to previous draw No collection time noted on specimen or requisition. The collection time recorded is the time of receipt in the lab. No collection time noted on specimen or requisition. The collection time recorded is the time of receipt in the lab. Performed By: #### 3 1520 #### [facility] [address] TRICYCLICS Negative Normal NEGATIVE The [facility] [...] lab. Performed By: #### 3 1520 #### [facility] [address] [place] [address], [facility] GAMMA GT BLOODon 03-08-2018 GAMMA GT 18 IU/L Normal 9-64 [facility] Comment on above: Order Comment: No: D o not add to previous draw Performed By: #### 2 9773, , 13625, 03717, 18069, 85356, 65187, 08960 #### [facility] [address] [place] [address], [facility] LIVER BATTERYon 03-08-2018 Albumin mass conc 4.7 g/dL Normal 3.5-5.7 The [facility] Comment on above: Order Comment: No: D o not add to previous draw Performed By: #### 2 9772, , , 70175, 09057, 55265, 91709, 09351 #### [facility] [address] [place] [id number], [facility] ALKALINE PHOSPH 77 IU/L Normal 34-104 [facility] Comment on above: Order Comment: No: D o not add to previous draw Performed By: #### 2 73, , , 43245, 55290, 61526, 08193, 88736 #### [facility] [address] [place] [address], [facility] ALT enzyme act/vol 11 U/L Normal 7-52 The [facility] Comment on above: Order Comment: No: D o not add to previous draw Performed By: #### 2 9772, , , 85631, 77830, 67015, 87465, 32301 #### [facility] [address] [facility] [place] [address], [facility] AST enzyme act/vol 15 U/L Normal 13-39 [facility] Comment on above: Order Comment: No: D o not add to previous draw Performed By: #### 2 73, , , 97509, 15634, 59192, 36925, 97878 #### [facility] [address] [facility] [place] [address], [facility] Bilirubin mass conc 0.5 mg/dL Normal 0.3-1.0 The [facility] Comment on above: Order Comment: No: D o not add to previous draw Performed By: #### 2 73, , 68758, 38242, 01063, 54933, 93622, 79361 #### [facility] [address] [facility] [place] [id number], [facility] Bilirubin.direct mass conc 0.1 mg/dL Normal 0.0-0.2 The [facility] Comment on above: Order Comment: No: D o not add to previous draw Performed By: #### 2 9772, , , 29682, 93315, 91209, 20428, 67811 #### [facility] [address] [place] [address], [facility] Protein mass conc 7.2 g/dL Normal 6.0-8.3 [facility] Comment on above: Order Comment: No: D o not add to previous draw Performed By: #### 2 9773, , , 29691, 46538, 01544, 53793, 16722 #### [facility] [address] MAGNESIUM BLOODon 03-08-2018 Magnesium mass conc 2.1 mg/dL Normal 1.9-2.7 [facility] Comment on above: Order Comment: No: D o not add to previous draw Performed By: #### 2 73, , , 47187, 64501, 55499, 47151, 81538 #### [facility] [address] [facility] [address] RPR (RAPID PLASMA REAGIN)on 03-08-2018 Reagin Ab RPR Ql (S) NON-REACTIVE Normal NON-REACTIVE [facility] Comment on above: Performed By: #### 2 9773, , , 64159, 67089, 20384, 20876, 18049 #### [facility] [address] [facility] SERUM TESTon 03-08 TEST Negative Normal [facility] Comment on above: Order Comment: No: D o not add to previous draw Performed By: #### 2 9773, , , 88656, 53741, 73680, 56824, 44660 #### [facility] [address] [place] [address], [facility] TSH3on 03-08-2018 TSH 3RD GENERATION 0.70 uIU/mL Normal 0.34-5.60 [facility] Comment on above: Order Comment: No: D o not add to previous draw Performed By: #### 2 73, , 32039, 86294, 73444, 07623, 34765, 82765 #### [facility] [address] [place] [id number], [facility] UA,MICROSCOPIC REQUIREDon AMORPHOUS FEW Abnormal NONE SEEN The [facility] Comment on above: Order Comment: No: D o not add to previous draw Performed By: #### 2 73, , , 20230, 57467, 11459, 87791, 06544 #### [facility] [address] [place] [address], [facility] Appearance Nom (U) CLOUDY Abnormal CLEAR The [facility] Comment on above: Order Comment: No: D o not add to previous draw Performed By: #### 2 73, , 12899, 13244, 42158, 12204, 32693, 80980 #### [facility] [address] [place] [address], [facility] Bilirubin.direct mass conc Negative Normal NEGATIVE The [facility] Comment on above: Order Comment: No: D o not add to previous draw Performed By: #### 2 73, , 56334, 29221, 84151, 21667, 83227, 26368 #### [facility] [address] [facility] [place] [address], [facility] BLOOD Negative Normal NEGATIVE The [facility] Comment on above: Order Comment: No: D o not add to previous draw Performed By: #### 2 73, , 32428, 69643, 40870, 82337, 79461, 61160 #### [facility] [address] [place] [address], [place] Color Nom (U) YELLOW Normal YELLOW [facility] Comment on above: Order Comment: No: D o not add to previous draw Performed By: #### 2 9773, , 77938, 40608, 87835, 27447, 76689, 97847 #### [facility] [address] [place] [address], [facility] EPIS MANY Abnormal FEW,OCC,NONE SEEN The [facility] Comment on above: Order Comment: No: D o not add to previous draw Performed By: #### 2 9773, , 27792, 06603, 97632, 60502, 02095, 31605 #### [facility] [address] [place] [address], [facility] Glucose mass conc Negative Normal NEGATIVE [facility] Comment on above: Order Comment: No: D o not add to previous draw Performed By: #### 2 9773, , 44704, 77772, 78555, 88682, 40043, 52498 #### [facility] [address] [place] [address], [facility] KETONE Negative Normal NEGATIVE The [facility] Comment on above: Order Comment: No: D o not add to previous draw Performed By: #### 2 73, , 15780, 91698, 21496, 27363, 70167, 09212 #### [facility] [address] [facility] [place] [address], [facility] LEUK ZENON MODERATE Abnormal NEGATIVE The [facility] Comment on above: Order Comment: No: D o not add to previous draw Performed By: #### 2 73, , 66231, 74412, 68366, 29156, 15496, 15482 #### [facility] [address] [facility] [place] [address], [facility] MUCUS THREADS FEW Abnormal NONE SEEN The [facility] Comment on above: Order Comment: No: D o not add to previous draw Performed By: #### 2 9773, , 47514, 15993, 29125, 44924, 83204, 12269 #### [facility] [address] [place] [address], [facility] Nitrite Ql (U) Negative Normal NEGATIVE [facility] Comment on above: Order Comment: No: D o not add to previous draw Performed By: #### 2 9772, , , 71939, 38587, 25766, 25719, 95730 #### [facility] [address] pH (Bld) 6.0 Normal 5.0-8.0 [facility] Comment on above: Order Comment: No: D o not add to previous draw Performed By: #### 2 73, , , 78578, 13145, 37577, 99068, 13433 #### [facility] [address] Protein mass conc Negative Normal NEGATIVE [facility] Comment on above: Order Comment: No: D o not add to previous draw Performed By: #### 2 9772, , , 50150, 43733, 59122, 61493, 43528 #### [facility] [address] RBC #/vol (Bld) 3-5 Abnormal NONE SEEN [facility] Comment on above: Order Comment: No: D o not add to previous draw Performed By: #### 2 73, , , 23330, 35647, 37135, 94482, 76451 #### [facility] [address] SPEC GRAV 1.018 Normal 1.015-1.020 [facility] Comment on above: Order Comment: No: D o not add to previous draw Performed By: #### 2 73, , 50243, 04264, 54023, 89052, 15657, 79863 #### [facility] [address] WBC UA 6-10 Abnormal NONE SEEN The [facility] Comment on above: Order Comment: No: D o not add to previous draw Performed By: #### 2 9772, , 46944, 60894, 84432, 92618, 34183, 79508 #### [facility] [address] [place] [address], [facility] URIC ACID BLOODon 03-08-2018 Urate mass conc 3.4 mg/dL Normal 2.3-6.6 [facility] Comment on above: Order Comment: No: D o not add to previous draw Performed By: #### 2 9773, 21390, 93231, 57438, 93808, 10153, 03162, 39608 #### [facility] [address] [place] [address], [facility] Vital Signs Date Time Vital Sign Value Performing Clinician Facility 01-12-2024 16:38-0400 Body height 172.72 cm PHYSICIAN NO [facility] 01-12-2024 16:38-0400 Body mass index (BMI) [Ratio] 34.9 kg/m2 PHYSICIAN NO [facility] 01-12-2024 16:38-0400 Body temperature 98.2 [degF] PHYSICIAN NO [facility] 01-12-2024 16:38-0400 Body weight 104.32 kg PHYSICIAN NO [facility] 01-12-2024 16:38-0400 Diastolic blood pressure 61 mm[Hg] PHYSICIAN NO [facility] 01-12-2024 16:38-0400 Heart rate 104 /min PHYSICIAN NO [facility] 01-12-2024 16:38-0400 Respiratory rate 18 /min PHYSICIAN NO [facility] 01-12-2024 16:38-0400 SaO2% (BldA) [Mass fraction] 96 % PHYSICIAN NO [facility] 01-12-2024 16:38-0400 Systolic blood pressure 97 mm[Hg] PHYSICIAN NO [facility] 05-15-2023 14:38-0500 Body height 172.72 cm [facility] 05-15-2023 14:38-0500 Body mass index (BMI) [Ratio] 36.6 kg/m2 [facility] 05-15-2023 14:38-0500 Body temperature 98.9 [degF] [facility] 05-15-2023 14:38-0500 Body weight 109.37 kg [facility] 05-15-2023 14:38-0500 Heart rate 110 /min [facility] 05-15-2023 14:38-0500 Respiratory rate 18 /min [facility] 05-15-2023 14:38-0500 SaO2% (BldA) [Mass fraction] 94 % [facility] 10-07-2022 11:07-0400 Blood Pressure Location Liudmila Lue [facility] 10-07-2022 11:07-0400 Diastolic blood pressure 98 mm[Hg] Liudmila Lue [facility] 10-07-2022 11:07-0400 Heart rate 106 /min Liudmila Lue [facility] 10-07-2022 11:07-0400 Systolic blood pressure 146 mm[Hg] Liudmila Lue [facility] 08-19-2022 11:10-0400 Body height 172.72 cm Ernestine Little Other [email or web address] [facility] Other 08-19-2022 11:10-0400 Body mass index (BMI) [Ratio] 35.58 kg/m2 Ernestine Little Other [email or web address] [facility] Other 08-19-2022 11:10-0400 Body temperature 98.2 [degF] Ernestine Little Other [employer] Other 08-19-2022 11:10-0400 Body weight 106.14 kg Ernestine Little Other [email or web address] [facility] Other 08-19-2022 11:10-0400 Respiratory rate 18 /min Ernestine Little Other [facility] Other 08-19-2022 11:10-0400 SaO2% (BldA) [Mass fraction] 96 % Ernestine Little Other [facility] Other 07-23-2022 16:06-0400 Heart rate 89 /min Liudmila Lue [facility] 07-23-2022 16:06-0400 SaO2% (BldA) [Mass fraction] 96 % Liudmila Lue [facility] 07-23-2022 16:06-0400 Respiratory rate 18 /min Liudmila Lue [facility] 07-23-2022 16:06-0400 Diastolic blood pressure 85 mm[Hg] Liudmila Lue [facility] 07-23-2022 16:06-0400 Mean blood pressure 102 mm[Hg] Liudmila Lue [facility] 07-23-2022 16:06-0400 Systolic blood pressure 136 mm[Hg] Liudmila Lue [facility] 07-23-2022 15:20-0400 Blood Pressure Location Liudmila Lue [facility] 07-23-2022 15:20-0400 Diastolic blood pressure 98 mm[Hg] Liudmila Lue [facility] 07-23-2022 15:20-0400 Heart rate 92 /min Liudmila Lue [facility] 07-23-2022 15:20-0400 Mean blood pressure 117 mm[Hg] Liudmila Lue [facility] 07-23-2022 15:20-0400 Respiratory rate 16 /min Liudmila Lue [facility] 07-23-2022 15:20-0400 SaO2% (BldA) [Mass fraction] 95 % Liudmila Lue [facility] 07-23-2022 15:20-0400 Systolic blood pressure 155 mm[Hg] Liudmila Lue [facility] 07-23-2022 15:10-0400 Blood Pressure Location Liudmila Lue [facility] 07-23-2022 15:10-0400 Diastolic blood pressure 85 mm[Hg] Liudmila Lue [facility] 07-23-2022 15:10-0400 Heart rate 82 /min Liudmila Lue [facility] 07-23-2022 15:10-0400 Mean blood pressure 104 mm[Hg] Liudmila Lue [facility] 07-23-2022 15:10-0400 Respiratory rate 8 /min Liudmila Lue [facility] 07-23-2022 15:10-0400 SaO2% (BldA) [Mass fraction] 98 % Liudmila Lue [facility] 07-23-2022 15:10-0400 Systolic blood pressure 141 mm[Hg] Liudmila Lue [facility] 07-23-2022 15:00-0400 Mean blood pressure 105 mm[Hg] Liudmila Lue [facility] 07-23-2022 15:00-0400 Respiratory rate 11 /min Liudmila Lue [facility] 07-23-2022 14:55-0400 Respiratory rate 15 /min Liudmila Lue [facility] 07-23-2022 14:47-0400 Body temperature 97.34 [degF] Liudmila Lue [facility] 07-23-2022 12:09-0400 Mean blood pressure 102 mm[Hg] Liudmila Lue [facility] 07-23-2022 12:09-0400 Heart rate 96 /min Liudmila Lue [facility] 07-23-2022 12:08-0400 Respiratory rate 20 /min Liudmila Lue [facility] 07-23-2022 12:07-0400 Body temperature 98.96 [degF] Liudmila Lue [facility] 07-23-2022 12:07-0400 Mean blood pressure 109 mm[Hg] Liudmila Lue [facility] 07-22-2022 08:38-0400 Blood Pressure Location Liudmila Lue [facility] 07-22-2022 08:38-0400 Diastolic blood pressure 114 mm[Hg] Liudmila Lue [facility] 07-22-2022 08:38-0400 Heart rate 103 /min Liudmila Lue [facility] 07-22-2022 08:38-0400 Systolic blood pressure 134 mm[Hg] Liudmila Lue [facility] 06-25-2022 13:10-0400 Body height 172.72 cm Ernestine Little Other [employer] Other 06-25-2022 13:10-0400 Body mass index (BMI) [Ratio] 35.27 kg/m2 Ernestine Little Other [employer] Other 06-25-2022 13:10-0400 Body temperature 97.7 [degF] Ernestine Little Other [employer] Other 06-25-2022 13:10-0400 Body weight 105.24 kg Ernestine Little Other [employer] Other 06-25-2022 13:10-0400 Respiratory rate 18 /min Ernestine Little Other [employer] Other 06-25-2022 13:10-0400 SaO2% (BldA) [Mass fraction] 97 % Ernestine Little Other [employer] Other 12-18-2021 14:30-0400 Body height 172.72 cm Nery Beasleyault Other [employer] Other 12-18-2021 14:30-0400 Body mass index (BMI) [Ratio] 32.54 kg/m2 Nery Abdon Other [employer] Other 12-18-2021 14:30-0400 Body temperature 98 [degF] Nery Abdon Other [employer] Other 12-18-2021 14:30-0400 Body weight 97.07 kg Nery Abdon Other [employer] Other 12-18-2021 14:30-0400 Diastolic blood pressure 77 mm[Hg] Nery Coppola Other [employer] Other 12-18-2021 14:30-0400 Respiratory rate 18 /min Nery Copopla Other [employer] Other 12-18-2021 14:30-0400 SaO2% (BldA) [Mass fraction] 98 % Nery Coppola Other [employer] Other 12-18-2021 14:30-0400 Systolic blood pressure 111 mm[Hg] Nery Coppola Other [employer] Other 12-30-2020 16:00-0400 Body height 172.72 cm Lilia Ginty Other [employer] Other 12-30-2020 16:00-0400 Body mass index (BMI) [Ratio] 33.45 kg/m2 Lilia Ginty Other [employer] Other 12-30-2020 16:00-0400 Body weight 99.79 kg Lilia Ginty Other [employer] Other Encounters Encounter Date Encounter Type Care Provider Facility Start: 09-05-2024 ambulatory PHYSICIAN NO [facility] ility:[facility] Start: 06-29-2024 End: 06-29-2024 ambulatory PHYSICIAN NO [facility] Work Phone: Start: 06-29-2024 End: 06-29-2024 Departed Referred PHYSICIAN NO [facility] Start: 06-28-2024 Registered Recurring PHYSICIAN NO [facility] Start: 01-12-2024 End: 01-12-2024 ambulatory PHYSICIAN NO [facility] Work Phone: Start: 01-12-2024 End: 01-12-2024 Patient encounter procedure PHYSICIAN NO [facility] Work Phone: Start: 12-31-2023 Registered Recurring PHYSICIAN NO [facility] Start: 05-15-2023 End: 05-15-2023 ambulatory [facility] Work Phone: Start: 05-15-2023 End: 05-15-2023 Patient encounter procedure Counts Include [facility] Physician [facility] Work Phone: Start: 01-06-2023 End: 01-07-2023 ambulatory Liudmila M. Lue Facility:[facility] Start: 01-06-2023 End: 01-06-2023 Patient encounter procedure Liudmila M. Lue [facility] Start: 10-07-2022 End: 10-08-2022 ambulatory Liudmila M. Lue Facility:[facility] Start: 10-07-2022 End: 10-07-2022 Patient encounter procedure Liudmila M. Lue [facility] Start: 08-19-2022 End: 08-19-2022 ambulatory Ernestine Little Other [employer] Other Start: 08-19-2022 Office outpatient vi sit 15 minutes Ernestine Little [facility] Start: 08-12-2022 End: 08-13-2022 ambulatory LIUDMILA M LUE . Facility:[facility] Start: 08-08-2022 Encounter for other preprocedural examination LIUDMILA M LUE . [facility] Start: 08-04-2022 End: 08-05-2022 ambulatory LIUDMILA M LUE . Facility:[facility] Start: 08-04-2022 End: 08-05-2022 Encounter for other preprocedural examination LIUDMILA M LUE . Facility:[facility] Start: 07-31-2022 End: 07-31-[address] ENEIDA BERNARD . Facility: Start: 07-23-2022 End: 07-23-2022 ambulatory Liudmila Daniels Facility:[facility] Start: 07-23-2022 End: 07-23-2022 Admission to same day surgery center Liudmila Daniels [facility] Start: 07-22-2022 End: 07-23-2022 ambulatory Liudmilasarah Daniels Facility:[facility] [place] Start: 07-22-2022 End: 07-22-2022 Patient encounter procedure Liudmila Daniels [facility] Start: 07-15-2022 ambulatory Liudmila Leenadeangelo Facility:[facility] Start: 07-15-2022 End: 07-15-[address] ENEIDA BERNARD . Facility: Start: 06-25-2022 End: 06-25-2022 ambulatory Ernestine Little Other [employer] Other Start: 06-25-2022 Office outpatient vi sit 15 minutes Ernestine Little [facility] Start: 02-04-2022 End: 02-05-2022 ambulatory NONE LISTED REQUEST Facility: Start: 12-18-2021 End: 12-18-2021 ambulatory Nery Coppola Other [employer] Other Start: 12-18-2021 Office outpatient vi sit 15 minutes Nery Coppola [facility] Start: 12-30-2020 Office outpatient vi sit 15 minutes Lilia Bowden [facility] Start: 03-08-2018 End: 03-09-2018 Patient encounter procedure DEFAULT PHYSICIAN Facility:[facility] Procedures Date Procedure Procedure Detail Performing Clinician Start: 05-15-2023 Quick Strep (POC) Start: 08-12-2022 Ureteroscopy Liudmilasarah Daniels Start: 07-23-2022 Cystoscopic laser lithotripsy of ureteric calculus Liudmila Ludeangelo Start: 07-23-2022 Cystoscopy Liudmila Ludeangelo Start: 08-20-2018 Dilation and curettage Liudmila Sterne Plan of Treatment Date Care Activity Detail Author Start: 06-29-2024 Urine culture [facility] Start: 06-29-2024 Bacteria identified in Urine by Culture Urine Culture [facility] Immunizations Immunization Date Immunization Notes Care Provider Fa cility 02-03-2022 influenza virus vaccine, unspecified formulation Liudmila Daniels [facility] 07-27-2020 SARS-CoV-2 (COVID-19 ) mRNA [id number] vax Liudmila Lue [facility] 07-06-2020 SARS-CoV-2 (COVID-19 ) mRNA [id number] vax Liudmila Lue [facility] 10-04-2014 tetanus toxoid, redu andrew diphtheria toxoid, and acellular pertussis vaccine, adsorbed Liudmila Lue [facility] 06-14-2011 tetanus toxoid, redu andrew diphtheria toxoid, and acellular pertussis vaccine, adsorbed Liudmila Lue [facility] 11-05-1998 measles, mumps and rubella virus vaccine Liudmila Lue [facility] Payers Date Payer Category Payer Self-pay [id number] 2022 Medicaid [id number] 2. [id number] 1985 Unknown [id number] 2.16.8 [id number] 1985 Unknown [id number] 2.16.84 [id number] 1985 Unknown [id number] 2.16.84 [id number] 1985 Unknown [id number] 2.16.84 0.1.942973.3.579.2.593 1986 Unknown [id number] 2.16.84 0.1.618376.3.579.2.593 1986 Unknown [id number] 2.16.84 0.1.659912.3.579.2.593 1986 Unknown [id number] 2.16.8 40.1.326308.3.579.2.727 1986 Unknown [id number] 2.16.8 40.1.389297.3.579.2.727 1986 Unknown [id number] 2.16.8 40.1.777147.3.579.2.727 1986 Unknown [id number] 2.16.8 40.1.725656.3.579.2.727 1986 Unknown [id number] 2.16.8 40.1.759585.3.579.2.727 1986 Unknown [id number] 2.16.8 40.1.523457.3.579.2.727 1959 Unknown [id number] 2.1 [id number] Medicaid [place] Advantage [id number] 001 [id number] Unknown Unknown [id number] 2.16.8 [id number] Unknown [id number] 2.16.8 40.1.203281.3.579.2.531 Social History Date Type Detail Facility Sex Assigned At [facility] Start: 07-22-2022 End: 10-07-2022 Tobacco smoking status Light tobacco smoker (finding) [facility] Start: 05-15-2023 End: 05-15-2023 Tobacco smoking status Smoker (finding) [facility] Tobacco smoking status Never [facility] Start: 1985 Sex Assigned At Female F [facility] Start: 07-01-2024 Sex Female (finding) [facility] Medical Equipment Procedure Code Equipment Code Equipment Origin al Text Equipment Identifier Dates CYSTOSCOPY RETROGRADE STENT INSERTION Liudmila Daniels MD 07/23/22 Non Biological Ureter L [id number] [facility] Start: 07-23-2022 Functional Status Date Assessment Result Facility 10-07-2022 Functional Status N/A [facility] 07-22-2022 Functional Status No [facility] 07-22-2022 Functional Status N/A [facility] Clinical Notes 12-30-2020 to 10-07-2022 Note Date [...] include: ?8 oz (237 mL) of milk, bjexbeg-fxtytkyjzctt-pvvfh milk, and calcium-fortifiedfruit juice. Calcium-fortified means that [...] ?Spinach (cooked), rhubarb, beets, sweet potatoes, and [place] chard. ?Peanuts. ?Potato chips, tajik fries, and baked potatoes with skin on. ?Nuts and nut products. ?Chocolate. If you regularly take a diuretic medicine, make sure to eat at least 1 or 2 servings of fruits or vegetables that are high in potassium each day. These include: ?Avocado. ?Banana. ?Canvas, prune, carrot, or tomato juice. ?Baked potato. [...] magnesium, fish oil, or vitamin B6. Take dwst-wle-xtflzzp and prescription medicines only as told by [...] Casseroles. Pizza. Lasagna. Frozen meals. Potato chips. Italian fries. The items listed above may not [...] provider. Document Revised: 11/17/2021 Document Reviewed: 11/17/2021 [employer] Patient Education 2022 [employer]. Follow Up Care 08/19/2022 13:00:03 With:Jeremiah DAY, Liudmila Emery, URL, URO Address: When:Within 2 Month(s) Comments:w/ metabolic workup [facility] 08-19-2022 Evaluation note Encounter Date Diagnosis Assessment [...] the ER for worsening symptoms or concern [employer] Other 05-04-2023 Hospital Discharge instructions Patient Education 07/23/2022 15:42:28 Post Op Patient Instructions - FT (Custom) (CUSTOM) 07/23/2022 14:49:47 Sjcq-Mqyv-pv Utereroscopy,Lithotripsy, Stone Extraction, Stent Placement (CUSTOM) [facility] [place], [place] Post-operative Instructions for Ureteroscopy, Laser Lithotripsy, [...] other reasons. If it is to remain group home, however, changes of the stent are required [...] schedule definitive stone treatment in 2 weeks [phone] 07/23/2022 14:49:47 Dietary Guidelines to Help Prevent [...] include: ?8 oz (237 mL) of milk, fjtycmf-ihtynzmrcgpl-bqfbv milk, and calcium- fortifiedfruit juice. Calcium-fortified means [...] ?Spinach (cooked), rhubarb, beets, sweet potatoes, and [place] chard. ?Peanuts. ?Potato chips, tajik fries, and baked potatoes with skin on. ?Nuts and nut products. ?Chocolate. If you regularly take a diuretic medicine, make sure to eat at least 1 or 2 servings of fruits or vegetables that are high in potassium each day. These include: ?Avocado. ?Banana. ?Canvas, prune, carrot, or tomato juice. ?Baked potato. [...] magnesium, fish oil, or vitamin B6. Take txfp-fjj-etwsont and prescription medicines only as told by [...] Casseroles. Pizza. Lasagna. Frozen meals. Potato chips. Italian fries. The items listed above may not [...] provider. Document Revised: 11/17/2021 Document Reviewed: 11/17/2021 [employer] Patient Education 2022 [employer]. Follow Up Care 07/22/2022 10:11:55 With:Liudmila Daniels Address:Unknown When: Unknown Comments:Office will call to schedule left ureteroscopy, laser lithotripsy, stent exchange in 2 weeks [facility]05-04-2023 Evaluation + Plan noteExtracted from: Title:CSB post op Author:Merlene DAY, Rico Orlando Date:07/23/22 Plan Transfer/Discharge: Transfer/Discharge Discharge when meets criteria ( From PACU to Ambulatory Surgery Unit, and To home ). Extracted from: Title:EU- L URS, laser litho, stent placement Au thor:Jeremiah DAY, Liudmila Emery Date:07/23/22 Impression and Plan Diagnosis Ureteral stone with hydronephrosis (BMO45-PI N13.2, Discharge, Medical). Kidney stones (LFY82-QK N20.0, Discharge, Medical). Diagnosis Ureteral stone with hydronephrosis (OIJ51-TJ N13.2, Discharge, Medical). Kidney stones (RNW49-UN N20.0, Discharge, Medical). Extracted from: Title:YARI EVANGELISTA Author:Rico Blunt MD Date:07/23/22 Plan [place] [employer] Anesthesi[employer] (ASA) physical status classification: Class II. Anesthetic Preoperative Plan: Anesthesia General. Diagnostic Tests Pending * Urine Culture 07/23/22 * Calculi Analysis Urinary 07/23/22 [facility]05-03-2023 Note [id number]:127[facility] 07-22-2022 Hospital Discharge instructions Patient Education 07/22/2022 [...] including vitamins, herbs, eye drops, creams, and uvcl-eiz-rwhnizl medicines. Any problems you or family members [...] provider tells you to take them. ?Taking juwa-aqi-mvjxovy medicines, vitamins, herbs, and supplements. Eating and [...] provider. Document Revised: 11/10/2021 Document Reviewed: 11/10/2021 [employer] Patient Education 2022 [employer] Follow Up Care 07/15/2022 13:58:57 With:Jeremiah DAY, JEAN Goss, URO Address: When: Unknown [facility] Evaluation note* Encounter Date Diagnosis Assessment [...] with a dentist as soon as possible. [employer] Other 09-29-2022 Evaluation note* Encounter Date Diagnosis Assessment Notes Treatment Notes Treatment Clinical Notes Nov, Tooth infection (ICD-10 - K04.7) Take medications as directed.Highly encourage patient to contact dentist JOEL for further treatment of infection. Do not take OTC medications like ibuprofen with prescriptions [employer] Other 10-11-2021 Evaluation note* Encounter Date Diagnosis [...] Patient care instructions given in writting by [facility] Care At Home document. [employer] Other Evaluation + Plan note Future Appointments Appointment Date:07/23/2022 02:30:00 PM Scheduled Provider: Location:[facility] Appointment Type:Surgery FT [facility] evaluation + Plan note Future Appointments Appointment Date:12/09/2022 10:45:00 AM Scheduled Provider:Liudmila Daniels MD Location:[facility] Appointment Type:URO Office Visit [facility] evalkkdxvd note* Diagnosis Onset Date Resolution Status Renal stone noneactive [facility] Work Phone: evaluation note* Diagnosis Onset Date Resolution Status Contact with and (suspected) exposure to covid-19 noneactive [facility] Work Phone: evaluation noteNo assessment information available [facility] Work Phone: Hisjzuh general Narrative - Reported* Type Description Date Medical History chronic depression Medical History anxiety Medical History addiction, opiates [facility] Other Hisyij[facility] general Narrative - Reported* Type Description Date Medical History chronic depression Medical History anxiety Medical History addiction, opiates Medical History Kidney stones Surgical History Kidney Stone Removal [facility] Other Hospital course Narrative No data available for this section [facility] Hospital Discharge instructions No data available for this section [facility] progress note No data available for this section [facility] Summary Purpose Family History No Family History Records Found Relationship Condition Age at Onset Recorded Date/T elana father Suicide Unknown Advance Directives No Advanced Directives Records Found Advance Directive Response Recorded Date/ Time Advance Directives No April 2:07pm Advance Directive Response Recorded Date/ Time Advance Directives No April 3:07pm Hospital Course Note MR#: [id number] [facility] Pt. Name: Catie Lyons Admitted: 03/08/2018 Discharged: 03/12/2018 Date of : 1985 Physician: Darryl Keen M.D. DISCHARGE SUMMARY CHIEF COMPLAINT: Opioid use and cocaine use. HISTORY OF PRESENT ILLNESS: The patient is a 32-year-old female, admitted to [facility] Detox due to concern of using around [...] Reason for Visit Renal stone Chief Complaint Cough, congestion, sore throat Reason for Visit Contact with and (carlton spected) exposure to covid-19 Chief Complaint Admit Date June 28, 2024 8:53 am Unknown June 29, 2024 4:2 1pm Additional Source Comments INFORMATION SOURCE (unrecogn ized section and content) DATE CREATED AUTHOR 04/12/2018 [facility] DATE CREATED AUTHOR AUTHOR'S ORGANIZ ATION 08/30/2022 [facility] DATE CREATED AUTHOR AUTHOR'S ORGANIZ ATION 01/08/2023 [facility] DATE CREATED AUTHOR AUTHOR'S ORGANIZ ATION 09/07/2024 [facility] REASON FOR VISIT (unrecogniz ed section and content) #25 GREEN TRUCK, COUGH, NASA L AND CHEST CONGESTIONRIGHT LOWER TOOTH PAINRIGHT LOWER TOOTH PAIN, POSS INFECTIONINFECTION IN TOP TOOTH Care Teams (unrecognized sec tion and content) Team Status: Active Member Role Status Dates PHYSICIAN NO FAMILY Primary Care Provider Active Start: June 28, 2024 José Johnston MD Attending Provider Active Start: Sanam 9th, 2025 Team Status: Inactive Member Role Status Dates Sherice Gaines PA-C Attending Provider Active Start: June 29, 2024 End: June 29, 2024 Team Status: Active Member Role Status [...] BE BASED ON THE PRIMARY CLINICAL RECORDS. [employer] provides no warranty or guarantee of the accuracy or completeness of information in this document.
[2024-09-15 11:27] LABS: Estimated Average Glucose 108 mg/dL; Glycohemoglobin A1C 5.4 % (4.5-6.2)
[2024-09-15 11:32] LABS: Basophils Percent Auto 0.4 % (0.2-2.0); Eosinophils Absolute Auto 0.1 10^3/uL (0.0-0.7); Eosinophils Percent Auto 1.5 % (0.9-7.0); Hematocrit 42.6 % (36.0-48.0); Hemoglobin 14.7 g/dL (12.0-16.0); Immature Granulocytes Abs Auto 0.03 10^3/uL (0.00-0.03); Immature Granulocytes Pct Auto 0.3 % (0.0-0.5); Lymphocytes Absolute Auto 2.5 10^3/uL (1.2-3.8); Lymphocytes Percent Auto 28.2 % (20.5-60.0); Mean Corpuscular HGB Conc 34.5 g/dL (29.9-35.2); Mean Corpuscular Hemoglobin 30.1 pg (26.7-34.0); Mean Corpuscular Volume 87.3 fL (81.0-99.0); Mean Platelet Volume 8.8 fL (9.5-13.5); Monocytes Absolute Auto 0.6 10^3/uL (0.3-0.8); Monocytes Percent Auto 6.3 % (1.7-12.0); Neutrophils Absolute Auto 5.6 10^3/uL (1.4-6.5); Neutrophils Percent Auto 63.3 % (43.0-75.0); Platelet Count 251 10^3/uL (150-450); Red Blood Count 4.88 10^6/uL (4.20-5.40); Red Cell Distribution Width 13.8 % (11.0-15.0); White Blood Count 8.9 10^3/uL (4.0-11.0)
[2024-09-15 12:06] LABS: Alanine Aminotransferase 35 U/L (14-59); Albumin Globulin Ratio 0.9; Albumin Level 3.5 g/dL (3.4-5.0); Alkaline Phosphatase 138 U/L (46-116); Anion Gap 10.4; Aspartate Amino Transferase 21 U/L (15-37); BUN Creatinine Ratio 16.9; Bilirubin Total 0.3 mg/dL (0.2-1.0); Calcium 9.4 mg/dL (8.5-10.1); Carbon Dioxide 29.3 mmol/L (21.0-32.0); Chloride 101 mmol/L (98-107); Chol HDL Ratio 5.8; Cholesterol 239 mg/dL (<=200); Estimated GFR (African America >60 (>=60 mL/min/1.73m^2); Estimated GFR (Non-African Ame >60 (>=60 mL/min/1.73m^2); Free T3 2.65 pg/mL (2.18-3.98); Globulin 3.8 g/dL; Glucose 100 mg/dL (74-106); HDL Cholesterol 41 mg/dL (40-60); Potassium 3.7 mmol/L (3.5-5.1); Sodium 137 mmol/L (136-145); Thyroid Stimulating Hormone 1.332 uIU/mL (0.358-3.740); Total Protein 7.3 g/dL (6.4-8.2); Triglycerides 275 mg/dL (<=150)
[2024-09-16 09:08] LABS: Insulin 38.3 uIU/mL (2.6-24.9)
== END 2024-09-15 10:50 | disposition home or self-care (01) ==
LOC: LAB 10:53
PROVIDERS: PCP Nurse Practitioner Family; Visit Provider Nurse Practitioner Family
DX: R60.0 Localized edema (principal)
CPT/HCPCS: 36415; 80053; 80061; 82306; 83036; 83525; 83540; 84436; 84443; 84481; 85025

== ENCOUNTER 2024-10-12 13:32 | Outpatient (OUT) | payer MEDICAID, SELFPAY ==
--- NOTE | 2024-10-12 13:44 | CA_ITS ---
Patient Name: CATIE LYONS MR#: [id number] : 1985 Exam Date: 10/12/2024 Ordering Doctor: WALT SIMS CNP ECHOCARDIOGRAM REPORT PROCEDURE: CA ECHO DOPPLER COMPLETE INDICATIONS: Lower extremity edema COMPARISON: None. DESCRIPTION: COMPLETE ECHOCARDIOGRAM Real-time transthoracic echocardiography with 2D, M-mode, spectral and color flow Doppler performed. QUALITY: Technical quality was adequate. LEFT VENTRICLE: Normal chamber size. Normal left ventricular wall thickness. Global left ventricular systolic function is normal. LV EF: Estimated left ventricular ejection fraction is 65%. DIASTOLIC: Normal diastolic function. ATRIAL SEPTUM: LEFT ATRIUM: Normal chamber size. RIGHT ATRIUM: Normal chamber size. RIGHT VENTRICLE: Normal chamber size. Normal right ventricular systolic function. TRICUSPID VALVE: Normal mobility and thickness. No stenosis with no regurgitation. Unable to assess right-sided pressures due to lack of measurable tricuspid regurgitation. MITRAL VALVE: Normal mobility and thickness. No evidence of mitral valve stenosis. There is no mitral annular calcification. No mitral regurgitation. AORTIC VALVE: Normal trileaflet appearance. No visible sclerosis. Normal leaflet mobility. No evidence of aortic valve stenosis. No aortic regurgitation. AORTIC ROOT: Normal diameter and appearance, measuring 3.3 cm. The ascending aorta is normal in size measuring 2.5 cm. PULMONIC VALVE: Normal thickness and mobility. No stenosis. No regurgitation. PERICARDIUM: Trivial pericardial effusion. IVC: Collapses with inspiration. Normal size. PLEURA: CONCLUSION: 1. Normal ventricular size and systolic function. Estimated LVEF is 65%. 2. Normal diastolic function. 3. No significant valvular dysfunction. 4. Unable to assess right-sided pressures due to lack of measurable tricuspid regurgitation. Adult Echocardiography Procedure Report Left Ventricle LVEDD (3.7 - 5.6 cm): 5.03 cm LVESD (2.2 - 4.0 cm): 3.15 cm LVIVS thickness (0.6 - 1.2 cm): 0.91 cm LVPW thickness (0.5 - 1.0 cm): 1.04 cm e': 0.13 m/s E - e': 4.70 LVOT Max Gradient: 1.79 mm[Hg] LVOT Area (cm2): 0.67 m/s Peak Velocity (LVOT): 0.67 m/s LVOT Diameter 2.08 cm Left Ventricular Ejection Fraction: 65 % Left Atrium LA Volume Index (2D A2C): 21.99 ml/m2 Left Atrium Systolic Dimension: 3.29 cm Mitral Valve MV E to A Ratio: 1.19 Mitral Valve A-Wave Peak Velocity: 0.51 m/s Mitral Valve E-Wave Peak Velocity: 0.61 m/s Right Ventricle RV Internal Diastolic Dimension: 3.40 cm Aorta AO Root Diam: 3.32 cm Ascending Ao Diam: 2.55 cm Aortic Valve AoV Area (Peak Britton): 2.96 cm2, 2.96 cm2 Peak Velocity(Antegrade Flow): 0.77 m/s Peak Gradient(Antegrade Flow): 2.36 mm[Hg] Tricuspid Valve Pulmonic Valve Mean Gradient: 1.61 mm[Hg], 1.61 mm[Hg] Mean Velocity: 0.60 m/s, 0.60 m/s Peak Velocity: 0.81 m/s Peak Gradient: 2.62 mm[Hg], 2.62 mm[Hg] Right Atrium Right Atrium Systolic Pressure: 27.63 ml, 27.63 ml Dictated by: Kuldip Mullins M.D. on 10/12/2024 at 18:40 Approved by: Kuldip Mullins M.D. on 10/12/2024 at 18:43
== END 2024-10-12 13:33 | disposition home or self-care (01) ==
LOC: CARD 13:33
PROVIDERS: PCP Nurse Practitioner Family; Visit Provider Nurse Practitioner Family
DX: R60.0 Localized edema (principal)
CPT/HCPCS: 93246; 93306

== ENCOUNTER 2024-10-15 12:03 | Emergency (ER) | payer MEDICAID, SELFPAY ==
[2024-10-15] VITALS (8 sets, daily range): BP systolic 116–152; BP diastolic 78–87; PULSE 94–112; TEMP 37; O2SAT 97; BMI 35.3
--- NOTE | 2024-10-15 12:16 | ECG_ITS ---
[facility] Test Date: 2024-10-15 Pat Name: CATIE LYONS Department: Room: - Gender: Female [place] [employer]: : 1985 Requested By: [id number] Order Number: [id number] Reading MD: BECKY LINDER M.D. Measurements Intervals [place] Rate: 108 P: 33 GA: 170 QRS: 51 QRSD: 80 T: 46 QT: 308 QTc: 372 Interpretive Statements 1120 Sinus tachycardia 8102 Low QRS voltage in chest leads abnormal ECG Compared to ECG 02/19/2024 15:05:26 Low QRS voltage now present Sinus rhythm no longer present Electronically Signed On 10-15-2024 19:44:47 EDT by BECKY LINDER M.D.
--- NOTE | 2024-10-15 12:17 | ED.GENADUL1 ---
HPI HPI - General Adult General Chief complaint: Arrhythmia/Palpitations Stated complaint: SORE THROAT, DIZZINESS AND HEART IS POUNDING Time Seen by Provider: 10/15/24 12:07 Source: patient Mode of arrival: walk-in History of Present Illness HPI narrative: 39-year-old female presents to the emergency department because she sprayed raid in her kitchen and it got on some food, Pakistani fries, that she ate an hour ago. She has a burning and bad taste in her mouth. She felt like her heart was racing. Nobody else ate the food. Related Data Home Medications ?Medication ?Instructions ?Recorded ?Confirmed buprenorphine 8 mg-naloxone 2 mg 1 film sublingual .2 times week 03/06/23 06/29/24 sublingual film buspirone 30 mg tablet 30 mg PO TID 03/06/23 06/29/24 quetiapine 50 mg tablet (Seroquel) 50 mg PO DAILY 06/29/24 06/29/24 vilazodone 20 mg tablet (Viibryd) 20 mg PO DAILY 06/29/24 06/29/24 Previous Rx's ?Medication ?Instructions ?Recorded cephalexin 500 mg capsule 500 mg PO Q8H 5 days #15 caps 06/29/24 ondansetron 4 mg disintegrating 4 mg PO Q6H PRN nausea and 06/29/24 tablet vomiting #12 tabs peg 3350-electrolytes 236 240 ml PO Q10M #4,000 mL 06/29/24 gram-22.74 gram-6.74 gram-5.86 gram solution (Golytely) Allergies Allergy/AdvReac Type Severity Reaction Status Date / Time No Known Drug Allergies Allergy Verified 06/29/24 16:15 Opioid HPI Opioid Management Most Recent Opioid Data: Last Pain Scale 4 06/29/24, 17:11 Last MAR Pain Assessment Today, 12:50 Review of Systems ROS Narrative A ten point review of systems is negative except as noted above. PFSH PFS Medical History (Updated 10/15/24 @ 13:00 by Mathew Rosenthal MD) Anxiety ?F41.9 - Anxiety disorder, unspecified (ICD-10) Kidney stones ?N20.0 - Calculus of kidney (ICD-10) Social History Little interest or pleasure in doing things: not at all Feeling down, depressed, or hopeless: not at all Exam Narrative Exam Narrative: Nurses note and vital signs reviewed and patient is not hypoxic. General: The patient appears well and in no apparent distress. Patient is resting comfortably on cart. Skin: Warm, dry, no pallor noted. There is no rash noted. Head: Normocephalic, atraumatic Eye: Normal conjunctiva, no drainage Ears, Nose, Mouth, and Throat: oral mucosa is moist. Nares patent. No intraoral lesions noted. She is handling oral secretions well. Cardiovascular: Regular Rate and Rhythm Respiratory: Patient is in no distress, no accessory muscle use, lungs are clear to auscultation, no wheezing, rales or rhonchi Back: non-tender GI: Soft and nontender Musculoskeletal: The patient has no evidence of calf tenderness, no pitting edema, symmetrical pulses noted bilaterally Neurological: A&O, normal speech Psychiatric: Cooperative Constitutional Vital Signs, click to edit/add: Last Vital Signs Temp 98.6 F 10/15/24 12:07 Pulse 110 H 10/15/24 12:07 Resp 18 10/15/24 12:07 BP 152/87 H 10/15/24 12:07 Pulse Ox 97 10/15/24 12:07 O2 Del Method Room Air 10/15/24 12:07 Course Vital Signs Vital signs: Vital Signs Temperature 98.6 F 10/15/24 12:07 Pulse Rate 110 H 10/15/24 12:07 Respiratory Rate 18 10/15/24 12:07 Blood Pressure 152/87 H 10/15/24 12:07 Pulse Oximetry 97 10/15/24 12:07 Oxygen Delivery Method Room Air 10/15/24 12:07 Temperature 98.6 F 10/15/24 12:07 Pulse Rate 110 H 10/15/24 12:07 Respiratory Rate 18 10/15/24 12:07 Blood Pressure 152/87 H 10/15/24 12:07 Pulse Oximetry 97 10/15/24 12:07 Oxygen Delivery Method Room Air 10/15/24 12:07 Medical Decision Making MDM Narrative Medical decision making narrative: The patient was given IM Toradol and Solu-Medrol and was reassured and is able to be discharged home. Findings were discussed with the patient. Differential Diagnosis Differential Diagnosis: Toxic exposure, nontoxic exposure ECG Data Attestation: I personally reviewed and interpreted this ECG as follows: (EKG on my interpretation shows sinus rhythm with a rate of 108) Discharge Plan Discharge Chief Complaint: Arrhythmia/Palpitations Clinical Impression: Ingestion of nontoxic substance Patient Disposition: Home, Self-Care Time of Disposition Decision: 12:59 Condition: Good Mode of Transportation: Private Vehicle Prescriptions / Home Meds: No Action vilazodone [Viibryd] 20 mg tablet 20 mg PO DAILY Rx Instructions: must administer with a meal/food quetiapine [Seroquel] 50 mg tablet 50 mg PO DAILY cephalexin 500 mg capsule 500 mg PO Q8H 5 Days Qty: 15 0RF ondansetron 4 mg tablet,disintegrating 4 mg PO Q6H PRN (Reason: nausea and vomiting) Qty: 12 0RF peg 3350-electrolytes [Golytely] 236-22.74-6.74 -5.86 gram recon soln 240 ml PO Q10M Qty: 4000 0RF Rx Instructions: until fecal effluent is clear buprenorphine-naloxone 8-2 mg film 1 film sublingual .2 times week buspirone 30 mg tablet 30 mg PO TID Print Language: [place] Instructions: Poison Proofing Your Home (ED) Referrals: WALT SIMS [Primary Care Provider, Family Practice] - 1 week
[2024-10-15] MEDS: KETOROLAC TROMETHAMINE 60 MG/2 ML VIAL IM (12:50)
[2024-10-15] MEDS: METHYLPREDNISOLONE SOD SUCC PF 125 MG/2 ML VIAL IM (12:50)
--- OUTSIDE RECORDS SUMMARY | 2024-10-15 12:58 | XMS_ITS | CCD ---
Author Organization [facility] Care Team Providers Care Roller Skate Repairer Name Role Phone PHYSICIAN, DEFAULT Admitting Unavailable [...] Unava ilMD José Salamanca Attending Provider [phone] NO FAMILY, PHYSICIAN Primary Care Provider Unava ilkristie SchulerVickie MD, José Attending Provider Sherice Gaines PA-C Attending Provider [phone] Sherice Gaines Attending Unavailable Sherice Gaines Admitting Unavailable José Johnston Attending Unavailab le José Johnston Admitting Unavailab le NO FAMILY, PHYSICIAN Primary Care Unavailable Allergies Allergy Classification Reported Allergen(s) Allergy Type Date of Onset Reaction(s) Facility (1 source) 29108,00 Drug allergy (disorder) 0 [facility] Repository (1 source) No Known Medication Allergies; Translations: [No Known Medication Allergies] Propensity to adverse reactions (disorder) [facility] Repository Medications Current Medications Medication Drug [...] day(s), # 10 tab(s), Refills(s) 0, [id number], 179, cm, 07/23/22 12:19:00 EDT, Height/Length Dosing, 106.3, kg, 07/23/22 12:19:00 EDT, Weight Dosing Start Date: 07/23/22 Stop Date: 07/28/22 Status: Ordered hydrOXYzine pamoate 50 mg oral capsule (9 sources) Antihistamine Start: 05-15-2023 take 1 capsule by mouth three times daily Hydroxyzine Pamoate 50 mg capsule Active 50 MG PO Three times daily May 15, 2023 1:00am Start: 07-22-2022 take 1 capsule by [facility] three times daily Vistaril 50 mg Cap [...] # 90 tab(s), Refills(s) 1, [facility]: [facility] #[id number], 179, cm, 07/23/22 12:19:00 EDT, Height/Length Dosing, [...] Start: 05-12-2020 take 5 tablets by [facility] at bedtime Quetiapine 50 mg Tablet Active [...] 30 cap(s), Refills(s) 1, Pharmacy: [facility] #[id number], 179, cm, 07/23/22 12:19:00 EDT, Height/Length Dosing, [...] oral tablet (3 sources) alpha-Adrenergic Agonist, Uncompetitive T-ykpzij-H-aspartat e Receptor Antagonist, Sigma-1 Agonist Start: 05-15-2023 [...] 07-22-2022 Chronic Other aftercare (1 source) Other chcf (current) drug therapy; Translations: [OTH PENITENTIARY CURRENT DRUG THERAPY] Onset: 08-19-2022 Episodic Other [...] bacterial skin contaminants 2 Days PERFORMED BY: [facility] [address] [id number] PATHOLOGIST ASSISTANT COMMUNITY MANAGER VINNY SIBLEY M.D. Normal [facility] Comment on above: Performed By: #### C UU #### [address] [place] [id number] [facility] No Panel InformationOrdered By: Lilia Salinas on 05-15-2023 Quick Strep (POC) [facility] Lab Reportson 10-12-2022 Lab Reports [id number] #1.00CD:127 Normal [facility] RAD - MISCon 10-12-2022 RAD - MISC [id number] #1.00CD:127 Normal [facility] RAD - Ultrasound Reporton RAD - Ultrasound Report [id number] #1.00CD:127 Normal [facility] RAD - Ultrasound Report [id number] #1.00CD:127 Normal [facility] Formson 10-08-2022 Forms [id number] #1.00CD:127 Normal [facility] Patient Educationon 10-08-19 23 Patient Education [...] Spinach (cooked), rhubarb, beets, sweet potatoes, and Kuwaiti chard. ? Peanuts. ? Potato chips, bangladeshi fries, and baked potatoes with skin on. ? Nuts and nut products. ? Chocolate. ? If you regularly take a diuretic medicine, make sure to eat at least 1 or 2 servings of fruits or vegetables that are high in potassium each day. These include: ? Avocado. ? Banana. ? Sheridan, prune, carrot, or tomato juice. ? Baked [...] fish oil, or vitamin B6. ? Take phsf-kib-jvgqihr and prescription medicines only as told by your health care provider. These include supplements. What foods should I limit? Limit your in (more content not included)... Normal [facility] Urology Office/Clinic Noteon 10-07-2022 Urology Office/Clinic [...] and history for this patient from Dr. aDniels. I have reviewed and verified the staff [...] female initially presented after follow up to [facility] ER visit on 07/15/22 due to L flank pain that radiated to LLQ. Was sent home with Zofran, Cofield, Flomax, and prophy Keflex. ICIQ-SF 0. Denies hx [place], stroke or DM. Not on AC No prior surgeries 1. Ureteral stone with hydronephrosis (N13.2: Hydronephrosis with renal and ureteral calculous obstruction) CT AP wo con 07/15/22 [facility] - Obstructing 6.2 mm stone at the left UPJ with moderate hydronephrosis and mild perinephric stranding. No distal ureteral stones. Stone Analysis Ca Ox Di 80, [place] 20 07/12/22 - BUN 13.0. Crea 1.09. S/p Left ureteroscopy, laser litho, stent placement 07/23/22 Stone Analysis 08/19/22 - Ca Ox Di 40, [place] 55, Hydroxyapatite 5 AMADOU 10/07/22 - 3 [...] hydronephrosis Historic (more content not included)... Normal [facility] Comment on above: Result Comment: Elec tronically Signed By: Liudmila Daniels MD\.br\Date and Time Signed: 10/07/22 12:33 EDT\.br\Electronically Co-Signed By: Chel Leroy\.br\Date and Time Co-Signed: 10/07/22 12:21 EDT Auth for Release of Medical Recordson 09-29-2022 Auth for Release of Medical Records [id number] #1.00CD:127 Normal [facility] CALCULI, URINARYon 3 2,8 Dihydroxyadenine Normal [facility] Comment on above: Performed By: #### C ALCULI #### [facility] [address] [address] [address] Marcy Alvarez Ammonium Acid Urate Normal [facility] Comment on above: Performed By: #### C ALCULI #### [facility] [address] [address] [address] Marcy Alvarez Bilirubin Ql (U) Normal [facility] Comment on above: Performed By: #### C ALCULI #### [facility] [address] [address] [address] Marcy Alvarez Ca Oxalate Dihydrate 40 % Normal [facility] Comment on above: Performed By: #### C ALCULI #### [facility] [address] [address] [address] Marcy Alvarez CaHPO4 (Brushite) [facility] Comment on above: Performed By: #### C ALCULI #### [facility] [address] [address] [address] Marcy Alvarez Calcium Bilirubinate [facility] Comment on above: Performed By: #### C ALCULI #### [facility] [address] [address] [address] Marcy Alvarez Calcium Carbonate [facility] Comment on above: Performed By: #### C ALCULI #### [facility] [address] [address] [address] Marcy Alvarez Calcium Oxalate Monohydrate 55 % [facility] Comment on above: Performed By: #### C ALCULI #### [facility] [address] [address] [address] Marcy Alvarez Calcium Palmitate [facility] Comment on above: Performed By: #### C ALCULI #### [facility] [address] [address] [address] Marcy Alvarez Calcium Phosphate [facility] Comment on above: Performed By: #### C ALCULI #### [facility] [address] [address] [address] Marcy Alvarez Calcium Stearate Normal [facility] Comment on above: Performed By: #### C ALCULI #### [facility] [address] [address] [address] Marcy Alvarez Carbonate Apatite Normal [facility] Comment on above: Performed By: #### C ALCULI #### [facility] [address] [address] [address] Marcy Alvarez Cellular Material Normal [facility] Comment on above: Performed By: #### C ALCULI #### [facility] [address] [address] [address] Marcy Alvarez Cholesterol [facility] Comment on above: Performed By: #### C ALCULI #### [facility] [address] [address] [address] Marcy Alvarez Color (U) Hager [facility] Comment on above: Performed By: #### C ALCULI #### [facility] [address] [address] [address] Marcy Alvarez Comment Comment [facility] Comment on above: Result Comment: Calc ium phosphate (hydroxyl form) includes hydroxyapatite, amorphous calcium phosphate, and whitlockite. Hydroxyapatite is the most common of the calcium phosphate salts found in human kidney stones. Performed By: #### C ALCULI #### [facility] [address] [place] [address] Dr. Marcy Alvarez Result Comment: Calc ulus received wet. Wet calculi must be dried before analysis, which delays reporting of results. Leaving calculi wet (such as water, saline, blood, urine) may lead to changes in composition. Comment: Comment Normal [facility] Comment on above: Result Comment: Anita becerra questions regarding Calculi Analysis contact [employer] at: [phone]. Performed By: #### C ALCULI #### [facility] [address] [place] [address] Dr. Marcy Alvarez Composition Comment [facility] Comment on above: Result Comment: Perc entage (Represents the % composition) Performed By: #### C ALCULI #### [facility] [address] [address] [address] Marcy Alvarez Cystine [facility] Comment on above: Performed By: #### C ALCULI #### [facility] [address] [place] [address] Dr. Marcy Alvarez Disclaimer: Comment [facility] Comment on above: Result Comment: This test was developed and its performance characteristics determined by [employer]. It has not been cleared or approved by the Food and Drug Administration. Performed By: #### C ALCULI #### [facility] [address] [address] [address] Marcy Alvarez Dried Blood Normal [facility] Comment on above: Performed By: #### C ALCULI #### [facility] [address] [place] [address] Dr. Marcy Alvarez Drug or Metabolite Normal [facility] Comment on above: Performed By: #### C ALCULI #### [facility] [address] [place] [address] Dr. Marcy Alvarez Hydroxyapatite 5 % Normal [facility] Comment on above: Performed By: #### C ALCULI #### [facility] [address] [place] [address] Dr. Marcy Alvarez Mg NH4 PO4 (Struvite) [facility] Comment on above: Performed By: #### C ALCULI #### [facility] [address] [place] [address] Dr. Marcy Alvarez MgHPO4 (Newberyite) Normal [facility] Comment on above: Performed By: #### C ALCULI #### [facility] [address] [place] [address] Dr. Marcy Alvarez Other component(s) Normal [facility] Comment on above: Performed By: #### C ALCULI #### [facility] [address] [place] [address] Dr. Marcy Alvarez PDF . Normal [facility] Comment on above: Performed By: #### C ALCULI #### [facility] [address] [place] [address] Dr. Marcy Alvarez Photo Comment [facility] Comment on above: Result Comment: Phot ograph will follow under a separate cover Performed By: #### C ALCULI #### [facility] [address] [place] [address] Dr. Marcy Alvarez Please note: Comment Normal [facility] Comment on above: Result Comment: Calc ira report will follow via computer, mail or seed analyst delivery. Performed By: #### C ALCULI #### [facility] [address] [address] [address] Marcy Alvarez Size 5x4 Normal [facility] Comment on above: Result Comment: Mult iple pieces received. Dimensions of the largest piece reported. Performed By: #### C ALCULI #### [facility] [address] [address] [address] Marcy Alvarez Sodium Acid Urate Normal [facility] Comment on above: Performed By: #### C ALCULI #### [facility] [address] [address] [address] Marcy Alvarez Source Comment [facility] Comment on above: Result Comment: Left Kidney Performed By: #### C ALCULI #### [facility] [address] [address] [address] Marcy Alvarez Triamterene [facility] Comment on above: Performed By: #### C ALCULI #### [facility] [address] [address] [address] Marcy Alvarez Uric Acid [facility] Comment on above: Performed By: #### C ALCULI #### [facility] [address] [address] [address] Marcy Alvarez Uric Acid Dihydrate Normal [facility] Comment on above: Performed By: #### C ALCULI #### [facility] [address] [address] [address] Marcy Alvarez Weight 69 mg Normal [facility] Comment on above: Performed By: #### C ALCULI #### [facility] [address] [address] [address] Marcy Alvarez Xanthine [facility] Comment on above: Performed By: #### C ALCULI #### [facility] [address] [address] [address] Marcy Alvarez Operative Reporton Operative Report [id number] #1.00CD:127 Normal [facility] DRUG SCREEN RAPID (URINE)on 08-12-2022 AMP Negative Normal NEGATIVE [facility] Comment on above: Performed By: #### D RUGRPD #### [facility] [address] [place] [address] Dr. Marcy Alvarez BAR Negative Normal NEGATIVE [facility] Comment on above: Performed By: #### D RUGRPD #### [facility] [address] [place] [address] Dr. Marcy Alvarez BUP Positive Abnormal NEGATIVE [facility] Comment on above: Performed By: #### D RUGRPD #### [facility] [address] [place] [address] Dr. Marcy Alvarez BZO Negative Normal NEGATIVE [facility] Comment on above: Performed By: #### D RUGRPD #### [facility] [address] [place] [address] Dr. Marcy Alvarez STEVEN Negative Normal NEGATIVE [facility] Comment on above: Performed By: #### D RUGRPD #### [facility] [address] [place] [address] Dr. Marcy Alvarez CUT-OFFS SEE BELOW Normal [facility] Comment on above: Result Comment: AMP (Amphetamine): 500ng/mL, BAR (Barbituates): 200 ng/mL, BZO (Benzodiazepines): 150 ng/mL, BUP (Buprenorphine): 10 ng/mL, STEVEN (Cocaine): 150 ng/mL, mAMP (Methamphetamine): 500 ng/mL, MTD (Methadone): 200 ng/mL, OPI (Opiates): 100 ng/mL, OXY (Oxycodone): 100 ng/mL, PCP (Phencyclidine): 25 ng/mL, PPX (Propoxyphene): 300 ng/mL, THC (Cannabinoids): 50 ng/mL, TCA (Trycyclic Antidepressants): 300 ng/mL Performed By: #### D RUGRPD #### [facility] [address] [place] [address] Dr. Marcy Alvarez DRUG CUT HEADER DRUG CLASS TEST SYSTEM CUT-OFF CONCENTRATIONS ARE FOLLOWS: Normal [facility] Comment on above: Performed By: #### D RUGRPD #### [facility] [address] [place] [address] Dr. Marcy Alvarez mAMP Negative Normal NEGATIVE [facility] Comment on above: Performed By: #### D RUGRPD #### [facility] [address] [address] [address] Marcy Alvarez MTD Negative Normal NEGATIVE [facility] Comment on above: Performed By: #### D RUGRPD #### [facility] [address] [address] [address] Marcy Alvarez OPI Negative Normal NEGATIVE [facility] Comment on above: Performed By: #### D RUGRPD #### [facility] [address] [place] [address] Dr. Marcy Alvarez OXY Negative Normal NEGATIVE [facility] Comment on above: Performed By: #### D RUGRPD #### [facility] [address] [place] [address] Dr. Marcy Alvarez PCP Negative Normal NEGATIVE [facility] Comment on above: Performed By: #### D RUGRPD #### [facility] [address] [place] [address] Dr. Marcy Alvarez PPX Negative Normal NEGATIVE [facility] Comment on above: Performed By: #### D RUGRPD #### [facility] [address] [address] [address] Marcy Alvarez TCA Positive Abnormal NEGATIVE [facility] Comment on above: Performed By: #### D RUGRPD #### [facility] [address] [place] [address] Dr. Marcy Alvarez THC Negative Normal NEGATIVE [facility] Comment on above: Performed By: #### D RUGRPD #### [facility] [address] [place] [address] Dr. Marcy Alvarez PREG HCG QUALon 08-12-2022 , QUAL Negative Normal NEGATIVE [facility] Comment on above: Performed By: #### P REG #### [facility] [address] [place] [address] Dr. Marcy Alvarez Pre-Certification Formon Pre-Certification Form [id number] 0#1.00CD:127 Normal [facility] Calculus Analysison 07-31-19 23 Calcium oxalate dihydrate Infrared spectroscopy (Stone) [Mass fraction] 80 % Invalid Interpretation Code [facility] Comment on above: Order Comment: Left ureteral stones Performed By: #### 1 [id number] #### [facility] [address] [place] [address] Calcium oxalate monohydrate (Stone) [Mass fraction] 20 % Invalid Interpretation Code [facility] Comment on above: Order Comment: Left ureteral stones Performed By: #### 1 [id number] #### [facility] [address] [place] [address] Color (Stone) Brown Invalid Interpretation Code [facility] Comment on above: Order Comment: Left ureteral stones Performed By: #### 1 [id number] #### [facility] [address] [place] [address] Composition Comment Invalid Interpretation Code [facility] Comment on above: Order Comment: Left ureteral stones Result Comment: Perc entage (Represents the % composition) Performed By: #### 1 [id number] #### [facility] [address] [place] [address] Disclaimer: Comment Invalid Interpretation Code [facility] Comment on above: Order Comment: Left ureteral stones Result Comment: This test was developed and its performance characteristics determined by [employer]. It has not been cleared or approved by the Food and Drug Administration. Performed at: [facility] Stone Analysis [address] [place] [address] Dr Garza, [place] [id number] PhD Gabbie Grey Performed By: #### 1 [id number] #### [facility] [address] [place] [address] Laboratory comment Baudilio (Report) Comment Invalid Interpretation Code [facility] Comment on above: Order Comment: Left ureteral stones Result Comment: Anita becerra questions regarding Calculi Analysis contact [employer] at: [phone]. Performed By: #### 1 [id number] #### [facility] [address] [place] [address] Please Note: Comment Invalid Interpretation Code [facility] Comment on above: Order Comment: Left ureteral stones Result Comment: Calc ira report will follow via computer, mail or seed analyst delivery. Performed By: #### 1 [id number] #### [facility] [address] [place] [address] Size (Stone) [Entitic vol] 3x3 Invalid Interpretation Code [facility] Comment on above: Order Comment: Left ureteral stones Result Comment: Mult iple pieces received. Dimensions of the largest piece reported. Performed By: #### 1 [id number] #### [facility] [address] [place] [address] Specimen source subject Nom Comment Invalid Interpretation Code [facility] Comment on above: Order Comment: Left ureteral stones Result Comment: Left Ureter Performed By: #### 1 [id number] #### [facility] [address] [place] [address] Stone Photo Comment Invalid Interpretation Code [facility] Comment on above: Order Comment: Left ureteral stones Result Comment: Phot ograph will follow under a separate cover Performed By: #### 1 [id number] #### [facility] [address] [place] [address] Weight (Stone) 16 mg Invalid Interpretation Code [facility] Comment on above: Order Comment: Left ureteral stones Performed By: #### 1 [id number] #### [facility] [address] [id number] IntraOperative Documentson 0 07-28-2022 IntraOperative Documents [id number] 2#1.00CD:127 Normal [facility] Coding Summary.on 07-27-2022 Coding Summary. CD:[id number] Ww+PGhlYWQ+JA1NUQOnF 55kqINonJ0oA8WAMJiSV ywgQVBQTElOSyIgbmFtZ N8nbBSwZAOx IC8+CS6yUTAvSptuuKCg m3H7bSQ4U04doa5kQZpb lDH8DLVgIjBrejlvm9pt sSz4JHlcEjjxKsPf JWQtsY76EJH2wP19Wk58 kVTrhZEiu7shjQa9FzPn XFOkCTK9eNwtKPhpy5Jr CENsJ55moJPbv1N2 IGNvbGxhcHNlOyBlbXB0 qA4hMNvqfquqx0jtwhgw Wvs8sn25lRRqr7E4iYX3 S4VdjiC0LTCyqAFv WnqziBAZqA2kdzgja3ow iusyYmPsKDYuGDw6DDn7 EICdmBtkGdNmIO42LUM4 HSIypdRnN8FnAPKb mRweCmC9y4T6Ww5JE0WX NgcsC5YOQKDSBEnkeUJ+ EJ54xv08I2FmZcbhDiv4 FMSrXZB5nJX8vV0k KJQmRPhot6H7pQD2H7Ob yhEbzj1jw0arSLNsMZru U26rwXEgl2Z9BVJijCS1 VEQkmGhmNeYduK46 Oyc+LOFizWueg2OhXwoo n4psk9oyiJb0OwmkAKDa wpTvoFagCCG5j1FkNq7n BBRtcEL5gLX1eQ1l WmYgPrT8TRkfZ025HhCd gHWrEiiaX44lX0UkrIY+ MPWiMim0FMGzoEocSW0o N5GgHAWadunubSPc xSthHC9gOAZpcvwzHMCd kP7vLPAyR0g9ExEwDxE2 SWtdD8PiNFCmpbboEu95 jC9hExWaNoX5DVlj O6QoojZ3SIUwlFPrCIdv ZAL4I77ks2O9UWFqMMHe WRT8kCT6wT9egBbqxzky bGVmdDsgdmVydGlj JEaiJBslQ172ZWLcvCmy PkNvZGluZyBEYXRlOiAg MDUvMDgvMjAyMzwvdGQ+ CPMuFMB6oLqfJHTs jLMjZNrmAo4igWmraMkh CR8fFDHhkqbhCQIujW9v VMRurROxeTxyPV9wHBTa oijgx927JrCmDWS4 HTBhcNDgO5GfkV0qZkUo CPJfNQNoM6IezICpICkz E171AVoaIqN6IOTbmnVs E9YoQDRozJffWiL1 v7I3Ac2Mg4IianwnR7Hb kTQpJpFiLeduQDf7T8Xp PjwvdHI+VE88PUMpVY87 HXc7MQP9gEvdRJxe TTEiE6BqrB9mTePaTMYq ZGRkOyc+PHRhYmxlIHdp ZHRoPScxMDAlJyBzdHls PJ6vMd4vBVKxZXNo nHrfnHEtKnJzg6srFZXw HQinAR9cgMupJ4OxkCP3 FRTui8m7Wf94C24uI3Um dXA+MOVbnWJ3oVA0 vS1cYmMdMoF0BEajV338 MvMhbAXbHcxyf1ngq4bd aDd8YdR1KRFmmxUxtLtj LHL0l1LlGs47V06y IHdpZHRoPSIxNSUiIHZh jWwfnn3udM5qHg1+PGNv zSA1nOM1hZ6lKuUeOmA2 SOuyO791NhIufBZg Rjsaq7crh6hwvUl5RzWe POWimbOutWmlRDM7v9Cb Yj16E8IvaWnep4QrDow9 mq70vVRae7W0mWP5 V2AwFREnnenymWUjsHgm HQ9fXDBqpxulLEOibG7o QASuY7f2ViAfTuQ6VSmw K8ZkncY2VFSyeHKg ONIwtZRXoT8zauvnh9wa qbyeIhZsJAZlRWw1MTg0 CRSqaYojFkQjFGL8IyJ5 YSW2eFJedR3kyDko fmuvwX6gWsh+HJE3eHMy yDSDJE4rNxkhhOC+PHRk FLC3yVupGMplKROnnH1e SIDzY8w9QhWaSxC1 MSbeA9YsxyM0GXAieAAb IVClcDGGiV2wstntk6gx vjleRaKpLMHeVLh8UXp5 LWFsaWduOiBsZWZ0 PaM6JZG7mMPscC0pcWrx mwefcO7yEct+QmlydGgg KGF3HKe5H2FkOoi8XPOi nLteXN2ecJQtWXto Ld5hfVcyzXsdBL7xWOUd xfamu670YkHde3ogTVLb lJExAKsaNFN1V98fx9N4 JZLkDBVxDMY8jHX5 hX6wwHvyfqbbkWUsoNht ocAmjCcsBEbkHAtdQ659 UQVerCqbZvJyOBc1K0Mw Kzb5AKDzwIfwMN6r cRMyIWcbPg6tjSelyRxo RL0fPWDqtdmsd219AwBu z2olMYQezLTaRVvvWVA1 B14cu0G3WOXuTYTt GFX7pJG6pJ9xkKlqqrmv bGVmdDsgdmVydGljYWwt KPeyB213QVDmtDzvHrIj eQl3M7ZxYhy3DQIy jEnlHG5stFGuEWjdAy4d lXspyJnmET0yCVWteseu i179ZqDzz6bbFRZfkBUr TPirPHS4E21lw1G7 DCUeHGFjVJO3fSF7hF7m bGlnbjogbGVmdDsgdmVy bAgqWBbvXPncA030ZDXp cDsnPlBhdGllbnQg SGocMEw1R8KsYytnxJX+ SU36OWFbXY68fYPqyTLk v9ndiGa6XuAoOQTqYHR0 hLawNNodu3FgQVIu R73qnXYwc2Q0GWHchZnr iBPfMvSgmBA3tV3iJOsr qlflg1tbxaoiHrzon1fi ha90bB18E69xLJlg ZHRoPSIzMCUiIHZhbGln il2mpD5lOk7+PGNvbCB3 cCM2fI7cOEZbOfK4KGdl D164PoYlbWDsLmxi g5hpa1vjaDe2RgQ3IYFz pcGybWkaSNU6h1RjKr06 Q11sHShjJAGkVDFxYGJk EWBsdYphjn0gkA6a Ii8+QHJlyRU8kDR0hH1m BqNjIeN6MVjxL440GaKs xCPyMpdrQ68uP2FppRM+ XBLsAeu7BUMreAlw EW3oyDBxQOulDp2gQPD2 JnYiIzSxCFwaR8WdFWFt xyebqslsxLJ9APUxARCx gJ35Qv6yyOlcCKVk iZFGsN8tnwieq1ixpwbk YvOmCJFsGSv9MLf6WOGr eRbbMiEtAVF6AsT0KVN3 fXJvpL5baEhzfnpo rY4cZ8HjJGEjszjvDe53 oL9qXuSjMzR0QDwlZfu+ UFJZQkEsIEFEUklBTkEg SjwvdGQ+PHRkIHN0 xQdjFZutUOQaxG0jJZSc M2b2CsAzKyL7NJclP7Cm CJPgzuwfHz32sD7pHuWm VoE6DTwlL6QokyK0 ROGkoZLsFYdwFGR2C79l d1H1ZEPkAEJkOAA6oOJ1 aB5yhDzlwijhbLNaaJen dmVydGljYWwtYWxp W571PTVyhGjvWzAzHgL8 EbV7ZAk5K4GcBrq1CTEj vVbjRQ2ocKSwMWsqBc6l jCkjcZinES9yJXFj avpgMZBlmH6kUSUseKUf wDhiCF4jZBFksemfg539 TvVzVZL8RKYsyQYxU5Lc bG9xPxGzPFQnOMFt Y0CnaJZlHOmzI027DDyb RfB4LPQofcZmG5VhJAXx hXejWqO7s0S2Zb5hOsPW ZWFyczwvdGQ+PHRk HZI2vSyeXLvjCPUukX2i OZBaD7u6LhEsOcI7WFtr V9LyTYUawnmeBw82rS9x MdRzFtS3HTdwR5Dp cyL8ECZjcVZgGZfjNBI5 Q48hp0Q8NGQkAPSyHAL3 lOB8iS2dlQdxjnrruBQr dDsgdmVydGljYWwt GUdaG213XPHszFpiFcKq bWFsZTwvdGQ+PHRkIHN0 vDzhOZxeBWCvaT5tFCCi N6z4BsNmYzL1JSga A2PuXAStdrqyQr76mM7f XcErHvT2KEbiJ2LjapN0 HLZaxLYyTMdiZQC6D53t i1Y2UIBbSBNsXKZ8 lGJ0kJ5mgWhlcksbyRFl dDsgdmVydGljYWwtYWxp H219HTBepLrbQhLwHfMc DOKvmhqtH9PnHQTT VLmsB0UpP4ZgxMqdiTI+ QB42en68M0UoLuhyFrd1 YRYrSUW4rUL3wP8fRVJf NQoyr6P5oMX6T4Nx ngYwvg4va9azLFRxHNzd U69zlQDbu1Z9ICXkqXR9 NZTsgAzwWdEwaP29Xxd+ FDYveSaji7BbMkyi w8snk3ntkEy2GtEzEJQp wfBqhKgyXGC7a0WkJy54 S84iJUboXHPiWUDpWWNs HSFdqZrkbu4xkZ2q Ii8+MGStmTR1dYQ7eQ0i GeHmLlJ1QGjcL784EdJl jJXfNopbx7won9vowAv9 IjIwJSIgdmFsaWdu ZCK9s3LhZr28X0QegWqp n8FaDrr3xx70gLByk5U2 zRW3Z9XbQJAumtwetRXt cAsyBT5gEGIquwgq KEYwbG4mWLZeL7s7EwZz LwZ9BTwtC0UteaY2KTXw xKHeMAGmuLESkP3jfnqh w3ifgpsuMtDyOCSm BPn8OTw9RZBpaJhjMhEz WMW9YxJ4STU2kNWwcN9r oXrcxboddC4eRit+UGh5 e5wscLNkDU7poGK5 VY03IA41yXAjh2C3uXU6 Z7CjVUZfiwdbqnlckEG0 TRLaYILqhU19Kc2piXhk Fw7dADQcCSZ9DICk cBCzA0AgnM3aUiEvZDPo NXLgY3NibCZuWMzlY014 RVtdCaY8BIKrttKlE5Ru SPKyjVrbFiO1g7J7 Sx5ICT64LM46VX15jDDe f7X5mKH3H1QvLMTjvqhk htegwHF4JRKiSMAocW57 Az7yqPedZr0kXATa JAC0QSTawUIyQ3RsvV9u EuZxRRJhJCAzL8VsjOWs DZcpQ752XUqlAvK0ZKVi huNrN4YnWMZnpAxy TsY8h5B1Mt3QZl07HB38 ZT81sZCdh6Q3mUY0P4Kp ZQRzgddlcmsqeBD7RLBp FTTqpB01Cx5jaMoo Vr8kGXVuYFW9MDLbxGNx P5DwnA4dInDnLFTqNBIu I1EiwPDpOOoyO682HKck QfA4FUEugrSmY1Ra BGIzcTmcNbT4e6T2Kn1C EBxisqi8Z3FzHzcpwQP+ QH34YTYeIK99tXRykYPg g0gvhId3YtKvSOKc TJD6tRli (more content not included)... [facility] Lab Reportson 07-27-2022 Lab Reports [id number] #1.00CD:127 [facility] Main OR Intraoperative Recor don 07-27-2022 Main OR Intraoperative Record IntraOp Document Type FT Summary Primary Physician: Liudmila Daniels MD Finalized Date/Time: 07/27/22 08:05:40 Pt. Name: CATIE LYONS /Sex: 1985 Female Med Rec #: [id number] Physician: Liudmila Daniels MD Financial #: [id number] Pt. Type: A Room/Bed: [facility] Admit/Disch: 07/23/22 11:44:51 - 07/23/22 16:20:00 [...] Crowe Role Performed ABDOUL Surgeon - Primary Sales Facilitator - Primary Time In 07/23/22 13:50:00 07/23/22 [...] RT(R), Leisa Role Performed Scrub - Primary Car Unloader Partner Marketing Intern Time In 07/23/22 13:50:00 07/23/22 13:50:00 07/23/22 [...] infection Sk (more content not included)... [facility] Postoperative Documentson Postoperative Documents [id number] 8#1.00CD:127 [facility] Pre-Certification Formon Pre-Certification Form [id number] 0#1.00CD:127 [facility] RAD - CT Reporton 07-27-[address] - CT Report [id number] #1.00CD:127 [facility] C Urineon 07-25-2022 Bacteria identified Cx Nom (U) Microbiology PROCEDURE: Urine Culture [R1] SOURCE: U Cysto BODY SITE: COLLECTED DATE/TIME: 07/23/2022 14:20 EDT RECEIVED DATE/TIME: 07/23/2022 14:57 EDT START DATE/TIME: 07/23/2022 14:57 EDT FREE TEXT SOURCE: left renal pelvis urine for culture Jeremiah DAY, iLudmila Daniels MD, Liudmila Emery FINAL REPORTS Final Report [] Verified Date/Time: 07/25/2022 08:11 EDT No growth at 2 days. Performing Locations R1: This test was performed at: [facility], [address] [place] [address], [address] [place] [address], [facility] Comment on above: Performed By: #### 2 [id number] ####[facility] [address] [place] [address] Consent for Anesthesiaon Consent for Anesthesia [id number] 7#1.00CD:127 [facility] Discharge Instructionson Discharge Instructions [id number] 5#1.00CD:127 [facility] IntraOperative Documentson 0 07-24-2022 IntraOperative Documents [id number] 8#1.00CD:127 [facility] IntraOperative Documents [id number] 1#1.00CD:127 [facility] Preoperative Documentson Preoperative Documents [id number] 1#1.00CD:127 [facility] XR Urography Retrograde Left on 07-24-2022 [...] mGy = 7.30 DAP = 543.52 [facility] Auto Diffon 07-23-2022 Basophils/100 WBC (Bld) 0.6 % Normal 0.0-2.0 [facility] Comment on above: Order Comment: Order Added by Discern Expert. Performed By: #### 2 788211, 6755845, 3373201, 95953763, 58149806 #### [facility] [address] [place] [address] Basophils/Leukocytes Auto (Bld) [Pure # fraction] 0.1 E9/L Normal 0.0-0.2 [facility] Comment on above: Order Comment: Order Added by Discern Expert. Performed By: #### 2 670067, 1895757, 3568330, 67967683, 05018554 #### [facility] [address] [place] [address] 23004 Eosinophils/100 WBC (Bld) 1.6 % Normal 0.0-8.0 [facility] Comment on above: Order Comment: Order Added by Discern Expert. Performed By: #### 2 804128, 9998730, 9404354, 57516144, 64110250 #### [facility] [address] [place] [address] Eosinophils/Leukocyte s Auto (Bld) [Pure # fraction] 0.1 E9/L Normal 0.0-0.5 [facility] Comment on above: Order Comment: Order Added by Discern Expert. Performed By: #### 2 781405, 3366395, 0766346, 36309501, 10238218 #### [facility] [address] [place] [address] 57018 Lymphocytes/100 WBC (Bld) 24.5 % Normal 14.0-50.0 [facility] Comment on above: Order Comment: Order Added by Discern Expert. Performed By: #### 2 010726, 6083237, 0349566, 47849986, 97119711 #### [facility] [address] [place] [address]1912 Lymphocytes/Leukocyte s Auto (Bld) [Pure # fraction] 2.2 E9/L Normal 1.0-4.0 [facility] Comment on above: Order Comment: Order Added by Discern Expert. Performed By: #### 2 517439, 7377628, 6503481, 85127620, 90262363 #### [facility] [address] [place] [address] 38985 Monocytes/100 WBC (Bld) 6.3 % Normal 4.0-14.0 [facility] Comment on above: Order Comment: Order Added by Discern Expert. Performed By: #### 2 773373, 2828874, 1225472, 29333310, 85888335 #### [facility] [address] [place] [address]508 Monocytes/Leukocytes Auto (Bld) [Pure # fraction] 0.6 E9/L Normal 0.2-1.0 [facility] Comment on above: Order Comment: Order Added by Discern Expert. Performed By: #### 2 454117, 2874773, 1995291, 56571035, 78130743 #### [facility] [address] [place] [address] 76826 Neutrophils/100 WBC (Bld) 67.0 % Normal 36.0-75.0 [facility] Comment on above: Order Comment: Order Added by Discern Expert. Performed By: #### 2 382769, 5238826, 9007713, 21509253, 11670203 #### [facility] [address] [place] [place] [address] 36497 Neutrophils/Leukocyte s Auto (Bld) [Pure # fraction] 6.0 E9/L Normal 2.0-7.5 [facility] Comment on above: Order Comment: Order Added by Discern Expert. Performed By: #### 2 098829, 4906210, 6025321, 80661141, 66506601 #### [facility] [address] [place] [address] BMPon 07-23-2022 Anion gap [Moles/Vol] 12 mmol/L Normal 6-16 [facility] Comment on above: Performed By: #### 2 581733, 2111701, 1772338, 89779088, 88285816 ####[facility] [address] [place] [address] Calcium [Mass/Vol] 9.2 mg/dL Normal 8.9-11.1 [facility] Comment on above: Performed By: #### 2 105844, 1841621, 6996795, 51474347, 03679896 ####[facility] [address] [place] [address] Chloride [Moles/Vol] 103 mmol/L Normal 101-111 [facility] Comment on above: Performed By: #### 2 817176, 1302349, 5609714, 33752547, 14680655 ####[facility] [address] [place] [address] CO2 [Moles/Vol] 23 mmol/L Normal 21-[address] [facility] Comment on above: Performed By: #### 2 998388, 3968198, 9391146, 96586459, 19725230 ####[facility] [address] [place] [address] Creatinine [Mass/Vol] 1.2 mg/dL Normal 0.5-1.3 [facility] Comment on above: Performed By: #### 2 665973, 4078717, 9949100, 42122331, 44090818 ####[facility] [address] [place] [address] Glucose [Mass/Vol] 87 mg/dL Normal 55-199 [facility] Comment on above: Result Comment: If t his glucose result represents a fasting glucose, interpretation should refer to the following reference range: 55-99 mg/dL Performed By: #### 2 991472, 4409533, 3739709, 07713670, 28923567 ####[facility] [address] [place] [address] Potassium [Moles/Vol] 4.4 mmol/L Normal 3.5-5.3 [facility] Comment on above: Performed By: #### 2 059282, 7562574, 4749167, 16411743, 20192122 ####[facility] [address] [place] [address] Sodium [Moles/Vol] 134 mmol/L Low 135-145 [facility] Comment on above: Performed By: #### 2 530315, 1405645, 7827455, 11924446, 16885893 ####[facility] [address] [place] [address] Urea nitrogen [Mass/Vol] 16 mg/dL Normal 5-21 [facility] Comment on above: Performed By: #### 2 843867, 7101604, 9185078, 58872862, 84792884 ####[facility] [address] [place] [address] Urea nitrogen/Creatinine [Mass ratio] 13 No Units Normal 10-20 [facility] Comment on above: Performed By: #### 2 501916, 2309971, 0897967, 80021159, 05367556 ####[facility] [address] [place] [address] CBC w/ Auto Diffon 3 Erythrocyte distribution width (RBC) [Ratio] 13.1 % Normal 10.9-14.2 [facility] Comment on above: Performed By: #### 2 135239, 8342951, 5601791, 91967229, 76909286 #### [facility] [address] [place] [address] Hematocrit (Bld) [Volume fraction] 40.8 % Normal 34.0-46.0 [facility] Comment on above: Performed By: #### 2 842043, 6076412, 8812293, 99308904, 56158813 #### [facility] [address] [place] [address] Hemoglobin (Bld) [Mass/Vol] 13.7 g/dL Normal 12.0-16.0 [facility] Comment on above: Performed By: #### 2 513599, 5267629, 1806218, 24814689, 10067847 #### [facility] [address] [place] [address] MCH (RBC) [Entitic mass] 28.9 pg Normal 27.0-34.0 [facility] Comment on above: Performed By: #### 2 913792, 5472954, 2066267, 25662122, 65233212 #### [facility] [address] [place] [address] MCHC (RBC) [Mass/Vol] 33.6 g/dL Normal 31.4-36.0 [facility] Comment on above: Performed By: #### 2 697562, 6574584, 0689412, 91391843, 59864756 #### [facility] [address] [place] [address] MCV (RBC) [Entitic vol] 86.0 fL Normal 80.0-100.0 [facility] Comment on above: Performed By: #### 2 051529, 5481279, 0349879, 86170712, 44862133 #### [facility] [address] [place] [address] Platelet mean volume (Bld) [Entitic vol] 6.8 fL Normal 6.4-10.8 [facility] Comment on above: Performed By: #### 2 028432, 4904724, 4208523, 24393567, 06203535 #### [facility] [address] [place] [address] Platelets (Bld) [#/Vol] 276.0 E9/L Normal 150.0-500.0 [facility] Comment on above: Performed By: #### 2 117863, 4480828, 3162202, 57341022, 22388825 #### [facility] [address] [place] [address] RBC (Bld) [#/Vol] 4.7 E12/L Normal 4.3-5.9 [facility] Comment on above: Performed By: #### 2 184707, 9722976, 7467531, 07478798, 99861708 #### [facility] [address] [place] [address] WBC corrected for nucl RBC Auto (Bld) [#/Vol] 8.9 E9/L Normal 4.0-11.0 [facility] Comment on above: Performed By: #### 2 196687, 2770656, 9447762, 11382732, 28077298 #### [facility] [address] [place] [address] CHEMISTRYOrdered By: SYSTEM SYSTEM on 07-23-2022 Anion gap [Moles/Vol] 12 mmol/L Normal 6 - 16 mEq/L F [facility] Remisol Calcium [Mass/Vol] 9.2 mg/dL Normal 8.9 - 11. 1 mg/dL FT [facility] Chloride [Moles/Vol] 103 mmol/L Normal 101 - 1 11 mmol/L [facility] CO2 [Moles/Vol] 23 mmol/L Normal 21 - 31 mmol/L [facility] Creatinine [Mass/Vol] 1.2 mg/dL Normal 0.5 - 1.3 mg/dL [facility] GFR/1.73 sq M.predicted among non-blacks MDRD (S/P/Bld) [Vol rate/Area] 60 mL/min/1.73 m2 Normal >=59mL/min/1 .73 m2 [facility] Chem S Glucose [Mass/Vol] 87 mg/dL Normal 55 - 199 mg/dL FT [facility] Potassium [Moles/Vol] 4.4 mmol/L Normal 3.5 - 5.3 mmol/L [facility] Remisol Sodium [Moles/Vol] 134 mmol/L Low 135 - 145 mmol/L [facility] Remisol Urea nitrogen [Mass/Vol] 16 mg/dL Normal 5 - 21 mg/dL [facility] Remisol Urea nitrogen/Creatinine [Mass ratio] 13 mg/mg Normal 10 - 20 [facility] Remisol COAGULATIONOrdered By: Santi Hampton on 07-23-2022 aPTT Coag (PPP) [Time] 35.9 s Normal 25.1 - 36.5 second(s) [facility] Auto Coag INR Coag (PPP) [Relative time] 1.1 {INR} Invalid Interpretation Code [facility] Auto Coag PT Coag (PPP) [Time] 12.3 s Normal 9.4 - 1 2.5 second(s) [facility] Auto Coag Consent for Procedure/Surger yon 07-23-2022 Consent for Procedure/Surgery [id number] 5#1.00CD:127 [facility] Consent for Treatmenton Consent for Treatment [id number] #1.00CD:127 [facility] Discharge Instructionson Discharge Instructions CATIE LYONS [...] 12 hours Duration: 5 Days Pickup at [facility] #[id number] New oxybutynin (oxybutynin 5 mg Tab) 1 Tablets By Mouth 3 times a day as needed for Urinary discomfort Refills: 1 Bladder spasms, stent irritation Pickup at [facility] #[facility]25 New tamsulosin (tamsulosin 0.4 mg Cap) 1 Capsules By Mouth Every day as needed for Urinary discomfort Refills: 1 Stent pain Pickup at [facility] #00231 Changed quetiapine (SEROquel 200 mg Tab) 200 [...] Mouth Every day Pharmacy Information [facility] #[id number]: [address], [place] [id number] [phone] Test Results CBC BMP WBC: 8.9 E9/L [...] L STENT CONTOUR URETERAL 6.0 X 22-30MM [[id number]] 07/23/2022, MR Winston - HORACIO: {[id number]{1 7}[id number]{[id number] [employer] [facility] [place], [place] Post-operative Instructions for Ureteroscopy, Laser Lithotripsy, Stone Extraction and Stent Placement There are no incisions or dressings to be c (more content not included)... [facility] Comment on above: Result Comment: Elec tronically Signed By: Isacc CHAPARRO, Elva Walker\.br\Date and Time Signed: 07/23/22 15:43 EDT H&P Updateon 07-23-2022 H&P Update [id number] 9#1.00CD:127 [facility] HEMATOLOGYOrdered By: SYSTEM SYSTEM on 07-23-2022 [...] Patient Summaryon 07-23-2022 Inpatient Patient Summary [address] [address] [facility] Clinical Discharge Instructions PERSON INFORMATION Name: CATIE LYONS PHYSICIANS Admitting Physician: Liudmila Daniels MD Attending Physician: Liudmila Daniels MD PCP: NONE, XXXX Discharge Diagnosis: Kidney stones; Ureteral stone with hydronephrosis Comment: PATIENT EDUCATION INFORMATION Instructions: Voar-Tpjn-xw Utereroscopy,Lithotr ipsy, Stone Extraction, Stent Placement (CUSTOM); Dietary Guidelines to Help Prevent Kidney Stones Medication Leaflets: Follow up: With: Address: When: Liudmila Daniels Comments: Office will call to schedule left ureteroscopy, laser lithotripsy, stent exchange in 2 weeks MEDICATION LIST New Medications [facility] #[id number], [address], [place] [id number], [phone] ciprofloxacin (Cipro 500 mg Tab) 1 Tablets [...] Tablets By Mouth every day. Comment: [facility] Main OR PACU I [facility] Main OR PACU I Record PACU Phase I Document Type FT Summary Primary Physician: Liudmila Daniels MD Finalized Date/Time: 07/23/22 15:29:44 Pt. Name: CATIE LYONS Abdirahman Archer/Sex: 1985 Female Med Rec #: [id number] Physician: Liudmila Daniels MD Financial #: [id number] Pt. Type: A Room/Bed: 06/20 Admit/Disch: 07/23/22 [...] By: Patricia Moore RN 07/23/22 15:29 [facility] Main OR PACU II Recordon Main OR PACU II Record PACU Phase II Document Type FT Summary Primary Physician: Liudmila Daniels MD Finalized Date/Time: 07/23/22 16:23:00 Pt. Name: ELOYCATIE./Sex: 1985 Female Med Rec #: [id number] Physician: Liudmila Daniels MD Financial #: [id number] Pt. Type: A Room/Bed: [place] [address] Admit/Disch: 07/23/22 11:44:51 - 07/23/22 16:20:00 Institution: [...] Signed By: Elva Dexter RN 07/23/22 16:23 [facility] Main OR Preoperative Recordo n 07-23-2022 Main OR Preoperative Record PreOp Document Type FT Summary Primary Physician: Liudmila Daniels MD Finalized Date/Time: 07/23/22 14:26:45 Pt. Name: CUONG LYONSJUAN Archer/Sex: 1985 Female Med Rec #: [id number] Physician: Liudmila Daniels MD Financial #: [id number] Pt. Type: A Room/Bed: [facility] Admit/Disch: 07/23/22 11:44:51 - Institution: Case Times [...] Signed By: Indra Serna RN 07/23/22 14:26 [facility] Monitor Recordon 07-23-2022 Monitor Record [id number] 9#1.00CD:127 [facility] Monitor Record [id number] 1#1.00CD:127 [facility] Operative Reporton 3 Operative Report Patient: [...] lidocaine gel per urethra, using a 22.5 Libyan rigid cystoscope and inserted this into the bladder with minimal manipulation. We noted a normal appearance of the urethra en route to the bladder. Once inside the bladder, a cystoscopic examination revealed no evidence of erythematous patches or plaques, foreign bodies, stones or papillary lesion. A 6 Libyan open-ended catheter was inserted into the left ureteral orifice followed by injection of contrast with findings as above. A straight sensor wire was inserted up the catheter and fluoroscopy was used to confirm its coiling within the kidney. We then removed the catheter from the patient and left the sensor wire behind. Next a 10/12 Libyan x 35cm ureteral access sheath was gently [...] X 2 (more content not included)... [facility] Comment on above: Result Comment: Elec tronically Signed By: Jeremiah DAY, Liudmila Emery\.br\Date and Time Signed: 07/23/22 15:06 EDT Outpatient Surgery Discharge Instructionon 07-23-2022 Outpatient Surgery Discharge Instruction [place] [id number] Patient Discharge Instructions PERSON INFORMATION Name: CATIE [...] to serve you. Thank you for choosing [facility] HERE ARE THE MEDICATION CHANGES THAT OCCURRED DURING YOUR HOSPITAL STAY New Medications [facility] #[id number], [address], [place] [id number], [phone] ciprofloxacin (Cipro 500 mg Tab) 1 Tablets [...] day. PATIENT EDUCATION INFORMATION Instructions: [facility] [place], [place] Post-operative Instructions for Ureteroscopy, Laser Lithotripsy, [...] other reasons. If it is to remain superintendent container terminal, however, changes of the stent are required (about every 3-4 months). Diet You may resume your normal diet, but you may want to start slowly and avoid spicy food, caffeine, carbonated beverages and alcohol, especially if yo (more content not included)... [facility] PT & PTTon 07-23-2022 aPTT Coag (PPP) [Time] 35.9 second(s) Normal 25.1-36.5 [facility] Comment on above: Result Comment: Para [...] the same coagulation reagent and instrumentation as [facility]. Currently there are no coagulation studies available worldwide for children to 14 days, and no normal ranges. Heparin therapeutic range (represented by Anti-Factor Xa activity of 0.2 - 0.4 U/mL) corresponds to PTT of 56.6 - 109.0 sec. Performed By: #### 2 306083, 1117327, 5510582, 84630723, 08128745 #### [facility] [address] [place] [address] INR Coag (PPP) [Relative time] 1.1 {INR} Invalid Interpretation Code [facility] Comment on above: Result Comment: INR results are specifically intended to assess patients stabilized on long-term Anticoagulation therapy suggested INR?s ?Less Intensive Anticoagulation? 2.0 ? 3.0 Conventional Range 3.0 ? 4.5 Performed By: #### 2 193963, 0100416, 9558097, 98250899, 90994331 #### [facility] [address] [place] [address] PT Coag (PPP) [Time] 12.3 second(s) Normal 9.4-12.5 [facility] Comment on above: Result Comment: 15 [...] the same coagulation reagent and instrumentation as [facility]. Currently there are no coagulation studies available worldwide for children to 14 days, and no normal ranges. Performed By: #### 2 980635, 8008220, 4174152, 01015378, 12347238 #### [facility] [address] [place] [address] Patient Education - Texton 0 07-23-2022 Patient [...] Spinach (cooked), rhubarb, beets, sweet potatoes, and Kuwaiti chard. ? Peanuts. ? Potato chips, bangladeshi fries, and baked potatoes with skin on. ? Nuts and nut products. ? Chocolate. ? If you regularly take a diuretic medicine, make sure to eat at least 1 or 2 servings of fruits or vegetables that are high in potassium each day. These include: ? Avocado. ? Banana. ? [place], prune, carrot, or tomato juice. ? Baked [...] fish oil, or vitamin B6. ? Take xmdz-mml-dzhezbc and prescription medicines only as told by your health care provi (more content not included)... [facility] Progress Note-Nurseon 2022 Progress Note-Nurse Pt [...] verbalized understanding and agreed to sign. [facility] Progress Note-Physicianon Progress Note-Physician Patient: CATIE LYONS Age: 37 years Sex: Female : 1985 Associated Diagnoses: None Author: Rico Blunt MD Postoperative Information Postoperative disposition: Postoperative disposition: To PACU. Optimetrix number: Optimetrix number [id number]. Anesthetic utilized: General. Physical Examination Vital Signs [...] Surgery Unit, and To home ). [facility] Comment on above: Result Comment: Elec [...] list: All Problems Headache / SNOMED CT 18036574 / Confirmed History of kidney stones / SNOMED CT 2813481579 / Confirmed Kidney stones / SNOMED CT 380729234 / Confirmed Psychiatric illness / SNOMED CT 857739586 / Confirmed Smoker / SNOMED CT 904145629 / Confirmed Added secondary to documentation in Social History. Ureteral stone with hydronephrosis / SNOMED CT 96487466 / Confirmed, Active Problems (6) Headache History [...] Dosing 179.0 cm Weight Dosing 106.3 kg [place] Body Weight Calculated 69.587 kg BSA Measured [...] in all extremities. Gastrointestinal: Soft, Non-tender. Plan [place] [employer] (ASA) physical status classification: Class II. Anesthetic Preoperative Plan: Anesthesia General. [facility] Comment on above: Result Comment: Elec tronically Signed By: Merlene DAY, Rico Sung.kendrick\Date and Time Signed: 07/23/22 13:21 EDT SEROLOGYOrdered By: Basia Ferguson on 07-23-2022 HCG.beta subunit (U) [Moles/Vol] Negative Normal [facility] [place] [facility] U BetaHcg [place] 07-23-2022 HCG.beta subunit (U) [Moles/Vol] Negative Normal [facility] Comment on above: Performed By: #### 2 [id number] ####[facility] [id number] [place] [address] XR Abdomen 1 Viewon 07-24-19 23 XR [...] mGy = na DAP = na Normal [facility] eGFRon 07-23-2022 GFR/1.73 sq M.predicted among non-blacks MDRD (S/P/Bld) [Vol rate/Area] 60 mL/min/1.73 m2 Normal >=59 [facility] Comment on above: Order Comment: Order added by Discern Expert. Result Comment: [employer] Worker fortino kidney disease could be indicated at eGFR's of less than 60 mL/min/1.73m2. Kidney failure is indicated at less than 15 mL/min/1.73m2. Performed By: #### 2 [id number], [id number], [id number], [id number], [id number] ####[facility] [id number] [place] [address] Ambulatory Visit Summaryon 0 07-22-2022 Ambulatory Visit Summary CATIE LYONS :1985 Visit Date:07/22/2022 Ambulatory Visit Instructions Your Diagnosis Ureteral stone with hydronephrosis Kidney stones History of kidney stones Tests Performed Urnls Dip Stick Auto w/o Microscopy POC 34696 Your Care Team Attending Physician - Jeremiah [...] Urnls Dip Stick Auto w/o Microscopy POC 62298 (07/22/2022) Bilirubin Urine Dipstick - Negative Blood Urine Dipstick - Negative Glucose Urine Dipstick - Negative Ketones Urine Dipstick - Negative Leukocytes Urine Dipstick - Trace Protein Urine Dipstick - Negative Specific [place] Urine Dipstick - >=1.030 Urine Appearance Urine [...] including vitamins, herbs, eye drops, creams, and fgqk-xmb-sctcdem medicines. ? Any problems you or family [...] as aspi (more content not included)... Normal [facility] Formson 07-22-2022 Forms [id number] 8#1.00CD:127 Normal [facility] Patient Educationon 07-23-19 23 Patient Education [...] including vitamins, herbs, eye drops, creams, and kurg-ara-etraocf medicines. ? Any problems you or family [...] tells you to take them. ? Taking nuif-ywc-vdciyld medicines, vitamins, herbs, and supplements. Eating and [...] the pieces (more content not included)... Normal [facility] Screenson 07-22-2022 Screens [id number] 5#1.00CD:127 Normal [facility] Urology Office/Clinic Noteon 07-22-2022 Urology Office/Clinic Note Chief Complaint New Pt HPI Staff New Pt. Pt was seen at [facility] on 07/15/22 due to left flank [...] yo female new pt following up to [facility] ER visit on 07/15/22 due to L flank pain that radiated to LLQ. Was sent home with Zofran, Cofield, Flomax, and prophy Keflex. ICIQ-SF 0. Denies hx [place], stroke or DM. Not on AC No [...] order Gen (more content not included)... Normal [facility] Comment on above: Result Comment: Elec tronically Signed By: Liudmila Daniels MD\.br\Date and Time Signed: 07/22/22 11:38 EDT\.br\Electronically Co-Signed By: Monserrat Segal\.br\Date and Time Co-Signed: 07/22/22 10:01 EDT CBC AUTO DIFFon 07-15-2022 BASO # 0.0 103/ul Normal 0.0-0.1 [facility] Comment on above: Performed By: #### C BC #### [facility] [address] [address] [address] Marcy Alvarez Basophils/100 WBC (Bld) 0.2 % Normal 0.2-2.0 [facility] Comment on above: Performed By: #### C BC #### [facility] [address] [place] [address] Dr. Marcy Alvarez EO # 0.0 103/ul Normal 0.0-0.7 [facility] Comment on above: Performed By: #### C BC #### [facility] [address] [place] [address] Dr. Marcy Alvarez Eosinophils/100 WBC (Bld) 0.3 % Critically low 0.9-7.0 [facility] Comment on above: Performed By: #### C BC #### [facility] [address] [place] [address] Dr. Marcy Alvarez Erythrocyte distribution width (RBC) [Ratio] 12.6 % Normal 11.0-15.0 [facility] Comment on above: Performed By: #### C BC #### [facility] [address] [place] [address] Dr. Marcy Alvarez Hematocrit (Bld) [Volume fraction] 42.1 % Normal 36.0-48.0 [facility] Comment on above: Performed By: #### C BC #### [facility] [address] [place] [address] Dr. Marcy Alvarez Hemoglobin (Bld) [Mass/Vol] 14.3 g/dL Normal 12.0-16.0 [facility] Comment on above: Performed By: #### C BC #### [facility] [address] [place] [address] Dr. Marcy Alvarez IG # 0.04 10e3/ul Critically high 0.00-0.03 [facility] Comment on above: Performed By: #### C BC #### [facility] [address] [place] [address] Dr. Marcy Alvarez IG % 0.3 % Normal 0.0-0.5 [facility] Comment on above: Performed By: #### C BC #### [facility] [address] [place] [address] Dr. Marcy Alvarez LYMPH # 1.4 103/ul Normal 1.2-3.8 [facility] Comment on above: Performed By: #### C BC #### [facility] [address] [place] [address] Dr. Marcy Alvarez Lymphocytes/100 WBC (Bld) 11.6 % Critically low 20.5-60.0 [facility] Comment on above: Performed By: #### C BC #### [facility] [address] [place] [address] Dr. Marcy Alvarez MANUAL DIFF REQ NO Normal [facility] Comment on above: Performed By: #### C BC #### [facility] [address] [place] [address] Dr. Marcy Alvarez MCH (RBC) [Entitic mass] 29.2 pg Normal 26.7-34.0 [facility] Comment on above: Performed By: #### C BC #### [facility] [address] [place] [address] Dr. Marcy Alvarez MCHC (RBC) [Mass/Vol] 34.0 g/dL Normal 29.9-35.[address] [facility] Comment on above: Performed By: #### C BC #### [facility] [address] [place] [address] Dr. Marcy Alvarez MCV (RBC) [Entitic vol] 85.9 fL Normal 81.0-99.0 [facility] Comment on above: Performed By: #### C BC #### [facility] [address] [place] [address] Dr. Marcy Alvarez MONO # 0.7 103/ul Normal 0.3-0.[address] [facility] Comment on above: Performed By: #### C BC #### [facility] [address] [place] [address] Dr. Marcy Alvarez Monocytes/100 WBC (Bld) 6.1 % Normal 1.7-12.[address] [facility] Comment on above: Performed By: #### C BC #### [facility] [address] [place] [address] Dr. Marcy Alvarez NEUT # 9.6 103/ul Critically high 1.4-6.5 [facility] Comment on above: Performed By: #### C BC #### [facility] [address] [address] [address] Marcy Alvarez Neutrophils/100 WBC (Bld) 81.5 % Critically high 43.0-75.0 [facility] Comment on above: Performed By: #### C BC #### [facility] [address] [place] [address] Dr. Marcy lAvarez Platelet mean volume (Bld) [Entitic vol] 8.7 fL Critically low 9.5-13.5 [facility] Comment on above: Performed By: #### C BC #### [facility] [address] [address] [address] Marcy Alvarez PLT 238 103/ul Normal 150-450 [facility] Comment on above: Performed By: #### C BC #### [facility] [address] [place] [address] Dr. Marcy Alvarez RBC 4.90 106/ul Normal 4.20-5.[address] [facility] Comment on above: Performed By: #### C BC #### [facility] [address] [place] [address] Dr. Marcy Alvarez WBC 11.7 103/ul Critically high 4.0-11.0 [facility] Comment on above: Performed By: #### C BC #### [facility] [address] [place] [address] ABD/PELVIS WO CONon [...] MAL TOSCANO Date: 2022-07-15 09:[address] [facility] ER URINE PROFILEon 3 Bilirubin Ql (U) Negative Normal NEGATIVE [facility] Comment on above: Performed By: #### E RUR #### [facility] [address] [place] [address] Dr. Marcy Alvarez Clarity (U) CLEAR Normal CLEAR [facility] Comment on above: Performed By: #### E RUR #### [facility] [address] [place] [address] Dr. Marcy Alvarez Color (U) LT. YELLOW Normal YELLOW [facility] Comment on above: Performed By: #### E RUR #### [facility] [address] [place] [address] Dr. aMrcy Alvarez ERUAHD A micrscopic examination will be performed if indicated. Normal [facility] Comment on above: Performed By: #### E RUR #### [facility] [address] [place] [address] Dr. Marcy Alvarez Glucose Ql (U) Negative Normal NEGATIVE [facility] Comment on above: Performed By: #### E RUR #### [facility] [address] [place] [address] Dr. Marcy Alvarez Hemoglobin Ql (U) Negative Normal NEGATIVE [facility] Comment on above: Performed By: #### E RUR #### [facility] [address] [place] [address] Dr. Marcy Alvarez Ketones Ql (U) Negative Normal NEGATIVE [facility] Comment on above: Performed By: #### E RUR #### [facility] [address] [place] [address] Dr. Marcy Alvarez LEUKOCYTES Negative Normal NEGATIVE [facility] Comment on above: Performed By: #### E RUR #### [facility] [address] [place] [address] Dr. Marcy Alvarez Nitrite Ql (U) Negative Normal NEGATIVE [facility] Comment on above: Performed By: #### E RUR #### [facility] [address] [place] [address] Dr. Marcy Alvarez pH (U) 6.0 [pH] Normal 5-9 [facility] Comment on above: Performed By: #### E RUR #### [facility] [address] [place] [address] Dr. Marcy Alvarez SPEC GRAVITY 1.025 Normal 1.005-<=1.02 5 [facility] Comment on above: Performed By: #### E RUR #### [facility] [address] [place] [address] Dr. Marcy Alvarez UA PROTEIN Negative Normal NEGATIVE/ TRACE [facility] Comment on above: Performed By: #### E RUR #### [facility] [address] [place] [address] Dr. Marcy Alvarez UR MICRO IND NOT INDICATED Normal [facility] Comment on above: Performed By: #### E RUR #### [facility] [address] [place] [address] Dr. Marcy Alvarez Urobilinogen Qn (U) 0.2 {Maddie'U}/dL Normal 0.2 - 1. 0 [facility] Comment on above: Performed By: #### E RUR #### [facility] [address] [place] [address] Dr. Marcy Alvarez LIPASEon 07-15-2022 Lipase [Catalytic activity/Vol] 63.0 U/L Critically low 73.0-393.0 [facility] Comment on above: Performed By: #### C MP, LIPA #### [facility] [address] [place] [address] Dr. Marcy Alvarez PROF 14(COMP METB)on 023 Albumin [Mass/Vol] 3.5 g/dL Normal 3.4-5.0 [facility] Comment on above: Performed By: #### C MP, LIPA #### [facility] [address] [place] [address] Dr. Marcy Alvarez Albumin/Globulin [Mass ratio] 0.9 {ratio} Normal [facility] Comment on above: Performed By: #### C MP, LIPA #### [facility] [address] [place] [address] Dr. Marcy Alvarez ALP [Catalytic activity/Vol] 131 U/L Critically high 46-116 [facility] Comment on above: Performed By: #### C MP, LIPA #### [facility] [address] [place] [address] Dr. Marcy Alvarez ALT [Catalytic activity/Vol] 30 U/L Normal 14-59 [facility] Comment on above: Performed By: #### C MP, LIPA #### [facility] [address] [place] [address] Dr. Marcy Alvarez Anion gap [Moles/Vol] 13.0 mmol/L Normal [facility] Comment on above: Performed By: #### C MP, LIPA #### [facility] [address] [place] [address] Dr. Marcy Alvarez AST [Catalytic activity/Vol] 22 U/L Normal 15-37 [facility] Comment on above: Performed By: #### C MP, LIPA #### [facility] [address] [place] [address] Dr. Marcy Alvarez Bilirubin [Mass/Vol] 0.4 mg/dL Normal 0.2-1.0 [facility] Comment on above: Performed By: #### C MP, LIPA #### [facility] [address] [place] [address] Dr. Marcy Alvarez Calcium [Mass/Vol] 9.1 mg/dL Normal 8.5-10.1 [facility] Comment on above: Performed By: #### C MP, LIPA #### [facility] [address] [address] [address] Marcy Alvarez Chloride [Moles/Vol] 101 mmol/L Normal 98-107 [facility] Comment on above: Performed By: #### C MP, LIPA #### [facility] [address] [address] [address] Marcy Alvarez CO2 [Moles/Vol] 25.9 mmol/L Normal 21.0-32.0 [facility] Comment on above: Performed By: #### C MP, LIPA #### [facility] [address] [place] [address] Dr. Marcy Alvarez Creatinine [Mass/Vol] 1.09 mg/dL Critically high 0.55-1.02 [facility] Comment on above: Performed By: #### C MP, LIPA #### [facility] [address] [place] [address] Dr. Marcy Alvarez EGFR-AF COLOMBIAN >60 Normal >=60 [facility] Comment on above: Performed By: #### C MP, LIPA #### [facility] [address] [place] [address] Dr. Marcy Alvarez EGFR-NON AF COLOMBIAN 57 mL/min/1.73m2 Critically low >=60 [facility] Comment on above: Performed By: #### C MP, LIPA #### [facility] [address] [place] [address] Dr. Marcy Alvarez Globulin (S) [Mass/Vol] 4.0 g/dL Normal [facility] Comment on above: Performed By: #### C MP, LIPA #### [facility] [address] [place] [address] Dr. Marcy Alvarez Glucose [Mass/Vol] 111 mg/dL Critically high 74-106 [facility] Comment on above: Performed By: #### C MP, LIPA #### [facility] [address] [address] [address] Marcy Alvarez Potassium [Moles/Vol] 3.9 mmol/L Normal 3.5-5.1 [facility] Comment on above: Performed By: #### C MP, LIPA #### [facility] [address] [place] [address] Dr. Marcy Alvarez Protein [Mass/Vol] 7.5 g/dL Normal 6.4-8.2 [facility] Comment on above: Performed By: #### C MP, LIPA #### [facility] [address] [place] [address] Dr. Marcy Alvarez Sodium [Moles/Vol] 136 mmol/L Normal 136-145 [facility] Comment on above: Performed By: #### C MP, LIPA #### [facility] [address] [place] [address] Dr. Marcy Alvarez Urea nitrogen [Mass/Vol] 13.0 mg/dL Normal 7.0-18.0 [facility] Comment on above: Performed By: #### C MP, LIPA #### [facility] [address] [place] [address] Dr. Marcy Alvarez Urea nitrogen/Creatinine [Mass ratio] 11.9 mg/mg Normal [facility] Comment on above: Performed By: #### C MP, LIPA #### [facility] [address] [place] [address] Dr. Marcy Alvarez MRI BRAIN WO W [...] HILDA RUBIO Date: 2022-02-05 06:[address] [facility] COVID Quick Testingon 2020 Result Negative boosk Other ACETAMINOPHENon 03-08-2018 Acetaminophen mass conc <10 Low 10-30 [facility] Comment on above: Order Comment: No: D o not add to previous draw Performed By: #### 2 9772, , 07454, 44229, 91257, 58885, 66930, 36256 #### [facility] [address] [place] [address], [place] BASIC METABOLIC PANELon 02-19 Calcium mass conc 9.8 mg/dL Normal 8.6-10.3 [facility] Comment on above: Order Comment: No: D o not add to previous draw Performed By: #### 2 73, , 98714, 48837, 09231, 88744, 75965, 62033 #### [facility] [address] [place] [address], [place] Chloride molar conc 105 mmol/L Normal 98-[address] [facility] Comment on above: Order Comment: No: D o not add to previous draw Performed By: #### 2 73, , , 77596, 16622, 72334, 22167, 53287 #### [facility] [address] [place] [address], [place] CO2 molar conc 24 mmol/L Normal 21-31 [facility] Comment on above: Order Comment: No: D o not add to previous draw Performed By: #### 2 9773, , 72080, 60797, 63017, 13144, 83171, 96158 #### [facility] [address] [place] [address], [place] Creatinine mass conc 0.53 mg/dL Low 0.60-1.20 [facility] Comment on above: Order Comment: No: D o not add to previous draw Performed By: #### 2 9773, , , 80366, 51382, 41686, 33785, 31244 #### [facility] [address] [place] [address], [facility] GFR/1.73 sq M predicted among blacks MDRD vol rate/area (S/P/Bld) mL/min/{1.73_m2} Normal >60 [facility] Comment on above: Order Comment: No: D o not add to previous draw Performed By: #### 2 9773, , , 99641, 88779, 41579, 35011, 92705 #### [facility] [address] [facility] [place] [address], [facility] GFR/1.73 sq M predicted among non-blacks MDRD vol rate/area (S/P/Bld) mL/min/{1.73_m2} Normal >60 [facility] Comment on above: Order Comment: No: D o not add to previous draw Performed By: #### 2 9773, , 18356, 14142, 32807, 71691, 23480, 39641 #### [facility] [address] [place] [address], [facility] Glucose mass conc 101 mg/dL High 70-100 [facility] Comment on above: Order Comment: No: D o not add to previous draw Performed By: #### 2 73, , , 42087, 93379, 92487, 08039, 51075 #### [facility] [address] [place] [address], [facility] Potassium molar conc 4.1 mmol/L Normal 3.5-5.1 [facility] Comment on above: Order Comment: No: D o not add to previous draw Performed By: #### 2 9772, , , 39118, 66660, 15467, 54041, 23896 #### [facility] [address] [facility]. [address] Sodium molar conc 138 mmol/L Normal 136-145 [facility] Comment on above: Order Comment: No: D o not add to previous draw Performed By: #### 2 9773, , 94100, 20716, 50652, 18989, 91155, 48755 #### [facility] [address] [facility]. [address] Urea nitrogen mass conc 8 mg/dL Normal 7-25 [facility] Comment on above: Order Comment: No: D o not add to previous draw Performed By: #### 2 9773, , 50013, 08963, 98774, 64788, 16184, 27844 #### [facility] [address] [facility] CBC W/DIFFon 03-08-2018 ABS BASOPHILS 0.1 10*3/uL Normal 0.0-0.2 [facility] Comment on above: Order Comment: No: D o not add to previous draw Performed By: #### 5 0103 #### [facility] [address] [facility] ABS IMM GRANS 0.0 10*3/uL Normal 0.0-0.2 [facility] Comment on above: Order Comment: No: D o not add to previous draw Performed By: #### 5 0103 #### [facility] [address] [facility] ABS NEUTROPHILS 6.8 10*3/uL Normal 1.6-7.6 [facility] Comment on above: Order Comment: No: D o not add to previous draw Performed By: #### 5 0103 #### [facility] [address] [facility]. [address] Basophils #/vol (Bld) 0.5 % Normal 0.0-1.0 [facility] Comment on above: Order Comment: No: D o not add to previous draw Performed By: #### 5 0103 #### [facility] [address] [place] [address], [facility] Eosinophils #/vol (Bld) 0.1 10*3/uL Normal 0.0-0.5 [facility] Comment on above: Order Comment: No: D o not add to previous draw Performed By: #### 5 0103 #### [facility] [address] [facility] [place] [address], [facility] Eosinophils/100 WBC (Bld) 0.8 % Normal 0.0-6.0 [facility] Comment on above: Order Comment: No: D o not add to previous draw Performed By: #### 5 0103 #### [facility] [address] [facility] [address] Erythrocyte distribution width Ratio (RBC) 12.5 % Normal 11.5-15.0 [facility] Comment on above: Order Comment: No: D o not add to previous draw Performed By: #### 5 0103 #### [facility] [address] [facility]. [address] Hematocrit Volume Fraction (Bld) 45.6 % High 36.0-45.0 [facility] Comment on above: Order Comment: No: D o not add to previous draw Performed By: #### 5 0103 #### [facility] [address] [facility] [place] [place] [address], [facility] Hemoglobin mass conc (Bld) 16.0 g/dL High 12.0-15.0 [facility] Comment on above: Order Comment: No: D o not add to previous draw Performed By: #### 5 0103 #### [facility] [address] [place] [id number], [facility] IMMATURE GRANS 0.2 % Normal 0.0-1.0 [facility] Comment on above: Order Comment: No: D o not add to previous draw Performed By: #### 5 0103 #### [facility] [address] [place] [address], [facility] Lymphocytes #/vol (Bld) 1.8 10*3/uL Normal 1.2-4.0 [facility] Comment on above: Order Comment: No: D o not add to previous draw Performed By: #### 5 0103 #### [facility] [address] [place] [address], [facility] Lymphocytes/100 WBC (Bld) 18.9 % Low 20.0-45.0 [facility] Comment on above: Order Comment: No: D o not add to previous draw Performed By: #### 5 0103 #### [facility] [address] [facility] [place] [id number], [facility] MCH Entitic mass (RBC) 31.6 pg Normal 27.0-33.0 [facility] Comment on above: Order Comment: No: D o not add to previous draw Performed By: #### 5 0103 #### [facility] [address] [facility] [place] [place] [address], [facility] MCHC mass conc (RBC) 35.1 g/dL High 32.0-35.0 [facility] Comment on above: Order Comment: No: D o not add to previous draw Performed By: #### 5 0103 #### [facility] [address] [facility] [place] [place] [address], [facility] MCV Entitic volume (RBC) 89.9 fL Normal 82.0-98.0 [facility] Comment on above: Order Comment: No: D o not add to previous draw Performed By: #### 5 0103 #### [facility] [address] [place] [id number], [facility] [facility] Monocytes #/vol (Bld) 0.6 10*3/uL Normal 0.1-1.0 Th e [facility] Comment on above: Order Comment: No: D o not add to previous draw Performed By: #### 5 0103 #### [facility] [address] [place] [address], [facility] MONOS 6.1 % Normal 5.0-12.0 [facility] Comment on above: Order Comment: No: D o not add to previous draw Performed By: #### 5 0103 #### [facility] [address] [place] [id number], [facility] Neutrophils/100 WBC (Bld) 73.5 % High 40.0-72.0 [facility] Comment on above: Order Comment: No: D o not add to previous draw Performed By: #### 5 0103 #### [facility] [address] [place] [id number], [facility] Nucleated RBC/100 WBC Ratio (Bld) 0 % Normal 0-0 [facility] Comment on above: Order Comment: No: D o not add to previous draw Performed By: #### 5 0103 #### [facility] [address] [place] [id number], [facility] PLAT CNT 313 10*3/uL Normal 150-400 The [facility] Comment on above: Order Comment: No: D o not add to previous draw Performed By: #### 5 0103 #### [facility] [address] [place] [id number], [facility] RBC #/vol (Bld) 5.07 10*6/uL High 3.80-5.00 The [facility] Comment on above: Order Comment: No: D o not add to previous draw Performed By: #### 5 0103 #### [facility] [address] [place] [id number], [facility] WBC #/vol (Bld) 9.24 10*3/uL Normal 4.00-10.60 The [facility] Comment on above: Order Comment: No: D o not add to previous draw Performed By: #### 5 0103 #### [facility] [address] [facility]. [address] CHOLESTEROL BLOODon 03-08-20 18 Cholesterol mass conc 213 mg/dL High 120-200 [facility] Comment on above: Order Comment: No: D o not add to previous draw Result Comment: CHOL ESTEROL REFERENCE RANGE: 20 YEARS AND OLDER CARDIOVASCULAR RISK Less than 200 mg/dl Low Risk 200 to 239 mg/dl Borderline Risk 240 mg/dl and greater High Risk Performed By: #### 2 9773, 03786, 49364, 59671, 64726, 06286, 93325, 87219 #### [facility] [address] DETOX PANEL URINEon 03-08-20 18 50 THC Negative Normal NEGATIVE [facility] Comment on above: Order Comment: No: D o not add to previous draw No collection time noted on specimen or requisition. The collection time recorded is the time of receipt in the lab. No collection time noted on specimen or requisition. The collection time recorded is the time of receipt in the lab. Performed By: #### 3 1520 #### [facility] [address] BARBITURATES Negative Normal NEGATIVE The [facility] Comment on above: Order Comment: No: D o not add to previous draw No collection time noted on specimen or requisition. The collection time recorded is the time of receipt in the lab. No collection time noted on specimen or requisition. The collection time recorded is the time of receipt in the lab. Performed By: #### 3 1520 #### [facility] [address] Benzodiazepines Ql (U) Negative Normal NEGATIVE [facility] Comment on above: Order Comment: No: D o not add to previous draw No collection time noted on specimen or requisition. The collection time recorded is the time of receipt in the lab. No collection time noted on specimen or requisition. The collection time recorded is the time of receipt in the lab. Performed By: #### 3 1520 #### [facility] [address] [place] [address], [facility] Cocaine Ql (U) Positive Abnormal NEGATIVE The [facility] Comment on above: Order Comment: No: D o not add to previous draw No collection time noted on specimen or requisition. The collection time recorded is the time of receipt in the lab. No collection time noted on specimen or requisition. The collection time recorded is the time of receipt in the lab. Performed By: #### 3 1520 #### [facility] [address] [place] [address], [facility] Methadone Ql (U) Negative Normal NEGATIVE The [facility] Comment on above: Order Comment: No: D o not add to previous draw No collection time noted on specimen or requisition. The collection time recorded is the time of receipt in the lab. No collection time noted on specimen or requisition. The collection time recorded is the time of receipt in the lab. Performed By: #### 3 1520 #### [facility] [address] [place] [address], [facility] MONO AMPHET Negative Normal NEGATIVE The [facility] Comment on above: Order Comment: No: D o not add to previous draw No collection time noted on specimen or requisition. The collection time recorded is the time of receipt in the lab. No collection time noted on specimen or requisition. The collection time recorded is the time of receipt in the lab. Performed By: #### 3 1520 #### [facility] [address] [place] [address], [facility] Opiates Ql (U) Positive Abnormal NEGATIVE The [facility] Comment on above: Order Comment: No: D o not add to previous draw No collection time noted on specimen or requisition. The collection time recorded is the time of receipt in the lab. No collection time noted on specimen or requisition. The collection time recorded is the time of receipt in the lab. Performed By: #### 3 1520 #### [facility] [address] [place] [address], [facility] Phencyclidine Ql (U) Negative Normal NEGATIVE [facility] Comment on above: Order Comment: No: D o not add to previous draw No collection time noted on specimen or requisition. The collection time recorded is the time of receipt in the lab. No collection time noted on specimen or requisition. The collection time recorded is the time of receipt in the lab. Performed By: #### 3 1520 #### [facility] [address] [place] [address], [facility] Protein mass conc (U) Negative Normal NEGATIVE [facility] Comment on above: Order Comment: No: D o not add to previous draw No collection time noted on specimen or requisition. The collection time recorded is the time of receipt in the lab. No collection time noted on specimen or requisition. The collection time recorded is the time of receipt in the lab. Performed By: #### 3 1520 #### [facility] [address] TRICYCLICS Negative Normal NEGATIVE [facility] Comment on above: Order Comment: No: D o not add to previous draw No collection time noted on specimen or requisition. The collection time recorded is the time of receipt in the lab. No collection time noted on specimen or requisition. The collection time recorded is the time of receipt in the lab. Performed By: #### 3 1520 #### [facility] [address] [place] [address], [facility] GAMMA GT BLOODon 03-08-2018 GAMMA GT 18 IU/L Normal 9-64 [facility] Comment on above: Order Comment: No: D o not add to previous draw Performed By: #### 2 9773, , 10111, 00246, 63475, 37115, 26215, 86215 #### [facility] [address] [place] [address], [facility] LIVER BATTERYon 03-08-2018 Albumin mass conc 4.7 g/dL Normal 3.5-5.7 The [facility] Comment on above: Order Comment: No: D o not add to previous draw Performed By: #### 2 9772, , , 86190, 80276, 79465, 51905, 49819 #### [facility] [address] [place] [id number], [facility] ALKALINE PHOSPH 77 IU/L Normal 34-104 The [facility] Comment on above: Order Comment: No: D o not add to previous draw Performed By: #### 2 73, , , 55453, 46747, 73730, 55709, 01276 #### [facility] [address] [place] [address], [facility] ALT enzyme act/vol 11 U/L Normal 7-52 The [facility] Comment on above: Order Comment: No: D o not add to previous draw Performed By: #### 2 9772, , , 35499, 87449, 69911, 27348, 52917 #### [facility] [address] [facility] [place] [place] [address], [facility] AST enzyme act/vol 15 U/L Normal 13-39 The [facility] Comment on above: Order Comment: No: D o not add to previous draw Performed By: #### 2 73, , , 52254, 49843, 99243, 02156, 56179 #### [facility] [address] [facility] [place] [place] [address], [facility] Bilirubin mass conc 0.5 mg/dL Normal 0.3-1.[address] [facility] Comment on above: Order Comment: No: D o not add to previous draw Performed By: #### 2 73, , 23541, 34572, 91275, 97187, 40827, 78827 #### [facility] [address] [facility] [place] [id number], [facility] Bilirubin.direct mass conc 0.1 mg/dL Normal 0.0-0.2 [facility] Comment on above: Order Comment: No: D o not add to previous draw Performed By: #### 2 9772, , , 23357, 53753, 10837, 81456, 66022 #### [facility] [address] [place] [address], [facility] Protein mass conc 7.2 g/dL Normal 6.0-8.3 [facility] Comment on above: Order Comment: No: D o not add to previous draw Performed By: #### 2 9773, , , 59179, 67097, 85866, 97925, 09793 #### [facility] [address] MAGNESIUM BLOODon 03-08-2018 Magnesium mass conc 2.1 mg/dL Normal 1.9-2.[address] [facility] Comment on above: Order Comment: No: D o not add to previous draw Performed By: #### 2 73, , , 51778, 01230, 53353, 00648, 03063 #### [facility] [address] [facility] [address] RPR (RAPID PLASMA REAGIN)on 03-08-2018 Reagin Ab RPR Ql (S) NON-REACTIVE Normal NON-REACTIVE [facility] Comment on above: Performed By: #### 2 9773, , , 11565, 18752, 82306, 12300, 59618 #### [facility] [address] [facility]. [address] SERUM TESTon 03-08 TEST Negative Normal The [facility] Comment on above: Order Comment: No: D o not add to previous draw Performed By: #### 2 9773, , , 05612, 58711, 53448, 20888, 24835 #### [facility] [address] [place] [address], [facility] TSH3on 03-08-2018 TSH 3RD GENERATION 0.70 uIU/mL Normal 0.34-5.[address] [facility] Comment on above: Order Comment: No: D o not add to previous draw Performed By: #### 2 73, , 28961, 40716, 40374, 80979, 83665, 27386 #### [facility] [address] [place] [id number], [facility] UA,MICROSCOPIC REQUIREDon AMORPHOUS FEW Abnormal NONE SEEN [facility] Comment on above: Order Comment: No: D o not add to previous draw Performed By: #### 2 73, , , 69888, 81549, 47002, 17387, 60657 #### [facility] [address] [place] [address], [facility] Appearance Nom (U) CLOUDY Abnormal CLEAR The [facility] Comment on above: Order Comment: No: D o not add to previous draw Performed By: #### 2 73, , 72056, 30222, 26506, 41338, 49572, 39041 #### [facility] [address] [place] [address], [facility] Bilirubin.direct mass conc Negative Normal NEGATIVE [facility] Comment on above: Order Comment: No: D o not add to previous draw Performed By: #### 2 73, , 64049, 49712, 16888, 05283, 29318, 42101 #### [facility] [address] [facility] [place] [place] [address], [facility] BLOOD Negative Normal NEGATIVE [facility] Comment on above: Order Comment: No: D o not add to previous draw Performed By: #### 2 73, , 56720, 69624, 87056, 72424, 44426, 82866 #### [facility] [address] [place] [address], [place] Color Nom (U) YELLOW Normal YELLOW The [facility] Comment on above: Order Comment: No: D o not add to previous draw Performed By: #### 2 9773, , 05913, 12307, 42793, 04517, 85777, 11801 #### [facility] [address] [place] [address], [facility] EPIS MANY Abnormal FEW,OCC,NONE SEEN [facility] Comment on above: Order Comment: No: D o not add to previous draw Performed By: #### 2 9773, , 71013, 58129, 73794, 27836, 73471, 49120 #### [facility] [address] [place] [address], [facility] Glucose mass conc Negative Normal NEGATIVE [facility] Comment on above: Order Comment: No: D o not add to previous draw Performed By: #### 2 9773, , 96405, 51953, 26574, 90076, 38115, 18846 #### [facility] [address] [place] [address], [facility] KETONE Negative Normal NEGATIVE [facility] Comment on above: Order Comment: No: D o not add to previous draw Performed By: #### 2 73, , 47861, 87980, 52575, 77136, 22481, 61523 #### [facility] [address] [facility] [place] [place] [address], [facility] LEUK ZENON MODERATE Abnormal NEGATIVE [facility] Comment on above: Order Comment: No: D o not add to previous draw Performed By: #### 2 73, , 89988, 54814, 38201, 71612, 99878, 64408 #### [facility] [address] [facility] [place] [place] [address], [facility] MUCUS THREADS FEW Abnormal NONE SEEN The [facility] Comment on above: Order Comment: No: D o not add to previous draw Performed By: #### 2 9773, , 56368, 73198, 08905, 98282, 29591, 03995 #### [facility] [address] [place] [address], [facility] Nitrite Ql (U) Negative Normal NEGATIVE [facility] Comment on above: Order Comment: No: D o not add to previous draw Performed By: #### 2 9772, , , 98711, 00311, 54401, 59674, 44444 #### [facility] [address] pH (Bld) 6.0 Normal 5.0-8.0 [facility] Comment on above: Order Comment: No: D o not add to previous draw Performed By: #### 2 73, , , 07243, 72656, 37545, 92718, 35225 #### [facility] [address] Protein mass conc Negative Normal NEGATIVE [facility] Comment on above: Order Comment: No: D o not add to previous draw Performed By: #### 2 9772, , , 03604, 45877, 10709, 23788, 36433 #### [facility] [address] RBC #/vol (Bld) 3-5 Abnormal NONE SEEN The [facility] Comment on above: Order Comment: No: D o not add to previous draw Performed By: #### 2 73, , , 33216, 64258, 73380, 53378, 90856 #### [facility] [address] SPEC GRAV 1.018 Normal 1.015-1.020 [facility] Comment on above: Order Comment: No: D o not add to previous draw Performed By: #### 2 73, , 33086, 21197, 78707, 61359, 71680, 86660 #### [facility] [address] WBC UA 6-10 Abnormal NONE SEEN [facility] Comment on above: Order Comment: No: D o not add to previous draw Performed By: #### 2 9772, , 12353, 39033, 45448, 44105, 86082, 07584 #### [facility] [address] [place] [address], [facility] URIC ACID BLOODon 03-08-2018 Urate mass conc 3.4 mg/dL Normal 2.3-6.6 [facility] Comment on above: Order Comment: No: D o not add to previous draw Performed By: #### 2 9773, 57223, 18704, 60479, 36930, 60545, 01987, 37239 #### [facility] [address] [place] [address], [facility] Vital Signs Date Time Vital Sign Value Performing Clinician Facility 01-12-2024 16:38-0400 Body height 172.72 cm PHYSICIAN NO [facility] 01-12-2024 16:38-0400 Body mass index (BMI) [Ratio] 34.9 kg/m2 PHYSICIAN NO [facility] 01-12-2024 16:38-0400 Body temperature 98.2 [degF] PHYSICIAN NO [facility] 01-12-2024 16:38-0400 Body weight 104.32 kg PHYSICIAN NO [facility] 01-12-2024 16:38-0400 Diastolic blood pressure 61 mm[Hg] PHYSICIAN NO [facility] 01-12-2024 16:38-0400 Heart rate 104 /min PHYSICIAN NO [facility] 01-12-2024 16:38-0400 Respiratory rate 18 /min PHYSICIAN NO [facility] 01-12-2024 16:38-0400 SaO2% (BldA) [Mass fraction] 96 % PHYSICIAN NO [facility] 01-12-2024 16:38-0400 Systolic blood pressure 97 mm[Hg] PHYSICIAN NO [facility] 05-15-2023 14:38-0500 Body height 172.72 cm [facility] 05-15-2023 14:38-0500 Body mass index (BMI) [Ratio] 36.6 kg/m2 [facility] 05-15-2023 14:38-0500 Body temperature 98.9 [degF] [facility] 05-15-2023 14:38-0500 Body weight 109.37 kg [facility] 05-15-2023 14:38-0500 Heart rate 110 /min [facility] 05-15-2023 14:38-0500 Respiratory rate 18 /min [facility] 05-15-2023 14:38-0500 SaO2% (BldA) [Mass fraction] 94 % [facility] 10-07-2022 11:07-0400 Blood Pressure Location Liudmila Lue [facility] 10-07-2022 11:07-0400 Diastolic blood pressure 98 mm[Hg] Liudmila Lue [facility] 10-07-2022 11:07-0400 Heart rate 106 /min Liudmila Lue [facility] 10-07-2022 11:07-0400 Systolic blood pressure 146 mm[Hg] Liudmila Lue [facility] 08-19-2022 11:10-0400 Body height 172.72 cm Ernestine Little Other [employer] [facility] [employer] Other 08-19-2022 11:10-0400 Body mass index (BMI) [Ratio] 35.58 kg/m2 Ernestine Little Other [employer] [facility] [employer] Other 08-19-2022 11:10-0400 Body temperature 98.2 [degF] Ernestine Little Other [employer] Other 08-19-2022 11:10-0400 Body weight 106.14 kg Ernestine Little Other [employer] [facility] [employer] Other 08-19-2022 11:10-0400 Respiratory rate 18 /min Ernestine Little Other [facility] [employer] Other 08-19-2022 11:10-0400 SaO2% (BldA) [Mass fraction] 96 % Ernestine Little Other [facility] [employer] Other 07-23-2022 16:06-0400 Heart rate 89 /min Liudmila Lue [facility] 07-23-2022 16:06-0400 SaO2% (BldA) [Mass fraction] 96 % Lidumila Lue [facility] 07-23-2022 16:06-0400 Respiratory rate 18 /min Liudmila Lue [facility] 07-23-2022 16:06-0400 Diastolic blood pressure 85 mm[Hg] Liudmila Lue [facility] 07-23-2022 16:06-0400 Mean blood pressure 102 mm[Hg] Liudmila Lue [facility] 07-23-2022 16:06-0400 Systolic blood pressure 136 mm[Hg] Liudmila Lue [facility] 07-23-2022 15:20-0400 Blood Pressure Location Liudmila Lue [facility] 07-23-2022 15:20-0400 Diastolic blood pressure 98 mm[Hg] Liudmila Lue [facility] 07-23-2022 15:20-0400 Heart rate 92 /min Liudmila Lue [facility] 07-23-2022 15:20-0400 Mean blood pressure 117 mm[Hg] Liudmila Lue [facility] 07-23-2022 15:20-0400 Respiratory rate 16 /min Liudmila Lue [facility] 07-23-2022 15:20-0400 SaO2% (BldA) [Mass fraction] 95 % Liudmila Lue [facility] 07-23-2022 15:20-0400 Systolic blood pressure 155 mm[Hg] Liudmila Lue [facility] 07-23-2022 15:10-0400 Blood Pressure Location Liudmila Lue [facility] 07-23-2022 15:10-0400 Diastolic blood pressure 85 mm[Hg] Liudmila Lue [facility] 07-23-2022 15:10-0400 Heart rate 82 /min Liudmila Lue [facility] 07-23-2022 15:10-0400 Mean blood pressure 104 mm[Hg] Liudmila Lue [facility] 07-23-2022 15:10-0400 Respiratory rate 8 /min Liudmila Lue [facility] 07-23-2022 15:10-0400 SaO2% (BldA) [Mass fraction] 98 % Liudmila Lue [facility] 07-23-2022 15:10-0400 Systolic blood pressure 141 mm[Hg] Liudmila Lue [facility] 07-23-2022 15:00-0400 Mean blood pressure 105 mm[Hg] Liudmila Lue [facility] 07-23-2022 15:00-0400 Respiratory rate 11 /min Liudmila Lue [facility] 07-23-2022 14:55-0400 Respiratory rate 15 /min Liudmila Lue [facility] 07-23-2022 14:47-0400 Body temperature 97.34 [degF] Liudmila Lue [facility] 07-23-2022 12:09-0400 Mean blood pressure 102 mm[Hg] Liudmila Lue [facility] 07-23-2022 12:09-0400 Heart rate 96 /min Liudmila Lue [facility] 07-23-2022 12:08-0400 Respiratory rate 20 /min Liudmila Lue [facility] 07-23-2022 12:07-0400 Body temperature 98.96 [degF] Liudmila Lue [facility] 07-23-2022 12:07-0400 Mean blood pressure 109 mm[Hg] Liudmila Lue [facility] 07-22-2022 08:38-0400 Blood Pressure Location Liudmila Lue [facility] 07-22-2022 08:38-0400 Diastolic blood pressure 114 mm[Hg] Liudmila Lue [facility] 07-22-2022 08:38-0400 Heart rate 103 /min Liudmila Lue [facility] 07-22-2022 08:38-0400 Systolic blood pressure 134 mm[Hg] Liudmila Lue [facility] 06-25-2022 13:10-0400 Body height 172.72 cm Ernestine Little Other [employer] Other 06-25-2022 13:10-0400 Body mass index (BMI) [Ratio] 35.27 kg/m2 Ernestine Little Other [employer] Other 06-25-2022 13:10-0400 Body temperature 97.7 [degF] Ernestine Little Other [employer] Other 06-25-2022 13:10-0400 Body weight 105.24 kg Ernestine Little Other [employer] Other 06-25-2022 13:10-0400 Respiratory rate 18 /min Ernestine Little Other [employer] Other 06-25-2022 13:10-0400 SaO2% (BldA) [Mass fraction] 97 % Ernestine Little Other [employer] Other 12-18-2021 14:30-0400 Body height 172.72 cm Nery Beasleyault Other [employer] Other 12-18-2021 14:30-0400 Body mass index (BMI) [Ratio] 32.54 kg/m2 Nery Abdon Other [employer] Other 12-18-2021 14:30-0400 Body temperature 98 [degF] Nery Abdon Other [employer] Other 12-18-2021 14:30-0400 Body weight 97.07 kg Nery Abdon Other [employer] Other 12-18-2021 14:30-0400 Diastolic blood pressure 77 mm[Hg] Nery Coppola Other [employer] Other 12-18-2021 14:30-0400 Respiratory rate 18 /min Nery Coppola Other [employer] Other 12-18-2021 14:30-0400 SaO2% (BldA) [Mass fraction] 98 % Nery Coppola Other [employer] Other 12-18-2021 14:30-0400 Systolic blood pressure 111 mm[Hg] Nery Coppola Other [employer] Other 12-30-2020 16:00-0400 Body height 172.72 cm Lilia Lindsaynty Other [employer] Other 12-30-2020 16:00-0400 Body mass index (BMI) [Ratio] 33.45 kg/m2 Lilia Ginty Other [employer] Other 12-30-2020 16:00-0400 Body weight 99.79 kg Lilia Lindsaynty Other [employer] Other Encounters Encounter Date Encounter Type Care Provider Facility Start: 09-15-2024 ambulatory José Vela acility:[facility] Start: 06-29-2024 End: 06-29-2024 ambulatory PHYSICIAN NO [facility] Work Phone: Start: 06-29-2024 End: 06-29-2024 Departed Referred PHYSICIAN NO [facility] Start: 06-28-2024 Registered Recurring PHYSICIAN DUNG COATS [facility] Start: 01-12-2024 End: 01-12-2024 ambulatory PHYSICIAN NO [facility] Work Phone: Start: 01-12-2024 End: 01-12-2024 Patient encounter procedure PHYSICIAN NO [facility] Work Phone: Start: 12-31-2023 Registered Recurring PHYSICIAN NO [facility] Start: 05-15-2023 End: 05-15-2023 ambulatory [facility] Work Phone: Start: 05-15-2023 End: 05-15-2023 Patient encounter procedure [facility] Physician [facility] Work Phone: Start: 01-06-2023 End: 01-07-2023 ambulatory Liudmila M. Lue Facility:[facility] Start: 01-06-2023 End: 01-06-2023 Patient encounter procedure Liudmila M. Lue [facility] Start: 10-07-2022 End: 10-08-2022 ambulatory Liudmila M. Lue Facility:[facility] Start: 10-07-2022 End: 10-07-2022 Patient encounter procedure Liudmila M. Lue [facility] Start: 08-19-2022 End: 08-19-2022 ambulatory Ernestine Little Other [facility] Other Start: 08-19-2022 Office outpatient vi sit 15 minutes Ernestine Little [facility] Start: 08-12-2022 End: 08-13-2022 ambulatory LIUDMILA M LUE . Facility:[facility] Start: 08-08-2022 Encounter for other preprocedural examination LIUDMILA M LUE . [facility] Start: 08-04-2022 End: 08-05-2022 ambulatory LIUDMILA M LUE . Facility:[facility] Start: 08-04-2022 End: 08-05-2022 Encounter for other preprocedural examination LIUDMILA M LUE . Facility:[facility] Start: 07-31-2022 End: 07-31-[address] ENEIDA BERNARD . Facility: Start: 07-23-2022 End: 07-23-2022 ambulatory Liudmila Daniels [place] Start: 07-23-2022 End: 07-23-2022 Admission to same day surgery center Liudmila Daniels [facility] Start: 07-22-2022 End: 07-23-2022 ambulatory Liudmila Daniels Facility:[facility] Start: 07-22-2022 End: 07-22-2022 Patient encounter procedure Liudmila Daniels [facility] Start: 07-15-2022 ambulatory Liudmila Jeremiah Facility:[facility] [place] Start: 07-15-2022 End: 07-15-[address] ENEIDA BERNARD . Facility: Start: 06-25-2022 End: 06-25-2022 ambulatory Ernestine Little Other [place] Other Start: 06-25-2022 Office outpatient vi sit 15 minutes Ernestine Little [facility] Start: 02-04-2022 End: 02-05-2022 ambulatory NONE LISTED REQUEST Facility: Start: 12-18-2021 End: 12-18-2021 ambulatory Nery Coppola Other [place] Other Start: 12-18-2021 Office outpatient vi sit 15 minutes Nery Coppola [facility] Start: 12-30-2020 Office outpatient vi sit 15 minutes Lilia Bowden [facility] Start: 03-08-2018 End: 03-09-2018 Patient encounter procedure DEFAULT PHYSICIAN Facility:[facility] Procedures Date Procedure Procedure Detail Performing Clinician Start: 05-15-2023 Quick Strep (POC) Start: 08-12-2022 Ureteroscopy Liudmila Daniels Start: 07-23-2022 Cystoscopic laser lithotripsy of ureteric calculus Liudmila Lue Start: 07-23-2022 Cystoscopy Liudmila Lue Start: 08-20-2018 Dilation and curettage Liudmila Lue Plan of Treatment Date Care Activity Detail Author Start: 06-29-2024 Urine culture [facility] Start: 06-29-2024 Bacteria identified in Urine by Culture Urine Culture [facility] Immunizations Immunization Date Immunization Notes Care Provider Fa cili 02-03-2022 influenza virus vaccine, unspecified formulation Liudmila Lue [facility] 07-27-2020 SARS-CoV-2 (COVID-19 ) mRNA [id number] vax Liudmila Lue [facility] 07-06-2020 SARS-CoV-2 (COVID-19 ) mRNA [id number] vax Liudmila Lue [facility] 10-04-2014 tetanus toxoid, redu andrew diphtheria toxoid, and acellular pertussis vaccine, adsorbed Liudmila Lue [facility] 06-14-2011 tetanus toxoid, redu andrew diphtheria toxoid, and acellular pertussis vaccine, adsorbed Liudmila Lue [facility] 11-05-1998 measles, mumps and rubella virus vaccine Liudmila Lue [facility] Payers Date Payer Category Payer Self-pay [id number] 2022 Medicaid [id number] 2. [id number] 1985 Unknown [id number] 2.16.8 [id number] 1985 Unknown [id number] 2.16.84 0.1.158015.3.579.2.593 1986 Unknown [id number] 2.16.84 0.1.183284.3.579.2.593 1986 Unknown [id number] 2.16.84 0.1.393979.3.579.2.593 1986 Unknown [id number] 2.16.84 0.1.222274.3.579.2.593 1986 Unknown [id number] 2.16.84 0.1.110536.3.579.2.593 1986 Unknown [id number] 2.16.8 40.1.171813.3.579.2.727 1986 Unknown [id number] 2.16.8 40.1.208214.3.579.2.727 1986 Unknown [id number] 2.16.8 40.1.042882.3.579.2.727 1986 Unknown [id number] 2.16.8 40.1.838884.3.579.2.727 1986 Unknown [id number] 2.16.8 40.1.503747.3.579.2.727 1986 Unknown [id number] 2.16.8 40.1.700129.3.579.2.727 1959 Unknown [id number] 2.1 [id number] Medicaid [place] Ad[employer] [id number] 001 [id number] Unknown Unknown [id number] 2.16.8 40.1.072997.3.579.2.531 Unknown [id number] 2.16.8 40.1.181634.3.579.2.531 Social History Date Type Detail Facility Sex Assigned At [facility] Start: 07-22-2022 End: 10-07-2022 Tobacco smoking status Light tobacco smoker (finding) [facility] Start: 05-15-2023 End: 05-15-2023 Tobacco smoking status Smoker (finding) [facility] Tobacco smoking status Never [facility] Start: 1985 Sex Assigned At Female [facility] Start: 07-01-2024 Sex Female (finding) [facility] Medical Equipment Procedure Code Equipment Code Equipment Origin al Text Equipment Identifier Dates CYSTOSCOPY RETROGRADE STENT INSERTION Liudmila Daniels MD 07/23/22 Non Biological Ureter L [id number] [facility] Start: 07-23-2022 Functional Status Date Assessment Result Facility 10-07-2022 Functional Status N/A [facility] 07-22-2022 Functional Status No [facility] 07-22-2022 Functional Status N/A [facility] Clinical Notes 12-30-2020 to 10-07-2022 [...] include: ?8 oz (237 mL) of milk, yphyhwq-oqqdqnnqcgin-jftfa milk, and calcium-fortifiedfruit juice. Calcium-fortified means that [...] ?Spinach (cooked), rhubarb, beets, sweet potatoes, and Kuwaiti chard. ?Peanuts. ?Potato chips, bangladeshi fries, and baked potatoes with skin on. ?Nuts and nut products. ?Chocolate. If you regularly take a diuretic medicine, make sure to eat at least 1 or 2 servings of fruits or vegetables that are high in potassium each day. These include: ?Avocado. ?Banana. ?[place]idan, prune, carrot, or tomato juice. ?Baked potato. [...] magnesium, fish oil, or vitamin B6. Take aetv-eoa-crpbcrz and prescription medicines only as told by [...] Casseroles. Pizza. Lasagna. Frozen meals. Potato chips. Libyan fries. The items listed above may not [...] provider. Document Revised: 11/17/2021 Document Reviewed: 11/17/2021 [employer] Patient Education 2022 [employer] Follow Up Care 08/19/2022 13:00:03 With:Jeremiah DAY, JEAN Goss, URO Address: When:Within 2 Month(s) Comments:w/ metabolic workup [facility] 08-19-2022 Evaluation note Encounter Date [...] the ER for worsening symptoms or concern [facility] Other 05-04-2023 Hospital Discharge instructions Patient Education 07/23/2022 15:42:28 Post Op Patient Instructions - FT (Custom) (CUSTOM) 07/23/2022 14:49:47 Famn-Aznl-jk Utereroscopy,Lithotripsy, Stone Extraction, Stent Placement (CUSTOM) [facility] [place], [place] Post-operative Instructions for Ureteroscopy, Laser Lithotripsy, [...] other reasons. If it is to remain superintendent container terminal, however, changes of the stent are required [...] schedule definitive stone treatment in 2 weeks [phone] 07/23/2022 14:49:47 Dietary Guidelines to Help Prevent [...] include: ?8 oz (237 mL) of milk, nfydtvw-odeaqpclsdje-qxsve milk, and calcium- fortifiedfruit juice. Calcium-fortified means [...] ?Spinach (cooked), rhubarb, beets, sweet potatoes, and Kuwaiti chard. ?Peanuts. ?Potato chips, bangladeshi fries, and baked potatoes with skin on. ?Nuts and nut products. ?Chocolate. If you regularly take a diuretic medicine, make sure to eat at least 1 or 2 servings of fruits or vegetables that are high in potassium each day. These include: ?Avocado. ?Banana. ?Sheridan, prune, carrot, or tomato juice. ?Baked potato. [...] magnesium, fish oil, or vitamin B6. Take hxpe-zkl-oaszkqg and prescription medicines only as told by [...] Casseroles. Pizza. Lasagna. Frozen meals. Potato chips. Libyan fries. The items listed above may not [...] provider. Document Revised: 11/17/2021 Document Reviewed: 11/17/2021 [employer] Patient Education 2022 [employer]. Follow Up Care 07/22/2022 10:11:55 With:Liudmila Daniels Address:Unknown When: Unknown Comments:Office will call to schedule left ureteroscopy, laser lithotripsy, stent exchange in 2 weeks [facility]05-04-2023 Evaluation + Plan noteExtracted from: Title:CSB post op Author:Merlene DAY, Rico Orlando Date:07/23/22 Plan Transfer/Discharge: Transfer/Discharge Discharge when meets criteria ( From PACU to Ambulatory Surgery Unit, and To home ). Extracted from: Title:EU- L URS, laser litho, stent placement Au thor:Jeremiah DAY, Liudmila Emery Date:07/23/22 Impression and Plan Diagnosis Ureteral stone with hydronephrosis (FEB51-TA N13.2, Discharge, Medical). Kidney stones (ULY06-JB N20.0, Discharge, Medical). Diagnosis Ureteral stone with hydronephrosis (GZC26-DY N13.2, Discharge, Medical). Kidney stones (RNN39-NL N20.0, Discharge, Medical). Extracted from: Title:YARI EVANGELISTA Author:Rico Blunt MD Date:07/23/22 Plan [place] [employer] Anesthesiologists (ASA) physical status classification: Class II. Anesthetic Preoperative Plan: Anesthesia General. Diagnostic Tests Pending * Urine Culture 07/23/22 * Calculi Analysis Urinary 07/23/22 [facility]05-03-2023 Note [id number]:127[facility] 07-22-2022 Hospital Discharge instructions Patient Education [...] including vitamins, herbs, eye drops, creams, and iade-vdt-axanetk medicines. Any problems you or family members [...] provider tells you to take them. ?Taking wtkv-qsj-dipxhcj medicines, vitamins, herbs, and supplements. Eating and [...] provider. Document Revised: 11/10/2021 Document Reviewed: 11/10/2021 [employer] 3 Patient Education 2022 [employer] Follow Up Care 07/15/2022 13:58:57 With:Liudmila Daniels MD, URL, URO Address: When: Unknown [facility] 2023 Evaluation note* Encounter Date [...] with a dentist as soon as possible. [facility] Other 09-29-2022 Evaluation note* Encounter Date Diagnosis Assessment Notes Treatment Notes Treatment Clinical Notes Nov, Tooth infection (ICD-10 - K04.7) Take medications as directed.Highly encourage patient to contact dentist JOEL for further treatment of infection. Do not take OTC medications like ibuprofen with prescriptions [facility] Other 10-11-2021 Evaluation note* Encounter Date Diagnosis [...] Patient care instructions given in writting by [facility] Care At Home document. [facility] Other Evaluation + Plan note Future Appointments Appointment Date:07/23/2022 02:30:00 PM Scheduled Provider: Location:[facility] Appointment Type:Surgery FT [facility] evaluation + Plan note Future Appointments Appointment Date:12/09/2022 10:45:00 AM Scheduled Provider:Liudmila Daniels MD Location:[facility] Appointment Type:URO Office Visit [facility] evalhwgqje note* Diagnosis Onset Date Resolution Status Renal stone none[facility] Work Phone: Evalusmozg note* Diagnosis Onset Date Resolution Status Contact with and (suspected) exposure to covid-[address] [facility] Work Phone: evaluqhukm noteNo assessment information available [facility] Work Phone: Hisrkwu general Narrative - Reported* Type Description Date Medical History chronic depression Medical History anxiety Medical History addiction, opiates [facility] [employer] Other Hisnmza general Narrative - Reported* Type Description Date Medical History chronic depression Medical History anxiety Medical History addiction, opiates Medical History Kidney stones Surgical History Kidney Stone Removal [facility] [employer] Other Hospital course Narrative No data available for this section [facility] Hospital Discharge instructions No data available for this section [facility] progress note No data available for this section [facility] Summary Purpose Family History No Family History Records Found Relationship Condition Age at Onset Recorded Date/T elana father Suicide Unknown Advance Directives No Advanced Directives Records Found Advance Directive Response Recorded Date/ Time Advance Directives No April 2:07pm Advance Directive Response Recorded Date/ Time Advance Directives No April 3:07pm Hospital Course Note MR#: [id number] I [facility] Pt. Name: Catie Lyons Admitted: 03/08/2018 Discharged: 03/12/2018 Date of : 1985 Physician: Darryl Keen M.D. DISCHARGE SUMMARY CHIEF COMPLAINT: Opioid use and cocaine use. HISTORY OF PRESENT ILLNESS: The patient is a 32-year-old female, admitted to [facility] Detox due to concern of using around [...] and content) DATE CREATED AUTHOR 04/12/2018 [facility] DATE CREATED AUTHOR AUTHOR'S ORGANIZ ATION 08/30/2022 [facility] DATE CREATED AUTHOR AUTHOR'S ORGANIZ ATION 01/08/2023 [facility] DATE CREATED AUTHOR AUTHOR'S ORGANIZ ATION 09/16/[address] [facility] ysician [facility] REASON FOR VISIT (unrecogniz ed section and content) #25 GREEN TRUCK, COUGH, NASA L AND CHEST CONGESTIONRIGHT LOWER TOOTH PAINRIGHT LOWER TOOTH PAIN, POSS INFECTIONINFECTION IN TOP TOOTH Care Teams (unrecognized sec tion and content) Team Status: Active Member Role Status Dates PHYSICIAN NO FAMILY Primary Care Provider Active Start: June 28, 2024 José Johnston MD Attending Provider Active Start: June 28, 2024 Team Status: Inactive Member Role Status Dates [...] BE BASED ON THE PRIMARY CLINICAL RECORDS. [employer] provides no warranty or guarantee of the accuracy or completeness of information in this document.
== END 2024-10-15 13:13 | disposition home or self-care (01) ==
PROVIDERS: Emergency Provider Emergency Medicine; PCP Nurse Practitioner Family
DX: T65.891A Toxic effect of other specified substances, accidental (unintentional), initial encounter (principal); R00.2 Palpitations
CPT/HCPCS: 93005; 99284; J1885; J2919